=== PATIENT | male | born 1940 | race Caucasian/White ===

== ENCOUNTER 2018-03-02 08:45 | Emergency (ER) | payer MEDICARE, OTHER, SELFPAY ==
[2018-03-02 08:46] VITALS: BP 119/61; PULSE 82; RESP 12; TEMP 35.6; BMI 24.7
--- NOTE | 2018-03-02 09:03 | CT_ITS ---
STUDY: CT ABDOMEN AND PELVIS WITH CONTRAST REASON FOR EXAM: Male, 77 years old. Left lower quadrant pain. Prostatic enlargement. RADIATION DOSAGE (If Supplied By Facility): CTDIvol = ( 18.46 ) mGy, DLP = ( 879.67 ) mGycm TECHNIQUE: Transaxial images were obtained from the dome of the diaphragm to the symphysis pubis without oral contrast. 100 ml of Isovue 300 contrast was administered. Sagittal and coronal images were reconstructed. Individualized dose optimization techniques were used for this CT. COMPARISON: None. FINDINGS: Breast tiny bilateral pleural effusions with bibasilar atelectasis. Coronary artery calcification. Normal liver. Normal gallbladder and extrahepatic biliary system. Normal spleen. Normal pancreas. Normal bilateral adrenal glands. Normal right kidney. Normal left kidney. There is a small hiatal hernia. Normal small intestine. There is diverticulosis, with thickening of the colon wall, and pericolonic inflammation changes consistent with acute diverticulitis. The patient is status post appendectomy. There is diffuse atherosclerotic calcification of the abdominal aorta, without a demonstrated aneurysm. Normal inferior vena cava. Normal retroperitoneum. Normal urinary bladder. There is enlargement of the prostate gland. It measures 4.5 cm x 5.8 cm. This causes indentation of the bladder base. There is a small umbilical hernia containing fat. Small bilateral inguinal hernias containing fat. There are mild degenerative changes of the visualized lumbar spine. CT/Abdomen/Pelvis W IV Cont ONLY IMPRESSION: Findings in keeping with noncomplicated acute sigmoid diverticulitis. Tiny bilateral pleural effusions with bibasilar atelectasis. Electronically Signed: Bam Dumont MD at 10:46 EST Tel [phone], Service support ,
--- NOTE | 2018-03-02 09:06 | ED.DCSUM_ITS ---
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 Patient states that yesterday evening he started having left lower quadrant abdominal pain. He denies any nausea, vomiting or diarrhea. No constipation. No melena. No fever or chills. No trauma. No back pain. No hematuria nor dysuria. States he is urinating normally. He denies ever having pain like this before. Physical Examination: Well-appearing older male. Vital signs are stable and afebrile. He is in no distress. HEENT exam unremarkable. Neck nontender. Lungs clear to auscultation bilaterally. Heart regular rhythm no murmur. Abdomen is soft. Nondistended. Normal bowel sounds. No signs of obstruction. With the right upper and right lower quadrants are completely nontender. He does have reproducible tenderness in the left lower quadrant. No hernias or masses are appreciated. No pulsatile mass. No peritoneal signs. Patient is moving all 4 extremities. Neurovascular intact. Back nontender. Neurologically is awake and alert with no focal motor deficits. Test Results: CBC normal white count of 6. Hemoglobin 13. Electrolytes unremarkable anion gap is 7 normal creatinine. UA negative. No signs of infection. CT abdomen pelvis with IV contrast only shows left sigmoid diverticulitis. No abscess. No perforation. Read by the radiologist. Reviewed by me. Emergency Department Course and Treatment: Patient will be treated with IV morphine and Zofran. 1 L normal saline. Repeat exam patient is doing well. I discussed all test results of both he and his . He will be given his first dose of Augmentin here in the ER. Treatment Plan: Augmentin 875 twice daily for 10 days. [place] for pain 14 no refill. Follow-up with his primary care physician. Return if worse. Disposition: Discharge Impression: Acute left lower quadrant abdominal pain secondary to uncomplicated sigmoid diverticulitis This note was generated with [employer] dictation software. It may contain incorrect words, spelling, and punctuation that were not noted in review of the chart prior to signing ED Disposition - Plan for ED Patient: Chief Complaint: Abd Pain Referrals: Stephen Quesada III, MD [Primary Care Provider] -
[2018-03-02 09:20] LABS: Absolute Lymphocyte Count 1.95 X10^3/ul (0.83-4.51); Absolute Neutrophil Count 3.9 X10^3/uL (2.0-7.7); Basophil# 0.01 X10^3/uL; Basophil% 0.2 % (0-1); Eosinophil# 0.12 X10^3/uL; Eosinophils% 1.9 % (0-5); Hematocrit 39.1 % (40-54); Lymphocyte # 1.95 X10^3/ul (4.0); Lymphocyte % 30.4 % (19-41); Mean Corp Hgb Conc 33.2 g/gl (32-36); Mean Corpuscular Hgb 28.1 pg (27.0-32.0); Mean Corpuscular Volume 84.4 fL (80-94); Mean Platelet Vol. 9.1 fl (6.2-12.0); Monocyte# 0.47 X10^3/uL; Monocyte% 7.3 % (0-10); Neutrophil # 3.85 X10^3/uL (2.7-7.7); Platelet Count 186 K/mm3 (150-450); RBC Distribution Width CV 13.1 % (11.6-14.6); RBC Distribution Width SD 40.1 fl (35.1-43.9); Red Blood Count 4.63 M/mm3 (4.6-6.2); White Blood Count 6.4 K/mm3 (4.4-11.0)
[2018-03-02 09:21] LABS: POSITIVE COUNT NO; POSITIVE DIFFERENTIAL NO; POSITIVE MORPHOLOGY NO
[2018-03-02] MEDS: Ondansetron 4 MG/2 ML Vial IV (09:21)
[2018-03-02] MEDS: 0.9% Normal Saline 1,000 ML 1000 ML IV (09:21)
[2018-03-02] MEDS: Morphine 4 MG/ML Syringe IV (09:21)
[2018-03-02 09:32] LABS: Anion Gap 7 (5-15); BUN 15 mg/dL (7-18); BUN/Creat Ratio 14.9 RATIO (10-20); Calcium,Total 8.4 mg/dL (8.5-10.1); Chloride 108 mmol/L (98-107); Creatinine, Serum 1.01 mg/dL (0.70-1.30); EST Glomerular Filtration Rate 76 mL/min (>60); Est Glom Filt Rate - Afr Amer 92 mL/min (>60); Estimated Creatinine Clearance 58.17 ml/min; Glucose 96 mg/dL (74-106); Potassium 3.4 mmol/L (3.5-5.1); Sodium Level 143 mmol/L (136-145)
[2018-03-02 10:17] LABS: Bacteria 0 SEEN /hpf (None Seen); Squamous Epithelial Cells - UA 0 SEEN /hpf (0-5)
[2018-03-02 10:21] LABS: Color, Urine Yellow (Yellow); Glucose, Dipstick Normal (Normal); Ketone-Dipstick 5 mg/dl (Negative); Leukocyte Esterase-Dipstick 25 /ul (Negative); Nitrite-Dipstick Negative (Negative); Occult Blood-Urine 10 /ul (Negative); Protein-Dipstick 30 mg/dl (Negative); Specific Gravity, Urine 1.015 (1.002-1.030); Urine Clarity Sl. Cloudy (Clear); Urine Urobilinogen 8 mg/dl (Normal)
[2018-03-02 10:24] LABS: Urine Bilirubin Dipstick 1 mg/dL (Negative)
[2018-03-02 10:27] LABS: Mucous, Urine 2+ /hpf (<or=2+); Red Blood Cells-Urine 0-5 SEEN /hpf (0-5); White Blood Cells 0-5 SEEN /hpf (0-5)
[2018-03-02 11:03] VITALS: RESP 18
--- NOTE | 2018-03-02 11:12 | ED.DEP ---
ED Disposition - Plan for ED Patient: Disposition: Home or Assisted Living Chief Complaint: Abd Pain Instructions: ED Diverticulitis Prescriptions: Hydrocodone Bitart/Apap 5-325 [[place] 5MG-325MG] 1 tab PO Q6H PRN PRN 3 Days #14 tab PRN Reason: Pain Amox/Clavulanate Tablet [Augmentin Tablet] 875 mg PO Q12H #20 tab Referrals: Stephen Quesada III, MD [Primary Care Provider] - 1 Week Additional Instructions: Plenty of fluids and rest. Augmentin 1 pill twice a day for 10 days. [place] for pain as needed. Call and follow-up with your doctor to ensure you are improving. Sometimes in ED extend antibiotic treatment for more than 10 days.
--- NOTE | 2018-03-02 11:16 | DCINST.ED_ITS ---
ED Disposition - Plan for ED Patient: Disposition: Home or Assisted Living Chief Complaint: Abd Pain Instructions: ED Diverticulitis Prescriptions: Hydrocodone Bitart/Apap 5-325 [[place] 5MG-325MG] 1 tab PO Q6H PRN PRN 3 Days #14 tab PRN Reason: Pain Amox/Clavulanate Tablet [Augmentin Tablet] 875 mg PO Q12H #20 tab Referrals: Stephen Quesada III, MD [Primary Care Provider] - 1 Week Additional Instructions: Plenty of fluids and rest. Augmentin 1 pill twice a day for 10 days. [place] for pain as needed. Call and follow-up with your doctor to ensure you are improving. Sometimes in ED extend antibiotic treatment for more than 10 days.
[2018-03-02] MEDS: Amox/Clavulanate 875 MG Tablet PO (11:53)
--- OUTSIDE RECORDS SUMMARY | 2018-06-03 21:38 | XMS RPT_ITS ---
:1940 Author Organization OHIP Care Team Providers Name Role Phone Jerald Bolden III Primary Care Unavailable Daniel Diego Attending Unavailable RODERICK COBOS Admitting Unavailable RODERICK COBOS Attending Unavailable LOUISE KNAPP (PT) Attending Unavailable ALEXIS DELAROSA) Referring Unavailable LOUISE KNAPP (PT) Attending Unavailable ALEXIS DELAROSA () Referring Unavailable YOCASTA HENSON (PA) Referring Unavailable RODERICK COBOS Attending Unavailable LOUISE KNAPP (PT) Attending Unavailable ALEXIS DELAROSA) Referring Unavailable BECKY ROBLERO (DAMIÁN-C) Attending Unavailable BECKY ROBLERO (PA-C) Referring Unavailable BECKY ROBLERO (PA-C) Referring Unavailable RODERICK COBOS Attending Unavailable BECKY ROBLERO (DAMIÁN-C) Attending Unavailable ALEXIS DELAROSA) Referring Unavailable ALEXIS DELAROSA) Referring Unavailable BECKY ROBLERO (PA-C) Referring Unavailable BECKY ROBLERO (DAMIÁN-C) Referring Unavailable ALEXIS DELAROSA) Referring Unavailable ALEXIS DELAROSA) Admitting Unavailable ALEXIS DELAROSA) Attending Unavailable BECKY ROBLERO (PA-C) Attending Unavailable BECKY ROBLERO (PA-C) Referring Unavailable MARCOS ZAVALA (DIAGRAMMER) Attending Unavailable ALEXIS DELAROSA) Attending Unavailable ALEXIS DELAROSA) Referring Unavailable JERALD BOLDEN III Referring Unavailable SERGIO, RODERICK E Referring Unavailable SERGIO, RODERICK E Attending Unavailable SERGIO, RODERICK E Referring Unavailable SERGIO, RODERICK E Referring Unavailable SERGIO, RODERICK E Referring Unavailable MARCOS ZAVALA (DIAGRAMMER) Attending Unavailable RODERICK HILL Attending Unavailable RODERICK HILL Referring Unavailable PROBLEMS PROBLEMS DATE TYPE CONDITION / CODE ATTENDING STATUS SOURCE 03/02/2018 Unknown K57.32 - Diego Daniel Active [place] Diverticulitis of [facility] without perforation Repository or abscess without bleeding / K57.32(ICD-10) 02/03/2018 Active Other hyperlipidemia NA Active [place] / E78.49(ICD-10) Clinic Main [place] Repository 12/13/2017 Active Encounter for NA Active [place] immunization / Clinic Main Z23(ICD-10) [place] Repository 11/19/2017 Active 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 / Z95.2(ICD-10) [place] Repository 07/16/2017 Active Lumbago with ISAURA, Active [place] sciatica, right side ALEXIS DEL VAL[place]) Clinic Main / M54.41(ICD-10) [place] Repository 07/16/2017 Active Other chronic pain / ISAURA, Active [place] G89.29(ICD-10) ALEXIS [place]) Clinic Main [place] Repository 07/16/2017 Active Radiculopathy, site ISAURA, Active [place] unspecified / ALEXIS DEL [place]LE) Clinic Main M54.10(ICD-10) [place] Repository 08/05/2017 Active Encounter for other NA Active [place] preprocedural Clinic Main examination / [place] Z01.818(ICD-10) Repository 07/03/2017 Active Postlaminectomy RODERICK COBOS Active [place] syndrome, not Clinic Other elsewhere classified [place] / M96.1(ICD-10) Repository 06/20/2017 Active Other specified NA Active [place] postprocedural states Clinic Main / Z98.890(ICD-10) [place] Repository 06/05/2017 Active Pain in right hip / NA Active [place] M25.551(ICD-10) Clinic Main [place] Repository 05/26/2017 Active Unknown / LOUISE KNAPP Active [place] UNK(Unknown) (PT) Clinic Main [place] Repository PROCEDURES PROCEDURES No Procedure Records FoundRESULTS RESULTS PROGRESS Observed: 03/12/2018 Status: COMPLETED Source: [place] 9:22 AM [facility] REPOSITORY HNO ID: [id number] Author: Marcos Toth (Elvis) Lucas Service: (none) Author Type: Nurse Practitioner Type: Progress Notes Filed: 03/12/2018 3:06 PM Note Text: Chief Complaint Patient presents with: ED Follow-up: was seen in [facility] for abdominal pain HPI Shyam Hernández is a 77 year old male who presents here today for Above Complaints. Seen, treated for confirmed Diverticulitis. Seen at [facility] ED on 03/02/18, notes and CT scan and labs reviewed. Confirmed left sigmoid diverticulitis. CBC was normal with WBC of 6, hgb-13, Electrolytes unremarkable. Normal Creatinine. UA negative. No abscess, no perforation. He was treated with 10 day course of Augmenting 875 mg. His recovery was impeded by gastroenteritis with vomiting and diarrhea starting on 03/08/18, 6 days of treatment with Augmentin. He reports he continued to try to take the antibiotic but he admits few doses did not stay down. He has been staying hydrated with clear liquids, G2, Gingerale, water and Mt. Dew. He has started advancing his diet to bland soft and appetite is returning. He was also given House for pain in the ED, few doses left. Reports pain significantly improved, (he walked to this OV), denies fever, denies blood in stool, no further vomiting for past 2-3 days and BM's normalizing. Anxiety, situational stress, insomnia. In the past he has used rare Alprazolam when unable to sleep. He notes dog now has pancreatitis, just placed his mother in a retirement and so gave him one of her Lorazepam tablets to help him sleep few nights ago which he noted worked better than Alprazolam. Would like own rx for Lorazepam on rare occasion he is unable to settle down and sleep. Past medical history, appointments, medications, allergies reviewed. Previous Medical History PAST MEDICAL HISTORY Diagnosis Date - Acute gastritis - Allergic rhinitis due to other allergen - Aortic valve disorders - Degenerative arthritis of cervical spine 07/14/2013 - Diverticulosis of colon (without mention of hemorrhage) - Esophageal reflux - Internal hemorrhoids without mention of complication - Lumbago - Mental disorder - Other anxiety states - Snoring - Trigeminal neuralgia Previous Surgical History PAST SURGICAL HISTORY Procedure Laterality Date - APPENDECTOMY - COLONOSCOP W/ OR W/O [facility] SPEC 09/27/2005 Colonoscopy - COLONOSCOP W/ OR W/O [facility] SPEC 11/10/15 Colonoscopy - ECHO - EGD W/O OR W/BRUSH/WASH 07/05/2002 EGD - HEART SURGERY HX 2005 Aortic Cow valve replacement - PAST SURGICAL HISTORY OF 1994 Left parotid gland tumor- benign - PAST SURGICAL HISTORY OF right big toe x 2 - PAST SURGICAL HISTORY OF ORIF right ankle - REPAIR ING HERNIA,5+Y/O,REDUCIBL Hernia repair, inguinal - SIGMOIDOSCOPY FLEX DIAG 03/04/2000 Sigmoidoscopy Family History FAMILY HISTORY Problem Relation Age of Onset - COPD Father - Lipids Mother Patient Allergies ALLERGIES Allergen Reactions - Codeine Mental Status Change - Sulfa (Sulfonamide * Hives Current Medications Current Outpatient Prescriptions on File Prior to Visit: acetaminophen (TYLENOL) 325 mg tablet Take 650 mg by mouth every 6 hours as needed. ASPIRIN 81MG TABLET Take one (1) tablet daily . atorvastatin (LIPITOR) 20 mg tablet Take 1 tablet by mouth once daily. doxazosin (CARDURA) 4 mg tablet Take 1 tablet by mouth once daily. escitalopram oxalate (LEXAPRO) 20 mg tablet TAKE 1 TABLET BY MOUTH EVERY DAY finasteride (PROSCAR) 5 mg tablet Take 1 tablet by mouth once daily. loratadine (CLARITIN) 10 mg tablet Take 1 tablet by mouth once daily. niacin ER (NIASPAN) 500 mg tablet TAKE 1 TABLET BY MOUTH ONE TIME DAILY omeprazole (PRILOSEC) 20 mg capsule TAKE 1 CAPSULE BY MOUTH EVERY DAY pregabalin (LYRICA) 100 mg capsule One capsule by mouth twice a day (Patient not taking: Reported on 09/18/2017 ) No current facility-administered medications on file prior to visit. Social History Social History Marital status: Spouse name: Years of education: Number of children: 2 Occupational History Occupation Employer Comment RETIRED [employer] Social History Main Topics Smoking status: Former Smoker Packs/day: 0.00 Years: 0.00 Quit date: 06/17/1984 Smokeless tobacco: Never Used Comment: quit pipe 1984 Alcohol use: Yes Comment: occassionally Drug use: No Review of Symptoms REVIEW OF SYSTEMS PAIN ASSESSMENT: Negative for pain, history of chronic pain, or current treatment for a chronic pain condition. GENERAL: No weight loss, malaise or fevers RESPIRATORY: Negative for cough, hemoptysis, wheezing, COPD, dyspnea or shortness of breath CARDIOVASCULAR: Negative for chest pain, leg swelling, hypertension, CHF or palpitations GI: No nausea, vomiting, or diarrhea, No heartburn or reflux symptoms and See HPI : No history of dysuria, frequency or incontinence PSYCH: See HPI EXAM: BP 122/62 (BP Site: Right Arm, BP Position: Sitting, BP Cuff Size: Regular Adult) Pulse (!) 56 Temp 36.6 ?C (97.8 ?F) (Tympanic) Resp 18 Wt 69.9 kg (154 lb) BMI 24.12 kg/m? General Appearance: Well appearing, alert, in no acute distress, well-hydrated, well nourished.. Skin: Skin color, texture, turgor normal, no suspicious rashes or lesions. Oropharynx: Lips, mucosa, and tongue normal, teeth and gums normal, oropharynx normal. Neck: Supple, no adenopathy; thyroid symmetric, normal size, no bruits. Lungs: lungs clear to auscultation. No wheezing, rhonchi, rales. Heart: RRR without murmur, gallop, or rubs. No ectopy. Abdomen: Normal abdominal exam, Abdomen soft, Bowel sounds normal. No masses, organomegaly, Negative CVA tenderness, Positive findings: tenderness mild LLQ. No guarding or rebound tenderness. Health Maintenance List COLORECTAL CANCER SCREENING,SEE MODIFIER due on 11/09/2018 DIABETES SCREEN due on 08/05/2020 DTAP,TDAP,TD(2 - Td) due on 04/02/2021 LIPID SCREEN due on 02/03/2023 ADULT PREVNAR-13 Completed INFLUENZA Completed PNEUMOVAX AGE 65 AND OVER WITH 5YR LOOKBACK Completed Data reviewed ER reports and labs. ASSESSMENT/PLAN: 1. Diverticulitis - ICD9: 562.11, ICD10: K57.92 (primary diagnosis) - due to lapse in medication due to GI virus, we will extend the antibiotic another few days. Given instructions to complete full course of antibiotics. - discussed with patient potential for recurrence. Red flags and action plan reviewed. To f/u if sx worsen. The patient indicates understanding of these issues and agrees with the plan. - AMOXICILLIN 875 MG-POTASSIUM CLAVULANATE 125 MG TABLET 2. Situational stress - ICD9: V62.89, ICD10: F43.9 PDMP website checked and validated. All prescriptions have been APPROPRIATELY filled. No suspicious activity was identified. 03/12/2018 by Marcos Zavala, MSN [facility]ROUGE MILLER - LORAZEPAM 0.5 MG TABLET 3. Chronic insomnia - ICD9: 780.52, ICD10: F51.04 - As above. - LORAZEPAM 0.5 MG TABLET Marcos Zavala MSN [facility].ROUGE MILLER CNOV Observed: 03/12/2018 Status: COMPLETED Source: [place] 9:00 AM [facility] REPOSITORY Office Visit (FAMPWS) SHYAM HERNÁNDEZ ([id number]) 1940 M NFR Date Time Provider Department 03/12/18 9:00 AM MARCOS ZAVALA (DIAGRAMMER) FAMPWS During your visit today, we recorded the following information about you: Temperature Pulse Respiration Blood pressure 97.8 degrees 56/minute 18/minute 122/62 Weight 69.9 kg ENEDINA Nascimento [facility]ROU[facility] MILLER 03/12/2018 3:06 PM Signed Chief Complaint Patient presents with: ED Follow-up: was seen in [facility] for abdominal pain HPI Shyam Hernández is a 77 year old male who presents here today for Above Complaints. Seen, treated for confirmed Diverticulitis. Seen at [facility] ED on 03/02/18, notes and CT scan and labs reviewed. Confirmed left sigmoid diverticulitis. CBC was normal with WBC of 6, hgb-13, Electrolytes unremarkable. Normal Creatinine. UA negative. No abscess, no perforation. He was treated with 10 day course of Augmenting 875 mg. His recovery was impeded by gastroenteritis with vomiting and diarrhea starting on 03/08/18, 6 days of treatment with Augmentin. He reports he continued to try to take the antibiotic but he admits few doses did not stay down. He has been staying hydrated with clear liquids, G2, Gingerale, water and Mt. Dew. He has started advancing his diet to bland soft and appetite is returning. He was also given House for pain in the ED, few doses left. Reports pain significantly improved, (he walked to this OV), denies fever, denies blood in stool, no further vomiting for past 2-3 days and BM's normalizing. Anxiety, situational stress, insomnia. In the past he has used rare Alprazolam when unable to sleep. He notes dog now has pancreatitis, just placed his mother in a retirement and so gave him one of her Lorazepam tablets to help him sleep few nights ago which he noted worked better than Alprazolam. Would like own rx for Lorazepam on rare occasion he is unable to settle down and sleep. Past medical history, appointments, medications, allergies reviewed. Previous Medical History PAST MEDICAL HISTORY Diagnosis Date - Acute gastritis - Allergic rhinitis due to other allergen - Aortic valve disorders - Degenerative arthritis of cervical spine 07/14/2013 - Diverticulosis of colon (without mention of hemorrhage) - Esophageal reflux - Internal hemorrhoids without mention of complication - Lumbago - Mental disorder - Other anxiety states - Snoring - Trigeminal neuralgia Previous Surgical History PAST SURGICAL HISTORY Procedure Laterality Date - APPENDECTOMY - COLONOSCOP W/ OR W/O [facility] SPEC 09/27/2005 Colonoscopy - COLONOSCOP W/ OR W/O [facility] SPEC 11/10/15 Colonoscopy - ECHO - EGD W/O OR W/BRUSH/WASH 07/05/2002 EGD - HEART SURGERY HX 2004 Aortic Cow valve replacement - PAST SURGICAL HISTORY OF 1994 Left parotid gland tumor- benign - PAST SURGICAL HISTORY OF right big toe x 2 - PAST SURGICAL HISTORY OF ORIF right ankle - REPAIR ING HERNIA,5+Y/O,REDUCIBL Hernia repair, inguinal - SIGMOIDOSCOPY FLEX DIAG 03/04/2000 Sigmoidoscopy Family History FAMILY HISTORY Problem Relation Age of Onset - COPD Father - Lipids Mother Patient Allergies ALLERGIES Allergen Reactions - Codeine Mental Status Change - Sulfa (Sulfonamide * Hives Current Medications Current Outpatient Prescriptions on File Prior to Visit: acetaminophen (TYLENOL) 325 mg tablet Take 650 mg by mouth every 6 hours as needed. ASPIRIN 81MG TABLET Take one (1) tablet daily . atorvastatin (LIPITOR) 20 mg tablet Take 1 tablet by mouth once daily. doxazosin (CARDURA) 4 mg tablet Take 1 tablet by mouth once daily. escitalopram oxalate (LEXAPRO) 20 mg tablet TAKE 1 TABLET BY MOUTH EVERY DAY finasteride (PROSCAR) 5 mg tablet Take 1 tablet by mouth once daily. loratadine (CLARITIN) 10 mg tablet Take 1 tablet by mouth once daily. niacin ER (NIASPAN) 500 mg tablet TAKE 1 TABLET BY MOUTH ONE TIME DAILY omeprazole (PRILOSEC) 20 mg capsule TAKE 1 CAPSULE BY MOUTH EVERY DAY pregabalin (LYRICA) 100 mg capsule One capsule by mouth twice a day (Patient not taking: Reported on 09/18/2017 ) No current facility-administered medications on file prior to visit. Social History Social History Marital status: Spouse name: Years of education: Number of children: 2 Occupational History Occupation Employer Comment RETIRED [employer] Social History Main Topics Smoking status: Former Smoker Packs/day: 0.00 Years: 0.00 Quit date: 06/17/1984 Smokeless tobacco: Never Used Comment: quit pipe 1984 Alcohol use: Yes Comment: occassionally Drug use: No Review of Symptoms REVIEW OF SYSTEMS PAIN ASSESSMENT: Negative for pain, history of chronic pain, or current treatment for a chronic pain condition. GENERAL: No weight loss, malaise or fevers RESPIRATORY: Negative for cough, hemoptysis, wheezing, COPD, dyspnea or shortness of breath CARDIOVASCULAR: Negative for chest pain, leg swelling, hypertension, CHF or palpitations GI: No nausea, vomiting, or diarrhea, No heartburn or reflux symptoms and See HPI : No history of dysuria, frequency or incontinence PSYCH: See HPI EXAM: BP 122/62 (BP Site: Right Arm, BP Position: Sitting, BP Cuff Size: Regular Adult) Pulse (!) 56 Temp 36.6 ?C (97.8 ?F) (Tympanic) Resp 18 Wt 69.9 kg (154 lb) BMI 24.12 kg/m? General Appearance: Well appearing, alert, in no acute distress, well-hydrated, well nourished.. Skin: Skin color, texture, turgor normal, no suspicious rashes or lesions. Oropharynx: Lips, mucosa, and tongue normal, teeth and gums normal, oropharynx normal. Neck: Supple, no adenopathy; thyroid symmetric, normal size, no bruits. Lungs: lungs clear to auscultation. No wheezing, rhonchi, rales. Heart: RRR without murmur, gallop, or rubs. No ectopy. Abdomen: Normal abdominal exam, Abdomen soft, Bowel sounds normal. No masses, organomegaly, Negative CVA tenderness, Positive findings: tenderness mild LLQ. No guarding or rebound tenderness. Health Maintenance List COLORECTAL CANCER SCREENING,SEE MODIFIER due on 11/09/2018 DIABETES SCREEN due on 08/05/2020 DTAP,TDAP,TD(2 - Td) due on 04/02/2021 LIPID SCREEN due on 02/03/2023 ADULT PREVNAR-13 Completed INFLUENZA Completed PNEUMOVAX AGE 65 AND OVER WITH 5YR LOOKBACK Completed Data reviewed ER reports and labs. ASSESSMENT/PLAN: 1. Diverticulitis - ICD9: 562.11, ICD10: K57.92 (primary diagnosis) - due to lapse in medication due to GI virus, we will extend the antibiotic another few days. Given instructions to complete full course of antibiotics. - discussed with patient potential for recurrence. Red flags and action plan reviewed. To f/u if sx worsen. The patient indicates understanding of these issues and agrees with the plan. - AMOXICILLIN 875 MG-POTASSIUM CLAVULANATE 125 MG TABLET 2. Situational stress - ICD9: V62.89, ICD10: F43.9 PDMP website checked and validated. All prescriptions have been APPROPRIATELY filled. No suspicious activity was identified. 03/12/2018 by Marcos Zavala, MSN [facility]ER - LORAZEPAM 0.5 MG TABLET 3. Chronic insomnia - ICD9: 780.52, ICD10: F51.04 - As above. - LORAZEPAM 0.5 MG TABLET Marcos Zavala, MSN [facility] MILLER Referring Provider: SELF [[id number]] Allergies As of Date: 03/12/2018 Noted Allergy Reaction CODEINE 09/14/2003 1 - Mental Status Change SULFA (SULFONAMIDE ANTIBIOTICS) 09/14/2003 4 - Hives Date Reviewed: 03/12/2018 Reviewed by: Mikala Constantino LPN - Fully Assessed Reason for Visit: ED Follow-up [821] Cmt: was seen in [facility] for abdominal pain Primary Visit Diagnosis:Diverticulitis [K57.92] Other Visit Diagnoses:Situational stress [F43.9] Chronic insomnia [F51.04] Order(s):amoxicillin-clavulanic acid (AUGMENTIN) 875-125 mg per tabletTake 1 tablet by mouth twice daily for 10 days.Disp: 8 tabletRfl: 0 LORazepam (ATIVAN) 0.5 mg tabTake 1 tablet by mouth at bedtime as needed for up to 30 days.Disp: 30 tabletRfl: 0 Prescriptions as of 03/12/2018 Sig: ACETAMINOPHEN 325 MG TABLET Take 650 mg by mouth every 6 * ASPIRIN 81 MG TABLET Take one (1) tablet daily . ATORVASTATIN 20 MG TABLET Take 1 tablet by mouth once d* DOXAZOSIN 4 MG TABLET Take 1 tablet by mouth once d* ESCITALOPRAM 20 MG TABLET TAKE 1 TABLET BY MOUTH EVERY * FINASTERIDE 5 MG TABLET Take 1 tablet by mouth once d* HYDROCODONE 5 MG-ACETAMINOPHE* Take 1 tablet by mouth every * LORATADINE 10 MG TABLET Take 1 tablet by mouth once d* NIACIN ER 500 MG TABLET,EXTEN* TAKE 1 TABLET BY MOUTH ONE TI* OMEPRAZOLE 20 MG CAPSULE,MELIA* TAKE 1 CAPSULE BY MOUTH EVERY* AMOXICILLIN 875 MG-POTASSIUM * Take 1 tablet by mouth twice * LORAZEPAM 0.5 MG TABLET Take 1 tablet by mouth at bed* PREGABALIN 100 MG CAPSULE One capsule by mouth twice a * Patient not taking: Reported on 09/18/2017 Problem List As Of Date 03/12/2018 Noted Resolved ESOPHAGEAL REFLUX [K21.9] Acute gastritis [535.0] 01/25/2016 Trigeminal neuralgia [G50.0] 01/25/2016 Seasonal allergic rhinitis due to pollen [J30.1] LUMBAGO [M54.5] Aortic valve disorder [I35.9] Hyperlipidemia [E78.5] INVALID FOR* ELEVATED PROSTATE SPECIFIC ANTIGEN [R97.20] INVALID FOR* BLADDER NECK OBSTRUCTION [N32.0] INVALID FOR* BPH with obstruction/lower urinary tract sympto*INVALID FOR* 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.21]INVALID FOR* Microscopic hematuria [R31.29] INVALID FOR* Smoking history [Z87.891] INVALID FOR* 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] INVALID FOR* Dehydration [E86.0] INVALID FOR* Nocturia [R35.1] INVALID FOR* Urinary frequency [R35.0] INVALID FOR* Elevated PSA [R97.20] INVALID FOR* 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.8*INVALID FOR* Cervical spondylosis without myelopathy [M47.81*INVALID FOR* Rotator cuff (capsule) sprain [S43.429A] INVALID FOR* BPH (benign prostatic hyperplasia) [N40.0] INVALID FOR* Aortic valve replaced [Z95.2] INVALID FOR* 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 Lumbar degenerative disc disease [M51.36] INVALID FOR* More... Radicular pain of lower extremity [M54.10] INVALID FOR* More... Chronic insomnia [F51.04] INVALID FOR* Connective tissue and disc stenosis of interver*INVALID FOR* Right leg pain [M79.604] INVALID FOR* Lumbar post-laminectomy syndrome [M96.1] INVALID FOR* More... Prescriptions ordered this encounter Disp Refills Start End AMOXICILLIN 875 MG-POTASSIUM CLAVULA* 8 ta* 0 03/12/2018 03/22/2018 Route: ORAL Sig: Take 1 tablet by mouth twice daily for 10 days. LORAZEPAM 0.5 MG TABLET 30 t* 0 03/12/2018 04/11/2018 Class: Print RX Route: ORAL Sig: Take 1 tablet by mouth at bedtime as needed for up to 30 days. Medications Discontinued During This Encounter amoxicillin/potassium clav (AUGMENTI* 03/12/2018 Class: Historical Med Route: ORAL Sig: Take 875 mg by mouth every 12 hours. Disc: Course of therapy completed Encounter Status:Closed by MARCOS ZAVALA ROUGE MILLER on 03/12/18 DISCHARGE INSTRUCTION Observed: 03/02/2018 Status: F Source: [place] 4:29 PM [facility] REPOSITORY [facility] Medical Records Department [address] [place] [address] Discharge Instruction 03/02/18 1112 MR#: [id number] Acct: [id number] Name: SHYAM HERNÁNDEZ Rep #: [id number] : 1940 77 From: Daniel Diego MD PCP: Jerald Bolden III, MD Status: DEP ER ED Disposition - Plan for ED Patient: Disposition: Home or Assisted Living Chief Complaint: Abd Pain Instructions: ED Diverticulitis Prescriptions: Hydrocodone Bitart/Apap 5-325 [House 5MG-325MG] 1 tab PO Q6H PRN PRN 3 Days #14 tab PRN Reason: Pain Amox/Clavulanate Tablet [Augmentin Tablet] 875 mg PO Q12H #20 tab Referrals: Jerald Bolden III, MD [Primary Care Provider] - 1 Week Additional Instructions: Plenty of fluids and rest. Augmentin 1 pill twice a day for 10 days. House for pain as needed. Call and follow-up with your doctor to ensure you are improving. Sometimes in ED extend antibiotic treatment for more than 10 days. What to do if you have Problems For any increased pain, shortness of breath, bleeding, nausea or vomiting, chest pain, or any unexpected problems, contact your Primary Care Provider. Call [facility] ([phone]) or report to the closest Emergency Room. Call 911 if necessary. 03/02/18 2360 <Electronically signed by Daniel Diego MD> Date Daniel Diego MD Cosigner Signature (If Indicated): Date CC: Jerald Bolden III, MD EMERGENCY DEPARTMENT Observed: 03/02/2018 Status: F Source: [place] SUMMARY 4:29 PM [facility] REPOSITORY [facility] Medical Records Department [address] [place] [address] Emergency Department Summary 03/02/18 0904 MR#: [id number] Acct: [id number] Name: SHYAM HERNÁNDEZ Rep #: [id number] : 1940 77 From: Daniel Diego MD PCP: Jeradl Bolden III, MD Status: DEP ER - ER Visit Summary Date of Service: 03/02/18 Chief Complaint: Left lower quadrant abdominal pain History of Present Illness: The patient is a 77 M history of a prior appendectomy, hernia repair, back surgery and 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 Patient states that yesterday evening he started having left lower quadrant abdominal pain. He denies any nausea, vomiting or diarrhea. No constipation. No melena. No fever or chills. No trauma. No back pain. No hematuria nor dysuria. States he is urinating normally. He denies ever having pain like this before. Physical Examination: Well-appearing older male. Vital signs are stable and afebrile. He is in no distress. HEENT exam unremarkable. Neck nontender. Lungs clear to auscultation bilaterally. Heart regular rhythm no murmur. Abdomen is soft. Nondistended. Normal bowel sounds. No signs of obstruction. With the right upper and right lower quadrants are completely nontender. He does have reproducible tenderness in the left lower quadrant. No hernias or masses are appreciated. No pulsatile mass. No peritoneal signs. Patient is moving all 4 extremities. Neurovascular intact. Back nontender. Neurologically is awake and alert with no focal motor deficits. Test Results: CBC normal white count of 6. Hemoglobin 13. Electrolytes unremarkable anion gap is 7 normal creatinine. UA negative. No signs of infection. CT abdomen pelvis with IV contrast only shows left sigmoid diverticulitis. No abscess. No perforation. Read by the radiologist. Reviewed by me. Emergency Department Course and Treatment: Patient will be treated with IV morphine and Zofran. 1 L normal saline. Repeat exam patient is doing well. I discussed all test results of both he and his . He will be given his first dose of Augmentin here in the ER. Treatment Plan: Augmentin 875 twice daily for 10 days. House for pain 14 no refill. Follow-up with his primary care physician. Return if worse. Disposition: Discharge Impression: Acute left lower quadrant abdominal pain secondary to uncomplicated sigmoid diverticulitis This note was generated with [employer] dictation software. It may contain incorrect words, spelling, and punctuation that were not noted in review of the chart prior to signing ED Disposition - Plan for ED Patient: Chief Complaint: Abd Pain Referrals: Jerald Bolden III, MD [Primary Care Provider] - What to do if you have Problems For any increased pain, shortness of breath, bleeding, nausea or vomiting, chest pain, or any unexpected problems, contact your Primary Care Provider. Call [facility] ([phone]) or report to the closest Emergency Room. Call 911 if necessary. 03/02/18 4027 <Electronically signed by Daniel Diego MD> Date Daniel Diego MD Cosigner Signature (If Indicated): Date CC: Jerald Bolden III, MD URINALYSIS, COMPLETE Collected: 03/02/2018 Status: F Source: [place] 10:00 AM [facility] REPOSITORY Order Comment: Order Date: 03/02/18 How was Urine Obtained? CLEAN CATCH TYPE CODE TESTS RESULT OUT OF RANGE REFERENCE UNITS LAB L400.3000 Yellow COLOR Normal Yellow LAB L400.3050 Clear Normal CLARITY Sl. Cloudy LAB L400.3200 Normal mg/dl Normal GLUCOSE, UR Normal LAB L400.3300 Negative mg/dL High BILIRUBIN URINE 1 Result Comment: COLOR OF URINE MAY AFFECT DIPSTICK RESULTS. LAB L400.3400 Negative mg/dl High KETONE UR 5 LAB L400.3465 1.002-1.030 Normal SP.GR. DIPSTX 1.015 LAB L400.3550 5.0 - 8.0 pH Normal UR 7.0 LAB L400.3600 Negative mg/dl High PROT DIPSTX 30 LAB L400.3700 Normal mg/dl High UROBILI 8 LAB L400.3750 Negative Normal NITRITE UR Negative LAB L400.3780 Negative /ul High OCCULT 10 BLOOD-UR LAB L400.3800 Negative /ul High LEUK ESTERASE 25 LAB L400.4050 0-5 /hpf Normal WBC 0-5 SEEN LAB L400.4100 0-5 /hpf Normal RBC-UA 0-5 SEEN LAB L400.4150 0-5 /hpf Normal SQUAM EPI 0 SEEN LAB L400.4300 None Seen /hpf Normal BACTERIA 0 SEEN LAB L400.4350 <or=2+ /hpf Normal MUCUS, URINE 2+ Performed By: #### L400.0001 #### [facility] [address], [address] CBC W/DIFF, AUTOMATED Collected: 03/02/2018 Status: F Source: [place] 9:13 AM [facility] REPOSITORY TYPE CODE TESTS RESULT OUT OF RANGE REFERENCE UNITS LAB L100.1000 4.4-11.0 K/mm3 Normal WBC 6.4 LAB L100.1200 4.6-6.2 M/mm3 Normal RBC 4.63 LAB L100.1300 13.0-16.5 g/dl Normal HGB 13.0 LAB L100.1400 40-54 % Low HCT 39.1 LAB L100.1500 80-94 fL Normal MCV 84.4 LAB L100.1600 27.0-32.0 pg Normal MCH 28.1 LAB L100.1700 32-36 g/gl Normal MCHC 33.2 LAB L100.1810 11.6-14.6 % Normal RDW CV 13.1 LAB L100.1820 35.1-43.9 fl Normal RDW SD 40.1 LAB L100.1900 150-450 K/mm3 Normal PLT 186 LAB L100.2000 6.2-12.0 fl Normal MPV 9.1 LAB L100.2100 47-70 % Normal NEUT% 60.0 LAB L100.2200 19-41 % Normal LY% 30.4 LAB L100.2300 0-10 % Normal MONO% 7.3 LAB L100.2400 0-5 % Normal EO% 1.9 LAB L100.2500 0-1 % Normal BASO% 0.2 LAB L100.2550 0.0-0.9 % Normal IM GRAN % 0.200 Result Comment: IG% - Immature Granulocytes (promyelocytes, myelocytes and metamyelocytes) > 1% indicates that a LEFT SHIFT is Present. LAB L100.2620 2.0-7.7 X10 3/uL Normal Absolute Neut 3.9 LAB L100.2720 0.83-4.51 X10 3/ul Normal Absolute Lymph 1.95 Performed By: #### L100.0100 #### [facility] [place], [address] BASIC METABOLIC Collected: 03/02/2018 Status: F Source: [place] PROFILE (BMP) 9:13 AM [facility] REPOSITORY TYPE CODE TESTS RESULT OUT OF RANGE REFERENCE UNITS LAB L501.0100 74-106 mg/dL Normal GLU 96 Result Comment: Please note revised GLUCOSE reference range effective 2017. LAB L501.1000 7-18 mg/dL Normal BUN 15 LAB L501.1100 0.70-1.30 mg/dL Normal CREAT,SERUM 1.01 Result Comment: The validity of the calculated GFR AND GFRAA in patients over 70 years has not been determined. Clinical correlation is essential. LAB L501.1110 >60 mL/min Normal EST GFR 76 Result Comment: Non- GFR Calc LAB L501.1115 >60 mL/min Normal EST GFR - AA 92 Result Comment: GFR Calc LAB L501.1255 ml/min Normal Estimated CRCL 58.17 LAB L501.1300 10-20 RATIO Normal BUN/CRE 14.9 LAB L501.2200 8.5-10 mg/dL Low .1 CA 8.4 LAB L501.5300 136-14 mmol/L Normal 5 NA 143 LAB L501.5600 3.5-5. mmol/L Low 1 K 3.4 LAB L501.5900 98-107 mmol/L High CL 108 LAB L501.6100 21.0-3 mmol/L Normal 2.0 CO2 28.0 LAB L501.6200 5-15 Normal GAP 7 Performed By: #### L500.2500 #### [facility] [address] [facility] [place], [address] ABDOMEN/PELVIS W IV CONT Observed: 03/02/2018 Status: F Source: [facility] 9:05 AM [facility] REPOSITORY [facility] Imaging Services [address] [place] [id number] Abdomen/Pelvis W IV Cont ONLY MR#: [id number] Acct: [id number] Name: SHYAM HERNÁNDEZ Rep #: [id number] : 1940 M 77 From: Bam Dumont MD PCP: Jerald Bolden III, MD Status: REG ER Study: Abdomen/Pelvis W IV Cont ONLY Date of Exam: 03/02/18 Exam# [id number] Ordering Dr: Daniel Diego MD STUDY: CT ABDOMEN AND PELVIS WITH CONTRAST REASON FOR EXAM: Male, 77 years old. Left lower quadrant pain. Prostatic enlargement. RADIATION DOSAGE (If Supplied By Facility): CTDIvol = ( 18.46 ) mGy, DLP = ( 879.67 ) mGycm TECHNIQUE: Transaxial images were obtained from the dome of the diaphragm to the symphysis pubis without oral contrast. 100 ml of Isovue 300 contrast was administered. Sagittal and coronal images were reconstructed. Individualized dose optimization techniques were used for this CT. COMPARISON: None. FINDINGS: Breast tiny bilateral pleural effusions with bibasilar atelectasis. Coronary artery calcification. Normal liver. Normal gallbladder and extrahepatic biliary system. Normal spleen. Normal pancreas. Normal bilateral adrenal glands. Normal right kidney. Normal left kidney. There is a small hiatal hernia. Normal small intestine. There is diverticulosis, with thickening of the colon wall, and pericolonic inflammation changes consistent with acute diverticulitis. The patient is status post appendectomy. There is diffuse atherosclerotic calcification of the abdominal aorta, without a demonstrated aneurysm. Normal inferior vena cava. Normal retroperitoneum. Normal urinary bladder. There is enlargement of the prostate gland. It measures 4.5 cm x 5.8 cm. This causes indentation of the bladder base. There is a small umbilical hernia containing fat. Small bilateral inguinal hernias containing fat. There are mild degenerative changes of the visualized lumbar spine. CT/Abdomen/Pelvis W IV Cont ONLY IMPRESSION: Findings in keeping with noncomplicated acute sigmoid diverticulitis. Tiny bilateral pleural effusions with bibasilar atelectasis. Electronically Signed: Bam Dumont MD at 10:46 EST Tel [phone], Service support , CC: Jerald Bolden III, MD; Daniel Diego MD Cash Shortage Investigator: Signed ALT Collected: 02/03/2018 Status: F Source: [place] 10:40 AM [facility] REPOSITORY TYPE CODE TESTS RESULT OUT OF RANGE REFERENCE UNITS LAB ALT 10-54 U/L ALT 13 CK Collected: 02/03/2018 Status: F Source: [facility] 10:37 AM MAIN CAMPUS REPOSITORY TYPE CODE TESTS RESULT OUT OF RANGE REFERENCE UNITS LAB CK 51-298 U/L CK 78 Performed By: #### CK, LIPB #### [facility] [address] [place], [place] [address] LIPID PANEL, BASIC Collected: 02/03/2018 Status: F Source: [place] 10:37 AM [facility] [place] REPOSITORY TYPE CODE TESTS RESULT OUT OF REFERENCE UNITS RANGE LAB CHOL <200 mg/dL Cholesterol 163 Result Comment: <200 mg/dL, Desirable 200-239 mg/dL, Borderline high >239 mg/dL, High LAB TRIGLY <150 mg/dL Triglyceride 123 Result Comment: <150 mg/dL, Normal 150-199 mg/dL, Borderline high 200-499 mg/dL, High >499 mg/dL, Very high LAB HDL >39 mg/dL HDL-Cholesterol 47 Result Comment: 40-59 mg/dL, Acceptable >59 mg/dL, High: Negative risk factor for coronary heart disease <40 mg/dL, Low: Positive risk factor for coronary heart disease LAB LDL <100 mg/dL LDL-Cholesterol 91 Result Comment: <100 mg/dL, Optimal 100-129 mg/dL, Near optimal/above optimal 130-159 mg/dL, Borderline high 160-189 mg/dL, High >189 mg/dL, Very high Secondary prevention optimal LDL Cholesterol levels are recommended to be < 70 mg/dL LAB NONHDL <130 mg/dL Non HDL Cholesterol 116 Result Comment: <130 mg/dL, Optimal 130-159 mg/dL, Near optimal/above optimal 160-189 mg/dL, Borderline high 190-219 mg/dL, High >219 mg/dL, Very high Secondary prevention optimal non HDL Cholesterol levels are recommended to be < 100 mg/dL LAB FT hrs Fasting Time Unknown LAB VLDL <30 mg/dL VLDL Cholesterol 25 LAB TCHDL <5.10 TC:HDL Ratio 3.47 LAB LDLHDL <2.54 LDL:HDL Ratio 1.94 Result Comment: Reference: 1. National Cholesterol Education Program ATP III Guideline At-A-Glance Quick Desk Reference: National Heart, Lung, and Blood [place]. National Institutes of Health. 2001: NIH Publication No. 01-3305. 2. An International Atherosclerosis Society position paper: global recommendations for the management of dyslipidemia: executive summary, Atherosclerosis. 2014: 232(2):410-413. Performed By: #### CK, LIPB #### [facility] [address] [place] [address] CNNURSE Observed: 12/13/2017 Status: COMPLETED Source: [place] 10:50 AM [facility] REPOSITORY Nurse Visit (CORWST) SHYAM HERNÁNDEZ ([id number]) 1940 M NFR Date Time Provider Department 12/13/17 10:50 AM NURSE [facility] During your visit today, we recorded the following information about you: Anyi Freedman Ma 12/13/2017 10:51 AM Signed 76 year old male here for INACTIVATED INFLUENZA VACCINE. 1744-9448 Season Patient is identified by name and date of : Yes [] CONTRAINDICATIONS color enhanced section Age less than 6 months? No Allergy to eggs, chicken, chicken feathers, or chicken dander? No Allergy to thimerosal (a preservative) or formaldehyde, gelatin? No History of severe reaction to any vaccine component or a previous dose of influenza vaccination? No History of Guillain-Paradis Syndrome within 6 weeks after a previous influenza vaccine? No Patient is not moderately or severely ill? No Current temperature greater or equal to 100.4F? No History of Bone Marrow Transplant prior 6 months or solid organ transplant in the past 3 months ? No History of fainting after a prior injection or medical procedure? No- ? If patient has fainted in the past, the CDC recommends sitting or lying down for 15 minutes after the vaccination. [] VERIFICATION color enhanced section Was the answer Yes for any of the above contraindications? No contraindications present. Acceptable to proceed with vaccine. Patient/guardian agrees the above answers are true to the best of their knowledge? Yes Flu vaccine information sheet given? Yes See immunization activity in [facility] for details of immunizations adminstered today. Patient age: [age] year old For The 8037-0847 Flu Season 6-35 months old: Fluzone 0.25 ml - IM (Preservative Free) 3 years of age: Fluzone 0.5 ml - IM (Preservative Free) 3 years and older: Fluzone 0.5 ml- IM-(with Preservatives) 65+ years old: 2-49 years old Fluzone High-Dose 0.5 ml - IM (Preservative Free) FLUMIST- intranasal REMEMBER: If patient is less than 9 years of age and this is the first vaccine of Influenza to be received in any flu season, they should receive a second dose in one months time. Referring Provider: SELF [200] Allergies As of Date: 12/13/2017 Noted Allergy Reaction CODEINE 09/14/2003 1 - Mental Status Change SULFA (SULFONAMIDE ANTIBIOTICS) 09/14/2003 4 - Hives Date Reviewed: 11/19/2017 Reviewed by: Claudia (Shania) Adolph - Fully Assessed Reason for Visit: Imm/Inj [58] Cmt: Flu Vaccine Primary Visit Diagnosis:Need for vaccination [Z23] Order(s):INFLUENZA SEASONAL HIGH DOSE AGE 65+ [[id number]] Order #: [id number] Prescriptions as of 12/13/2017 Sig: ESCITALOPRAM 20 MG TABLET TAKE 1 TABLET BY MOUTH EVERY * OMEPRAZOLE 20 MG CAPSULE,MELIA* TAKE 1 CAPSULE BY MOUTH EVERY* PREGABALIN 100 MG CAPSULE One capsule by mouth twice a * Patient not taking: Reported on 09/18/2017 NIACIN ER 500 MG TABLET,EXTEN* TAKE 1 TABLET BY MOUTH ONE TI* ATORVASTATIN 20 MG TABLET TAKE 1 TABLET BY MOUTH EVERY * LORATADINE 10 MG TABLET Take 1 tablet by mouth once d* Patient not taking: Reported on 09/18/2017 ACETAMINOPHEN 325 MG TABLET Take 650 mg by mouth every 6 * FINASTERIDE 5 MG TABLET Take 1 tablet by mouth once d* DOXAZOSIN 4 MG TABLET Take 1 tablet by mouth once d* ASPIRIN 81 MG TABLET Take one (1) tablet daily . Problem List As Of Date 12/13/2017 Noted Resolved ESOPHAGEAL REFLUX [K21.9] Acute gastritis [535.0] 01/25/2016 Trigeminal neuralgia [G50.0] 01/25/2016 Seasonal allergic rhinitis due to pollen [J30.1] LUMBAGO [M54.5] Aortic valve disorder [I35.9] Hyperlipidemia [E78.5] INVALID FOR* ELEVATED PROSTATE SPECIFIC ANTIGEN [R97.20] INVALID FOR* BLADDER NECK OBSTRUCTION [N32.0] INVALID FOR* BPH with obstruction/lower urinary tract sympto*INVALID FOR* 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.21]INVALID FOR* Microscopic hematuria [R31.29] INVALID FOR* Smoking history [Z87.891] INVALID FOR* 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] INVALID FOR* Dehydration [E86.0] INVALID FOR* Nocturia [R35.1] INVALID FOR* Urinary frequency [R35.0] INVALID FOR* Elevated PSA [R97.20] INVALID FOR* 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.8*INVALID FOR* Cervical spondylosis without myelopathy [M47.81*INVALID FOR* Rotator cuff (capsule) sprain [S43.429A] INVALID FOR* BPH (benign prostatic hyperplasia) [N40.0] INVALID FOR* Aortic valve replaced [Z95.2] INVALID FOR* 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 Lumbar degenerative disc disease [M51.36] INVALID FOR* More... Radicular pain of lower extremity [M54.10] INVALID FOR* More... Chronic insomnia [F51.04] INVALID FOR* Connective tissue and disc stenosis of interver*INVALID FOR* Right leg pain [M79.604] INVALID FOR* Lumbar post-laminectomy syndrome [M96.1] INVALID FOR* More... Encounter Status:Closed by ANYI FREEDMAN MA on 12/13/17 PROGRESS Observed: 12/09/2017 Status: COMPLETED Source: [place] 8:24 AM [facility] [place] REPOSITORY HNO ID: [id number] Author: Anyi Freedman Ma Service: (none) Author Type: (none) Type: Progress Notes Filed: 12/13/2017 10:51 AM Note Text: 76 year old male here for INACTIVATED INFLUENZA VACCINE. 3139-0821 Season Patient is identified by name and date of : Yes [] CONTRAINDICATIONS color enhanced section Age less than 6 months? No Allergy to eggs, chicken, chicken feathers, or chicken dander? No Allergy to thimerosal (a preservative) or formaldehyde, gelatin? No History of severe reaction to any vaccine component or a previous dose of influenza vaccination? No History of Guillain-Paradis Syndrome within 6 weeks after a previous influenza vaccine? No Patient is not moderately or severely ill? No Current temperature greater or equal to 100.4F? No History of Bone Marrow Transplant prior 6 months or solid organ transplant in the past 3 months ? No History of fainting after a prior injection or medical procedure? No- ? If patient has fainted in the past, the CDC recommends sitting or lying down for 15 minutes after the vaccination. [] VERIFICATION color enhanced section Was the answer Yes for any of the above contraindications? No contraindications present. Acceptable to proceed with vaccine. Patient/guardian agrees the above answers are true to the best of their knowledge? Yes Flu vaccine information sheet given? Yes [facility] of immunizations adminstered today. Patient age: [age] year old For The 5437-3049 Flu Season 6-35 months old: Fluzone 0.25 ml - IM (Preservative Free) 3 years of age: Fluzone 0.5 ml - IM (Preservative Free) 3 years and older: Fluzone 0.5 ml- IM-(with Preservatives) 65+ years old: 2-49 years old Fluzone High-Dose 0.5 ml - IM (Preservative Free) FLUMIST- intranasal REMEMBER: If patient is less than 9 years of age and this is the first vaccine of Influenza to be received in any flu season, they should receive a second dose in one months time. CNNURSE Observed: 11/19/2017 Status: COMPLETED Source: [place] 3:45 PM [facility] REPOSITORY Nurse Visit (CAWSTR) SHYAM HERNÁNDEZ ([id number]) 1940 M NFR Date Time Provider Department 11/19/17 3:45 PM [facility] During your visit today, we recorded the following information about you: Juan Azar RN 11/21/2017 4:34 PM Signed Ekg completed per order. Pt tolerated procedure without distress. Juan Azar RN Referring Provider: RODERICK HILL [[id number]] Allergies As of Date: 11/19/2017 Noted Allergy Reaction CODEINE 09/14/2003 1 - Mental Status Change SULFA (SULFONAMIDE ANTIBIOTICS) 09/14/2003 4 - Hives Date Reviewed: 11/19/2017 Reviewed by: Claudia Farfan - Fully Assessed Reason for Visit: Nurse Visit [792] Visit Diagnosis:S/P AVR [Z95.2] Order(s):ECG COMPLETE W INTERPRETATION [ECG01] Order #: [id number] Prescriptions as of 11/19/2017 Sig: ESCITALOPRAM 20 MG TABLET TAKE 1 TABLET BY MOUTH EVERY * OMEPRAZOLE 20 MG CAPSULE,MELIA* TAKE 1 CAPSULE BY MOUTH EVERY* NIACIN ER 500 MG TABLET,EXTEN* TAKE 1 TABLET BY MOUTH ONE TI* ATORVASTATIN 20 MG TABLET TAKE 1 TABLET BY MOUTH EVERY * LORATADINE 10 MG TABLET Take 1 tablet by mouth once d* Patient not taking: Reported on 09/18/2017 ACETAMINOPHEN 325 MG TABLET Take 650 mg by mouth every 6 * FINASTERIDE 5 MG TABLET Take 1 tablet by mouth once d* DOXAZOSIN 4 MG TABLET Take 1 tablet by mouth once d* ASPIRIN 81 MG TABLET Take one (1) tablet daily . 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.21]INVALID FOR* Microscopic hematuria [R31.29] INVALID FOR* Smoking history [Z87.891] INVALID FOR* 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] INVALID FOR* Dehydration [E86.0] INVALID FOR* Nocturia [R35.1] INVALID FOR* Urinary frequency [R35.0] INVALID FOR* Elevated PSA [R97.20] INVALID FOR* 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.8*INVALID FOR* Cervical spondylosis without myelopathy [M47.81*INVALID FOR* Rotator cuff (capsule) sprain [S43.429A] INVALID FOR* BPH (benign prostatic hyperplasia) [N40.0] INVALID FOR* Aortic valve replaced [Z95.2] INVALID FOR* 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 Lumbar degenerative disc disease [M51.36] INVALID FOR* More... Radicular pain of lower extremity [M54.10] INVALID FOR* More... Chronic insomnia [F51.04] INVALID FOR* Connective tissue and disc stenosis of interver*INVALID FOR* Right leg pain [M79.604] INVALID FOR* Lumbar post-laminectomy syndrome [M96.1] INVALID FOR* More... Visit Notes: >> Juan Azar RN FriNov 19, 2017 4:33 PM Status: Signed Ekg completed per order. Pt tolerated procedure without distress. Juan Azar RN Encounter Status:Closed by JUAN AZAR RN on 11/21/17 CNOV Observed: 11/19/2017 Status: COMPLETED Source: [place] 3:30 PM [facility] REPOSITORY Office Visit (CAWSTR) SHYAM HERNÁNDEZ ([id number]) 1940 M NFR Date Time Provider Department 11/19/17 3:30 PM RODERICK HILLWSTR During your visit today, we recorded the following information about you: Pulse Blood pressure Weight 72/minute 123/61 68.5 kg Roderick Hill MD 11/19/2017 3:22 PM Addendum PERTINENT CARDIAC HISTORY Aortic stenosis - AVR (CE #23) 2004 Hyperlipidemia ADHERENCE TO GUIDELINES CHRISTEL-I or ARB for HF with prior LVEF<40 (NQF 0081) - N/A ASA or Plavix for ASHD (NQF 0067) - met Beta cecil for ASHD with prior ME or prior LVEF<40 (NQF 0070) - N/A Beta cecil for HF with prior LVEF<40 (NQF 0083) - N/A CHRISTEL-I or ARB for ASHD with DM or prior LVEF<40 (NQF 0066) - N/A Statin therapy for ASHD or FHL or DM - met BMI documented and plan if >25 (NQF 0421) - lifestyle recommendation form Tobacco use screening and referral (NQ 0028) - lifestyle recommendation form Recommendation for whole food, plant based diet - lifestyle recommendation form CLINICAL IMPRESSION/PLAN: Shyam Hernández is doing well. He's been advised to continue his current medication. His blood pressure is under good control. He will continue his statin therapy. I will see him in 8 months or as needed. If there is increased chest pain or shortness of breath, he has been advised to contact me. Written and verbal health teaching given to patient, patient verbalizes understanding and agrees with treatment plan. DIAGNOSIS FOR VISIT: AVR HISTORY OF PRESENT ILLNESS Shyam Hernández returns for follow-up of his valvular heart disease. He underwent back surgery on 2 separate occasions and has had significant improvement in his sciatica. He has been exercising more. He denies chest pain. He's had no orthopnea, TIAs, amaurosis or claudication. ALLERGIES: ALLERGIES Allergen Reactions - Codeine Mental Status Change - Sulfa (Sulfonamide * Hives CURRENT OUTPATIENT MEDICATIONS: escitalopram oxalate (LEXAPRO) 20 mg tablet TAKE 1 TABLET BY MOUTH EVERY DAY omeprazole (PRILOSEC) 20 mg capsule TAKE 1 CAPSULE BY MOUTH EVERY DAY pregabalin (LYRICA) 100 mg capsule One capsule by mouth twice a day niacin ER (NIASPAN) 500 mg tablet TAKE 1 TABLET BY MOUTH ONE TIME DAILY atorvastatin (LIPITOR) 20 mg tablet TAKE 1 TABLET BY MOUTH EVERY DAY loratadine (CLARITIN) 10 mg tablet Take 1 tablet by mouth once daily. acetaminophen (TYLENOL) 325 mg tablet Take 650 mg by mouth every 6 hours as needed. finasteride (PROSCAR) 5 mg tablet Take 1 tablet by mouth once daily. doxazosin (CARDURA) 4 mg tablet Take 1 tablet by mouth once daily. ASPIRIN 81MG TABLET Take one (1) tablet daily . PHYSICAL EXAMINATION: VITAL SIGNS: BP 123/61 Pulse 72 Wt 151 lb (68.5kg) Chest: Clear to auscultation. Trachea is midline. Air entry is equal. Cardiac: Regular rhythm. S1 and S2 are normal. PMI is nondisplaced. There is a soft systolic ejection murmur. Carotids are brisk without bruits. JVP is less than 10 cm. Abdomen: Soft and nontender. There are no pulsatile masses or bruits. No liver enlargement. Bowel sounds are active. Extremities: No edema. Pulses are intact and symmetrical. EKG shows sinus rhythm. There are minor repolarization abnormalities. No significant changes seen. Recent labs are reviewed. LDL was less than 100. Renal function is normal Echocardiogram was performed today. Left ventricular function is well-preserved. Gradients are slightly higher, but still within normal range for this prosthesis Electronically Signed: Roderick Hill MD November 19, 2017 3:15 PM CC: ARYAN Arzola MD, MD 11/19/2017 3:15 PM Signed LIFESTYLE CHANGE A healthy lifestyle is the most important component of your overall treatment plan. Please give serious thought to the following areas and commit to making joint terminal attack controller changes. EAT A WHOLE FOOD, PLANT BASED DIET The nutrition your body gets is more important than the medicine you take. What matters most is the overall way you eat. We encourage you to minimize the use of animal products (which include dairy and all meats except fatty fish) and use whole, unprocessed plant foods to provide your protein, vitamins and other nutrients. We have a lot of information to share with you on this topic. This is not a diet. It is a way of life that you will keep with you. EXERCISE REGULARLY It is not important to spend hours in the gym, lifting weights and perspiring heavily. A total of 2-3 hours per week of aerobic (causing you to be moderately short of breath) exercise is sufficient to improve your health. Talk to us before you begin a new exercise program, if you have heart disease or experience shortness of breath or chest pain. REDUCE STRESS Chronic emotional and physical stress leads to disease. Ways of reducing stress include meditation, visualization, prayer, yoga and other forms of relaxation therapy. Consistency is the colindres. Find a technique that works for you and do it every day. CULTIVATE RELATIONSHIPS Loneliness and isolation have a major negative impact on health. Seek out others who can love, care for and nurture you. Avoid hurtful relationships. MAINTAIN IDEAL BODY WEIGHT The best way to do this is to do all the things above. Our bodies naturally find the right weight if we keep moving and feed ourselves the right food. If your BMI is greater than 25, we strongly recommend a referral to a weight management program. Please speak to us or your family physician about available programs. AVOID NICOTINE IN ALL FORMS This includes all tobacco products, whether chewed, smoked, vaped, or rubbed on the skin. Smoking cessation programs, which can make use of tobacco substitutes, medications to suppress cravings and behavior management, are available. Please contact your family physician about programs in your area. Referring Provider: RODERICK HILL [[id number]] Allergies As of Date: 11/19/2017 Noted Allergy Reaction CODEINE 09/14/2003 1 - Mental Status Change SULFA (SULFONAMIDE ANTIBIOTICS) 09/14/2003 4 - Hives Date Reviewed: 11/19/2017 Reviewed by: Claudia (Shania) Adolph - Fully Assessed Reason for Visit: Recheck [92] Primary Visit Diagnosis:S/P AVR [Z95.2] Order(s):ECG COMPLETE W INTERPRETATION [ECG01] Order #: [id number] FUTURE Prescriptions as of 11/19/2017 Sig: ESCITALOPRAM 20 MG TABLET TAKE 1 TABLET BY MOUTH EVERY * OMEPRAZOLE 20 MG CAPSULE,MELIA* TAKE 1 CAPSULE BY MOUTH EVERY* PREGABALIN 100 MG CAPSULE One capsule by mouth twice a * Patient not taking: Reported on 09/18/2017 NIACIN ER 500 MG TABLET,EXTEN* TAKE 1 TABLET BY MOUTH ONE TI* ATORVASTATIN 20 MG TABLET TAKE 1 TABLET BY MOUTH EVERY * LORATADINE 10 MG TABLET Take 1 tablet by mouth once d* Patient not taking: Reported on 09/18/2017 ACETAMINOPHEN 325 MG TABLET Take 650 mg by mouth every 6 * FINASTERIDE 5 MG TABLET Take 1 tablet by mouth once d* DOXAZOSIN 4 MG TABLET Take 1 tablet by mouth once d* ASPIRIN 81 MG TABLET Take one (1) tablet daily . 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.21]INVALID FOR* Microscopic hematuria [R31.29] INVALID FOR* Smoking history [Z87.891] INVALID FOR* 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] INVALID FOR* Dehydration [E86.0] INVALID FOR* Nocturia [R35.1] INVALID FOR* Urinary frequency [R35.0] INVALID FOR* Elevated PSA [R97.20] INVALID FOR* 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.8*INVALID FOR* Cervical spondylosis without myelopathy [M47.81*INVALID FOR* Rotator cuff (capsule) sprain [S43.429A] INVALID FOR* BPH (benign prostatic hyperplasia) [N40.0] INVALID FOR* Aortic valve replaced [Z95.2] INVALID FOR* 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 Lumbar degenerative disc disease [M51.36] INVALID FOR* More... Radicular pain of lower extremity [M54.10] INVALID FOR* More... Chronic insomnia [F51.04] INVALID FOR* Connective tissue and disc stenosis of interver*INVALID FOR* Right leg pain [M79.604] INVALID FOR* Lumbar post-laminectomy syndrome [M96.1] INVALID FOR* More... Other instructions from your clinician: LIFESTYLE CHANGE A healthy lifestyle is the most important component of your overall treatment plan. Please give serious thought to the following areas and commit to making senior living changes. EAT A WHOLE FOOD, PLANT BASED DIET The nutrition your body gets is more important than the medicine you take. What matters most is the overall way you eat. We encourage you to minimize the use of animal products (which include dairy and all meats except fatty fish) and use whole, unprocessed plant foods to provide your protein, vitamins and other nutrients. We have a lot of information to share with you on this topic. This is not a diet. It is a way of life that you will keep with you. EXERCISE REGULARLY It is not important to spend hours in the gym, lifting weights and perspiring heavily. A total of 2-3 hours per week of aerobic (causing you to be moderately short of breath) exercise is sufficient to improve your health. Talk to us before you begin a new exercise program, if you have heart disease or experience shortness of breath or chest pain. REDUCE STRESS Chronic emotional and physical stress leads to disease. Ways of reducing stress include meditation, visualization, prayer, yoga and other forms of relaxation therapy. Consistency is the colindres. Find a technique that works for you and do it every day. CULTIVATE RELATIONSHIPS Loneliness and isolation have a major negative impact on health. Seek out others who can love, care for and nurture you. Avoid hurtful relationships. MAINTAIN IDEAL BODY WEIGHT The best way to do this is to do all the things above. Our bodies naturally find the right weight if we keep moving and feed ourselves the right food. If your BMI is greater than 25, we strongly recommend a referral to a weight management program. Please speak to us or your family physician about available programs. AVOID NICOTINE IN ALL FORMS This includes all tobacco products, whether chewed, smoked, vaped, or rubbed on the skin. Smoking cessation programs, which can make use of tobacco substitutes, medications to suppress cravings and behavior management, are available. Please contact your family physician about programs in your area. Encounter Status:Closed by RODERICK HILL MD on 11/19/17 PROGRESS Observed: 11/19/2017 Status: COMPLETED Source: [place] 3:15 PM [facility] REPOSITORY HNO ID: [id number] Author: Roderick Hill Service: (none) Author Type: Physician Type: Progress Notes Filed: 11/19/2017 3:32 PM Note Text: PERTINENT CARDIAC HISTORY Aortic stenosis - AVR (CE #23) 2004 Hyperlipidemia ADHERENCE TO GUIDELINES CHRISTEL-I or ARB for HF with prior LVEF<40 (NQF 0081) - N/A ASA or Plavix for ASHD (NQF 0067) - met Beta cecil for ASHD with prior ME or prior LVEF<40 (NQF 0070) - N/A Beta cecil for HF with prior LVEF<40 (NQF 0083) - N/A CHRISTEL-I or ARB for ASHD with DM or prior LVEF<40 (NQF 0066) - N/A Statin therapy for ASHD or FHL or DM - met BMI documented and plan if >25 (NQF 0421) - lifestyle recommendation form Tobacco use screening and referral (NQ 0028) - lifestyle recommendation form Recommendation for whole food, plant based diet - lifestyle recommendation form CLINICAL IMPRESSION/PLAN: Shyam Hernández is doing well. He's been advised to continue his current medication. His blood pressure is under good control. He will continue his statin therapy. I will see him in 8 months or as needed. If there is increased chest pain or shortness of breath, he has been advised to contact me. Written and verbal health teaching given to patient, patient verbalizes understanding and agrees with treatment plan. DIAGNOSIS FOR VISIT: AVR HISTORY OF PRESENT ILLNESS Shyam Hernández returns for follow-up of his valvular heart disease. He underwent back surgery on 2 separate occasions and has had significant improvement in his sciatica. He has been exercising more. He denies chest pain. He's had no orthopnea, TIAs, amaurosis or claudication. ALLERGIES: ALLERGIES Allergen Reactions - Codeine Mental Status Change - Sulfa (Sulfonamide * Hives CURRENT OUTPATIENT MEDICATIONS: escitalopram oxalate (LEXAPRO) 20 mg tablet TAKE 1 TABLET BY MOUTH EVERY DAY omeprazole (PRILOSEC) 20 mg capsule TAKE 1 CAPSULE BY MOUTH EVERY DAY pregabalin (LYRICA) 100 mg capsule One capsule by mouth twice a day niacin ER (NIASPAN) 500 mg tablet TAKE 1 TABLET BY MOUTH ONE TIME DAILY atorvastatin (LIPITOR) 20 mg tablet TAKE 1 TABLET BY MOUTH EVERY DAY loratadine (CLARITIN) 10 mg tablet Take 1 tablet by mouth once daily. acetaminophen (TYLENOL) 325 mg tablet Take 650 mg by mouth every 6 hours as needed. finasteride (PROSCAR) 5 mg tablet Take 1 tablet by mouth once daily. doxazosin (CARDURA) 4 mg tablet Take 1 tablet by mouth once daily. ASPIRIN 81MG TABLET Take one (1) tablet daily . PHYSICAL EXAMINATION: VITAL SIGNS: BP 123/61 Pulse 72 Wt 151 lb (68.5kg) Chest: Clear to auscultation. Trachea is midline. Air entry is equal. Cardiac: Regular rhythm. S1 and S2 are normal. PMI is nondisplaced. There is a soft systolic ejection murmur. Carotids are brisk without bruits. JVP is less than 10 cm. Abdomen: Soft and nontender. There are no pulsatile masses or bruits. No liver enlargement. Bowel sounds are active. Extremities: No edema. Pulses are intact and symmetrical. EKG shows sinus rhythm. There are minor repolarization abnormalities. No significant changes seen. Recent labs are reviewed. LDL was less than 100. Renal function is normal Echocardiogram was performed today. Left ventricular function is well-preserved. Gradients are slightly higher, but still within normal range for this prosthesis Electronically Signed: Roderick Hill MD November 19, 2017 3:15 PM CC: Jerald Bolden III MD EKG1 Observed: 11/19/2017 Status: F Source: [place] 2:55 PM [facility] REPOSITORY NAME : BETTYSHYAM PID : [id number] : 1940 Gender : Male Race : ORD : Procedure Date : Nov 19 2017 14:55:00 Edit Date : Nov 20 2017 16:03:31 Diagnosis:NORMAL SINUS RHYTHM NON-SPECIFIC ST AND T WAVE CHANGES BORDERLINE ECG Confirmed by RODERICK HILL MD ([id number]) on 11/20/2017 4:03:26 PM Ventricular Rate : 72 BPM Atrial Rate : 72 BPM P-R Interval : 204 ms QRS Duration : 84 ms Q-T Interval : 398 ms QTC Calculation(Bezet) : 435 ms P [place] : 59 degrees R [place] : 85 degrees T [place] : 57 degrees Test Reason : Location : 136 : [facility] Overread By : RODERICK HILL MD Edited By : RODERICK HILL MD Referred By : RODERICK HILL Acquired by : NATE COTO Observed: 10/17/2017 Status: COMPLETED Source: [place] 11:30 AM [facility] REPOSITORY Nurse Visit (FAMPWS) SHYAM HERNÁNDEZ ([id number]) 1940 M NFR Date Time Provider Department 10/17/17 11:30 AM ME NURSE XENIA During your visit today, we recorded the following information about you: Chrissie Burrows LPN 10/17/2017 10:58 AM Signed Patient presents for Kenalog injection per Dr Bolden. Denies any other problems at this time. Patient instructed on any SE of medication, verbalized understanding and agreed to proceed with treatment. Tolerated injection well. Chrissie Burrows LPN Referring Provider: JERALD BOLDEN III [[id number]] Allergies As of Date: 10/17/2017 Noted Allergy Reaction CODEINE 09/14/2003 1 - Mental Status Change SULFA (SULFONAMIDE ANTIBIOTICS) 09/14/2003 4 - Hives Date Reviewed: 10/08/2017 Reviewed by: Mirtha Nunez Ma - Fully Assessed Reason for Visit: Imm/Inj [58] Primary Visit Diagnosis:Seasonal allergic rhinitis due to pollen [J30.1] Prescriptions as of 10/17/2017 Sig: PREGABALIN 100 MG CAPSULE One capsule by mouth twice a * Patient not taking: Reported on 09/18/2017 NIACIN ER 500 MG TABLET,EXTEN* TAKE 1 TABLET BY MOUTH ONE TI* ESCITALOPRAM 20 MG TABLET TAKE 1 TABLET BY MOUTH EVERY * OMEPRAZOLE 20 MG CAPSULE,MELIA* TAKE 1 CAPSULE BY MOUTH EVERY* ATORVASTATIN 20 MG TABLET TAKE 1 TABLET BY MOUTH EVERY * LORATADINE 10 MG TABLET Take 1 tablet by mouth once d* Patient not taking: Reported on 09/18/2017 ACETAMINOPHEN 325 MG TABLET Take 650 mg by mouth every 6 * FINASTERIDE 5 MG TABLET Take 1 tablet by mouth once d* DOXAZOSIN 4 MG TABLET Take 1 tablet by mouth once d* ASPIRIN 81 MG TABLET Take one (1) tablet daily . 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.21]INVALID FOR* Microscopic hematuria [R31.29] INVALID FOR* Smoking history [Z87.891] INVALID FOR* 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] INVALID FOR* Dehydration [E86.0] INVALID FOR* Nocturia [R35.1] INVALID FOR* Urinary frequency [R35.0] INVALID FOR* Elevated PSA [R97.20] INVALID FOR* 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.8*INVALID FOR* Cervical spondylosis without myelopathy [M47.81*INVALID FOR* Rotator cuff (capsule) sprain [S43.429A] INVALID FOR* BPH (benign prostatic hyperplasia) [N40.0] INVALID FOR* Aortic valve replaced [Z95.2] INVALID FOR* 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 Lumbar degenerative disc disease [M51.36] INVALID FOR* More... Radicular pain of lower extremity [M54.10] INVALID FOR* More... Chronic insomnia [F51.04] INVALID FOR* Connective tissue and disc stenosis of interver*INVALID FOR* Right leg pain [M79.604] INVALID FOR* Lumbar post-laminectomy syndrome [M96.1] INVALID FOR* More... Encounter Status:Closed by CHRISSIE BURROWS LPN on 10/17/17 PROGRESS Observed: 10/17/2017 Status: COMPLETED Source: [place] 10:56 AM [facility] REPOSITORY HNO ID: [id number] Author: Chrissie Burrows LPN Service: (none) Author Type: (none) Type: Progress Notes Filed: 10/17/2017 10:58 AM Note Text: Patient presents for Kenalog injection per Dr Bolden. Denies any other problems at this time. Patient instructed on any SE of medication, verbalized understanding and agreed to proceed with treatment. Tolerated injection well. Chrissie Burrows LPN PROGRESS Observed: 10/08/2017 Status: COMPLETED Source: [place] 10:49 AM [facility] REPOSITORY HNO ID: [id number] Author: Becky Roblero Service: (none) Author Type: Physician Utility Locator Type: Progress Notes Filed: 10/08/2017 3:07 PM Note Text: SPINE SURGERY FOLLOW UP SERVICE DATE: 10/08/2017 SURGERY DATE: 08/19/17 MIS far lateral microdiscectomy, right side, L4-5 ? Operative Indications: The patient is a 76-year-old male that has a history of a prior L4 5 herniated nucleus pulposus that was treated with an endoscopic microdiscectomy and foraminotomy. ?The patient had some interval pain relief however a few months after surgery the patient noted a recurrence of pain down the right leg terminating in the calf.??A repeat MRI was obtained which demonstrated a new reherniation at the L4-5 level in the foramen and extending beyond the foramen. ?The patient tried an epidural steroid injection with short-lived relief. ? ? Shyam Hernández is seen for 6 week post operative follow up. Patient is doing well, resolve of presurgical leg pain. Denies SOB, redness, swelling, drainage, fever, chills. ? Incision: Some incisional pain. Hematoma is stable, maybe slightly decreased in size. PAIN EVALUATION No data found. PHYSICAL EXAM: BP 130/60 (BP Site: Left Arm, BP Position: Sitting, BP Cuff Size: Regular Adult) Pulse (!) 58 Resp 18 Ht 170.2 cm (5' 7) Wt 66.7 kg (147 lb) BMI 23.02 kg/m? GENERAL APPEARANCE: Well nourished, well developed, and no apparent distress. NEURO PSYCH: Patient oriented to person, place, and time. Mood pleasant. Benign affect. MUSCULOSKELETAL VISUAL INSPECTION CERVICAL: WNL THORACIC: WNL LUMBAR: WNL Incision: C/D/I small seroma felt at superior portion of incision MOTOR: 5/5 in all muscle groups. SENSORY: Normal sensory exam GAIT: Normal. DATA REVIEW [facility] records reviewed ASSESSMENT/PLAN IMPRESSION: (M54.41) Acute right-sided low back pain with right-sided sciatica (primary encounter diagnosis) Impression: Patient is a pleasant 76 yo male with resolve of pre-surgical leg pain. Plan: Okay to get back to [employer]. Gradually increase lifting to 30 pounds. Then at 3 months post-op no restrictions. Ok to bend and twist as tolerated. Walk as tolerated. Break up if needed. Okay to get into the pool. Start PT exercises at home. Okay to putt then chip then at 3 months post-op swing. Please call if new symptoms or concerns. Follow-up as needed. 1. No Orders Entered Today 2. Follow up: PRN Patient seen solely by me at today's visit. Imaging and plan discussed with Dr. Delarosa. Becky Roblero PA-C CNOV Observed: 10/08/2017 Status: COMPLETED Source: [place] 10:40 AM [facility] REPOSITORY Office Visit (SPNSMN) SHYAM HERNÁNDEZ ([id number]) 1940 M NFR Date Time Provider Department 10/08/17 10:40 AM BECKY ROBLERO) SPNSVA During your visit today, we recorded the following information about you: Pulse Respiration Blood pressure Weight 58/minute 18/minute 130/60 66.7 kg Height 1.702 m Becky Roblero PA-C 10/08/2017 3:07 PM Signed SPINE SURGERY FOLLOW UP SERVICE DATE: 10/08/2017 SURGERY DATE: 08/19/17 MIS far lateral microdiscectomy, right side, L4-5 ? Operative Indications: The patient is a 76-year-old male that has a history of a prior L4 5 herniated nucleus pulposus that was treated with an endoscopic microdiscectomy and foraminotomy. ?The patient had some interval pain relief however a few months after surgery the patient noted a recurrence of pain down the right leg terminating in the calf.??A repeat MRI was obtained which demonstrated a new reherniation at the L4-5 level in the foramen and extending beyond the foramen. ?The patient tried an epidural steroid injection with short-lived relief. ? ? Shyam Hernández is seen for 6 week post operative follow up. Patient is doing well, resolve of presurgical leg pain. Denies SOB, redness, swelling, drainage, fever, chills. ? Incision: Some incisional pain. Hematoma is stable, maybe slightly decreased in size. PAIN EVALUATION No data found. PHYSICAL EXAM: BP 130/60 (BP Site: Left Arm, BP Position: Sitting, BP Cuff Size: Regular Adult) Pulse (!) 58 Resp 18 Ht 170.2 cm (5' 7) Wt 66.7 kg (147 lb) BMI 23.02 kg/m? GENERAL APPEARANCE: Well nourished, well developed, and no apparent distress. NEURO PSYCH: Patient oriented to person, place, and time. Mood pleasant. Benign affect. MUSCULOSKELETAL VISUAL INSPECTION CERVICAL: WNL THORACIC: WNL LUMBAR: WNL Incision: C/D/I small seroma felt at superior portion of incision MOTOR: 5/5 in all muscle groups. SENSORY: Normal sensory exam GAIT: Normal. DATA REVIEW [facility] records reviewed ASSESSMENT/PLAN IMPRESSION: (M54.41) Acute right-sided low back pain with right-sided sciatica (primary encounter diagnosis) Impression: Patient is a pleasant 76 yo male with resolve of pre-surgical leg pain. Plan: Okay to get back to [employer]. Gradually increase lifting to 30 pounds. Then at 3 months post-op no restrictions. Ok to bend and twist as tolerated. Walk as tolerated. Break up if needed. Okay to get into the pool. Start PT exercises at home. Okay to putt then chip then at 3 months post-op swing. Please call if new symptoms or concerns. Follow-up as needed. 1. No Orders Entered Today 2. Follow up: PRN Patient seen solely by me at today's visit. Imaging and plan discussed with Dr. Delarosa. GWENDOLYN Fernandez PA-C 10/08/2017 11:15 AM Signed Okay to get back to [employer]. Gradually increase lifting to 30 pounds. Then at 3 months post-op no restrictions. Ok to bend and twist as tolerated. Walk as tolerated. Break up if needed. Okay to get into the pool. Start PT exercises at home. Okay to putt then chip then at 3 months post-op swing. Please call if new symptoms or concerns. Follow-up as needed. Referring Provider: ALEXIS DELAROSA [[id number]] Allergies As of Date: 10/08/2017 Noted Allergy Reaction CODEINE 09/14/2003 1 - Mental Status Change SULFA (SULFONAMIDE ANTIBIOTICS) 09/14/2003 4 - Hives Date Reviewed: 10/08/2017 Reviewed by: Mirtha Nunez Ma - Fully Assessed Reason for Visit: Post Op [174] Primary Visit Diagnosis:Acute right-sided low back pain with right-sided sciatica [M54.41] Prescriptions as of 10/08/2017 Sig: NIACIN ER 500 MG TABLET,EXTEN* TAKE 1 TABLET BY MOUTH ONE TI* ESCITALOPRAM 20 MG TABLET TAKE 1 TABLET BY MOUTH EVERY * OMEPRAZOLE 20 MG CAPSULE,MELIA* TAKE 1 CAPSULE BY MOUTH EVERY* ATORVASTATIN 20 MG TABLET TAKE 1 TABLET BY MOUTH EVERY * ACETAMINOPHEN 325 MG TABLET Take 650 mg by mouth every 6 * FINASTERIDE 5 MG TABLET Take 1 tablet by mouth once d* DOXAZOSIN 4 MG TABLET Take 1 tablet by mouth once d* ASPIRIN 81 MG TABLET Take one (1) tablet daily . PREGABALIN 100 MG CAPSULE One capsule by mouth twice a * Patient not taking: Reported on 09/18/2017 LORATADINE 10 MG TABLET Take 1 tablet by mouth once d* Patient not taking: Reported on 09/18/2017 Problem List As Of Date 10/08/2017 Noted Resolved ESOPHAGEAL REFLUX [K21.9] Acute gastritis [535.0] 01/25/2016 Trigeminal neuralgia [G50.0] 01/25/2016 Seasonal allergic rhinitis due to pollen [J30.1] LUMBAGO [M54.5] Aortic valve disorder [I35.9] Hyperlipidemia [E78.5] INVALID FOR* ELEVATED PROSTATE SPECIFIC ANTIGEN [R97.20] INVALID FOR* BLADDER NECK OBSTRUCTION [N32.0] INVALID FOR* BPH with obstruction/lower urinary tract sympto*INVALID FOR* 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.21]INVALID FOR* Microscopic hematuria [R31.29] INVALID FOR* Smoking history [Z87.891] INVALID FOR* 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] INVALID FOR* Dehydration [E86.0] INVALID FOR* Nocturia [R35.1] INVALID FOR* Urinary frequency [R35.0] INVALID FOR* Elevated PSA [R97.20] INVALID FOR* 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.8*INVALID FOR* Cervical spondylosis without myelopathy [M47.81*INVALID FOR* Rotator cuff (capsule) sprain [S43.429A] INVALID FOR* BPH (benign prostatic hyperplasia) [N40.0] INVALID FOR* Aortic valve replaced [Z95.2] INVALID FOR* 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 Lumbar degenerative disc disease [M51.36] INVALID FOR* More... Radicular pain of lower extremity [M54.10] INVALID FOR* More... Chronic insomnia [F51.04] INVALID FOR* Connective tissue and disc stenosis of interver*INVALID FOR* Right leg pain [M79.604] INVALID FOR* Lumbar post-laminectomy syndrome [M96.1] INVALID FOR* More... Other instructions from your clinician: Okay to get back to [employer]. Gradually increase lifting to 30 pounds. Then at 3 months post-op no restrictions. Ok to bend and twist as tolerated. Walk as tolerated. Break up if needed. Okay to get into the pool. Start PT exercises at home. Okay to putt then chip then at 3 months post-op swing. Please call if new symptoms or concerns. Follow-up as needed. Medications Discontinued During This Encounter cyclobenzaprine (FLEXERIL) 10 mg tab* 40 t* 0 08/19/2017 10/08/2017 Class: Print RX Route: ORAL Sig: Take 1 tablet by mouth three times daily. Disc: Reason for discontinue is not on file. pregabalin (LYRICA) 50 mg capsule 28 c* 0 07/03/2017 10/08/2017 Class: Print RX Sig: One capsule by mouth twice a day Disc: Reason for discontinue is not on file. celecoxib (CELEBREX) 200 mg capsule 30 c* 1 06/17/2017 10/08/2017 Si capsule daily when necessary with food Patient not taking: Reported on 09/18/2017 Disc: Reason for discontinue is not on file. naproxen (NAPROSYN) 500 mg tablet 60 t* 2 05/08/2017 10/08/2017 Route: ORAL Sig: Take 1 tablet by mouth twice daily as needed for Pain. Take with food. Patient not taking: Reported on 09/18/2017 Disc: Reason for discontinue is not on file. docusate sodium (COLACE) 100 mg caps* 30 c* 0 01/13/2017 10/08/2017 Class: Print RX Route: ORAL Sig: Take 1 capsule by mouth twice daily. Disc: Reason for discontinue is not on file. Encounter Status:Closed by BECKY ROBLERO PA-C on 10/08/17 PROGRESS Observed: 09/18/2017 Status: COMPLETED Source: [place] 12:51 PM [facility] REPOSITORY HNO ID: [id number] Author: Blanquita (Ruthann) Deneen Service: (none) Author Type: Nurse Practitioner Type: Progress Notes Filed: 09/18/2017 1:31 PM Note Text: Subjective The history is provided by the patient and the spouse. HPI Shyam Hernández is a 76 year old male who presents today for CC of diarrhea. This started last Friday, had off and on for 3 days. It has since resolved. He is also having a mild headache, he has seasonal allergies, and has not been outside til the last couple days Symptoms are worsened by nothing he has tried a decongestant, but had heart racing after he took.. Advise with heart issues not to use decongestants. Risk factors recent exposure to allergens. PMH recent back surgery, aortic valve replacement, seasonal allergies. BP 108/70 Pulse 78 Temp 36 ?C (96.8 ?F) (Tympanic) Resp 16 Wt 66.7 kg (147 lb) BMI 23.02 kg/m? 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 Without Myelopathy Rotator Cuff (Capsule) Sprain Bph (Benign Prostatic Hyperplasia) Aortic Valve Replaced Cervical Spondylolysis Degenerative Disc Disease, Cervical Hyperlipidemia Ldl Goal <100 Acute Right-Sided Low Back Pain With Right-Sided Sciatica Chronic Right-Sided Low Back Pain With Right-Sided Sciatica Lumbosacral Spondylosis Without Myelopathy Lumbar Degenerative Disc Disease Radicular Pain of Lower Extremity Chronic Insomnia 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 Negative for chills, fever and malaise/fatigue. HENT: Positive for sinus pain. Negative for congestion, ear pain and sore throat. Respiratory: Negative for cough, sputum production, shortness of breath and wheezing. Cardiovascular: Negative for chest pain. Gastrointestinal: Positive for abdominal pain and diarrhea. Genitourinary: Negative for dysuria, flank pain, frequency, hematuria and urgency. Musculoskeletal: Negative for myalgias. Skin: Negative for rash. Neurological: Positive for headaches (sinus). Objective Physical Exam Constitutional: He is oriented to person, place, and time and well-developed, well-nourished, and in no distress. HENT: Head: Normocephalic and atraumatic. Right Ear: Tympanic membrane, external ear and ear canal normal. Tympanic membrane is not injected, not erythematous, not retracted and not bulging. No middle ear effusion. Left Ear: Tympanic membrane, external ear and ear canal normal. Tympanic membrane is not injected, not erythematous, not retracted and not bulging. No middle ear effusion. Nose: Mucosal edema (boggy) and rhinorrhea (clear) present. Right sinus exhibits no maxillary sinus tenderness and no frontal sinus tenderness. Left sinus exhibits no maxillary sinus tenderness and no frontal sinus tenderness. Mouth/Throat: Uvula is midline, oropharynx is clear and moist and mucous membranes are normal. No oropharyngeal exudate, posterior oropharyngeal edema, posterior oropharyngeal erythema or tonsillar abscesses. Eyes: Conjunctivae and EOM are normal. Pupils are equal, round, and reactive to light. Neck: Normal range of motion. Neck supple. Cardiovascular: Normal rate, regular rhythm and normal heart sounds. Pulmonary/Chest: Effort normal and breath sounds normal. No respiratory distress. He has no wheezes. He has no rales. Abdominal: Soft. Normal appearance and bowel sounds are normal. He exhibits no abdominal bruit, no pulsatile midline mass and no mass. There is no hepatosplenomegaly. There is no tenderness. There is no rigidity, no rebound, no guarding, no CVA tenderness, no tenderness at McBurney's point and negative Toribio's sign. Lymphadenopathy: Head (right side): No submental, no submandibular, no tonsillar, no preauricular and no posterior auricular adenopathy present. Head (left side): No submental, no submandibular, no tonsillar, no preauricular and no posterior auricular adenopathy present. He has no cervical adenopathy. Right cervical: No posterior cervical adenopathy present. Left cervical: No posterior cervical adenopathy present. Right: No supraclavicular adenopathy present. Left: No supraclavicular adenopathy present. Neurological: He is alert and oriented to person, place, and time. Skin: Skin is warm and dry. Psychiatric: Affect normal. Nursing note and vitals reviewed. ASSESSMENT/PLAN: 1. Seasonal allergies - ICD9: 477.9, ICD10: J30.2 Zyrtec (cetirizine_ 10 mg By mouth daily at bedtime Flonase 1 spray each nostril two times a day or may do 2 sprays in each nostril once a day. -Increase fluid intake. Try to drink at least 8 glasses of non caffeinated fluids daily. --Rest as much as possible. -Do the nasal saline irrigation at least 2 x day to relieve nasal mucous and congestion: brands include Olvin Med, Simply saline, [place] nasal spray, or even the generic store brand one is ok. -Monitor for signs of infection: increased temperature, pain in face, ear pain or headaches or increase in nasal congestion/mucous that is not improving. -Educated patient on side effects of medication. 2. Diarrhea, unspecified type - ICD9: 787.91, ICD10: R19.7 Increase hydration Do not use immodium Avoid greasy spicy fatty foods for a week Diagnosis and treatment plan were discussed and questions were answered to the patient's satisfaction. Pt acknowledged understanding of concepts and follow up plan. Specific signs and symptoms that would indicate the need for higher level of care were discussed in detail warranting prompt ER evaluation. ARMANDO BoyceOV Observed: 09/18/2017 Status: COMPLETED Source: [place] 12:45 PM [facility] REPOSITORY Office Visit ([facility]) SHYAM HERNÁNDEZ ([id number]) 1940 M NFR Date Time Provider Department 09/18/17 12:45 PM BLANQUITA BROTHERS (RUTHANN) [facility] During your visit today, we recorded the following information about you: Temperature Pulse Respiration Blood pressure 96.8 degrees 78/minute 16/minute 108/70 Weight 66.7 kg Blanquita Brothers APRN.CNP 09/18/2017 1:31 PM Signed Subjective The history is provided by the patient and the spouse. HPI Shyam Hernández is a 76 year old male who presents today for CC of diarrhea. This started last Friday, had off and on for 3 days. It has since resolved. He is also having a mild headache, he has seasonal allergies, and has not been outside til the last couple days Symptoms are worsened by nothing he has tried a decongestant, but had heart racing after he took.. Advise with heart issues not to use decongestants. Risk factors recent exposure to allergens. PMH recent back surgery, aortic valve replacement, seasonal allergies. BP 108/70 Pulse 78 Temp 36 ?C (96.8 ?F) (Tympanic) Resp 16 Wt 66.7 kg (147 lb) BMI 23.02 kg/m? 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 Without Myelopathy Rotator Cuff (Capsule) Sprain Bph (Benign Prostatic Hyperplasia) Aortic Valve Replaced Cervical Spondylolysis Degenerative Disc Disease, Cervical Hyperlipidemia Ldl Goal <100 Acute Right-Sided Low Back Pain With Right-Sided Sciatica Chronic Right-Sided Low Back Pain With Right-Sided Sciatica Lumbosacral Spondylosis Without Myelopathy Lumbar Degenerative Disc Disease Radicular Pain of Lower Extremity Chronic Insomnia 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 Negative for chills, fever and malaise/fatigue. HENT: Positive for sinus pain. Negative for congestion, ear pain and sore throat. Respiratory: Negative for cough, sputum production, shortness of breath and wheezing. Cardiovascular: Negative for chest pain. Gastrointestinal: Positive for abdominal pain and diarrhea. Genitourinary: Negative for dysuria, flank pain, frequency, hematuria and urgency. Musculoskeletal: Negative for myalgias. Skin: Negative for rash. Neurological: Positive for headaches (sinus). Objective Physical Exam Constitutional: He is oriented to person, place, and time and well-developed, well-nourished, and in no distress. HENT: Head: Normocephalic and atraumatic. Right Ear: Tympanic membrane, external ear and ear canal normal. Tympanic membrane is not injected, not erythematous, not retracted and not bulging. No middle ear effusion. Left Ear: Tympanic membrane, external ear and ear canal normal. Tympanic membrane is not injected, not erythematous, not retracted and not bulging. No middle ear effusion. Nose: Mucosal edema (boggy) and rhinorrhea (clear) present. Right sinus exhibits no maxillary sinus tenderness and no frontal sinus tenderness. Left sinus exhibits no maxillary sinus tenderness and no frontal sinus tenderness. Mouth/Throat: Uvula is midline, oropharynx is clear and moist and mucous membranes are normal. No oropharyngeal exudate, posterior oropharyngeal edema, posterior oropharyngeal erythema or tonsillar abscesses. Eyes: Conjunctivae and EOM are normal. Pupils are equal, round, and reactive to light. Neck: Normal range of motion. Neck supple. Cardiovascular: Normal rate, regular rhythm and normal heart sounds. Pulmonary/Chest: Effort normal and breath sounds normal. No respiratory distress. He has no wheezes. He has no rales. Abdominal: Soft. Normal appearance and bowel sounds are normal. He exhibits no abdominal bruit, no pulsatile midline mass and no mass. There is no hepatosplenomegaly. There is no tenderness. There is no rigidity, no rebound, no guarding, no CVA tenderness, no tenderness at McBurney's point and negative Toribio's sign. Lymphadenopathy: Head (right side): No submental, no submandibular, no tonsillar, no preauricular and no posterior auricular adenopathy present. Head (left side): No submental, no submandibular, no tonsillar, no preauricular and no posterior auricular adenopathy present. He has no cervical adenopathy. Right cervical: No posterior cervical adenopathy present. Left cervical: No posterior cervical adenopathy present. Right: No supraclavicular adenopathy present. Left: No supraclavicular adenopathy present. Neurological: He is alert and oriented to person, place, and time. Skin: Skin is warm and dry. Psychiatric: Affect normal. Nursing note and vitals reviewed. ASSESSMENT/PLAN: 1. Seasonal allergies - ICD9: 477.9, ICD10: J30.2 Zyrtec (cetirizine_ 10 mg By mouth daily at bedtime Flonase 1 spray each nostril two times a day or may do 2 sprays in each nostril once a day. -Increase fluid intake. Try to drink at least 8 glasses of non caffeinated fluids daily. --Rest as much as possible. -Do the nasal saline irrigation at least 2 x day to relieve nasal mucous and congestion: brands include Olvin Med, Simply saline, [place] nasal spray, or even the generic store brand one is ok. -Monitor for signs of infection: increased temperature, pain in face, ear pain or headaches or increase in nasal congestion/mucous that is not improving. -Educated patient on side effects of medication. 2. Diarrhea, unspecified type - ICD9: 787.91, ICD10: R19.7 Increase hydration Do not use immodium Avoid greasy spicy fatty foods for a week Diagnosis and treatment plan were discussed and questions were answered to the patient's satisfaction. Pt acknowledged understanding of concepts and follow up plan. Specific signs and symptoms that would indicate the need for higher level of care were discussed in detail warranting prompt ER evaluation. Blanquita Brothers APRN.RUTHANN Brothers APRN.CNP 09/18/2017 1:06 PM Signed ASSESSMENT/PLAN: 1. Seasonal allergies - ICD9: 477.9, ICD10: J30.2 Zyrtec (cetirizine_ 10 mg By mouth daily at bedtime Flonase 1 spray each nostril two times a day or may do 2 sprays in each nostril once a day. -Increase fluid intake. Try to drink at least 8 glasses of non caffeinated fluids daily. --Rest as much as possible. -Do the nasal saline irrigation at least 2 x day to relieve nasal mucous and congestion: brands include Olvin Med, Simply saline, [place] nasal spray, or even the generic store brand one is ok. -Monitor for signs of infection: increased temperature, pain in face, ear pain or headaches or increase in nasal congestion/mucous that is not improving. -Educated patient on side effects of medication. Referring Provider: SELF [[id number]] Allergies As of Date: 09/18/2017 Noted Allergy Reaction CODEINE 09/14/2003 1 - Mental Status Change SULFA (SULFONAMIDE ANTIBIOTICS) 09/14/2003 4 - Hives Date Reviewed: 09/18/2017 Reviewed by: Savita Medrano Ma - Fully Assessed Reason for Visit: Diarrhea [35] Cmt: headache(sinus ?), nausea tried decongestant, took 2 pills, urinating all night, high pulse, low blood pressure Primary Visit Diagnosis:Seasonal allergies [J30.2] Other Visit Diagnosis:Diarrhea, unspecified type [R19.7] Prescriptions as of 09/18/2017 Sig: CYCLOBENZAPRINE 10 MG TABLET Take 1 tablet by mouth three * NIACIN ER 500 MG TABLET,EXTEN* TAKE 1 TABLET BY MOUTH ONE TI* DOCUSATE SODIUM 100 MG CAPSULE Take 1 capsule by mouth twice* ESCITALOPRAM 20 MG TABLET TAKE 1 TABLET BY MOUTH EVERY * OMEPRAZOLE 20 MG CAPSULE,MELIA* TAKE 1 CAPSULE BY MOUTH EVERY* ATORVASTATIN 20 MG TABLET TAKE 1 TABLET BY MOUTH EVERY * ACETAMINOPHEN 325 MG TABLET Take 650 mg by mouth every 6 * FINASTERIDE 5 MG TABLET Take 1 tablet by mouth once d* DOXAZOSIN 4 MG TABLET Take 1 tablet by mouth once d* ASPIRIN 81 MG TABLET Take one (1) tablet daily . PREGABALIN 50 MG CAPSULE One capsule by mouth twice a * PREGABALIN 100 MG CAPSULE One capsule by mouth twice a * Patient not taking: Reported on 09/18/2017 CELECOXIB 200 MG CAPSULE 1 capsule daily when necessar* Patient not taking: Reported on 09/18/2017 NAPROXEN 500 MG TABLET Take 1 tablet by mouth twice * Patient not taking: Reported on 09/18/2017 LORATADINE 10 MG TABLET Take 1 tablet by mouth once d* Patient not taking: Reported on 09/18/2017 Problem List As Of Date 09/18/2017 Noted Resolved ESOPHAGEAL REFLUX [K21.9] Acute gastritis [535.0] 01/25/2016 Trigeminal neuralgia [G50.0] 01/25/2016 Seasonal allergic rhinitis due to pollen [J30.1] LUMBAGO [M54.5] Aortic valve disorder [I35.9] Hyperlipidemia [E78.5] INVALID FOR* ELEVATED PROSTATE SPECIFIC ANTIGEN [R97.20] INVALID FOR* BLADDER NECK OBSTRUCTION [N32.0] INVALID FOR* BPH with obstruction/lower urinary tract sympto*INVALID FOR* 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.21]INVALID FOR* Microscopic hematuria [R31.29] INVALID FOR* Smoking history [Z87.891] INVALID FOR* 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] INVALID FOR* Dehydration [E86.0] INVALID FOR* Nocturia [R35.1] INVALID FOR* Urinary frequency [R35.0] INVALID FOR* Elevated PSA [R97.20] INVALID FOR* 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.8*INVALID FOR* Cervical spondylosis without myelopathy [M47.81*INVALID FOR* Rotator cuff (capsule) sprain [S43.429A] INVALID FOR* BPH (benign prostatic hyperplasia) [N40.0] INVALID FOR* Aortic valve replaced [Z95.2] INVALID FOR* 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 Lumbar degenerative disc disease [M51.36] INVALID FOR* More... Radicular pain of lower extremity [M54.10] INVALID FOR* More... Chronic insomnia [F51.04] INVALID FOR* Connective tissue and disc stenosis of interver*INVALID FOR* Right leg pain [M79.604] INVALID FOR* Lumbar post-laminectomy syndrome [M96.1] INVALID FOR* More... Other instructions from your clinician: ASSESSMENT/PLAN: 1. Seasonal allergies - ICD9: 477.9, ICD10: J30.2 Zyrtec (cetirizine_ 10 mg By mouth daily at bedtime Flonase 1 spray each nostril two times a day or may do 2 sprays in each nostril once a day. -Increase fluid intake. Try to drink at least 8 glasses of non caffeinated fluids daily. --Rest as much as possible. -Do the nasal saline irrigation at least 2 x day to relieve nasal mucous and congestion: brands include Olvin Med, Simply saline, [place] nasal spray, or even the generic store brand one is ok. -Monitor for signs of infection: increased temperature, pain in face, ear pain or headaches or increase in nasal congestion/mucous that is not improving. -Educated patient on side effects of medication. Encounter Status:Closed by BLANQUITA BROTHERS CNP on 09/18/17 PROGRESS Observed: 09/02/2017 Status: COMPLETED Source: [place] 3:21 PM [facility] REPOSITORY O ID: [id number] Author: Marcos Toth (Elvis) Lcuas Service: (none) Author Type: Nurse Practitioner Type: Progress Notes Filed: 09/02/2017 3:43 PM Note Text: Chief Complaint Patient presents with: Suture Removal: right lower back HPI Shyam Hernández is a 76 year old male who presents here today for Above Complaints. S/P Discectomy, Laminectomy on 08/19/17, e visit earlier today with Surgeons office, retained single suture. Was offered to be seen in Surgeon's office or by PCP. Note reviewed. Favorable outcome as his leg and back pain have resolved. . The ROS is otherwise negative. Past medical history, appointments, medications, allergies reviewed. Patient Allergies ALLERGIES Allergen Reactions - Codeine Mental Status Change - Sulfa (Sulfonamide * Hives Current Medications Current Outpatient Prescriptions on File Prior to Visit: niacin ER (NIASPAN) 500 mg tablet TAKE 1 TABLET BY MOUTH ONE TIME DAILY escitalopram oxalate (LEXAPRO) 20 mg tablet TAKE 1 TABLET BY MOUTH EVERY DAY omeprazole (PRILOSEC) 20 mg capsule TAKE 1 CAPSULE BY MOUTH EVERY DAY atorvastatin (LIPITOR) 20 mg tablet TAKE 1 TABLET BY MOUTH EVERY DAY loratadine (CLARITIN) 10 mg tablet Take 1 tablet by mouth once daily. acetaminophen (TYLENOL) 325 mg tablet Take 650 mg by mouth every 6 hours as needed. finasteride (PROSCAR) 5 mg tablet Take 1 tablet by mouth once daily. doxazosin (CARDURA) 4 mg tablet Take 1 tablet by mouth once daily. ASPIRIN 81MG TABLET Take one (1) tablet daily . cyclobenzaprine (FLEXERIL) 10 mg tablet Take 1 tablet by mouth three times daily. pregabalin (LYRICA) 50 mg capsule One capsule by mouth twice a day pregabalin (LYRICA) 100 mg capsule One capsule by mouth twice a day celecoxib (CELEBREX) 200 mg capsule 1 capsule daily when necessary with food naproxen (NAPROSYN) 500 mg tablet Take 1 tablet by mouth twice daily as needed for Pain. Take with food. docusate sodium (COLACE) 100 mg capsule Take 1 capsule by mouth twice daily. No current facility-administered medications on file prior to visit. Previous Medical History PAST MEDICAL HISTORY Diagnosis Date - Acute gastritis - Allergic rhinitis due to other allergen - Aortic valve disorders - Degenerative arthritis of cervical spine 07/14/2013 - Diverticulosis of colon (without mention of hemorrhage) - Esophageal reflux - Internal hemorrhoids without mention of complication - Lumbago - Mental disorder - Other anxiety states - Snoring - Trigeminal neuralgia Previous Surgical History PAST SURGICAL HISTORY Procedure Laterality Date - APPENDECTOMY - COLONOSCOP W/ OR W/O [facility] SPEC 09/27/2005 Colonoscopy - COLONOSCOP W/ OR W/O [facility] SPEC 11/10/15 Colonoscopy - ECHO - EGD W/O OR W/BRUSH/WASH 07/05/2002 EGD - HEART SURGERY HX 2004 Aortic Cow valve replacement - PAST SURGICAL HISTORY OF 1994 Left parotid gland tumor- benign - PAST SURGICAL HISTORY OF right big toe x 2 - PAST SURGICAL HISTORY OF ORIF right ankle - REPAIR ING HERNIA,5+Y/O,REDUCIBL Hernia repair, inguinal - SIGMOIDOSCOPY FLEX DIAG 03/04/2000 Sigmoidoscopy Family History FAMILY HISTORY Problem Relation Age of Onset - COPD Father - Lipids Mother Social History Social History Marital status: Spouse name: Years of education: Number of children: 2 Occupational History Occupation Employer Comment RETIRED [employer] Social History Main Topics Smoking status: Former Smoker Packs/day: 0.00 Years: 0.00 Quit date: 06/17/1984 Smokeless tobacco: Never Used Comment: quit pipe 1984 Alcohol use: Yes Comment: occassionally Drug use: No EXAM: BP 104/60 (BP Site: Right Arm, BP Position: Sitting, BP Cuff Size: Regular Adult) Pulse 88 Temp 36.6 ?C (97.8 ?F) (Tympanic) Resp 18 Wt 69.4 kg (153 lb) BMI 23.96 kg/m? General Appearance: Well appearing, alert, in no acute distress, well-hydrated, well nourished.. Skin: Lower back suture line well healed. Single, dissolvable suture noted at top of incision. Underlying ecchymosis 2/2 hematoma noted. Suture removed without difficulty. ASSESSMENT/PLAN: 1. Visit for suture removal - ICD9: V58.32, ICD10: Z48.02 - As above. Marcos Zavala, MSN BACON SLICER.ROUGE MILLER CNOV Observed: 09/02/2017 Status: COMPLETED Source: [place] 3:20 PM [facility] REPOSITORY Office Visit (FAMPWS) SHYAM HERNÁNDEZ ([id number]) 1940 M NFR Date Time Provider Department 09/02/17 3:20 PM MARCOS ZAVALA (DIAGRAMMER) FAMPWS During your visit today, we recorded the following information about you: Temperature Pulse Respiration Blood pressure 97.8 degrees 88/minute 18/minute 104/60 Weight 69.4 kg Marcos Zavala, MSN BACON SLICER.ROUGE MILLER 09/02/2017 3:43 PM Signed Chief Complaint Patient presents with: Suture Removal: right lower back HPI Shyam Hernández is a 76 year old male who presents here today for Above Complaints. S/P Discectomy, Laminectomy on 08/19/17, e visit earlier today with Surgeons office, retained single suture. Was offered to be seen in Surgeon's office or by PCP. Note reviewed. Favorable outcome as his leg and back pain have resolved. . The ROS is otherwise negative. Past medical history, appointments, medications, allergies reviewed. Patient Allergies ALLERGIES Allergen Reactions - Codeine Mental Status Change - Sulfa (Sulfonamide * Hives Current Medications Current Outpatient Prescriptions on File Prior to Visit: niacin ER (NIASPAN) 500 mg tablet TAKE 1 TABLET BY MOUTH ONE TIME DAILY escitalopram oxalate (LEXAPRO) 20 mg tablet TAKE 1 TABLET BY MOUTH EVERY DAY omeprazole (PRILOSEC) 20 mg capsule TAKE 1 CAPSULE BY MOUTH EVERY DAY atorvastatin (LIPITOR) 20 mg tablet TAKE 1 TABLET BY MOUTH EVERY DAY loratadine (CLARITIN) 10 mg tablet Take 1 tablet by mouth once daily. acetaminophen (TYLENOL) 325 mg tablet Take 650 mg by mouth every 6 hours as needed. finasteride (PROSCAR) 5 mg tablet Take 1 tablet by mouth once daily. doxazosin (CARDURA) 4 mg tablet Take 1 tablet by mouth once daily. ASPIRIN 81MG TABLET Take one (1) tablet daily . cyclobenzaprine (FLEXERIL) 10 mg tablet Take 1 tablet by mouth three times daily. pregabalin (LYRICA) 50 mg capsule One capsule by mouth twice a day pregabalin (LYRICA) 100 mg capsule One capsule by mouth twice a day celecoxib (CELEBREX) 200 mg capsule 1 capsule daily when necessary with food naproxen (NAPROSYN) 500 mg tablet Take 1 tablet by mouth twice daily as needed for Pain. Take with food. docusate sodium (COLACE) 100 mg capsule Take 1 capsule by mouth twice daily. No current facility-administered medications on file prior to visit. Previous Medical History PAST MEDICAL HISTORY Diagnosis Date - Acute gastritis - Allergic rhinitis due to other allergen - Aortic valve disorders - Degenerative arthritis of cervical spine 07/14/2013 - Diverticulosis of colon (without mention of hemorrhage) - Esophageal reflux - Internal hemorrhoids without mention of complication - Lumbago - Mental disorder - Other anxiety states - Snoring - Trigeminal neuralgia Previous Surgical History PAST SURGICAL HISTORY Procedure Laterality Date - APPENDECTOMY - COLONOSCOP W/ OR W/O [facility] SPEC 09/27/2005 Colonoscopy - COLONOSCOP W/ OR W/O [facility] SPEC 11/10/15 Colonoscopy - ECHO - EGD W/O OR W/BRUSH/WASH 07/05/2002 EGD - HEART SURGERY HX 2004 Aortic Cow valve replacement - PAST SURGICAL HISTORY OF 1994 Left parotid gland tumor- benign - PAST SURGICAL HISTORY OF right big toe x 2 - PAST SURGICAL HISTORY OF ORIF right ankle - REPAIR ING HERNIA,5+Y/O,REDUCIBL Hernia repair, inguinal - SIGMOIDOSCOPY FLEX DIAG 03/04/2000 Sigmoidoscopy Family History FAMILY HISTORY Problem Relation Age of Onset - COPD Father - Lipids Mother Social History Social History Marital status: Spouse name: Years of education: Number of children: 2 Occupational History Occupation Employer Comment RETIRED [employer] Social History Main Topics Smoking status: Former Smoker Packs/day: 0.00 Years: 0.00 Quit date: 06/17/1984 Smokeless tobacco: Never Used Comment: quit pipe 1984 Alcohol use: Yes Comment: occassionally Drug use: No EXAM: BP 104/60 (BP Site: Right Arm, BP Position: Sitting, BP Cuff Size: Regular Adult) Pulse 88 Temp 36.6 ?C (97.8 ?F) (Tympanic) Resp 18 Wt 69.4 kg (153 lb) BMI 23.96 kg/m? General Appearance: Well appearing, alert, in no acute distress, well-hydrated, well nourished.. Skin: Lower back suture line well healed. Single, dissolvable suture noted at top of incision. Underlying ecchymosis 2/2 hematoma noted. Suture removed without difficulty. ASSESSMENT/PLAN: 1. Visit for suture removal - ICD9: V58.32, ICD10: Z48.02 - As above. Marcos Zavala, MSN BACON SLICER.ROUGE MILLER Referring Provider: SELF [200] Allergies As of Date: 09/02/2017 Noted Allergy Reaction CODEINE 09/14/2003 1 - Mental Status Change SULFA (SULFONAMIDE ANTIBIOTICS) 09/14/2003 4 - Hives Date Reviewed: 09/02/2017 Reviewed by: Mikala Constantino LPN - Fully Assessed Reason for Visit: Suture Removal [105] Cmt: right lower back Primary Visit Diagnosis:Visit for suture removal [Z48.02] Prescriptions as of 09/02/2017 Sig: NIACIN ER 500 MG TABLET,EXTEN* TAKE 1 TABLET BY MOUTH ONE TI* ESCITALOPRAM 20 MG TABLET TAKE 1 TABLET BY MOUTH EVERY * OMEPRAZOLE 20 MG CAPSULE,MELIA* TAKE 1 CAPSULE BY MOUTH EVERY* ATORVASTATIN 20 MG TABLET TAKE 1 TABLET BY MOUTH EVERY * LORATADINE 10 MG TABLET Take 1 tablet by mouth once d* ACETAMINOPHEN 325 MG TABLET Take 650 mg by mouth every 6 * FINASTERIDE 5 MG TABLET Take 1 tablet by mouth once d* DOXAZOSIN 4 MG TABLET Take 1 tablet by mouth once d* ASPIRIN 81 MG TABLET Take one (1) tablet daily . CYCLOBENZAPRINE 10 MG TABLET Take 1 tablet by mouth three * PREGABALIN 50 MG CAPSULE One capsule by mouth twice a * PREGABALIN 100 MG CAPSULE One capsule by mouth twice a * CELECOXIB 200 MG CAPSULE 1 capsule daily when necessar* NAPROXEN 500 MG TABLET Take 1 tablet by mouth twice * DOCUSATE SODIUM 100 MG CAPSULE Take 1 capsule by mouth twice* Problem List As Of Date 09/02/2017 Noted Resolved ESOPHAGEAL REFLUX [K21.9] Acute gastritis [535.0] 01/25/2016 Trigeminal neuralgia [G50.0] 01/25/2016 Seasonal allergic rhinitis due to pollen [J30.1] LUMBAGO [M54.5] Aortic valve disorder [I35.9] Hyperlipidemia [E78.5] INVALID FOR* ELEVATED PROSTATE SPECIFIC ANTIGEN [R97.20] INVALID FOR* BLADDER NECK OBSTRUCTION [N32.0] INVALID FOR* BPH with obstruction/lower urinary tract sympto*INVALID FOR* 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.21]INVALID FOR* Microscopic hematuria [R31.29] INVALID FOR* Smoking history [Z87.891] INVALID FOR* 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] INVALID FOR* Dehydration [E86.0] INVALID FOR* Nocturia [R35.1] INVALID FOR* Urinary frequency [R35.0] INVALID FOR* Elevated PSA [R97.20] INVALID FOR* 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.8*INVALID FOR* Cervical spondylosis without myelopathy [M47.81*INVALID FOR* Rotator cuff (capsule) sprain [S43.429A] INVALID FOR* BPH (benign prostatic hyperplasia) [N40.0] INVALID FOR* Aortic valve replaced [Z95.2] INVALID FOR* 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 Lumbar degenerative disc disease [M51.36] INVALID FOR* More... Radicular pain of lower extremity [M54.10] INVALID FOR* More... Chronic insomnia [F51.04] INVALID FOR* Connective tissue and disc stenosis of interver*INVALID FOR* Right leg pain [M79.604] INVALID FOR* Lumbar post-laminectomy syndrome [M96.1] INVALID FOR* More... Encounter Status:Closed by MARCOS ZAVALA ROUGE MILLER on 09/02/17 PROGRESS Observed: 09/02/2017 Status: COMPLETED Source: [place] 7:31 AM [facility] REPOSITORY [facility] ID: [id number] Author: Becky Roblero Service: (none) Author Type: Physician Utility Locator Type: Progress Notes Filed: 09/02/2017 10:12 AM Note Text: SPINE SURGERY VIRTUAL VISIT POST-OP SURGERY: 08/19/17 MIS far lateral microdiscectomy, right side, L4-5 ? Operative Indications: The patient is a 76-year-old male that has a history of a prior L4 5 herniated nucleus pulposus that was treated with an endoscopic microdiscectomy and foraminotomy. The patient had some interval pain relief however a few months after surgery the patient noted a recurrence of pain down the right leg terminating in the calf. A repeat MRI was obtained which demonstrated a new reherniation at the L4-5 level in the foramen and extending beyond the foramen. The patient tried an epidural steroid injection with short-lived relief. Patient is having their 2 week post operative virtual visit. Patient feels that surgery has helped, feels 100% better. Some right sided calf pain occasionally. Denies SOB, redness, swelling. Incision: Some incisional pain. Hematoma is stable, maybe slightly decreased in size. Patient denies fevers, chills, drainage, headaches. Current Medication: Off of pain medication PHYSICAL EXAM: WOUND ASSESSMENT: Non-reddened, Wound edges not approximated, hematoma still present DATA REVIEW [facility] records reviewed ASSESSMENT/PLAN IMPRESSION: (Z98.890) S/P discectomy (primary encounter diagnosis) Patient is doing well at 2 weeks s/p discectomy, resolve of pre-surgical leg pain. Would like him to keep lifting at 10 pounds, okay to walk as tolerated. He has small stitch still in place, offered appointment with Me to remove or he cn contact PCP. Incision shows no signs of infection, there is still hematoma present. Patient to follow up as scheduled. Patient verbalized understanding. Gave reassurance. 1. No Orders Entered Today 2. Follow up: as scheduled GWENDOLYN Oropeza POST Observed: 08/19/2017 Status: COMPLETED Source: [place] 4:06 PM [facility] REPOSITORY O ID: [id number] Author: Ian Garcia Service: Anesthesiology Author Type: Anesthesiologist Type: Anesthesia PostOp Filed: 08/19/2017 5:34 PM Note Text: POST ANESTHESIA EVALUATION NOTE SERVICE DATE: 08/19/2017 SERVICE TIME: 13.30 : 1940 Vitals: 08/19/17 0556 08/19/17 1108 08/19/17 1145 08/19/17 1235 Temp: 36.2 ?C (97.2 ?F) 36.4 ?C (97.5 ?F) 36.2 ?C (97.2 ?F) 36.3 ?C (97.3 ?F) 08/19/17 1235 08/19/17 1255 08/19/17 1348 08/19/17 1445 BP: 164/80 144/69 153/69 145/71 08/19/17 1235 08/19/17 1255 08/19/17 1348 08/19/17 1445 Pulse: 76 60 70 68 08/19/17 1235 08/19/17 1255 08/19/17 1348 08/19/17 1445 Resp: 16 08/19/17 1235 08/19/17 1255 08/19/17 1348 08/19/17 1445 SpO2: 95% 95% 95% 97% Validated Vital Signs: Yes POST ANES STATUS: No apparent anesthetic complications. The patient is appropriately hydrated with stable respiratory and cardiovascular status. Patient has safe and adequate airway control. The patient has appropriate pain relief and no significant post operative nausea or vomiting. The patient has achieved baseline mental status. Further assessment by Anesthesia Service: None Other Remarks: SIGNATURE: Ian Garcia MD PATIENT NAME: Shyam Hernández DATE: August 19, 2017 TIME: 5:33 PM PAGER/CONTACT #: [phone] NURSING PROG Observed: 08/19/2017 Status: COMPLETED Source: [place] 2:50 PM [facility] REPOSITORY HNO ID: [id number] Author: Ysabel Valadez (Rn) MARK Holbrook Service: Nursing Author Type: Registered Nurse Type: Nursing Progress Note Filed: 08/19/2017 2:55 PM Note Text: Nursing Progress Note Topic of Note: Shyam Hernández [phone] [id number] residential substance abuse counselor here to see pt AND . Large elastoplast dressing applied by MD. large ice bag applied. MD to return in an hour or so to re-evaluate. Pt. resting comfortably. This note was completed by: Ysabel Holbrook RN PROGRESS Observed: 08/19/2017 Status: COMPLETED Source: [place] 2:35 PM [facility] REPOSITORY HNO ID: [id number] Author: Ketan Barriga Service: Neurosurgery Author Type: Resident Type: Progress Notes Filed: 08/19/2017 2:39 PM Note Text: Neurosurgery POC Note Interval HPI: S/p L4-5 R far lateral microdisc Objective: 08/19/17 1200 08/19/17 1235 08/19/17 1255 08/19/17 1348 BP: 155/77 164/80 144/69 153/69 Pulse: 64 76 60 70 Resp: Temp: 36.3 ?C (97.3 ?F) TempSrc: Temporal Artery SpO2: 95% 95% 95% 95% Weight: Height: EXAM: Wide awake, oriented Full strength Large hematoma under incision A/P: 76 year old y/o male POD #0 s/p L4-5 R far lateral microdisc - Compression dressing placed over hematoma - Will re-examine in 1 hour, and if stable to improved OK for batshevao Ketan Barriga MD August 19, 2017 2:35 PM Pager [phone] PLAN OF CARE Observed: 08/19/2017 Status: COMPLETED Source: [place] 2:16 PM [facility] REPOSITORY HNO ID: [id number] Author: Telma Mathis (A-Gas) Service: (none) Author Type: (none) Type: Plan of Care Filed: 08/19/2017 2:17 PM Note Text: PHARMACY BEDSIDE DELIVERY SERVICE Patient Name: Shyam Hernández The marked outpatient [facility] and delivered to the patient's bedside to PT Medication List START taking these medications cyclobenzaprine 10 mg tablet Commonly known as: FLEXERIL Take 1 tablet by mouth three times daily. oxyCODONE-acetaminophen 5-325 mg tablet X Commonly known as: PERCOCET Take 1 tablet by mouth every 4 hours as needed for up to 7 days. Earliest Fill Date: 08/19/17 Telma Mathis (A-Gas) PAGER: [phone] August 19, 2017 2:16 PM PT ED Observed: 08/19/2017 Status: COMPLETED Source: [place] 1:46 PM [facility] REPOSITORY HNO ID: [id number] Author: Jayashree Irizarry (Rn) MARK Arevalo Service: Nursing Author Type: Registered Nurse Type: Patient Education Filed: 08/19/2017 1:46 PM Note Text: PATIENT EDUCATION TOPIC: PROCEDURE / SURGERY: Post-op Teaching: Symptom Management and Wound Care PATIENT NAME: Shyam Hernández PATIENT LOCATION: [place] [address]/22[address]21 READINESS TO LEARN COGNITIVE ABILITY: Alert and oriented MOTIVATION TO LEARN: Eager FAMILY SUPPORT: High - Very involved in pt care INSTRUCTION PROVIDED TO: Patient and family member PATIENT LEARNS BEST BY: Individual Instruction Written Instruction - Hand-outs Verbal Instruction FACTORS AFFECTING LEARNING: None PHYSICAL LIMITATIONS AFFECTING LEARNING: None LEARNING RESPONSE DIAGNOSIS: ADULT: Well Adult PATIENT/FAMILY RESPONSE: Verbalizes understanding of: POST-OPERATIVE INSTRUCTIONS-Correct actions to take to reduce postoperative complications POST-PROCEDURE INSTRUCTIONS-Correct actions to take to reduce post procedure complications METHOD OF INSTRUCTION: Written instruction - handouts Verbal instruction FOLLOW-UP PLAN: Follow up phone call. INSTRUCTIONAL AIDS USED: NA SUPPLEMENTAL MATERIAL PROVIDED TO PATIENT: None REFERRAL (RECOMMENDATION): None Electronically Signed By: Jayashree Arevalo RN NURSING PROG Observed: 08/19/2017 Status: COMPLETED Source: [place] 1:06 PM [facility] REPOSITORY HNO ID: [id number] Author: Jayashree Irizarry (Rn) MARK Arevalo Service: Nursing Author Type: Registered Nurse Type: Nursing Progress Note Filed: 08/19/2017 1:09 PM Note Text: 1345- spoke with OR resident regarding pt condition on arrival to phase II post op. Pt has softball sized hematoma at surgical site, no drainage noted. Pt sensation intact, denies pain, pt ambulated to bathroom x1 assist without difficulty. Pt returned to bed, ice pack applied to site. Pt at bedside. MD will be down to see pt prior to discharge to assess surgical site. Pt updated on plan of care. OPERATIVE NO Observed: 08/19/2017 Status: COMPLETED Source: [place] 11:35 AM [facility] REPOSITORY HNO ID: [id number] Author: Zeke Jaffe (Fel) Service: Orthopaedic Surgery Author Type: Fellow Type: Operative Report Filed: 08/20/2017 8:09 AM Note Text: New SPINE SURGERY OPERATIVE NOTE Patient Name: Shyam Hernández Account #: Data Unavailable Date of Procedure: 08/19/2017 LOG ID: [id number] Incision/Procedure Start Time: 8:24 AM Incision Close/Procedure End Time: 10:46 AM Pre-Op/Pre-Procedure Diagnosis: Right L4-5 far lateral herniated disc Post-Op/Post-Procedure Diagnosis: Same Surgeon(s) and Utility Locator(s): Surgeon(s) and Role: * Alexis Delarosa - Primary * Zkee Jaffe (Fel) - Fellow No Additional Staff I assisted Dr. Delarosa as there was no qualified resident available to assist Procedure(s): MIS far lateral microdiscectomy, right side, L4-5 Anesthesia: General Operative Indications: The patient is a 76-year-old male that has a history of a prior L4 5 herniated nucleus pulposus that was treated with an endoscopic microdiscectomy and foraminotomy. The patient had some interval pain relief however a few months after surgery the patient noted a recurrence of pain down the right leg terminating in the calf. A repeat MRI was obtained which demonstrated a new reherniation at the L4-5 level in the foramen and extending beyond the foramen. The patient tried an epidural steroid injection with short-lived relief. He was offered a repeat discectomy and elected to move forward with surgery. Intraoperative Findings: Extensive scarring due to the prior endoscopic foraminal decompression. Identification of several large fragments of herniated disc in the right side L4-5 foramen. Operative Procedure: The patient was brought into the operating room and a huddle was performed. After successful induction and endotracheal intubation, the patient was positioned in the prone position on the Leandro table. The patient was prepped and draped in the usual sterile fashion and C-arm was used to identify the L4 5 disc space. An incision was made for some meters lateral to the midline on the right side. A cannula was introduced and docked on the right L5 transverse process. Sequential dilation was then performed and a 22 mm working cannula was placed. Once again fluoroscopy was utilized demonstrating appropriate positioning of the tube. The microscope was then brought into the operative field and exposure of the right L5 transverse process as well as the lateral L4-5 facet was performed. The high-speed bur was utilized to resect the cranial portion of the transverse process as well as some lateral facet. The intertransverse membrane was identified and taken down. The exiting L4 nerve root was identified and retracted cranially and the L4-5 disc space was identified and a small annulotomy was performed. Some disc was resected from the disc space and a nerve hook was placed under the PLL and swiped cranially in the foramen removing several large pieces of sequestered disc. Irrigation was injected into the disc space and after confirmation of decompression of the L4 nerve root, meticulous hemostasis was achieved and the tube was removed. The wound was closed in a standard 3 layer fashion with Dermabond placed over the skin. The patient was then flipped back into the supine position and extubated. He tolerated the procedure well and was noted to be moving bilateral lower extremities strongly and taken to the PACU for recovery Implant(s): * No implants in log * Estimated Blood Loss: 20 mls Specimen(s): None Drains: None Complications: none Shyam Hernández tolerated the procedure well and was returned to the recovery room in stable condition. Surgical Attestation Dr. Jaffe and Dr Delarosa performed the entire procedure. Zeke Jaffe MD Surgical Spine Fellow PLAN OF CARE Observed: 08/19/2017 Status: COMPLETED Source: [place] 11:21 AM [facility] REPOSITORY HNO ID: [id number] Author: Telma Mathis (A-Gas) Service: (none) Author Type: (none) Type: Plan of Care Filed: 08/19/2017 11:22 AM Note Text: Pharmacy Discharge Medication Service: This patient has elected to receive their discharge prescriptions through the [facility] Bedside Prescription Delivery program. The prescriptions are currently being processed. A follow-up note will be entered once the prescriptions have been filled and delivered to the patient. Please contact me with any questions or updates to the patient's discharge medications. Telma Mathis (A-Gas) DCT Contact Info: [phone] XR LUMBAR 2V AP/LAT Observed: 08/19/2017 Status: F Source: [place] 10:58 AM [facility] REPOSITORY * * *Final Report* * * DATE OF EXAM: Aug 19 2017 10:58AM ESX [id number] - XR LUMBAR 2V AP/LAT / PROCEDURE REASON: MIS DECOMPRESSION LAMINECTOMY; DISCECTOMY; LUMBAR LEVEL 1 * * * * Physician Interpretation * * * * HISTORY: MIS DECOMPRESSION LAMINECTOMY; DISCECTOMY; LUMBAR LEVEL 1 TECHNOLOGIST PROVIDED HISTORY (if applicable): intra op TECHNIQUE: XR LUMBAR 2V AP/LAT RESULT: 4 intraoperative fluoroscopic views of the lumbosacral junction are submitted. Counting reference: Lumbosacral junction. For the purposes of this report, L5-S1 is considered the most caudal well formed disc space. Initially, an instrument is directed toward the L5 vertebral body from the right. Subsequent film shows what appears to be a needle with tip overlying the posterior elements directed toward L5. Third film shows an instrument overlying the posterior aspect of the L4-5 disc space. On the final frontal projection, instrument is seen at the right margin of the L4-5 disc space. IMPRESSION: INTRAOPERATIVE EXAMINATION FOR SURGICAL PLANNING AND DOCUMENTATION Cash Shortage Investigator: BLAIR Transcribe Date/Time: Aug 19 2017 1:52P Dictated by : JUSTIN ADAM MD This examination was interpreted and the report reviewed and electronically signed by: JUSTIN ADAM MD on Aug 19 2017 1:53PM EST [id number] BRIEF OP NOT Observed: 08/19/2017 Status: COMPLETED Source: [place] 10:49 AM [facility] REPOSITORY [facility]NO ID: [id number] Author: Zeke Jaffe (Fel) Service: Orthopaedic Surgery Author Type: Fellow Type: Brief Op Note Filed: 08/19/2017 10:51 AM Note Text: BRIEF OP NOTE LOG ID: [id number] Surgery/Procedure Date: 08/19/2017 Incision/Procedure Start Time: 8:24 AM Incision Close/Procedure End Time: 10:46 AM Surgeon(s)/Proceduralist(s) and Utility Locator(s): Surgeon(s) and Role: * Alexis Delarosa - Primary * Zeke Jaffe (Fel) - Fellow Procedure(s): L4-5 right far lateral microdiscectomy Anesthesia: General Findings: large herniated disc fragments Estimated Blood Loss: 20 mls Specimens: None Complications: None Pre-Op/Pre-Procedure Diagnosis: R foraminal L4-5 disc herniation Post-Op/Post-Procedure Diagnosis: * No post-op diagnosis entered * SIGNATURE: Zeke Jaffe MD PATIENT NAME: Shyam Hernández DATE: August 19, 2017 TIME: 10:49 AM PAGER/CONTACT #: NURSING PROG Observed: 08/19/2017 Status: COMPLETED Source: [place] 6:00 AM [facility] REPOSITORY [facility]NO ID: [id number] Author: Terese Molina RN Service: Nursing Author Type: Registered Nurse Type: Nursing Progress Note Filed: 08/19/2017 6:00 AM Note Text: MANAGER FILTER BEDSIDE DELIVERY SURVEY 1. Patient to use [facility] Bedside Delivery - YES 2. If fax, patient would like us to fax prescriptions to Pharmacy of choice a. Pharmacy: b. Location: c. Phone: 3. Insurance card on file - NO 4. Credit card for payment - NO No prescriptions yet. Please page sds orthotic and prosthetic technician upon discharge. NURSING PROG Observed: 08/19/2017 Status: COMPLETED Source: [place] 5:59 AM [facility] REPOSITORY HNO ID: [id number] Author: Terese Lozoya) MARK Molina Service: Nursing Author Type: Registered Nurse Type: Nursing Progress Note Filed: 08/19/2017 6:00 AM Note Text: PRE OP LEARNING ASSESSMENT PROCEDURE/SURGERY: SURGERY: READINESS TO LEARN COGNITIVE ABILITY: Alert and oriented MOTIVATION TO LEARN: Eager FAMILY SUPPORT: High - Very involved in pt care PATIENT LEARNS BEST BY: Individual Instruction Verbal Instruction FACTORS AFFECTING LEARNING: None PHYSICAL LIMITATIONS AFFECTING LEARNING: None Electronically Signed By: Terese Molina RN In Department: HOSP MAIN [id number] PROGRESS Observed: 08/05/2017 Status: COMPLETED Source: [place] 1:32 PM [facility] REPOSITORY HNO ID: [id number] Author: Hu Lance (Rt) Leola Paris Service: Radiology Author Type: Server Assistant Type: Progress Notes Filed: 08/05/2017 1:32 PM Note Text: Radiology Service Progress Note PATIENT NAME: Shyam Hernández DATE OF SERVICE: August 05, 2017 TIME: 1:32 PM PATIENT IDENTITY VERIFICATION COMPLETED USING TWO (2) METHODS: Patient confirmed name verbally and Date of . PATIENT GENDER DATA: Male PATIENT RELEVANT IMPLANT DATA REVIEWED: Yes RADIOLOGY DEPARTMENT: General X-ray: Exam(s) Completed: Chest X-Ray PERIPHERAL IV DATA: Not applicable SIGNED BY: RT Masood August 05, 2017 1:32 PM TYPE AND SCR (30D) Collected: 08/05/2017 Status: F Source: [place] 1:27 PM [facility] REPOSITORY TYPE CODE TESTS RESULT OUT OF REFERENCE UNITS RANGE LAB %ABR O ABO/RH(D) POSITIVE LAB % Antibody NEG Screen Performed By: #### [id number] #### [facility] [address], [place] [address] BASIC METABOLIC PANL Collected: 08/05/2017 Status: F Source: [place] 1:27 PM [facility] REPOSITORY TYPE CODE TESTS RESULT OUT OF REFERENCE UNITS RANGE LAB GLU 74-99 mg/dL Glucose 92 Result Comment: The [place] Diabetes Association (ADA) provides guidance for cutoff values for fasting glucose and random glucose. The ADA defines fasting as no caloric intake for at least 8 hours. Fas ting plasma glucose results between 100 to 125 mg/dL indicate increased risk for diabetes (prediabetes). Fasting plasma glucose results greater than or equal to 126 mg/dL meet the criteria for diagnosis of diabetes. In the absence of unequivocal hyperglycemia, results should be confirmed by repeat testing. In a patient with classic symptoms of hyperglycemia or hyperglycemic crisis, random plasma glucose results greater than or equal to 200 mg/dL meet the criteria for diagnosis of diabetes. Reference: Standards of Medical Care in Diabetes 2016, [place] Diabetes Association. Diabetes Care. 2016.39(Suppl 1). LAB BUN 9-24 mg/dL BUN 12 LAB CRET 0.73-1.22 mg/dL Creatinine 1.01 LAB NA 136-144 mmol/L Sodium 141 LAB K 3.7-5.1 mmol/L Potassium 4.0 LAB CL 97-105 mmol/L Chloride 102 LAB CO2 22-30 mmol/L CO2 24 LAB AGAP 9-18 mmol/L Anion Gap 15 LAB CA 8.5-10.2 mg/dL Calcium, Total 9.1 LAB GFRAA eGFR- Amer. >60 LAB GFRNAA . eGFR-All Other Races >60 Result Comment: eGFR (Estimated GFR) Units of measure: mL/min/1.73 meters squared eGFR is derived from the reexpressed MDRD Study equation using the following parameters: serum creatinine, age, gender and race. The creatinine assay has been calibrated to be traceable to IDMS. An eGFR <60 mL/min/1.73m2 for >3 months is consistent with chronic kidney disease. Refer to KDOQI guidelines for clinical interpretation. In patients with unstable renal function, e.g. those with acute kidney injury, the eGFR may not accurately reflect actual GFR. Performed By: #### BMP, CBCDIF #### [facility] [address] [place], [place] [address] CBC AND DIFFERENTIAL Collected: 08/05/2017 Status: F Source: [place] 1:27 PM [facility] REPOSITORY TYPE CODE TESTS RESULT OUT OF REFERENCE UNITS RANGE LAB WBC 3.70-11.00 k/uL WBC 6.18 LAB RBC 4.20-6.00 m/uL RBC 4.51 LAB HGB 13.0-17.0 g/dL Hemoglobin 13.4 LAB HCT 39.0-51.0 % Hematocrit 40.6 LAB MCV 80.0-100.0 fL MCV 90.0 LAB MCH 26.0-34.0 pG MCH 29.7 LAB MCHC 30.5-36.0 g/dL MCHC 33.0 LAB RDWCV 11.5-15.0 % RDW-CV 12.7 LAB PLTCT 150-400 k/uL Platelet Count 199 LAB MPV 9.0-12.7 fL MPV 10.2 LAB ANEUT % Neut% 60.0 LAB AANEUT 1.45-7.50 k/uL Abs Neut 3.69 LAB ALYMP % Lymph% 31.6 LAB AALYMP 1.00-4.00 k/uL Abs Lymph 1.95 LAB AMONO % Charlotte% 6.6 LAB AAMONO <0.87 k/uL Abs Charlotte 0.41 LAB AEOS % Eosin% 1.5 LAB AAEOS <0.46 k/uL Abs Eosin 0.09 LAB ABASO % Baso% 0.3 LAB AABASO <0.11 k/uL Abs Baso <0.03 LAB AUNRBC 0 /100 WBC NRBCs 0.0 LAB ABNRBC <0.01 k/uL Absolute nRBC <0.01 LAB DTYP DTYPE Auto Diff Performed By: #### BMP, CBCDIF #### [facility] [address] [place], [place] [address] XR CHEST 2V FRONTAL/LAT Observed: 08/05/2017 Status: F Source: [place] 1:15 PM [facility] REPOSITORY * * *Final Report* * * DATE OF EXAM: Aug 05 2017 1:15PM JIX [id number] - XR CHEST 2V FRONTAL/LAT / PROCEDURE REASON: Encounter for other preprocedural examination * * * * Physician Interpretation * * * * EXAMINATION: CHEST RADIOGRAPH (2 VIEW FRONTAL and LATERAL) Clinical History: Encounter for other preprocedural examination MQ: [id number]_5 Comparison: 12/23/2016 RESULT: Lines, tubes, and devices: The patient is status post median sternotomy and aortic valve replacement with a bioprosthesis. Lungs and pleura: Mild eventration of the right hemidiaphragm is noted. There is mild bibasilar atelectasis. Trace bilateral pleural effusions are noted. No pneumothorax. Cardiomediastinal silhouette: Cardiomediastinal silhouette is borderline enlarged. Calcification of the aortic arch is noted. Other: Mild dextrocurvature of the thoracic spine is noted. IMPRESSION: No acute radiographic abnormality. Cash Shortage Investigator: PSCB Transcribe Date/Time: Aug 05 2017 1:34P Dictated by : KARLIE GAFFNEY MD This examination was interpreted and the report reviewed and electronically signed by: KARLIE GAFFNEY MD on Aug 05 2017 1:35PM EST [id number] Observed: 08/05/2017 Status: COMPLETED Source: [place] 1:00 PM [facility] REPOSITORY Nurse Visit (SPNSMN) SHYAM HERNÁNDEZ ([id number]) 1940 M NFR Date Time Provider Department 08/05/17 1:00 PM GABRIEL ROMAN SPNSMN During your visit today, we recorded the following information about you: Jessica Short, RN, RN 08/05/2017 1:03 PM Signed Met with pt and for pre op education. Given both written and verbal instructions re: Skin prep, wound care, pain management, and post op restrictions. Discussed Home Care post discharge. Yes Nasal swab obtained. Instructed in treatment of positive results. Questions answered. Pt and voice(s) understanding. 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] Prescriptions as of 08/05/2017 Sig: PREGABALIN 50 MG CAPSULE One capsule by mouth twice a * PREGABALIN 100 MG CAPSULE One capsule by mouth twice a * NIACIN ER 500 MG TABLET,EXTEN* TAKE 1 TABLET BY MOUTH ONE TI* CELECOXIB 200 MG CAPSULE 1 capsule daily when necessar* NAPROXEN 500 MG TABLET Take 1 tablet by mouth twice * DOCUSATE SODIUM 100 MG CAPSULE Take 1 capsule by mouth twice* ESCITALOPRAM 20 MG TABLET TAKE 1 TABLET BY MOUTH EVERY * OMEPRAZOLE 20 MG CAPSULE,MELIA* TAKE 1 CAPSULE BY MOUTH EVERY* ATORVASTATIN 20 MG TABLET TAKE 1 TABLET BY MOUTH EVERY * LORATADINE 10 MG TABLET Take 1 tablet by mouth once d* ACETAMINOPHEN 325 MG TABLET Take 650 mg by mouth every 6 * FINASTERIDE 5 MG TABLET Take 1 tablet by mouth once d* DOXAZOSIN 4 MG TABLET Take 1 tablet by mouth once d* ASPIRIN 81 MG TABLET Take one (1) tablet daily . Problem List As Of Date 08/05/2017 Noted Resolved ESOPHAGEAL REFLUX [K21.9] Acute gastritis [535.0] 01/25/2016 Trigeminal neuralgia [G50.0] 01/25/2016 Seasonal allergic rhinitis due to pollen [J30.1] LUMBAGO [M54.5] Aortic valve disorder [I35.9] Hyperlipidemia [E78.5] INVALID FOR* ELEVATED PROSTATE SPECIFIC ANTIGEN [R97.20] INVALID FOR* BLADDER NECK OBSTRUCTION [N32.0] INVALID FOR* BPH with obstruction/lower urinary tract sympto*INVALID FOR* 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.21]INVALID FOR* Microscopic hematuria [R31.29] INVALID FOR* Smoking history [Z87.891] INVALID FOR* 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] INVALID FOR* Dehydration [E86.0] INVALID FOR* Nocturia [R35.1] INVALID FOR* Urinary frequency [R35.0] INVALID FOR* Elevated PSA [R97.20] INVALID FOR* 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.8*INVALID FOR* Cervical spondylosis without myelopathy [M47.81*INVALID FOR* Rotator cuff (capsule) sprain [S43.429A] INVALID FOR* BPH (benign prostatic hyperplasia) [N40.0] INVALID FOR* Aortic valve replaced [Z95.2] INVALID FOR* 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 Lumbar degenerative disc disease [M51.36] INVALID FOR* More... Radicular pain of lower extremity [M54.10] INVALID FOR* More... Chronic insomnia [F51.04] INVALID FOR* Connective tissue and disc stenosis of interver*INVALID FOR* Right leg pain [M79.604] INVALID FOR* Lumbar post-laminectomy syndrome [M96.1] INVALID FOR* More... Questionnaire: SPINE PREOP CHECKLIST Pre-op Skin Preparation Education Provided to Patient: -> Yes Pre-op Skin Cleansers Provided: -> Yes Nasal Swab Collected AND sent to Lab: -> Yes Nasal Swab Education Provided to Patient: -> Yes Your Surgical Guide Binder Provided to Patient: -> Yes Post Surgical Wound Care Instructions Provided and Reviewed: -> Yes Post-op Appointments Made and Provided: -> Yes Check Results of Nasal Swab: -> Yes Encounter Status:Closed by JESSICA SHORT on 08/05/17 PROGRESS Observed: 08/05/2017 Status: COMPLETED Source: [place] 12:54 PM [facility] REPOSITORY HNO ID: [id number] Author: Jessica (Rn) MARK Short Service: (none) Author Type: Registered Nurse Type: Progress Notes Filed: 08/05/2017 1:03 PM Note Text: Met with pt and for pre op education. Given both written and verbal instructions re: Skin prep, wound care, pain management, and post op restrictions. Discussed Home Care post discharge. Yes Nasal swab obtained. Instructed in treatment of positive results. Questions answered. Pt and voice(s) understanding. Observed: 08/05/2017 Status: F Source: [place] MRSA/S AUREUS 12:40 PM [facility] SCREEN REPOSITORY Sp. Request/Comment: - Swab Culture Result - Negative for Staphylococcus aureus. Performed By: #### SANSAL #### [facility] [address] [place], [place] [address] CNOV Observed: 08/05/2017 Status: COMPLETED Source: [place] 12:00 PM [facility] REPOSITORY Office Visit (SPNSMN) STEVO HERNÁNDEZALIYAH Santos ([id number]) 1940 M NFR Date Time Provider Department 08/05/17 12:00 PM BECKY ROBLERO) NSK[place]IGH During your visit today, we recorded the following information about you: Temperature Pulse Respiration Blood pressure 97.9 degrees 61/minute 18/minute 137/66 Weight Height 69.5 kg 1.702 m Becky Roblero PA-C 08/06/2017 9:36 AM Signed HISTORY AND PHYSICAL EXAMINATION SERVICE DATE: 08/05/2017 PRIMARY CARE PHYSICIAN: Jerald Bolden III MD Subjective Shyam Santos Betty is a 76 year old male presenting today for a history and physical as part of pre-operative clearance. he is scheduled to undergo discectomy L4/5 on 08/19/[address] Delarosa. Pre operative symptoms are stable since the last visit with this office. Anesthesia Risk Stratification ASA class 2. Presence of loose teeth: No Anesthesia problems in the past: No History of bleeding disorder: No History of sleep apnea: No Asthma/COPD: No If yes, does it interview with your normal activities: N/A How many times/week do you use your rescue inhaler: N/A Cardiac Risk Stratification Heart disease: Aortic Valve Arrythmia: No Chest pain: No Stents/heart surgeries: Aortic Valve Surgery HTN: No DM: No Patient is Able to Perform the Following Physical Activity: Run a short distance (8.00 METs) Patient denies any chest pain or undue shortness of breath with the above physical activity. Postoperative/Inpatient Risk Stratification Bowel/bladder issues: No Kidney issues: No Personal/family history of DVT/PE: No Family/social issues Lives with spouse Doing ADLs: No Falls in the last year: No Tobacco exposure: No PAST MEDICAL HISTORY Diagnosis Date - Acute gastritis - Allergic rhinitis due to other allergen - Aortic valve disorders - Degenerative arthritis of cervical spine 07/14/2013 - Diverticulosis of colon (without mention of hemorrhage) - Esophageal reflux - Internal hemorrhoids without mention of complication - Lumbago - Mental disorder - Other anxiety states - Snoring - Trigeminal neuralgia PAST SURGICAL HISTORY Procedure Laterality Date - APPENDECTOMY - COLONOSCOP W/ OR W/O [facility] SPEC 09/27/2005 Colonoscopy - COLONOSCOP W/ OR W/O [facility] SPEC 11/10/15 Colonoscopy - ECHO - EGD W/O OR W/BRUSH/WASH 07/05/2002 EGD - HEART SURGERY HX 2004 Aortic Cow valve replacement - PAST SURGICAL HISTORY OF 1994 Left parotid gland tumor- benign - PAST SURGICAL HISTORY OF right big toe x 2 - PAST SURGICAL HISTORY OF ORIF right ankle - REPAIR ING HERNIA,5+Y/O,REDUCIBL Hernia repair, inguinal - SIGMOIDOSCOPY FLEX DIAG 03/04/2000 Sigmoidoscopy FAMILY HISTORY Problem Relation Age of Onset - COPD Father - Lipids Mother Social History Substance Use Topics - Smoking status: Former Smoker Quit date: 06/17/1984 - Smokeless tobacco: Never Used Comment: quit pipe 1984 - Alcohol use Yes Comment: occassionally (Not in a hospital admission) ALLERGIES Allergen Reactions - Codeine Mental Status Change - Sulfa (Sulfonamide * Hives COMPLETE REVIEW OF SYSTEMS: Review of Systems Constitutional: Negative Eyes: Negative Hent: Negative Cardiovascular Positive for Leg pain with walking Negative for Chest Pain and Lightheadedness Respiratory: Negative GI: Negative : Negative Endocrine: Negative Musculoskeletal Positive for Muscle Pain Integumentary: Negative Heme/Lymph: Negative Allergy/Immunologic: Negative Neurologic Positive for Weakness Patient's Review of Systems has been reviewed with the patient and updated as appropriate. Objective PHYSICAL EXAM: Physical Exam Performed: GENERAL: Alert, no distress, cooperative SKIN: Skin color, texture, turgor normal. No rashes or lesions. HEAD/SINUSES: No significant findings EYES: PERRLA, EOMI EARS: External ears normal, canals clear NOSE: Nares normal. Septum midline. OROPHARYNX: Lips, mucosa, and tongue normal. Teeth and gums normal. Oropharynx normal. NECK: No jugulovenous distention, No carotid bruits, Carotid pulse normal contour, Supple BACK: Back symmetric, Normal curvature, ROM normal, No CVAT. LUNGS: Lungs clear to auscultation, Good diaphragmatic excursion CARDIAC: Normal S1 and S2; no rubs, murmurs, or gallops ABDOMEN: Abdomen soft, non-tender, BS normal, No masses or organomegaly EXTREMITIES: Extremities normal, no deformities, edema, clubbing or skin discoloration. Good capillary refill., No ulcers NEURO: Gait normal. Reflexes normal and symmetric. Sensation grossly intact PULSES: 2+ radial, 2+ carotid The remainder of the physical exam is noncontributory. BP 137/66 Pulse 61 Temp (Src) 97.9 (Oral) Resp 18 Ht 5' 7 (1.70m) Wt 153 lb 4.8 oz (69.5kg) SpO2 98% BMI 24.00 kg/(m2). DATA: Diagnostic tests reviewed for today's visit: Most recent labs Most recent imaging Most recent EKG Most recent No acute findings on Chest XR, EKG shows sinus bradycardia Pt is scheduled for a low risk procedure. Patient is in optimal condition to proceed with MIS discectomy L4/5 pending review of DOS anesthesia evaluation. To Stop NSAID's (ibuprofen, advil, motrin, aleve, naproxen, naprosyn) 7 days before surgery - To Stop Aspirin 7 days before surgery - OK to restart 10 days post op. To Stop multivitamins/herbal medications/over the counter supplements 10 - 14 days before surgery - OK to restart 10 days post op. No food after 12:00am on 08/19/17, prior to surgery No clear liquids (water, black tea, black coffee) 2 hours or less before check in time. The following medications should be taken with sips of water: Lyrica, Prilosec; Proscar; Lexapro Becky Roblero PA-C VTE Prophylaxis: VTE prophylaxis appropriate SIGNATURE: Becky Roblero PA-C PATIENT NAME: Shyam Hernández DATE: August 05, 2017 TIME: 10:15 AM Becky Roblero PA-C 08/05/2017 2:20 PM Addendum [facility] Patient Instructions for Surgery ? ? FOOD INSTRUCTIONS: NO solid food or non-clear liquids for 8 hours prior to the arrival time for your surgery. Unless you are instructed otherwise, you are allowed to drink up to 12 ounces of clear liquids (e.g. water, black tea/coffee, fruit juice without pulp, Jesusita Jeanette, etc.) up until 2 hours prior to the arrival time for surgery. ? MEDICATION INSTRUCTIONS: Prior to Surgery: Do not take the following medications for 7 days prior to surgery: - any NSAID's (e.g. Motrin, Aleve, Arthrotec, Naproxen,etc) - any herbal preparations - Aspirin or aspirin containing products Do not take any Vitamin E / multivitamins for 10-14 days before surgery You are allowed to take Tylenol if needed until the day of surgery. MEDICATION INSTRUCTIONS: Day/Morning of Surgery: The following medications should be taken with sips of water: Lyrica, Prilosec; Proscar; Lexapro Referring Provider: ALEXIS DELAROSA [[id number]] Allergies As of Date: 08/05/2017 Noted Allergy Reaction CODEINE 09/14/2003 1 - Mental Status Change SULFA (SULFONAMIDE ANTIBIOTICS) 09/14/2003 4 - Hives Date Reviewed: 08/05/2017 Reviewed by: Mary Grace Avila Ma - Fully Assessed Reason for Visit: Pre-Op Visit [1235] Primary Visit Diagnosis:Chronic right-sided low back pain with right-sided sciatica [M54.41, G89.29] Prescriptions as of 08/05/2017 Sig: PREGABALIN 50 MG CAPSULE One capsule by mouth twice a * PREGABALIN 100 MG CAPSULE One capsule by mouth twice a * NIACIN ER 500 MG TABLET,EXTEN* TAKE 1 TABLET BY MOUTH ONE TI* CELECOXIB 200 MG CAPSULE 1 capsule daily when necessar* NAPROXEN 500 MG TABLET Take 1 tablet by mouth twice * DOCUSATE SODIUM 100 MG CAPSULE Take 1 capsule by mouth twice* ESCITALOPRAM 20 MG TABLET TAKE 1 TABLET BY MOUTH EVERY * OMEPRAZOLE 20 MG CAPSULE,MELIA* TAKE 1 CAPSULE BY MOUTH EVERY* ATORVASTATIN 20 MG TABLET TAKE 1 TABLET BY MOUTH EVERY * LORATADINE 10 MG TABLET Take 1 tablet by mouth once d* ACETAMINOPHEN 325 MG TABLET Take 650 mg by mouth every 6 * FINASTERIDE 5 MG TABLET Take 1 tablet by mouth once d* DOXAZOSIN 4 MG TABLET Take 1 tablet by mouth once d* ASPIRIN 81 MG TABLET Take one (1) tablet daily . Problem List As Of Date 08/05/2017 Noted Resolved ESOPHAGEAL REFLUX [K21.9] Acute gastritis [535.0] 01/25/2016 Trigeminal neuralgia [G50.0] 01/25/2016 Seasonal allergic rhinitis due to pollen [J30.1] LUMBAGO [M54.5] Aortic valve disorder [I35.9] Hyperlipidemia [E78.5] INVALID FOR* ELEVATED PROSTATE SPECIFIC ANTIGEN [R97.20] INVALID FOR* BLADDER NECK OBSTRUCTION [N32.0] INVALID FOR* BPH with obstruction/lower urinary tract sympto*INVALID FOR* 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.21]INVALID FOR* Microscopic hematuria [R31.29] INVALID FOR* Smoking history [Z87.891] INVALID FOR* 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] INVALID FOR* Dehydration [E86.0] INVALID FOR* Nocturia [R35.1] INVALID FOR* Urinary frequency [R35.0] INVALID FOR* Elevated PSA [R97.20] INVALID FOR* 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.8*INVALID FOR* Cervical spondylosis without myelopathy [M47.81*INVALID FOR* Rotator cuff (capsule) sprain [S43.429A] INVALID FOR* BPH (benign prostatic hyperplasia) [N40.0] INVALID FOR* Aortic valve replaced [Z95.2] INVALID FOR* 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 Lumbar degenerative disc disease [M51.36] INVALID FOR* More... Radicular pain of lower extremity [M54.10] INVALID FOR* More... Chronic insomnia [F51.04] INVALID FOR* Connective tissue and disc stenosis of interver*INVALID FOR* Right leg pain [M79.604] INVALID FOR* Lumbar post-laminectomy syndrome [M96.1] INVALID FOR* More... Other instructions from your clinician: [facility] Patient Instructions for Surgery ? ? FOOD INSTRUCTIONS: NO solid food or non-clear liquids for 8 hours prior to the arrival time for your surgery. Unless you are instructed otherwise, you are allowed to drink up to 12 ounces of clear liquids (e.g. water, black tea/coffee, fruit juice without pulp, Jesusita Jeanette, etc.) up until 2 hours prior to the arrival time for surgery. ? MEDICATION INSTRUCTIONS: Prior to Surgery: Do not take the following medications for 7 days prior to surgery: - any NSAID's (e.g. Motrin, Aleve, Arthrotec, Naproxen,etc) - any herbal preparations - Aspirin or aspirin containing products Do not take any Vitamin E / multivitamins for 10-14 days before surgery You are allowed to take Tylenol if needed until the day of surgery. MEDICATION INSTRUCTIONS: Day/Morning of Surgery: The following medications should be taken with sips of water: Lyrica, Prilosec; Proscar; Lexapro Letter Text Alexis Delarosa M.D. Becky Roblero PA-C [facility] [address] [place] [address] Office: August 05, 2017 [place] [address] Re: Shyam Hernández CC #: [id number] To Whom It May Concern: Shyam Hernández is a patient of mine at the [facility]. Mr. Hernández is scheduled for urgent spine surgery on August 19, 2017. he will not be able to travel (including flying) for 6 weeks following his surgery. He will need to cancel his upcoming trip for himself and his spouse (Daniela Hernández) as she will be his caregiver. If you have any questions concerning Mr. Hernández, please do not hesitate to contact my office for further assistance. Sincerely, Becky Roblero PA-C Encounter Status:Closed by BECKY ROBLERO PA-C on 08/06/17 HISTORY PHYSICAL Observed: 08/05/2017 Status: COMPLETED Source: [place] 10:15 AM [facility] REPOSITORY HNO ID: [id number] Author: Becky Roblero Service: (none) Author Type: Physician Utility Locator Type: HANDP Filed: 08/06/2017 9:36 AM Note Text: HISTORY AND PHYSICAL EXAMINATION SERVICE DATE: 08/05/2017 PRIMARY CARE PHYSICIAN: Jerald Bolden III MD Subjective Shyam Santos Betty is a 76 year old male presenting today for a history and physical as part of pre-operative clearance. he is scheduled to undergo discectomy L4/5 on 08/19/[address] Delarsoa. Pre operative symptoms are stable since the last visit with this office. Anesthesia Risk Stratification ASA class 2. Presence of loose teeth: No Anesthesia problems in the past: No History of bleeding disorder: No History of sleep apnea: No Asthma/COPD: No If yes, does it interview with your normal activities: N/A How many times/week do you use your rescue inhaler: N/A Cardiac Risk Stratification Heart disease: Aortic Valve Arrythmia: No Chest pain: No Stents/heart surgeries: Aortic Valve Surgery HTN: No DM: No Patient is Able to Perform the Following Physical Activity: Run a short distance (8.00 METs) Patient denies any chest pain or undue shortness of breath with the above physical activity. Postoperative/Inpatient Risk Stratification Bowel/bladder issues: No Kidney issues: No Personal/family history of DVT/PE: No Family/social issues Lives with spouse Doing ADLs: No Falls in the last year: No Tobacco exposure: No PAST MEDICAL HISTORY Diagnosis Date - Acute gastritis - Allergic rhinitis due to other allergen - Aortic valve disorders - Degenerative arthritis of cervical spine 07/14/2013 - Diverticulosis of colon (without mention of hemorrhage) - Esophageal reflux - Internal hemorrhoids without mention of complication - Lumbago - Mental disorder - Other anxiety states - Snoring - Trigeminal neuralgia PAST SURGICAL HISTORY Procedure Laterality Date - APPENDECTOMY - COLONOSCOP W/ OR W/O [facility] SPEC 09/27/2005 Colonoscopy - COLONOSCOP W/ OR W/O [facility] SPEC 11/10/15 Colonoscopy - ECHO - EGD W/O OR W/BRUSH/WASH 07/05/2002 EGD - HEART SURGERY HX 2004 Aortic Cow valve replacement - PAST SURGICAL HISTORY OF 1994 Left parotid gland tumor- benign - PAST SURGICAL HISTORY OF right big toe x 2 - PAST SURGICAL HISTORY OF ORIF right ankle - REPAIR ING HERNIA,5+Y/O,REDUCIBL Hernia repair, inguinal - SIGMOIDOSCOPY FLEX DIAG 03/04/2000 Sigmoidoscopy FAMILY HISTORY Problem Relation Age of Onset - COPD Father - Lipids Mother Social History Substance Use Topics - Smoking status: Former Smoker Quit date: 06/17/1984 - Smokeless tobacco: Never Used Comment: quit pipe 1984 - Alcohol use Yes Comment: occassionally (Not in a hospital admission) ALLERGIES Allergen Reactions - Codeine Mental Status Change - Sulfa (Sulfonamide * Hives COMPLETE REVIEW OF SYSTEMS: Review of Systems Constitutional: Negative Eyes: Negative Hent: Negative Cardiovascular Positive for Leg pain with walking Negative for Chest Pain and Lightheadedness Respiratory: Negative GI: Negative : Negative Endocrine: Negative Musculoskeletal Positive for Muscle Pain Integumentary: Negative Heme/Lymph: Negative Allergy/Immunologic: Negative Neurologic Positive for Weakness Patient's Review of Systems has been reviewed with the patient and updated as appropriate. Objective PHYSICAL EXAM: Physical Exam Performed: GENERAL: Alert, no distress, cooperative SKIN: Skin color, texture, turgor normal. No rashes or lesions. HEAD/SINUSES: No significant findings EYES: PERRLA, EOMI EARS: External ears normal, canals clear NOSE: Nares normal. Septum midline. OROPHARYNX: Lips, mucosa, and tongue normal. Teeth and gums normal. Oropharynx normal. NECK: No jugulovenous distention, No carotid bruits, Carotid pulse normal contour, Supple BACK: Back symmetric, Normal curvature, ROM normal, No CVAT. LUNGS: Lungs clear to auscultation, Good diaphragmatic excursion CARDIAC: Normal S1 and S2; no rubs, murmurs, or gallops ABDOMEN: Abdomen soft, non-tender, BS normal, No masses or organomegaly EXTREMITIES: Extremities normal, no deformities, edema, clubbing or skin discoloration. Good capillary refill., No ulcers NEURO: Gait normal. Reflexes normal and symmetric. Sensation grossly intact PULSES: 2+ radial, 2+ carotid The remainder of the physical exam is noncontributory. BP 137/66 Pulse 61 Temp (Src) 97.9 (Oral) Resp 18 Ht 5' 7 (1.70m) Wt 153 lb 4.8 oz (69.5kg) SpO2 98% BMI 24.00 kg/(m2). DATA: Diagnostic tests reviewed for today's visit: Most recent labs Most recent imaging Most recent EKG Most recent No acute findings on Chest XR, EKG shows sinus bradycardia Pt is scheduled for a low risk procedure. Patient is in optimal condition to proceed with MIS discectomy L4/5 pending review of DOS anesthesia evaluation. To Stop NSAID's (ibuprofen, advil, motrin, aleve, naproxen, naprosyn) 7 days before surgery - To Stop Aspirin 7 days before surgery - OK to restart 10 days post op. To Stop multivitamins/herbal medications/over the counter supplements 10 - 14 days before surgery - OK to restart 10 days post op. No food after 12:00am on 08/19/17, prior to surgery No clear liquids (water, black tea, black coffee) 2 hours or less before check in time. The following medications should be taken with sips of water: Lyrica, Prilosec; Proscar; Lexapro Becky Roblero PA-C VTE Prophylaxis: VTE prophylaxis appropriate SIGNATURE: Becky Roblero PA-C PATIENT NAME: Shyam Hernández DATE: August 05, 2017 TIME: 10:15 AM PROGRESS Observed: 07/24/2017 Status: COMPLETED Source: [place] 11:54 AM [facility] REPOSITORY HNO ID: [id number] Author: Louise Knapp (Pt) Service: (none) Author Type: Physical Therapist Type: Progress Notes Filed: 07/24/2017 11:56 AM Note Text: [facility] PHYSICAL THERAPY DISCONTINUANCE OF CARE Plan of Care Period: Start of Care Date: 05/26/17 Last Visit Date:06/11/17 Therapy Program: Patient did not return for follow up care Please refer to last visit note for interventions provided for this episode of care. Assessment: Unable to formally assess goal achievement . Pt with ongoing pain and has followed up with specialist and has upcoming surgery disectomy surgery planned Reason for Discontinuation of Care: Patient has not returned to therapy or scheduled additional follow-up appointments. Louise Knapp, PT HOSP Observed: 07/16/2017 Status: COMPLETED Source: [place] 12:00 AM [facility] REPOSITORY Patient:Shyam Hernández MRN: <[id number]> Height:5' 7(1.702 m) Weight:153 lb 4.8 oz (69.536 kg) Outpatient Medications as of 08/19/17: pregabalin (LYRICA) 50 mg capsule pregabalin (LYRICA) 100 mg capsule niacin ER (NIASPAN) 500 mg tablet celecoxib (CELEBREX) 200 mg capsule naproxen (NAPROSYN) 500 mg tablet docusate sodium (COLACE) 100 mg capsule escitalopram oxalate (LEXAPRO) 20 mg tablet omeprazole (PRILOSEC) 20 mg capsule atorvastatin (LIPITOR) 20 mg tablet loratadine (CLARITIN) 10 mg tablet acetaminophen (TYLENOL) 325 mg tablet finasteride (PROSCAR) 5 mg tablet doxazosin (CARDURA) 4 mg tablet ASPIRIN 81MG TABLET Admission/Clinic Administered Medications as of 08/19/17: lactated ringers infusion ceFAZolin iv piggyback 2 g in D5W (iso-osmotic) 100 mL (ANCEF) Problem List: Esophageal reflux [K21.9] Seasonal allergic rhinitis due to pollen [J30.1] Lumbago [M54.5] Aortic valve disorder [I35.9] Hyperlipidemia [E78.5] Elevated prostate specific antigen (PSA) [R97.20] Bladder neck obstruction [N32.0] BPH with obstruction/lower urinary tract symptoms [N40.1, N13.8] Adjustment disorder with depressed mood [F43.21] Microscopic hematuria [R31.29] Smoking history [Z87.891] 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] Dehydration [E86.0] Nocturia [R35.1] Urinary frequency [R35.0] Elevated PSA [R97.20] 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.812] Cervical spondylosis without myelopathy [M47.812] Rotator cuff (capsule) sprain [S43.429A] BPH (benign prostatic hyperplasia) [N40.0] Aortic valve replaced [Z95.2] 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] Degenerative disc disease, cervical [M50.30] Hyperlipidemia LDL goal <100 [E78.5] Acute right-sided low back pain with right-sided sciatica [M54.41] Chronic right-sided low back pain with right-sided sciatica [M54.41, G89.29] Lumbosacral spondylosis without myelopathy [M47.817] Lumbar degenerative disc disease [M51.36] Radicular pain of lower extremity [M54.10] Chronic insomnia [F51.04] 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 PATIENT GENDER DATA: Male PATIENT RELEVANT IMPLANT DATA REVIEWED: Yes RADIOLOGY DEPARTMENT: General X-ray: Exam(s) Completed: Chest X-Ray PERIPHERAL IV DATA: Not applicable SIGNED BY: RT Masood August 05, 2017 1:32 PM Progress Notes (SPINE SURG MAIN S70): Jessica Short, RN, RN 08/05/2017 1:03 PM Signed Met with pt and for pre op education. Given both written and verbal instructions re: Skin prep, wound care, pain management, and post op restrictions. Discussed Home Care post discharge. Yes Nasal swab obtained. Instructed in treatment of positive results. Questions answered. Pt and voice(s) understanding. HOSP Observed: 07/15/2017 Status: COMPLETED Source: [place] 12:00 AM [facility] REPOSITORY Patient Update (SPNSMN) SHYAM HERNÁNDEZ ([id number]) 1940 M NFR Date Time Provider Department 07/15/17 ALEXIS DELAROSA SPNSMN During your visit today, we recorded the following information about you: Gabriel Roman 08/05/2017 7:35 AM Signed Addended by: GABRIEL ROMAN on: 08/05/2017 07:35 AM Modules accepted: Orders Allergies As of Date: 07/15/2017 Noted Allergy Reaction CODEINE 09/14/2003 1 - Mental Status Change SULFA (SULFONAMIDE ANTIBIOTICS) 09/14/2003 4 - Hives Date Reviewed: 07/04/2017 Reviewed by: Yudy (Rn) MARK Gu - Fully Assessed Primary Visit Diagnosis:Pre-op testing [Z01.818] Order(s):CBC + DIFF [SQCBCDIF] Order #: [id number] FUTURE BASIC METABOLIC PNL [SQBMP] Order #: [id number] FUTURE TYPE + SCREEN,30 DAY [OHLDCY55] Order #: [id number] FUTURE XR CHEST 2V FRONTAL/LAT [[id number]] Order #: [id number] FUTURE ECG COMPLETE W INTERPRETATION [ECG01] Order #: [id number] FUTURE CONSULT TO SPINE CENTER [[id number]] Order #: [id number]: 1 HANDP FOR SURGERY [[id number]] Order #: [id number] REFER FOR ADMIT INTERVIEW [] Order #: [id number] REFER FOR ADMIT INTERVIEW [] Order #: [id number] CONSULT TO PATIENT EDUCATION [19990420] Order #: [id number]: 1 SURGICAL REQUEST - ELECTIVE [[id number]] Order #: [id number]: 1 MRSA/STAPH AUREUS CULTURE SCRN [SQNSHI] Order #: [id number] Prescriptions as of 07/15/2017 Sig: PREGABALIN 50 MG CAPSULE One capsule by mouth twice a * PREGABALIN 100 MG CAPSULE One capsule by mouth twice a * NIACIN ER 500 MG TABLET,EXTEN* TAKE 1 TABLET BY MOUTH ONE TI* CELECOXIB 200 MG CAPSULE 1 capsule daily when necessar* NAPROXEN 500 MG TABLET Take 1 tablet by mouth twice * DOCUSATE SODIUM 100 MG CAPSULE Take 1 capsule by mouth twice* ESCITALOPRAM 20 MG TABLET TAKE 1 TABLET BY MOUTH EVERY * OMEPRAZOLE 20 MG CAPSULE,MELIA* TAKE 1 CAPSULE BY MOUTH EVERY* ATORVASTATIN 20 MG TABLET TAKE 1 TABLET BY MOUTH EVERY * LORATADINE 10 MG TABLET Take 1 tablet by mouth once d* ACETAMINOPHEN 325 MG TABLET Take 650 mg by mouth every 6 * FINASTERIDE 5 MG TABLET Take 1 tablet by mouth once d* DOXAZOSIN 4 MG TABLET Take 1 tablet by mouth once d* ASPIRIN 81 MG TABLET Take one (1) tablet daily . Problem List As Of Date 07/15/2017 Noted Resolved ESOPHAGEAL REFLUX [K21.9] Acute gastritis [535.0] 01/25/2016 Trigeminal neuralgia [G50.0] 01/25/2016 Seasonal allergic rhinitis due to pollen [J30.1] LUMBAGO [M54.5] Aortic valve disorder [I35.9] Hyperlipidemia [E78.5] INVALID FOR* ELEVATED PROSTATE SPECIFIC ANTIGEN [R97.20] INVALID FOR* BLADDER NECK OBSTRUCTION [N32.0] INVALID FOR* BPH with obstruction/lower urinary tract sympto*INVALID FOR* 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.21]INVALID FOR* Microscopic hematuria [R31.29] INVALID FOR* Smoking history [Z87.891] INVALID FOR* 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] INVALID FOR* Dehydration [E86.0] INVALID FOR* Nocturia [R35.1] INVALID FOR* Urinary frequency [R35.0] INVALID FOR* Elevated PSA [R97.20] INVALID FOR* 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.8*INVALID FOR* Cervical spondylosis without myelopathy [M47.81*INVALID FOR* Rotator cuff (capsule) sprain [S43.429A] INVALID FOR* BPH (benign prostatic hyperplasia) [N40.0] INVALID FOR* Aortic valve replaced [Z95.2] INVALID FOR* 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 Lumbar degenerative disc disease [M51.36] INVALID FOR* More... Radicular pain of lower extremity [M54.10] INVALID FOR* More... Chronic insomnia [F51.04] INVALID FOR* Connective tissue and disc stenosis of interver*INVALID FOR* Right leg pain [M79.604] INVALID FOR* Lumbar post-laminectomy syndrome [M96.1] INVALID FOR* More... Follow-up and Disposition History Recorded Encounter Status:Closed by BECKY ROBLERO PA-C on 07/16/17 PT ED Observed: 07/04/2017 Status: COMPLETED Source: [place] 11:37 AM [facility] REPOSITORY HNO ID: [id number] Author: Felix (Rn) MARK Cotto Service: Nursing Author Type: Registered Nurse Type: Patient Education Filed: 07/04/2017 11:38 AM Note Text: POST OP LEARNING RESPONSE INSTRUCTION PROVIDED TO: Patient METHOD OF INSTRUCTION: Written instruction - handouts Verbal instruction PATIENT / FAMILY RESPONSE: Verbalizes understanding of: Discharge instructions FOLLOW-UP PLAN: Recommend - Recommend continued instruction and follow up as directed SUPPLEMENTAL MATERIAL: None REFERRAL (RECOMMENDATION): None Electronically Signed By: Felix Cotto RN In Department: [facility] SURGERY XR FLUOROSCOPY Observed: 07/04/2017 Status: F Source: [place] 11:19 AM [facility] REPOSITORY * * *Final Report* * * DATE OF EXAM: Jul 04 2017 11:19AM MDR [id number] - XR FLUOROSCOPY / PROCEDURE REASON: pain * * * * Physician Interpretation * * * * Study: Pain management. XR FLUOROSCOPY HISTORY: Indication: pain PAIN TECHNIQUE: Fluoroscopic Radiation Summary: Plane A, Air Kerma: 5.8 mGy Dose Area Product (DAP): 519.2 mGy*cmS2 Fluoro time: 0:14 min:sec Images obtained: 3 Spot film images under fluoroscopic guidance. Images were stored in a permanent archive. Comparison: NONE. RESULT: Findings: Tip of the needle projects over the L4-5 level on the RIGHT side. See procedural note in Epic for further discussion. IMPRESSION: As discussed above Cash Shortage Investigator: BLAIR Transcribe Date/Time: Jul 04 2017 3:34P Dictated by : PIETER TALBOT DO This examination was interpreted and the report reviewed and electronically signed by: PIETER TALBOT DO on Jul 04 2017 3:35PM EST [id number] OPERATIVE NO Observed: 07/04/2017 Status: COMPLETED Source: [place] 11:01 AM [facility] REPOSITORY HNO ID: [id number] Author: Roderick Cobos Service: Pain Management Author Type: Physician Type: Operative Report Filed: 07/04/2017 11:16 AM Note Text: OPERATIVE REPORT PATIENT NAME: Shyam Hernández [facility] #: [id number] DATE: 07/04/2017 SURGEON: Roderick Cobos D.O. PROCEDURE: Right L4-5 transforaminal epidural steroid injection ANESTHESIA: Versed 2 mg PREOPERATIVE DIAGNOSIS: Lumbosacral/right lower extremity pain, etiology: Lumbar postlaminectomy syndrome-radicular right lower extremity pain-lumbar spondylosis-lumbar degenerative disc disease POSTOPERATIVE DIAGNOSIS: Same OPERATIVE INDICATIONS: The risks and benefits associated with the above mentioned procedure were explained to the patient in full. All questions regarding the procedure were answered prior to its performance. The patient agreed to proceed with the procedure on this date. PROCEDURE: The patient was transferred to the procedure room and placed in a prone position with a pillow underneath the mid-abdomen. The use of routine monitoring was used throughout the procedure. The lumbosacral region was prepped and draped in the usual sterile fashion. The right L4-5 neural foramen was identified and a skin wheal raised over this site with lidocaine 0.5% via a 25-gauge needle. Following this, deeper infiltration was carried out with the same solution. A 22-gauge 5-inch needle was then advanced under direct fluoroscopic guidance until appropriate needle-tip position was achieved. This was confirmed via biplanar fluoroscopy and with the injection of Omnipaque 300 0.5 cc. Following negative aspiration for cerebrospinal fluid or blood, a solution containing lidocaine 0.5% plus triamcinolone 60 mg was injected in increments to a volume of 3 cc. The patient tolerated the procedure well. No complications were observed. The patient was provided discharge instructions and all questions were answered prior to the [facility]'s [facility]. I performed the entire procedure. Estimated blood loss: None Specimens: None PROCEDURE START TIME: 1105 PROCEDURE END TIME: 1115 Roderick Cobos D.O. PT ED Observed: 07/04/2017 Status: COMPLETED Source: [place] 9:42 AM [facility] OTHER CAMPUS REPOSITORY [facility] ID: [id number] Author: Maia (Rn) MARK Key Service: Nursing Author Type: Registered Nurse Type: Patient Education Filed: 07/04/2017 9:43 AM Note Text: PRE OP LEARNING ASSESSMENT PROCEDURE/SURGERY: SURGERY: R lumbar Trans foraminal injection READINESS TO LEARN COGNITIVE ABILITY: Alert and oriented MOTIVATION TO LEARN: Eager FAMILY SUPPORT: High - Very involved in pt care PATIENT LEARNS BEST BY: Written Instruction - Hand-outs Verbal Instruction FACTORS AFFECTING LEARNING: None PHYSICAL LIMITATIONS AFFECTING LEARNING: None Electronically Signed By: Maia Key RN In Department: [facility] SURGERY NURSING PROG Observed: 07/04/2017 Status: COMPLETED Source: [place] 9:42 AM [facility] OTHER CAMPUS REPOSITORY HNO ID: [id number] Author: Maia (Rn) MARK Key Service: Nursing Author Type: Registered Nurse Type: Nursing Progress Note Filed: 07/04/2017 9:42 AM Note Text: Nursing Progress Note Patient Name: Shyam Hernández [place] [facility] [facility] pt ready for OR, call light in reach, called to bedside This note was completed by: Maia Key RN CNOV Observed: 07/03/2017 Status: COMPLETED Source: [place] 8:30 AM [facility] REPOSITORY Office Visit (PAINST) SHYAM HERNÁNDEZ ([id number]) 1940 M R Date Time Provider Department 07/03/17 8:30 AM RODERICK COBOS During your visit today, we recorded the following information about you: Weight Height 70.3 kg 1.676 m Roderick Cobos DO 07/03/2017 8:46 AM Signed Last Visit: June 09, 2017 Clinical Impression: 1. Right gluteal/right lower extremity pain, etiology: Status post right L4-5 microdecompression-lumbar spondylosis-lumbar degenerative disc disease-radicular right lower extremity pain-piriformis syndrome Recommendation/Plan: 1. EMGs/NCVS right lower extremity. 2. The patient's home exercise program was reviewed with him in detail and modifications made. The patient was also instructed regarding piriformis stretching. 3. Will defer further medication trials for the time being. 4. Follow-up with Dr. Delarosa as scheduled. 5. Follow-up after #1 above at which time more specific recommendations will be made. [facility] FOLLOW-UP EVALUATION The consultation is entered using voice recognition technology and may contain inaccurate syntax or word sense. Referring Physician: Dr. Bolden?? Subjective: 76-year-old gentleman well-known to me presents for reevaluation given a history of recurrent right lumbosacral pain extending into the right lower extremity in a predominant L4/L5 distribution as currently described. The patient has been followed by Dr. Delarosa and given recurrent symptoms underwent reimaging of the lumbar spine on June 26 (MRI with and without). He presents for reevaluation today to discuss pursuing a right L4-5 transforaminal epidural steroid injection in an attempt to alleviate his current symptoms while consideration is being given to reoperation. The patient denies specific motor or sensory deficits. He describes the pain as a constant deep dull aching sensation which at times has a sharp shooting quality. Symptoms are most notable with weightbearing activity and when transitioning from one position to another. The pain improved somewhat by assuming a flexed posture when ambulatory. He had previously been on gabapentin which was discontinued and Celebrex reinitiated without benefit. The patient is compliant with a home exercise program consisting of stretching exercises. He denies recent slip and fall or other injuries. Imaging: IMPRESSION: Degenerative and postoperative changes of the lumbar spine without evidence of new or recurrent disc herniation. Cash Shortage Investigator: BLAIR ? Transcribe Date/Time: Jun 26 2017 10:05A Dictated by : DAVID DELANEY MD This examination was interpreted and the report reviewed and electronically signed by: DAVID DELANEY MD on Jun 26 2017 10:22AM ?EST Results-Findings * * *Final Report* * * DATE OF EXAM: Jun 26 2017 10:00AM ? WRM ? 0304 ?- ?MRI LUMBAR SPINE WO/W IVCON ?/ PROCEDURE REASON: multiple diagnoses ?? ? * * * * Physician Interpretation * * * * ?EXAMINATION: ?MRI LUMBAR SPINE WO/W IVCON HISTORY: ?Radiculopathy, site unspecified Lumbago with sciatica, right side Other chronic pain Other specified postprocedural states S/p discectomy assess for re-herniation vs scar tissue MRI LUMBAR WWO PREV SX PAIN LOW BACK RADIATING DOWN RT LEG 01/13/17: ?Endoscopic right-sided L4-5 microdiskectomy. TECHNIQUE: MRI lumbar spine without/with contrast Contrast: ?Dotarem Contrast Dose (cc): ?14ML Route of Administration: ?IV MQ: ?[id number] COMPARISON: Lumbar radiographs dated 06/05/2017; MRI lumbar spine dated 05/23/2016 RESULT: Counting reference: Last fully formed disc labeled L5/S1. Visualized abdominal and pelvic viscera are grossly unremarkable. Normal lumbar lordosis is preserved as is vertebral body height. A few small vertebral body hemangiomas. Multilevel degenerative disc disease trace endplate changes. Overall unremarkable marrow signal. The tip of the conus is at the L1/2 level with unremarkable conus medullaris and cauda equina. T12/L1: Unremarkable. L1/2: Unremarkable. L2/3: Minimal bulging disc and facet arthrosis without significant narrowing, unchanged. L3/4: Bulging disc and facet arthrosis mild narrowing of the neural foramina, unchanged. L4/5: New subtle right hemilaminectomy changes with enhancing granulation tissue in the right subarticular recess extending into the dorsal aspect of the disc right laterally tapering into the neural foramen with moderate distortion of the right subarticular recess and right neural foramen superimposed on bulging disc, endplate osteophyte formation, and facet arthrosis. ?Mild narrowing of the spinal canal and left neural foramen. L5/S1: Bulging disc, loss of disc height, endplate osteophyte formation, and facet arthrosis result in mild narrowing of the spinal canal and subarticular recesses with mild to moderate neural foraminal narrowing, unchanged OARRS Report: Reviewed Pain Panel/Toxicology Available: No ALLERGIES: Codeine; Sulfa (Sulfonamide Antibiotics) Current Outpatient Medications: Current Outpatient Prescriptions: niacin ER (NIASPAN) 500 mg tablet TAKE 1 TABLET BY MOUTH ONE TIME DAILY celecoxib (CELEBREX) 200 mg capsule 1 capsule daily when necessary with food naproxen (NAPROSYN) 500 mg tablet Take 1 tablet by mouth twice daily as needed for Pain. Take with food. docusate sodium (COLACE) 100 mg capsule Take 1 capsule by mouth twice daily. escitalopram oxalate (LEXAPRO) 20 mg tablet TAKE 1 TABLET BY MOUTH EVERY DAY omeprazole (PRILOSEC) 20 mg capsule TAKE 1 CAPSULE BY MOUTH EVERY DAY atorvastatin (LIPITOR) 20 mg tablet TAKE 1 TABLET BY MOUTH EVERY DAY loratadine (CLARITIN) 10 mg tablet Take 1 tablet by mouth once daily. acetaminophen (TYLENOL) 325 mg tablet Take 650 mg by mouth every 6 hours as needed. finasteride (PROSCAR) 5 mg tablet Take 1 tablet by mouth once daily. doxazosin (CARDURA) 4 mg tablet Take 1 tablet by mouth once daily. ASPIRIN 81MG TABLET Take one (1) tablet daily . No current facility-administered medications for this visit. Current Anticoagulant Therapy: No Past Medical History: PAST MEDICAL HISTORY Diagnosis Date - Acute gastritis - Allergic rhinitis due to other allergen - Aortic valve disorders - Degenerative arthritis of cervical spine 07/14/2013 - Diverticulosis of colon (without mention of hemorrhage) - Esophageal reflux - Internal hemorrhoids without mention of complication - Lumbago - Mental disorder - Other anxiety states - Snoring - Trigeminal neuralgia Past Surgical History: PAST SURGICAL HISTORY Procedure Laterality Date - APPENDECTOMY - COLONOSCOP W/ OR W/O [facility] SPEC 09/27/2005 Colonoscopy - COLONOSCOP W/ OR W/O [facility] SPEC 11/10/15 Colonoscopy - ECHO - EGD W/O OR W/BRUSH/WASH 07/05/2002 EGD - HEART SURGERY HX 2004 Aortic Cow valve replacement - PAST SURGICAL HISTORY OF 1994 Left parotid gland tumor- benign - PAST SURGICAL HISTORY OF right big toe x 2 - PAST SURGICAL HISTORY OF ORIF right ankle - REPAIR ING HERNIA,5+Y/O,REDUCIBL Hernia repair, inguinal - SIGMOIDOSCOPY FLEX DIAG 03/04/2000 Sigmoidoscopy Review of Systems: General: Negative for weight loss, malaise or fevers. HEENT: Negative for epistaxis, frequent/significant headaches, changes in hearing or vision. Neck: Negative for lumps, goiter, pain or significant neck swelling. Cardiovascular: Negative for chest pain, palpitations or leg swelling. Respiratory: Negative for shortness of breath, cough or wheezing. GI: Negative for melena, hematochezia or change in bowel habits. : Negative for dysuria, frequency or incontinence. Skin: Negative for lesions, rash or pruritis. Psych: Negative for sleep disturbance, mood disorder or recent psychosocial stressors. Hematology/Lymphology: Negative for easy bruising/bleeding or lymphadenopathy. Endocrine: Negative for heat/cold intolerance, polyuria or polydipsia. All other reviewed and negative other than HPI. Physical Examination: Ht 167.6 cm (5' 6ANDquot;) Wt 70.3 kg (155 lb) BMI 25.02 kg/m2 HEENT: No cervical lymphadenopathy. No thyromegaly. Cor: RRR without S3, S4. Peripheral pulses +2/4 in the upper extremities and +1/4 DP. No peripheral edema is noted. Capillary refill is brisk. Lungs: BS equal and CTA. Abdomen: Soft, non-tender. Without masses, organomegaly. Musculoskeletal: An accentuated thoracic kyphosis and decreased lumbar lordosis are present. Hamstring and piriformis tightness is noted. Piriformis tension signs are negative. Straight leg raising is questionably positive on the right at 45?. Contralateral straight-leg raising is negative. Gait is broad-based, somewhat shuffled with the trunk maintained in a flexed posture. No facet joint tenderness is noted. A sacral torsion is not present. Neuro: Deep tendon reflexes are +2/4 biceps, triceps, brachioradialis, ankle jerk. +3/4 patellar. Sensory examination is intact. No allodynia or hyperalgesia is noted. Clinical Impression: 1. 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 The patient was encouraged to remain compliant with recommendations per Dr. Delarosa's service. 2. Following an explanation of associated risks and benefits the patient agreed to proceed with a right L4-5 transforaminal epidural steroid injection (will be added onto tomorrows schedule). 3. June 30, 2017 Creatinine 1.14, eGFR ANDgt;60 4. Lyrica 50 mg 1 capsule twice a day for 3 days increasing to 100 mg twice a day thereafter as indicated and tolerated. Voucher, prescriptions and written instructions detailing the above were provided to the patient. The patient is in agreement with the treatment plan. All questions the patient had were answered at the time of today's visit. Electronically Signed: Roderick Cobos DO July 03, 2017 The consultation is to be transmitted via electronic medical record for those providers who practice within [facility] and for those with access to [facility] via MD Connect or via letter. Anca Peterson RN, RN 07/03/2017 8:36 AM Addendum Pregabalin 50 mg one capsule twice a day for 3 days then increase to Pregabalin 100 mg one capsule twice a day thereafter Do not abruptly stop this medication if you have questions or concerns please call the office for instructions Recommends Right Lumbar Transforaminal injection Referring Provider: SELF [[id number]] Allergies As of Date: 07/03/2017 Noted Allergy Reaction CODEINE 09/14/2003 1 - Mental Status Change SULFA (SULFONAMIDE ANTIBIOTICS) 09/14/2003 4 - Hives Date Reviewed: 07/03/2017 Reviewed by: Anca Peterson RN - Fully Assessed Primary Visit Diagnosis:Lumbar radicular pain [M54.16] Other Visit Diagnoses:Lumbar post-laminectomy syndrome [M96.1] Lumbar spondylosis [M47.816] Lumbar degenerative disc disease [M51.36] Order(s):pregabalin (LYRICA) 50 mg capsuleOne capsule by mouth twice a dayDisp: 28 capsuleRfl: 0 pregabalin (LYRICA) 100 mg capsuleOne capsule by mouth twice a dayDisp: 60 capsuleRfl: 2 Prescriptions as of 07/03/2017 Sig: PREGABALIN 50 MG CAPSULE One capsule by mouth twice a * PREGABALIN 100 MG CAPSULE One capsule by mouth twice a * NIACIN ER 500 MG TABLET,EXTEN* TAKE 1 TABLET BY MOUTH ONE TI* CELECOXIB 200 MG CAPSULE 1 capsule daily when necessar* NAPROXEN 500 MG TABLET Take 1 tablet by mouth twice * DOCUSATE SODIUM 100 MG CAPSULE Take 1 capsule by mouth twice* ESCITALOPRAM 20 MG TABLET TAKE 1 TABLET BY MOUTH EVERY * OMEPRAZOLE 20 MG CAPSULE,MELIA* TAKE 1 CAPSULE BY MOUTH EVERY* ATORVASTATIN 20 MG TABLET TAKE 1 TABLET BY MOUTH EVERY * LORATADINE 10 MG TABLET Take 1 tablet by mouth once d* ACETAMINOPHEN 325 MG TABLET Take 650 mg by mouth every 6 * FINASTERIDE 5 MG TABLET Take 1 tablet by mouth once d* DOXAZOSIN 4 MG TABLET Take 1 tablet by mouth once d* ASPIRIN 81 MG TABLET Take one (1) tablet daily . Problem List As Of Date 07/03/2017 Noted Resolved ESOPHAGEAL REFLUX [K21.9] Acute gastritis [535.0] 01/25/2016 Trigeminal neuralgia [G50.0] 01/25/2016 Seasonal allergic rhinitis due to pollen [J30.1] LUMBAGO [M54.5] Aortic valve disorder [I35.9] Hyperlipidemia [E78.5] INVALID FOR* ELEVATED PROSTATE SPECIFIC ANTIGEN [R97.20] INVALID FOR* BLADDER NECK OBSTRUCTION [N32.0] INVALID FOR* BPH with obstruction/lower urinary tract sympto*INVALID FOR* 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.21]INVALID FOR* Microscopic hematuria [R31.29] INVALID FOR* Smoking history [Z87.891] INVALID FOR* 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] INVALID FOR* Dehydration [E86.0] INVALID FOR* Nocturia [R35.1] INVALID FOR* Urinary frequency [R35.0] INVALID FOR* Elevated PSA [R97.20] INVALID FOR* 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.8*INVALID FOR* Cervical spondylosis without myelopathy [M47.81*INVALID FOR* Rotator cuff (capsule) sprain [S43.429A] INVALID FOR* BPH (benign prostatic hyperplasia) [N40.0] INVALID FOR* Aortic valve replaced [Z95.2] INVALID FOR* 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 Lumbar degenerative disc disease [M51.36] INVALID FOR* More... Radicular pain of lower extremity [M54.10] INVALID FOR* More... Chronic insomnia [F51.04] INVALID FOR* Connective tissue and disc stenosis of interver*INVALID FOR* Right leg pain [M79.604] INVALID FOR* Other instructions from your clinician: Pregabalin 50 mg one capsule twice a day for 3 days then increase to Pregabalin 100 mg one capsule twice a day thereafter Do not abruptly stop this medication if you have questions or concerns please call the office for instructions Recommends Right Lumbar Transforaminal injection Prescriptions ordered this encounter Disp Refills Start End PREGABALIN 50 MG CAPSULE 28 c* 0 07/03/2017 07/17/2017 Class: Print RX Sig: One capsule by mouth twice a day PREGABALIN 100 MG CAPSULE 60 c* 2 07/03/2017 10/02/2017 Class: Print RX Sig: One capsule by mouth twice a day Encounter Status:Closed by RODERICK COBOS DO on 07/03/17 HOSP Observed: 07/03/2017 Status: COMPLETED Source: [place] 12:00 AM CLINIC OTHER CAMPUS REPOSITORY Patient:Shyam Hernández MRN: <[id number]> Height:5' 6(1.676 m) Weight:155 lb (70.308 kg) Outpatient Medications as of 07/04/17: pregabalin (LYRICA) 50 mg capsule pregabalin (LYRICA) 100 mg capsule niacin ER (NIASPAN) 500 mg tablet celecoxib (CELEBREX) 200 mg capsule naproxen (NAPROSYN) 500 mg tablet docusate sodium (COLACE) 100 mg capsule escitalopram oxalate (LEXAPRO) 20 mg tablet omeprazole (PRILOSEC) 20 mg capsule atorvastatin (LIPITOR) 20 mg tablet loratadine (CLARITIN) 10 mg tablet acetaminophen (TYLENOL) 325 mg tablet finasteride (PROSCAR) 5 mg tablet doxazosin (CARDURA) 4 mg tablet ASPIRIN 81MG TABLET Admission/Clinic Administered Medications as of 07/04/17: lidocaine 10 mg/mL (1 %) 1-2 mg injection (XYLOCAINE) lactated ringers infusion Problem List: Esophageal reflux [K21.9] Seasonal allergic rhinitis due to pollen [J30.1] Lumbago [M54.5] Aortic valve disorder [I35.9] Hyperlipidemia [E78.5] Elevated prostate specific antigen (PSA) [R97.20] Bladder neck obstruction [N32.0] BPH with obstruction/lower urinary tract symptoms [N40.1, N13.8] Adjustment disorder with depressed mood [F43.21] Microscopic hematuria [R31.29] Smoking history [Z87.891] 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] Dehydration [E86.0] Nocturia [R35.1] Urinary frequency [R35.0] Elevated PSA [R97.20] 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.812] Cervical spondylosis without myelopathy [M47.812] Rotator cuff (capsule) sprain [S43.429A] BPH (benign prostatic hyperplasia) [N40.0] Aortic valve replaced [Z95.2] 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] Degenerative disc disease, cervical [M50.30] Hyperlipidemia LDL goal <100 [E78.5] Acute right-sided low back pain with right-sided sciatica [M54.41] Chronic right-sided low back pain with right-sided sciatica [M54.41, G89.29] Lumbosacral spondylosis without myelopathy [M47.817] Lumbar degenerative disc disease [M51.36] Radicular pain of lower extremity [M54.10] Chronic insomnia [F51.04] 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 Right gluteal/right lower extremity pain, etiology: Status post right L4-5 microdecompression-lumbar spondylosis-lumbar degenerative disc disease-radicular right lower extremity pain-piriformis syndrome Recommendation/Plan: 1. EMGs/NCVS right lower extremity. 2. The patient's home exercise program was reviewed with him in detail and modifications made. The patient was also instructed regarding piriformis stretching. 3. Will defer further medication trials for the time being. 4. Follow-up with Dr. Delarosa as scheduled. 5. Follow-up after #1 above at which time more specific recommendations will be made. [facility] FOLLOW-UP EVALUATION The consultation is entered using voice recognition technology and may contain inaccurate syntax or word sense. Referring Physician: Dr. Bolden?? Subjective: 76-year-old gentleman well-known to me presents for reevaluation given a history of recurrent right lumbosacral pain extending into the right lower extremity in a predominant L4/L5 distribution as currently described. The patient has been followed by Dr. Delarosa and given recurrent symptoms underwent reimaging of the lumbar spine on June 26 (MRI with and without). He presents for reevaluation today to discuss pursuing a right L4-5 transforaminal epidural steroid injection in an attempt to alleviate his current symptoms while consideration is being given to reoperation. The patient denies specific motor or sensory deficits. He describes the pain as a constant deep dull aching sensation which at times has a sharp shooting quality. Symptoms are most notable with weightbearing activity and when transitioning from one position to another. The pain improved somewhat by assuming a flexed posture when ambulatory. He had previously been on gabapentin which was discontinued and Celebrex reinitiated without benefit. The patient is compliant with a home exercise program consisting of stretching exercises. He denies recent slip and fall or other injuries. Imaging: IMPRESSION: Degenerative and postoperative changes of the lumbar spine without evidence of new or recurrent disc herniation. Cash Shortage Investigator: BLAIR ? Transcribe Date/Time: Jun 26 2017 10:05A Dictated by : DAVID DELANEY MD This examination was interpreted and the report reviewed and electronically signed by: DAVID DELANEY MD on Jun 26 2017 10:22AM ?EST Results-Findings * * *Final Report* * * DATE OF EXAM: Jun 26 2017 10:00AM ? WRM ? [id number] ?- ?MRI LUMBAR SPINE WO/W IVCON ?/ PROCEDURE REASON: multiple diagnoses ?? ? * * * * Physician Interpretation * * * * ?EXAMINATION: ?MRI LUMBAR SPINE WO/W IVCON HISTORY: ?Radiculopathy, site unspecified Lumbago with sciatica, right side Other chronic pain Other specified postprocedural states S/p discectomy assess for re-herniation vs scar tissue MRI LUMBAR WWO PREV SX PAIN LOW BACK RADIATING DOWN RT LEG 01/13/17: ?Endoscopic right-sided L4-5 microdiskectomy. TECHNIQUE: MRI lumbar spine without/with contrast Contrast: ?Dotarem Contrast Dose (cc): ?14ML Route of Administration: ?IV MQ: ?[id number] COMPARISON: Lumbar radiographs dated 06/05/2017; MRI lumbar spine dated 05/23/2016 RESULT: Counting reference: Last fully formed disc labeled L5/S1. Visualized abdominal and pelvic viscera are grossly unremarkable. Normal lumbar lordosis is preserved as is vertebral body height. A few small vertebral body hemangiomas. Multilevel degenerative disc disease trace endplate changes. Overall unremarkable marrow signal. The tip of the conus is at the L1/2 level with unremarkable conus medullaris and cauda equina. T12/L1: Unremarkable. L1/2: Unremarkable. L2/3: Minimal bulging disc and facet arthrosis without significant narrowing, unchanged. L3/4: Bulging disc and facet arthrosis mild narrowing of the neural foramina, unchanged. L4/5: New subtle right hemilaminectomy changes with enhancing granulation tissue in the right subarticular recess extending into the dorsal aspect of the disc right laterally tapering into the neural foramen with moderate distortion of the right subarticular recess and right neural foramen superimposed on bulging disc, endplate osteophyte formation, and facet arthrosis. ?Mild narrowing of the spinal canal and left neural foramen. L5/S1: Bulging disc, loss of disc height, endplate osteophyte formation, and facet arthrosis result in mild narrowing of the spinal canal and subarticular recesses with mild to moderate neural foraminal narrowing, unchanged OARRS Report: Reviewed Pain Panel/Toxicology Available: No ALLERGIES: Codeine; Sulfa (Sulfonamide Antibiotics) Current Outpatient Medications: Current Outpatient Prescriptions: niacin ER (NIASPAN) 500 mg tablet TAKE 1 TABLET BY MOUTH ONE TIME DAILY celecoxib (CELEBREX) 200 mg capsule 1 capsule daily when necessary with food naproxen (NAPROSYN) 500 mg tablet Take 1 tablet by mouth twice daily as needed for Pain. Take with food. docusate sodium (COLACE) 100 mg capsule Take 1 capsule by mouth twice daily. escitalopram oxalate (LEXAPRO) 20 mg tablet TAKE 1 TABLET BY MOUTH EVERY DAY omeprazole (PRILOSEC) 20 mg capsule TAKE 1 CAPSULE BY MOUTH EVERY DAY atorvastatin (LIPITOR) 20 mg tablet TAKE 1 TABLET BY MOUTH EVERY DAY loratadine (CLARITIN) 10 mg tablet Take 1 tablet by mouth once daily. acetaminophen (TYLENOL) 325 mg tablet Take 650 mg by mouth every 6 hours as needed. finasteride (PROSCAR) 5 mg tablet Take 1 tablet by mouth once daily. doxazosin (CARDURA) 4 mg tablet Take 1 tablet by mouth once daily. ASPIRIN 81MG TABLET Take one (1) tablet daily . No current facility-administered medications for this visit. Current Anticoagulant Therapy: No Past Medical History: PAST MEDICAL HISTORY Diagnosis Date - Acute gastritis - Allergic rhinitis due to other allergen - Aortic valve disorders - Degenerative arthritis of cervical spine 07/14/2013 - Diverticulosis of colon (without mention of hemorrhage) - Esophageal reflux - Internal hemorrhoids without mention of complication - Lumbago - Mental disorder - Other anxiety states - Snoring - Trigeminal neuralgia Past Surgical History: PAST SURGICAL HISTORY Procedure Laterality Date - APPENDECTOMY - COLONOSCOP W/ OR W/O [facility] SPEC 09/27/2005 Colonoscopy - COLONOSCOP W/ OR W/O [facility] SPEC 11/10/15 Colonoscopy - ECHO - EGD W/O OR W/BRUSH/WASH 07/05/2002 EGD - HEART SURGERY HX 2004 Aortic Cow valve replacement - PAST SURGICAL HISTORY OF 1994 Left parotid gland tumor- benign - PAST SURGICAL HISTORY OF right big toe x 2 - PAST SURGICAL HISTORY OF ORIF right ankle - REPAIR ING HERNIA,5+Y/O,REDUCIBL Hernia repair, inguinal - SIGMOIDOSCOPY FLEX DIAG 03/04/2000 Sigmoidoscopy Review of Systems: General: Negative for weight loss, malaise or fevers. HEENT: Negative for epistaxis, frequent/significant headaches, changes in hearing or vision. Neck: Negative for lumps, goiter, pain or significant neck swelling. Cardiovascular: Negative for chest pain, palpitations or leg swelling. Respiratory: Negative for shortness of breath, cough or wheezing. GI: Negative for melena, hematochezia or change in bowel habits. : Negative for dysuria, frequency or incontinence. Skin: Negative for lesions, rash or pruritis. Psych: Negative for sleep disturbance, mood disorder or recent psychosocial stressors. Hematology/Lymphology: Negative for easy bruising/bleeding or lymphadenopathy. Endocrine: Negative for heat/cold intolerance, polyuria or polydipsia. All other reviewed and negative other than HPI. Physical Examination: Ht 167.6 cm (5' 6) Wt 70.3 kg (155 lb) BMI 25.02 kg/m2 HEENT: No cervical lymphadenopathy. No thyromegaly. Cor: RRR without S3, S4. Peripheral pulses +2/4 in the upper extremities and +1/4 DP. No peripheral edema is noted. Capillary refill is brisk. Lungs: BS equal and CTA. Abdomen: Soft, non-tender. Without masses, organomegaly. Musculoskeletal: An accentuated thoracic kyphosis and decreased lumbar lordosis are present. Hamstring and piriformis tightness is noted. Piriformis tension signs are negative. Straight leg raising is questionably positive on the right at 45?. Contralateral straight-leg raising is negative. Gait is broad-based, somewhat shuffled with the trunk maintained in a flexed posture. No facet joint tenderness is noted. A sacral torsion is not present. Neuro: Deep tendon reflexes are +2/4 biceps, triceps, brachioradialis, ankle jerk. +3/4 patellar. Sensory examination is intact. No allodynia or hyperalgesia is noted. Clinical Impression: 1. 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 The patient was encouraged to remain compliant with recommendations per Dr. Delarosa's service. 2. Following an explanation of associated risks and benefits the patient agreed to proceed with a right L4-5 transforaminal epidural steroid injection (will be added onto tomorrows schedule). 3. June 30, 2017 Creatinine 1.14, eGFR >60 4. Lyrica 50 mg 1 capsule twice a day for 3 days increasing to 100 mg twice a day thereafter as indicated and tolerated. Voucher, prescriptions and written instructions detailing the above were provided to the patient. The patient is in agreement with the treatment plan. All questions the patient had were answered at the time of today's visit. Electronically Signed: Roderick Cobos DO July 03, 2017 The consultation is to be transmitted via electronic medical record for those providers who practice within [facility] and for those with access to [facility] via MD Connect or via letter. Previous Version Anca Peterson RN, RN 07/03/2017 8:36 AM Addendum Pregabalin 50 mg one capsule twice a day for 3 days then increase to Pregabalin 100 mg one capsule twice a day thereafter Do not abruptly stop this medication if you have questions or concerns please call the office for instructions Recommends Right Lumbar Transforaminal injection Previous Version Progress Notes (SPINE SURG MAIN S70): Isha Hogue [facility] 06/30/2017 10:55 AM Signed Pt calls today for imaging results Pt is worsening daily Pt not able to walk Pls call Elizabeth Wilson [facility] 07/01/2017 3:43 PM Signed Patient called;states he is having severe pain in low back, right hip and right thigh; cannot stand, walk or sit for any prolonged period; states pain is constant; requesting call back susi to discuss MRI results/ recommendations; pls call; ph. [phone] Becky Roblero PA-C 07/01/2017 4:20 PM Signed Call to patient to review imaging. Patient with right sided lateral recess stenosis at L4/5 with foraminal narrowing. Discussed possibility of another decompression, would recommend an injection. Sent message to pain management to see if they would be okay with this. Will review with Dr. Delarosa when he returns. Above plan reviewed with Dr. Dye. PROGRESS Observed: 07/02/2017 Status: COMPLETED Source: [place] 8:48 AM [facility] REPOSITORY O ID: [id number] Author: Roderick Cobos Service: (none) Author Type: Physician Type: Progress Notes Filed: 07/03/2017 8:46 AM Note Text: Last Visit: June 09, 2017 Clinical Impression: 1. Right gluteal/right lower extremity pain, etiology: Status post right L4-5 microdecompression-lumbar spondylosis-lumbar degenerative disc disease-radicular right lower extremity pain-piriformis syndrome Recommendation/Plan: 1. EMGs/NCVS right lower extremity. 2. The patient's home exercise program was reviewed with him in detail and modifications made. The patient was also instructed regarding piriformis stretching. 3. Will defer further medication trials for the time being. 4. Follow-up with Dr. Delarosa as scheduled. 5. Follow-up after #1 above at which time more specific recommendations will be made. [facility] FOLLOW-UP EVALUATION The consultation is entered using voice recognition technology and may contain inaccurate syntax or word sense. Referring Physician: Dr. Bolden?? Subjective: 76-year-old gentleman well-known to me presents for reevaluation given a history of recurrent right lumbosacral pain extending into the right lower extremity in a predominant L4/L5 distribution as currently described. The patient has been followed by Dr. Delarosa and given recurrent symptoms underwent reimaging of the lumbar spine on June 26 (MRI with and without). He presents for reevaluation today to discuss pursuing a right L4-5 transforaminal epidural steroid injection in an attempt to alleviate his current symptoms while consideration is being given to reoperation. The patient denies specific motor or sensory deficits. He describes the pain as a constant deep dull aching sensation which at times has a sharp shooting quality. Symptoms are most notable with weightbearing activity and when transitioning from one position to another. The pain improved somewhat by assuming a flexed posture when ambulatory. He had previously been on gabapentin which was discontinued and Celebrex reinitiated without benefit. The patient is compliant with a home exercise program consisting of stretching exercises. He denies recent slip and fall or other injuries. Imaging: IMPRESSION: Degenerative and postoperative changes of the lumbar spine without evidence of new or recurrent disc herniation. Cash Shortage Investigator: BLAIR ? Transcribe Date/Time: Jun 26 2017 10:05A Dictated by : DAVID DELANEY MD This examination was interpreted and the report reviewed and electronically signed by: DAVID DELANEY MD on Jun 26 2017 10:22AM ?EST Results-Findings * * *Final Report* * * DATE OF EXAM: Jun 26 2017 10:00AM ? WRM ? 0304 ?- ?MRI LUMBAR SPINE WO/W IVCON ?/ PROCEDURE REASON: multiple diagnoses ?? ? * * * * Physician Interpretation * * * * ?EXAMINATION: ?MRI LUMBAR SPINE WO/W IVCON HISTORY: ?Radiculopathy, site unspecified Lumbago with sciatica, right side Other chronic pain Other specified postprocedural states S/p discectomy assess for re-herniation vs scar tissue MRI LUMBAR WWO PREV SX PAIN LOW BACK RADIATING DOWN RT LEG 01/13/17: ?Endoscopic right-sided L4-5 microdiskectomy. TECHNIQUE: MRI lumbar spine without/with contrast Contrast: ?Dotarem Contrast Dose (cc): ?14ML Route of Administration: ?IV MQ: ?MRLSPWO_2 COMPARISON: Lumbar radiographs dated 06/05/2017; MRI lumbar spine dated 05/23/2016 RESULT: Counting reference: Last fully formed disc labeled L5/S1. Visualized abdominal and pelvic viscera are grossly unremarkable. Normal lumbar lordosis is preserved as is vertebral body height. A few small vertebral body hemangiomas. Multilevel degenerative disc disease trace endplate changes. Overall unremarkable marrow signal. The tip of the conus is at the L1/2 level with unremarkable conus medullaris and cauda equina. T12/L1: Unremarkable. L1/2: Unremarkable. L2/3: Minimal bulging disc and facet arthrosis without significant narrowing, unchanged. L3/4: Bulging disc and facet arthrosis mild narrowing of the neural foramina, unchanged. L4/5: New subtle right hemilaminectomy changes with enhancing granulation tissue in the right subarticular recess extending into the dorsal aspect of the disc right laterally tapering into the neural foramen with moderate distortion of the right subarticular recess and right neural foramen superimposed on bulging disc, endplate osteophyte formation, and facet arthrosis. ?Mild narrowing of the spinal canal and left neural foramen. L5/S1: Bulging disc, loss of disc height, endplate osteophyte formation, and facet arthrosis result in mild narrowing of the spinal canal and subarticular recesses with mild to moderate neural foraminal narrowing, unchanged OARRS Report: Reviewed Pain Panel/Toxicology Available: No ALLERGIES: Codeine; Sulfa (Sulfonamide Antibiotics) Current Outpatient Medications: Current Outpatient Prescriptions: niacin ER (NIASPAN) 500 mg tablet TAKE 1 TABLET BY MOUTH ONE TIME DAILY celecoxib (CELEBREX) 200 mg capsule 1 capsule daily when necessary with food naproxen (NAPROSYN) 500 mg tablet Take 1 tablet by mouth twice daily as needed for Pain. Take with food. docusate sodium (COLACE) 100 mg capsule Take 1 capsule by mouth twice daily. escitalopram oxalate (LEXAPRO) 20 mg tablet TAKE 1 TABLET BY MOUTH EVERY DAY omeprazole (PRILOSEC) 20 mg capsule TAKE 1 CAPSULE BY MOUTH EVERY DAY atorvastatin (LIPITOR) 20 mg tablet TAKE 1 TABLET BY MOUTH EVERY DAY loratadine (CLARITIN) 10 mg tablet Take 1 tablet by mouth once daily. acetaminophen (TYLENOL) 325 mg tablet Take 650 mg by mouth every 6 hours as needed. finasteride (PROSCAR) 5 mg tablet Take 1 tablet by mouth once daily. doxazosin (CARDURA) 4 mg tablet Take 1 tablet by mouth once daily. ASPIRIN 81MG TABLET Take one (1) tablet daily . No current facility-administered medications for this visit. Current Anticoagulant Therapy: No Past Medical History: PAST MEDICAL HISTORY Diagnosis Date - Acute gastritis - Allergic rhinitis due to other allergen - Aortic valve disorders - Degenerative arthritis of cervical spine 07/14/2013 - Diverticulosis of colon (without mention of hemorrhage) - Esophageal reflux - Internal hemorrhoids without mention of complication - Lumbago - Mental disorder - Other anxiety states - Snoring - Trigeminal neuralgia Past Surgical History: PAST SURGICAL HISTORY Procedure Laterality Date - APPENDECTOMY - COLONOSCOP W/ OR W/O [facility] SPEC 09/27/2005 Colonoscopy - COLONOSCOP W/ OR W/O [facility] SPEC 11/10/15 Colonoscopy - ECHO - EGD W/O OR W/BRUSH/WASH 07/05/2002 EGD - HEART SURGERY HX 2004 Aortic Cow valve replacement - PAST SURGICAL HISTORY OF 1994 Left parotid gland tumor- benign - PAST SURGICAL HISTORY OF right big toe x 2 - PAST SURGICAL HISTORY OF ORIF right ankle - REPAIR ING HERNIA,5+Y/O,REDUCIBL Hernia repair, inguinal - SIGMOIDOSCOPY FLEX DIAG 03/04/2000 Sigmoidoscopy Review of Systems: General: Negative for weight loss, malaise or fevers. HEENT: Negative for epistaxis, frequent/significant headaches, changes in hearing or vision. Neck: Negative for lumps, goiter, pain or significant neck swelling. Cardiovascular: Negative for chest pain, palpitations or leg swelling. Respiratory: Negative for shortness of breath, cough or wheezing. GI: Negative for melena, hematochezia or change in bowel habits. : Negative for dysuria, frequency or incontinence. Skin: Negative for lesions, rash or pruritis. Psych: Negative for sleep disturbance, mood disorder or recent psychosocial stressors. Hematology/Lymphology: Negative for easy bruising/bleeding or lymphadenopathy. Endocrine: Negative for heat/cold intolerance, polyuria or polydipsia. All other reviewed and negative other than HPI. Physical Examination: Ht 167.6 cm (5' 6) Wt 70.3 kg (155 lb) BMI 25.02 kg/m2 HEENT: No cervical lymphadenopathy. No thyromegaly. Cor: RRR without S3, S4. Peripheral pulses +2/4 in the upper extremities and +1/4 DP. No peripheral edema is noted. Capillary refill is brisk. Lungs: BS equal and CTA. Abdomen: Soft, non-tender. Without masses, organomegaly. Musculoskeletal: An accentuated thoracic kyphosis and decreased lumbar lordosis are present. Hamstring and piriformis tightness is noted. Piriformis tension signs are negative. Straight leg raising is questionably positive on the right at 45?. Contralateral straight-leg raising is negative. Gait is broad-based, somewhat shuffled with the trunk maintained in a flexed posture. No facet joint tenderness is noted. A sacral torsion is not present. Neuro: Deep tendon reflexes are +2/4 biceps, triceps, brachioradialis, ankle jerk. +3/4 patellar. Sensory examination is intact. No allodynia or hyperalgesia is noted. Clinical Impression: 1. 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 The patient was encouraged to remain compliant with recommendations per Dr. Delarosa's service. 2. Following an explanation of associated risks and benefits the patient agreed to proceed with a right L4-5 transforaminal epidural steroid injection (will be added onto tomorrows schedule). 3. June 30, 2017 Creatinine 1.14, eGFR >60 4. Lyrica 50 mg 1 capsule twice a day for 3 days increasing to 100 mg twice a day thereafter as indicated and tolerated. Voucher, prescriptions and written instructions detailing the above were provided to the patient. The patient is in agreement with the treatment plan. All questions the patient had were answered at the time of today's visit. Electronically Signed: Roderick Cobos DO July 03, 2017 The consultation is to be transmitted via electronic medical record for those providers who practice within [facility] and for those with access to [employer] via [facility] [employer] or via letter. ANTONY Observed: 06/30/2017 Status: COMPLETED Source: [place] 12:00 AM [facility] REPOSITORY Telephone (SPNSMN) SHYAM HERNÁNDEZ ([id number]) 1940 M NFR Date Time Provider Department 06/30/17 ALEXIS DELAROSA ROSANAVA During your visit today, we recorded the following information about you: Isha Hogue [facility] 06/30/2017 10:55 AM Signed Pt calls today for imaging results Pt is worsening daily Pt not able to walk Pls call Elizabeth Wilson [facility] 07/01/2017 3:43 PM Signed Patient called;states he is having severe pain in low back, right hip and right thigh; cannot stand, walk or sit for any prolonged period; states pain is constant; requesting call back susi to discuss MRI results/ recommendations; pls call; ph. [phone] Becky Roblero PA-C 07/01/2017 4:20 PM Signed Call to patient to review imaging. Patient with right sided lateral recess stenosis at L4/5 with foraminal narrowing. Discussed possibility of another decompression, would recommend an injection. Sent message to pain management to see if they would be okay with this. Will review with Dr. Delarosa when he returns. Above plan reviewed with Dr. Dye. Allergies As of Date: 06/30/2017 Noted Allergy Reaction CODEINE 09/14/2003 1 - Mental Status Change SULFA (SULFONAMIDE ANTIBIOTICS) 09/14/2003 4 - Hives Date Reviewed: 06/12/2017 Reviewed by: Viky Johnson Ma - Fully Assessed Reason for Visit: Imaging Results [Other] Prescriptions as of 06/30/2017 Sig: CELECOXIB 200 MG CAPSULE 1 capsule daily when necessar* NAPROXEN 500 MG TABLET Take 1 tablet by mouth twice * DOCUSATE SODIUM 100 MG CAPSULE Take 1 capsule by mouth twice* ESCITALOPRAM 20 MG TABLET TAKE 1 TABLET BY MOUTH EVERY * OMEPRAZOLE 20 MG CAPSULE,MELIA* TAKE 1 CAPSULE BY MOUTH EVERY* ATORVASTATIN 20 MG TABLET TAKE 1 TABLET BY MOUTH EVERY * X NIACIN ER 500 MG TABLET,EXTEN* Take 1 tablet by mouth once d* LORATADINE 10 MG TABLET Take 1 tablet by mouth once d* ACETAMINOPHEN 325 MG TABLET Take 650 mg by mouth every 6 * FINASTERIDE 5 MG TABLET Take 1 tablet by mouth once d* DOXAZOSIN 4 MG TABLET Take 1 tablet by mouth once d* ASPIRIN 81 MG TABLET Take one (1) tablet daily . Problem List As Of Date 06/30/2017 Noted Resolved ESOPHAGEAL REFLUX [K21.9] Acute gastritis [535.0] 01/25/2016 Trigeminal neuralgia [G50.0] 01/25/2016 Seasonal allergic rhinitis due to pollen [J30.1] LUMBAGO [M54.5] Aortic valve disorder [I35.9] Hyperlipidemia [E78.5] INVALID FOR* ELEVATED PROSTATE SPECIFIC ANTIGEN [R97.20] INVALID FOR* BLADDER NECK OBSTRUCTION [N32.0] INVALID FOR* BPH with obstruction/lower urinary tract sympto*INVALID FOR* 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.21]INVALID FOR* Microscopic hematuria [R31.29] INVALID FOR* Smoking history [Z87.891] INVALID FOR* 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] INVALID FOR* Dehydration [E86.0] INVALID FOR* Nocturia [R35.1] INVALID FOR* Urinary frequency [R35.0] INVALID FOR* Elevated PSA [R97.20] INVALID FOR* 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.8*INVALID FOR* Cervical spondylosis without myelopathy [M47.81*INVALID FOR* Rotator cuff (capsule) sprain [S43.429A] INVALID FOR* BPH (benign prostatic hyperplasia) [N40.0] INVALID FOR* Aortic valve replaced [Z95.2] INVALID FOR* 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 Lumbar degenerative disc disease [M51.36] INVALID FOR* More... Radicular pain of lower extremity [M54.10] INVALID FOR* More... Chronic insomnia [F51.04] INVALID FOR* Connective tissue and disc stenosis of interver*INVALID FOR* Right leg pain [M79.604] INVALID FOR* Encounter Status:Closed by ISHA FERRIS on 06/30/17 MRI LUMBAR SPINE Observed: 06/26/2017 Status: F Source: [facility] WO/W IVCON 10:00 AM [facility] * * *Final Report* * * DATE OF EXAM: Jun 26 2017 10:00AM WR 0304 - MRI LUMBAR SPINE WO/W IVCON / PROCEDURE REASON: multiple diagnoses * * * * Physician Interpretation * * * * EXAMINATION: MRI LUMBAR SPINE WO/W IVCON HISTORY: Radiculopathy, site unspecified Lumbago with sciatica, right side Other chronic pain Other specified postprocedural states S/p discectomy assess for re-herniation vs scar tissue MRI LUMBAR WWO PREV SX PAIN LOW BACK RADIATING DOWN RT LEG 01/13/17: ?Endoscopic right-sided L4-5 microdiskectomy. TECHNIQUE: MRI lumbar spine without/with contrast Contrast: Dotarem Contrast Dose (cc): 14ML Route of Administration: IV MQ: [id number] COMPARISON: Lumbar radiographs dated 06/05/2017; MRI lumbar spine dated 05/23/2016 RESULT: Counting reference: Last fully formed disc labeled L5/S1. Visualized abdominal and pelvic viscera are grossly unremarkable. Normal lumbar lordosis is preserved as is vertebral body height. A few small vertebral body hemangiomas. Multilevel degenerative disc disease trace endplate changes. Overall unremarkable marrow signal. The tip of the conus is at the L1/2 level with unremarkable conus medullaris and cauda equina. T12/L1: Unremarkable. L1/2: Unremarkable. L2/3: Minimal bulging disc and facet arthrosis without significant narrowing, unchanged. L3/4: Bulging disc and facet arthrosis mild narrowing of the neural foramina, unchanged. L4/5: New subtle right hemilaminectomy changes with enhancing granulation tissue in the right subarticular recess extending into the dorsal aspect of the disc right laterally tapering into the neural foramen with moderate distortion of the right subarticular recess and right neural foramen superimposed on bulging disc, endplate osteophyte formation, and facet arthrosis. Mild narrowing of the spinal canal and left neural foramen. L5/S1: Bulging disc, loss of disc height, endplate osteophyte formation, and facet arthrosis result in mild narrowing of the spinal canal and subarticular recesses with mild to moderate neural foraminal narrowing, unchanged IMPRESSION: Degenerative and postoperative changes of the lumbar spine without evidence of new or recurrent disc herniation. Cash Shortage Investigator: BLAIR Transcribe Date/Time: Jun 26 2017 10:05A Dictated by : DAVID DELANEY MD This examination was interpreted and the report reviewed and electronically signed by: DAVID DELANEY MD on Jun 26 2017 10:22AM EST [id number] Observed: 06/26/2017 Status: COMPLETED Source: [place] 9:46 AM [facility] REPOSITORY HNO ID: [id number] Author: Leola Alexis (Rt) Service: (none) Author Type: Server Assistant Type: Progress Notes Filed: 06/26/2017 9:47 AM Note Text: Radiology Service Progress Note PATIENT NAME: Shyam Hernández DATE OF SERVICE: June 26, 2017 TIME: 9:47 AM PATIENT IDENTITY VERIFICATION COMPLETED USING TWO (2) METHODS: Patient confirmed name verbally and Date of . PATIENT GENDER DATA: Male PATIENT RELEVANT IMPLANT DATA REVIEWED: Yes CONTRAST INDUCED NEPHROPATHY RISK FACTORS: Patient age > 60 years CREATININE: Creatinine Date Value Ref Range Status 06/20/2017 1.14 0.73 - 1.22 mg/dL Final 12/23/2016 1.11 0.73 - 1.22 mg/dL Final 11/15/2016 1.07 0.73 - 1.22 mg/dL Final eGFR-All Other Races Date Value Ref Range Status 06/20/2017 >60 . Final Comment: eGFR (Estimated GFR) Units of measure: mL/min/1.73 meters squared eGFR is derived from the reexpressed MDRD Study equation using the following parameters: serum creatinine, age, gender and race. The creatinine assay has been calibrated to be traceable to IDMS. An eGFR <60 mL/min/1.73m2 for >3 months is consistent with chronic kidney disease. Refer to KDOQI guidelines for clinical interpretation. In patients with unstable renal function, e.g. those with acute kidney injury, the eGFR may not accurately reflect actual GFR. eGFR- Date Value Ref Range Status 06/20/2017 >60 Final P.O.C.T. RESULTS: POC done: Yes, See Lab Tab June 26, 2017 RADIOLOGIST NOTIFIED?: No ALLERGIES: Reviewed and unchanged CONTRAST ALLERGY: NO. PERIPHERAL IV ACCESS: Ambulatory: IV type: A peripheral IV was started in the Right antecubital site with a Angio cath: 22 gauge., Site assessment: Clean,Dry and Intact, Site disposition Discontinued RADIOLOGY DEPARTMENT: MR; Exam(s) Completed: Spine: Lumbar spine SIGNED BY: RT Vanesa June 26, 2017 9:47 AM CREATININE Collected: 06/20/2017 Status: F Source: [place] 2:07 PM [facility] REPOSITORY TYPE CODE TESTS RESULT OUT OF REFERENCE UNITS RANGE LAB CRET 0.73-1.22 mg/dL Creatinine 1.14 LAB GFRAA eGFR- >60 Amer. LAB GFRNAA . eGFR-All Other Races >60 Result Comment: eGFR (Estimated GFR) Units of measure: mL/min/1.73 meters squared eGFR is derived from the reexpressed MDRD Study equation using the following parameters: serum creatinine, age, gender and race. The creatinine assay has been calibrated to be traceable to IDMS. An eGFR <60 mL/min/1.73m2 for >3 months is consistent with chronic kidney disease. Refer to KDOQI guidelines for clinical interpretation. In patients with unstable renal function, e.g. those with acute kidney injury, the eGFR may not accurately reflect actual GFR. Performed By: #### CRET1 #### [facility] [address] [place] [id number] CNPN Observed: 06/17/2017 Status: COMPLETED Source: [place] 12:00 AM [facility] REPOSITORY Telephone (NSMN) SHYAM HERNÁNDEZ ([id number]) 1940 M NFR Date Time Provider Department 06/17/17 ALEXIS DELAROSA SPNSVA During your visit today, we recorded the following information about you: Elizabeth Eliasann marielilian [facility] 06/17/2017 9:37 AM Signed Rec'd by fax EMG report; sent to scanning via [employer] Allergies As of Date: 06/17/2017 Noted Allergy Reaction CODEINE 09/14/2003 1 - Mental Status Change SULFA (SULFONAMIDE ANTIBIOTICS) 09/14/2003 4 - Hives Date Reviewed: 06/12/2017 Reviewed by: Viky Johnson Ma - Fully Assessed Reason for Visit: Rec'd EMG report [Other] Prescriptions as of 06/17/2017 Sig: NAPROXEN 500 MG TABLET Take 1 tablet by mouth twice * DOCUSATE SODIUM 100 MG CAPSULE Take 1 capsule by mouth twice* ESCITALOPRAM 20 MG TABLET TAKE 1 TABLET BY MOUTH EVERY * OMEPRAZOLE 20 MG CAPSULE,MELIA* TAKE 1 CAPSULE BY MOUTH EVERY* ATORVASTATIN 20 MG TABLET TAKE 1 TABLET BY MOUTH EVERY * NIACIN ER 500 MG TABLET,EXTEN* Take 1 tablet by mouth once d* LORATADINE 10 MG TABLET Take 1 tablet by mouth once d* ACETAMINOPHEN 325 MG TABLET Take 650 mg by mouth every 6 * FINASTERIDE 5 MG TABLET Take 1 tablet by mouth once d* DOXAZOSIN 4 MG TABLET Take 1 tablet by mouth once d* ASPIRIN 81 MG TABLET Take one (1) tablet daily . Problem List As Of Date 06/17/2017 Noted Resolved ESOPHAGEAL REFLUX [K21.9] Acute gastritis [535.0] 01/25/2016 Trigeminal neuralgia [G50.0] 01/25/2016 Seasonal allergic rhinitis due to pollen [J30.1] LUMBAGO [M54.5] Aortic valve disorder [I35.9] Hyperlipidemia [E78.5] INVALID FOR* ELEVATED PROSTATE SPECIFIC ANTIGEN [R97.20] INVALID FOR* BLADDER NECK OBSTRUCTION [N32.0] INVALID FOR* BPH with obstruction/lower urinary tract sympto*INVALID FOR* 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.21]INVALID FOR* Microscopic hematuria [R31.29] INVALID FOR* Smoking history [Z87.891] INVALID FOR* 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] INVALID FOR* Dehydration [E86.0] INVALID FOR* Nocturia [R35.1] INVALID FOR* Urinary frequency [R35.0] INVALID FOR* Elevated PSA [R97.20] INVALID FOR* 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.8*INVALID FOR* Cervical spondylosis without myelopathy [M47.81*INVALID FOR* Rotator cuff (capsule) sprain [S43.429A] INVALID FOR* BPH (benign prostatic hyperplasia) [N40.0] INVALID FOR* Aortic valve replaced [Z95.2] INVALID FOR* 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 Lumbar degenerative disc disease [M51.36] INVALID FOR* More... Radicular pain of lower extremity [M54.10] INVALID FOR* More... Chronic insomnia [F51.04] INVALID FOR* Connective tissue and disc stenosis of interver*INVALID FOR* Right leg pain [M79.604] INVALID FOR* Encounter Status:Closed by JESSICA SHORT on 06/17/17 CNOV Observed: 06/12/2017 Status: COMPLETED Source: [place] 1:10 PM [facility] REPOSITORY Office Visit (SPNSMN) SHYAM HERNÁNDEZ ([id number]) 1940 M NFR Date Time Provider Department 06/12/17 1:10 PM BECKY ROBLERO) SPNSMN During your visit today, we recorded the following information about you: Pulse Respiration Blood pressure Weight 79/minute 18/minute 144/66 70.3 kg Height 1.702 m Becky Roblero PA-C 06/13/2017 10:48 AM Signed SPINE SURGERY FOLLOW UP SERVICE DATE: 06/12/2017 SURGERY DATE: 01/13/17: Endoscopic right-sided L4-5 microdiskectomy. Shyam Hernández is seen for 6 month post operative follow up. Patient is a 76 year old male that presents S/p endoscopic R L4-5 microdisc. He presents with continued right leg pain (ight buttock, some right anterior thigh (once per day), posterior calf). In last month he has not been able to do the elliptical, bike or treadmill. He denies weakness. He feels that he had 2 days that he really felt that surgery worked around the February follow up. Minimal back pain. Denies weakness, numbness or tingling. Denies bowel or bladder incontinece. He is scheduled for EMG on Friday. PAIN EVALUATION 06/12/2017 Pain Score: 10 Pain Location: - rt hip and rt calf Description: Aching Duration Amount of Time: 5 Duration Units: Months Frequency: Intermittent Intervention: Relaxation;Medication;Cold;Heat Pain Radiation: down the right thigh and to the right foot/feet ? Aggravating Factors: Standing ? Alleviating Factors: Sitting, Walking ? Pain Ratio: Pain in the leg(s) is greater than in the back ? PHYSICAL EXAM: BP 144/66 Pulse 79 Resp 18 Ht 170.2 cm (5' 7ANDquot;) Wt 70.3 kg (155 lb) BMI 24.28 kg/m2 GENERAL APPEARANCE: Well nourished, well developed, and no apparent distress. NEURO PSYCH: Patient oriented to person, place, and time. Mood pleasant. Benign affect. MUSCULOSKELETAL VISUAL INSPECTION CERVICAL: WNL THORACIC: WNL LUMBAR: WNL MOTOR: 5/5 in all muscle groups. SENSORY: Normal sensory exam GAIT: Normal. 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 Would like EMG results faxed for review. If chronic lumbar changes. Also would like MRI to assess for recurrent disc. Discuss Celebrex with pain managment.Try to break up walking to 5- 10 minute sessions. Patient verbalized understanding. Gave reassurance. SIGNATURE: Becky Roblero PA-C PATIENT NAME: Shyam Hernández DATE: June 12, 2017 TIME: 1:06 PM PAGER: Becky Roblero PA-C 06/12/2017 1:59 PM Addendum Schedule MRI- pending EMG results, I will let you know if I would like for you to have this Please send EMG results to Becky Roblero/Alexis Delarosa MD F: [phone] Cobos, this may help Try to break up walking to 5- 10 minute sessions Referring Provider: SELF [200] Allergies As of Date: 06/12/2017 Noted Allergy Reaction CODEINE 09/14/2003 1 - Mental Status Change SULFA (SULFONAMIDE ANTIBIOTICS) 09/14/2003 4 - Hives Date Reviewed: 06/12/2017 Reviewed by: Viky Johnson Ma - Fully Assessed Reason for Visit: Established Patient [175] Primary Visit Diagnosis:Radicular pain of lower extremity [M54.10] Other Visit Diagnoses:Chronic right-sided low back pain with right-sided sciatica [M54.41, G89.29] S/P discectomy [Z98.890] Order(s):MRI LUMBAR SPINE WO/W IVCON [[id number]] Order #: [id number] FUTURE iv contrast (radiology procedure)MRI LSP Inject, intravenously, once for 1 dose. No IV access, insert saline lock prior to the beginning of sedation, infusion, injection of imaging exam. Discontinue saline lock post exam. If Pt. has a central line or IVAD, may access for administration according to line specific nursing protocol. Once exam is complete flush line and de-access according to line specific nursing protocol in the MR contrast administration guidelines link.Disp: 1 EachRfl: 0 CREATININE BLD [SQCRET] Order #: [id number] FUTURE Prescriptions as of 06/12/2017 Sig: NAPROXEN 500 MG TABLET Take 1 tablet by mouth twice * DOCUSATE SODIUM 100 MG CAPSULE Take 1 capsule by mouth twice* ESCITALOPRAM 20 MG TABLET TAKE 1 TABLET BY MOUTH EVERY * OMEPRAZOLE 20 MG CAPSULE,MELIA* TAKE 1 CAPSULE BY MOUTH EVERY* ATORVASTATIN 20 MG TABLET TAKE 1 TABLET BY MOUTH EVERY * NIACIN ER 500 MG TABLET,EXTEN* Take 1 tablet by mouth once d* LORATADINE 10 MG TABLET Take 1 tablet by mouth once d* ACETAMINOPHEN 325 MG TABLET Take 650 mg by mouth every 6 * FINASTERIDE 5 MG TABLET Take 1 tablet by mouth once d* DOXAZOSIN 4 MG TABLET Take 1 tablet by mouth once d* ASPIRIN 81 MG TABLET Take one (1) tablet daily . IV CONTRAST (RADIOLOGY PROCED* MRI LSP Inject, intravenousl* Problem List As Of Date 06/12/2017 Noted Resolved ESOPHAGEAL REFLUX [K21.9] Acute gastritis [535.0] 01/25/2016 Trigeminal neuralgia [G50.0] 01/25/2016 Seasonal allergic rhinitis due to pollen [J30.1] LUMBAGO [M54.5] Aortic valve disorder [I35.9] Hyperlipidemia [E78.5] INVALID FOR* ELEVATED PROSTATE SPECIFIC ANTIGEN [R97.20] INVALID FOR* BLADDER NECK OBSTRUCTION [N32.0] INVALID FOR* BPH with obstruction/lower urinary tract sympto*INVALID FOR* 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.21]INVALID FOR* Microscopic hematuria [R31.29] INVALID FOR* Smoking history [Z87.891] INVALID FOR* 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] INVALID FOR* Dehydration [E86.0] INVALID FOR* Nocturia [R35.1] INVALID FOR* Urinary frequency [R35.0] INVALID FOR* Elevated PSA [R97.20] INVALID FOR* 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.8*INVALID FOR* Cervical spondylosis without myelopathy [M47.81*INVALID FOR* Rotator cuff (capsule) sprain [S43.429A] INVALID FOR* BPH (benign prostatic hyperplasia) [N40.0] INVALID FOR* Aortic valve replaced [Z95.2] INVALID FOR* 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 Lumbar degenerative disc disease [M51.36] INVALID FOR* More... Radicular pain of lower extremity [M54.10] INVALID FOR* More... Chronic insomnia [F51.04] INVALID FOR* Connective tissue and disc stenosis of interver*INVALID FOR* Right leg pain [M79.604] INVALID FOR* Other instructions from your clinician: Schedule MRI- pending EMG results, I will let you know if I would like for you to have this Please send EMG results to Becky Roblero/Alexis Delarosa MD F: [phone] Cobos, this may help Try to break up walking to 5- 10 minute sessions Prescriptions ordered this encounter Disp Refills Start End IV CONTRAST (RADIOLOGY PROCEDURE) 1 Ea* 0 06/12/2017 06/13/2017 Class: In Office Sig: MRI LSP Inject, intravenously, once for 1 dose. No IV access, insert saline lock prior to the beginning of sedation, infusion, injection of imaging exam. Discontinue saline lock post exam. If Pt. has a central line or IVAD, may access for administration according to line specific nursing protocol. Once exam is complete flush line and de-access according to line specific nursing protocol in the MR contrast administration guidelines link. Encounter Status:Closed by BECKY ROBLERO PA-C on 06/13/17 PROGRESS Observed: 06/12/2017 Status: COMPLETED Source: [place] 1:06 PM [facility] REPOSITORY HNO ID: [id number] Author: Becky Roblero Service: (none) Author Type: Physician Utility Locator Type: Progress Notes Filed: 06/13/2017 10:48 AM Note Text: SPINE SURGERY FOLLOW UP SERVICE DATE: 06/12/2017 SURGERY DATE: 01/13/17: Endoscopic right-sided L4-5 microdiskectomy. Shyam Hernández is seen for 6 month post operative follow up. Patient is a 76 year old male that presents S/p endoscopic R L4-5 microdisc. He presents with continued right leg pain (ight buttock, some right anterior thigh (once per day), posterior calf). In last month he has not been able to do the elliptical, bike or treadmill. He denies weakness. He feels that he had 2 days that he really felt that surgery worked around the February follow up. Minimal back pain. Denies weakness, numbness or tingling. Denies bowel or bladder incontinece. He is scheduled for EMG on Friday. PAIN EVALUATION 06/12/2017 Pain Score: 10 Pain Location: - rt hip and rt calf Description: Aching Duration Amount of Time: 5 Duration Units: Months Frequency: Intermittent Intervention: Relaxation;Medication;Cold;Heat Pain Radiation: down the right thigh and to the right foot/feet ? Aggravating Factors: Standing ? Alleviating Factors: Sitting, Walking ? Pain Ratio: Pain in the leg(s) is greater than in the back ? PHYSICAL EXAM: BP 144/66 Pulse 79 Resp 18 Ht 170.2 cm (5' 7) Wt 70.3 kg (155 lb) BMI 24.28 kg/m2 GENERAL APPEARANCE: Well nourished, well developed, and no apparent distress. NEURO PSYCH: Patient oriented to person, place, and time. Mood pleasant. Benign affect. MUSCULOSKELETAL VISUAL INSPECTION CERVICAL: WNL THORACIC: WNL LUMBAR: WNL MOTOR: 5/5 in all muscle groups. SENSORY: Normal sensory exam GAIT: Normal. DATA REVIEW [facility] records reviewed ASSESSMENT/PLAN IMPRESSION: (M54.10) Radicular pain of lower extremity (primary encounter diagnosis) (M54.41, G89.29) Chronic right-sided low back pain with right-sided sciatica (Z98.890) S/P discectomy Patient is a pleasant 76 year old male that presents with continued right leg pain. Would like EMG results faxed for review. If chronic lumbar changes. Also would like MRI to assess for recurrent disc. Discuss Celebrex with pain managment.Try to break up walking to 5- 10 minute sessions. Patient verbalized understanding. Gave reassurance. SIGNATURE: Becky Roblero PA-C PATIENT NAME: Shyam Hernández DATE: June 12, 2017 TIME: 1:06 PM PAGER: PROGRESS Observed: 06/11/2017 Status: COMPLETED Source: [place] 12:38 PM [facility] REPOSITORY HNO ID: [id number] Author: Louise Knapp Service: (none) Author Type: Physical Therapist Type: Progress Notes Filed: 06/11/2017 12:41 PM Note Text: Episode Visit Count: 3 Therapist That Will Oversee The Plan Of Care: Louise Knapp Start of Care Date: 05/26/17 Onset Date: 01/13/17 Plan of Care Certification Date: 05/26/17 RE[facility]ATION AND SPORTS THERAPY PHYSICAL THERAPY TREATMENT NOTE ASSESSMENT: Shyam Hernández demonstrated improvements in calf pain today. Pt notes he is doing well with towel gastroc stretch , Discussed avoidance of calf pain with supine hamstring stretch. Pt with SLR positive for calf pain but not for hamstring tightness suggestive of nerve irritation. Pt with tenderness though in region of piriformis and doing well with stretching of that. The patient will continue to benefit from continued skilled physical therapy for progression of exs as needed PLAN FOR NEXT VISIT: Will modify exs as needed. Still consider hip exs as needed SUBJECTIVE: Pt notes that he saw pain management. . Going to have EMG, also told to avoid elliptical, treadmill and bike and also perform piriformis stretch supine. Pt notes that he feels that claf stretch has been helpful. Notes this morning was the best morning he has had for awhile regarding pain. Pain Score: 3/10 Pain Location: Calf - Right;Buttocks - Right Description: Aching Frequency: Intermittent Post Treatment Pain Score: No Change Post Treatment Pain Description: Aching OBJECTIVE MEASURES WITH LEVEL OF FUNCTION: supine SLR positive for nerve pain calf and lower leg at 40 degrees, no tightness of hamstrings appreciated at that ROM TREATMENT: Therapeutic Exercise: 2: supine hamstring stretch holding thigh no hold 1x10 cues needed for form 4: seated towel gastroc stretch 30 sec x3 5: seated piriformis stretch 30 sec x3 Skilled Intervention: Patient was educated in proper exercise technique and purpose for exercises. Skilled judgment was provided in selection of appropriate interventions. Correct performance of therapeutic exercises was facilitated with verbal and visual cuing. Billing: [facility]: Therapeutic Exercise ([id number]): 1:1 time: 25 minutes (2 units: 23-37 mins) Total time: 25 minutes Louise Knapp PT CNTHERAPY Observed: 06/11/2017 Status: COMPLETED Source: [place] 11:15 AM [facility] REPOSITORY OT/PT/Speech Visit (PTWS) SHYAM HERNÁNDEZ ([id number]) 1940 M NFR Date Time Provider Department 06/11/17 11:15 AM LOUISE KNAPP (PT) PTWS Date Time Provider Department Center 06/11/2017 11:15 AM [id number] KNAPPPT) PTWS [facility] Reason for Visit: Physical Therapy [503] PT Discharge [752] Reason For Visit History Recorded Primary Visit Diagnosis: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, 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] Other Visit Diagnosis:Right leg pain [M79.604] Allergies As of Date: 06/11/2017 Noted Allergy Reaction CODEINE 09/14/2003 1 - Mental Status Change SULFA (SULFONAMIDE ANTIBIOTICS) 09/14/2003 4 - Hives Date Reviewed: 03/20/2017 Reviewed by: Jolie Coates ([facility]), MA - Fully Assessed Prescriptions as of 06/11/2017 Sig: NAPROXEN 500 MG TABLET Take 1 tablet by mouth twice * DOCUSATE SODIUM 100 MG CAPSULE Take 1 capsule by mouth twice* ESCITALOPRAM 20 MG TABLET TAKE 1 TABLET BY MOUTH EVERY * OMEPRAZOLE 20 MG CAPSULE,MELIA* TAKE 1 CAPSULE BY MOUTH EVERY* ATORVASTATIN 20 MG TABLET TAKE 1 TABLET BY MOUTH EVERY * X NIACIN ER 500 MG TABLET,EXTEN* Take 1 tablet by mouth once d* LORATADINE 10 MG TABLET Take 1 tablet by mouth once d* ACETAMINOPHEN 325 MG TABLET Take 650 mg by mouth every 6 * FINASTERIDE 5 MG TABLET Take 1 tablet by mouth once d* DOXAZOSIN 4 MG TABLET Take 1 tablet by mouth once d* ASPIRIN 81 MG TABLET Take one (1) tablet daily . Progress Notes: Louise Knapp (Pt) 06/11/2017 12:41 PM Signed Episode Visit Count: 3 Therapist That Will Oversee The Plan Of Care: Louise Knapp Start of Care Date: 05/26/17 Onset Date: 01/13/17 Plan of Care Certification Date: 05/26/17 REHABILITATION AND SPORTS THERAPY PHYSICAL THERAPY TREATMENT NOTE ASSESSMENT: Shyam Hernández demonstrated improvements in calf pain today. Pt notes he is doing well with towel gastroc stretch , Discussed avoidance of calf pain with supine hamstring stretch. Pt with SLR positive for calf pain but not for hamstring tightness suggestive of nerve irritation. Pt with tenderness though in region of piriformis and doing well with stretching of that. The patient will continue to benefit from continued skilled physical therapy for progression of exs as needed PLAN FOR NEXT VISIT: Will modify exs as needed. Still consider hip exs as needed SUBJECTIVE: Pt notes that he saw pain management. . Going to have EMG, also told to avoid elliptical, treadmill and bike and also perform piriformis stretch supine. Pt notes that he feels that claf stretch has been helpful. Notes this morning was the best morning he has had for awhile regarding pain. Pain Score: 3/10 Pain Location: Calf - Right;Buttocks - Right Description: Aching Frequency: Intermittent Post Treatment Pain Score: No Change Post Treatment Pain Description: Aching OBJECTIVE MEASURES WITH LEVEL OF FUNCTION: supine SLR positive for nerve pain calf and lower leg at 40 degrees, no tightness of hamstrings appreciated at that ROM TREATMENT: Therapeutic Exercise: 2: supine hamstring stretch holding thigh no hold 1x10 cues needed for form 4: seated towel gastroc stretch 30 sec x3 5: seated piriformis stretch 30 sec x3 Skilled Intervention: Patient was educated in proper exercise technique and purpose for exercises. Skilled judgment was provided in selection of appropriate interventions. Correct performance of therapeutic exercises was facilitated with verbal and visual cuing. Billing: [facility]: Therapeutic Exercise ([id number]): 1:1 time: 25 minutes (2 units: 23-37 mins) Total time: 25 minutes CHARO Tavares Lisa (Pt) 07/24/2017 11:56 AM Signed [facility] REHABILITATION AND SPORTS THERAPY PHYSICAL THERAPY DISCONTINUANCE OF CARE Plan of Care Period: Start of Care Date: 05/26/17 Last Visit Date:06/11/17 Therapy Program: Patient did not return for follow up care Please refer to last visit note for interventions provided for this episode of care. Assessment: Unable to formally assess goal achievement . Pt with ongoing pain and has followed up with specialist and has upcoming surgery disectomy surgery planned Reason for Discontinuation of Care: Patient has not returned to therapy or scheduled additional follow-up appointments. Louise Knapp PT VIRAL Observed: 06/09/2017 Status: COMPLETED Source: [place] 2:10 PM [facility] REPOSITORY Office Visit (PAINOT) CLAUDIASHYAM COLINDRES ([id number]) 1940 M NFR Date Time Provider Department 06/09/17 2:10 PM RODERICK COBOS During your visit today, we recorded the following information about you: Weight Height 70.3 kg 1.702 m Roderick Chandrika, 06/09/2017 2:33 PM Signed Medications: Gabapentin 600 mg one tablet 3 times a day Last Visit: November 21, 2016 Clinical Impression: 1. Lumbosacral/right lower extremity pain, etiology: Lumbar spondylosis-lumbar degenerative disc disease-radicular right lower extremity pain Recommendation/Plan: 1. Continue gabapentin 600 mg one tablet 3 times a day for the time being. The patient was reminded to not abruptly discontinue the medication. 2. December 13, 2015 Creatinine 0.99, eGFR ANDgt;60. 3. The patient will keep his upcoming appointment with Dr. Delarosa as scheduled. Shyam will follow-up with me on a when necessary basis pending the outcome of the aforementioned visit. [facility] FOLLOW-UP EVALUATION The consultation is entered using voice recognition technology and may contain inaccurate syntax or word sense. Referring Physician: Dr. Bolden? Subjective: 76-year-old gentleman well-known to me presents for reevaluation with a primary complaint of being from the right gluteal region and extending somewhat distally as well as right posterolateral calf pain (symptoms wax and wane together). after having undergone a right L4-5 microdiscectomy on January 13, 2017. The patient underwent plain films of the pelvis/right hip is also lumbar spine (including flexion-extension views) which were reviewed, results as noted below. He is scheduled for follow-up with Dr. Delarosa's service on June 12. The patient describes the pain as an intermittent sharp sensation which is most notably with prolonged walking, climbing stairs as well as following a workout routine including either treadmill or recumbent bike work. He is utilizing approximately without benefit and was previously on gabapentin 600 milligrams 3 times a day without benefit. He denies specific motor or sensory changes. Imaging: IMPRESSION: ?DEGENERATIVE DISC AND FACET DISEASE IN LOWER LUMBAR SPINE. ? NO CHANGE COMPARED TO PREVIOUS EXAM. NORMAL RIGHT HIP. ?MILD DEGENERATIVE CHANGES OF LEFT HIP, NO ACUTE BONY ABNORMALITY IN THE PELVIS. Cash Shortage Investigator: BLAIR ? Transcribe Date/Time: Jun 05 2017 ?5:15P Dictated by : DESTINEE DYSON MD This examination was interpreted and the report reviewed and electronically signed by: DESTINEE DYSON MD on Jun 05 2017 ?5:20PM ?EST Results-Findings * * *Final Report* * * DATE OF EXAM: Jun 05 2017 ?3:14PM ? WOX ? [id number] ?- ?XR HIP 3V PELV+ AP/LAT RT ?/ PROCEDURE REASON: multiple diagnoses ?? ? * * * * Physician Interpretation * * * * ?EXAM: LUMBAR SPINE, 4 VIEWS; AP PELVIS AND RIGHT HIP CLINICAL: ?76-year-old male with lumbago and sciatica impingement and the right hip TECHNIQUE: AP, lateral, lateral flexion-extension; AP pelvis, coned down AP and frog lateral right hip COMPARISON: ?05/21/2016 lumbar spine RESULTS: Counting reference: The iliac crest level is considered L4.L5 or the first vertebrae proximal to the sacrum is considered L5. ?Slight rotary curve of the lumbar spine convex left centered at L3. ?Moderate narrowing of L4/L5 disc space and mild narrowing of L5/S1 disc space. ? Osteophytes anteriorly at all lumbar levels. ?Vertebral bodies and pedicles are intact. ?Facet degenerative changes are present at L3/L4 through L5/S1 with hypertrophic changes at L4/L5 and L5/S1. ?Limited flexion however no evidence of instability with flexion or extension. AP pelvis and right hip: Right hip joint space is maintained. ?Left hip joint space is mildly narrowed superiorly.. ?Sacroiliac joints are intact. [facility] Report: Reviewed Pain Panel/Toxicology Available: No ALLERGIES: Codeine; Sulfa (Sulfonamide Antibiotics) Current Outpatient Medications: Current Outpatient Prescriptions: naproxen (NAPROSYN) 500 mg tablet Take 1 tablet by mouth twice daily as needed for Pain. Take with food. docusate sodium (COLACE) 100 mg capsule Take 1 capsule by mouth twice daily. escitalopram oxalate (LEXAPRO) 20 mg tablet TAKE 1 TABLET BY MOUTH EVERY DAY omeprazole (PRILOSEC) 20 mg capsule TAKE 1 CAPSULE BY MOUTH EVERY DAY atorvastatin (LIPITOR) 20 mg tablet TAKE 1 TABLET BY MOUTH EVERY DAY niacin ER (NIASPAN) 500 mg tablet Take 1 tablet by mouth once daily. loratadine (CLARITIN) 10 mg tablet Take 1 tablet by mouth once daily. acetaminophen (TYLENOL) 325 mg tablet Take 650 mg by mouth every 6 hours as needed. finasteride (PROSCAR) 5 mg tablet Take 1 tablet by mouth once daily. doxazosin (CARDURA) 4 mg tablet Take 1 tablet by mouth once daily. ASPIRIN 81MG TABLET Take one (1) tablet daily . No current facility-administered medications for this visit. Current Anticoagulant Therapy: No Past Medical History: PAST MEDICAL HISTORY Diagnosis Date - Acute gastritis - Allergic rhinitis due to other allergen - Aortic valve disorders - Degenerative arthritis of cervical spine 07/14/2013 - Diverticulosis of colon (without mention of hemorrhage) - Esophageal reflux - Internal hemorrhoids without mention of complication - Lumbago - Mental disorder - Other anxiety states - Snoring - Trigeminal neuralgia Past Surgical History: PAST SURGICAL HISTORY Procedure Laterality Date - APPENDECTOMY - COLONOSCOP W/ OR W/O [facility] SPEC 09/27/2005 Colonoscopy - COLONOSCOP W/ OR W/O [facility] SPEC 11/10/15 Colonoscopy - ECHO - EGD W/O OR W/BRUSH/WASH 07/05/2002 EGD - HEART SURGERY HX 2004 Aortic Cow valve replacement - PAST SURGICAL HISTORY OF 1994 Left parotid gland tumor- benign - PAST SURGICAL HISTORY OF right big toe x 2 - PAST SURGICAL HISTORY OF ORIF right ankle - REPAIR ING HERNIA,5+Y/O,REDUCIBL Hernia repair, inguinal - SIGMOIDOSCOPY FLEX DIAG 03/04/2000 Sigmoidoscopy Review of Systems: General: Negative for weight loss, malaise or fevers. HEENT: Negative for epistaxis, frequent/significant headaches, changes in hearing or vision. Neck: Negative for lumps, goiter, pain or significant neck swelling. Cardiovascular: Negative for chest pain, palpitations or leg swelling. Respiratory: Negative for shortness of breath, cough or wheezing. GI: Negative for melena, hematochezia or change in bowel habits. : Negative for dysuria, frequency or incontinence. Skin: Negative for lesions, rash or pruritis. Psych: Negative for sleep disturbance, mood disorder or recent psychosocial stressors. Hematology/Lymphology: Negative for easy bruising/bleeding or lymphadenopathy. Endocrine: Negative for heat/cold intolerance, polyuria or polydipsia. All other reviewed and negative other than HPI. Physical Examination: Ht 170.2 cm (5' 7ANDquot;) Wt 70.3 kg (155 lb) BMI 24.28 kg/m2 HEENT: No cervical lymphadenopathy. No thyromegaly. Cor: RRR. Peripheral pulses +2/4 in the upper and +1/4 in the lower extremities. No lower extremity edema is noted. Homans is negative. Capillary refill is brisk. All 4 extremities are warm to touch. Lungs: BS equal and CTA. Abdomen: Soft, non-tender. Without masses, organomegaly. Musculoskeletal: Postural tone is fairly well-maintained. Tavon's test is negative. Iliopsoas tension signs are negative. Hip impingement signs are negative. Piriformis tension signs are positive on the right. A sacral torsion is not present. Gaenslen's test is negative. No tenderness is noted over the PSIS-sacral sulci-SI joint lines. Gait is mildly right antalgic. Neuro: Deep tendon reflexes are +2/4 biceps, triceps, brachioradialis, patellar. +1/4 ankle jerk. Plantar reflexes are downgoing. Clinical Impression: 1. Right gluteal/right lower extremity pain, etiology: Status post right L4-5 microdecompression-lumbar spondylosis-lumbar degenerative disc disease-radicular right lower extremity pain-piriformis syndrome Recommendation/Plan: 1. EMGs/NCVS right lower extremity. 2. The patient's home exercise program was reviewed with him in detail and modifications made. The patient was also instructed regarding piriformis stretching. 3. Will defer further medication trials for the time being. 4. Follow-up with Dr. Delarosa as scheduled. 5. Follow-up after #1 above at which time more specific recommendations will be made. The patient is in agreement with the treatment plan. All questions the patient and his had were answered at the time of today's visit. Electronically Signed: Roderick Cobos DO June 09, 2017 The consultation is to be transmitted via electronic medical record for those providers who practice within [facility] and for those with access to [employer] via [facility] or via letter. Anca Peterson, RN, RN 06/09/2017 2:31 PM Signed Keep your appointment with Becky Roblero on 06/12 No Elliptical, No treadmill, No Recumbent Bike- continue stretching exercises and Do Piriformis stretching as instructed Schedule EMG/NCV - Call Dr. Chatman office [phone] to schedule Follow up after EMG's. Referring Provider: SELF [200] Allergies As of Date: 06/09/2017 Noted Allergy Reaction CODEINE 09/14/2003 1 - Mental Status Change SULFA (SULFONAMIDE ANTIBIOTICS) 09/14/2003 4 - Hives Date Reviewed: 03/20/2017 Reviewed by: Jolie ([facility]) DAVID Coates - Fully Assessed Primary Visit Diagnosis:Piriformis syndrome of right side [G57.01] Other Visit Diagnoses:Lumbar postlaminectomy syndrome [M96.1] Radicular pain of right lower extremity [M54.10] Lumbar degenerative disc disease [M51.36] Order(s):EMG(NEURO/NI) [[id number]] Order #: [id number]: 1 FUTURE Prescriptions as of 06/09/2017 Sig: NAPROXEN 500 MG TABLET Take 1 tablet by mouth twice * DOCUSATE SODIUM 100 MG CAPSULE Take 1 capsule by mouth twice* ESCITALOPRAM 20 MG TABLET TAKE 1 TABLET BY MOUTH EVERY * OMEPRAZOLE 20 MG CAPSULE,MELIA* TAKE 1 CAPSULE BY MOUTH EVERY* ATORVASTATIN 20 MG TABLET TAKE 1 TABLET BY MOUTH EVERY * NIACIN ER 500 MG TABLET,EXTEN* Take 1 tablet by mouth once d* LORATADINE 10 MG TABLET Take 1 tablet by mouth once d* ACETAMINOPHEN 325 MG TABLET Take 650 mg by mouth every 6 * FINASTERIDE 5 MG TABLET Take 1 tablet by mouth once d* DOXAZOSIN 4 MG TABLET Take 1 tablet by mouth once d* ASPIRIN 81 MG TABLET Take one (1) tablet daily . Problem List As Of Date 06/09/2017 Noted Resolved ESOPHAGEAL REFLUX [K21.9] Acute gastritis [535.0] 01/25/2016 Trigeminal neuralgia [G50.0] 01/25/2016 Seasonal allergic rhinitis due to pollen [J30.1] LUMBAGO [M54.5] Aortic valve disorder [I35.9] Hyperlipidemia [E78.5] INVALID FOR* ELEVATED PROSTATE SPECIFIC ANTIGEN [R97.20] INVALID FOR* BLADDER NECK OBSTRUCTION [N32.0] INVALID FOR* BPH with obstruction/lower urinary tract sympto*INVALID FOR* 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.21]INVALID FOR* Microscopic hematuria [R31.29] INVALID FOR* Smoking history [Z87.891] INVALID FOR* 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] INVALID FOR* Dehydration [E86.0] INVALID FOR* Nocturia [R35.1] INVALID FOR* Urinary frequency [R35.0] INVALID FOR* Elevated PSA [R97.20] INVALID FOR* 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.8*INVALID FOR* Cervical spondylosis without myelopathy [M47.81*INVALID FOR* Rotator cuff (capsule) sprain [S43.429A] INVALID FOR* BPH (benign prostatic hyperplasia) [N40.0] INVALID FOR* Aortic valve replaced [Z95.2] INVALID FOR* 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 Lumbar degenerative disc disease [M51.36] INVALID FOR* More... Radicular pain of lower extremity [M54.10] INVALID FOR* More... Chronic insomnia [F51.04] INVALID FOR* Connective tissue and disc stenosis of interver*INVALID FOR* Right leg pain [M79.604] INVALID FOR* Other instructions from your clinician: Keep your appointment with Becky Roblero on 06/12 No Elliptical, No treadmill, No Recumbent Bike- continue stretching exercises and Do Piriformis stretching as instructed Schedule EMG/NCV - Call Dr. Chatman office [phone] to schedule Follow up after EMG's. Encounter Status:Closed by RODERICK COBOS DO on 06/09/17 XR LUMBAR 4V AP/LAT/ Observed: 06/05/2017 Status: F Source: [place] FLEX/EXT 3:14 PM [facility] REPOSITORY * * *Final Report* * * DATE OF EXAM: Jun 05 2017 3:14PM WOX [id number] - XR LUMBAR 4V AP/LAT/ FLEX/EXT / PROCEDURE REASON: multiple diagnoses * * * * Physician Interpretation * * * * EXAM: LUMBAR SPINE, 4 VIEWS; AP PELVIS AND RIGHT HIP CLINICAL: 76-year-old male with lumbago and sciatica impingement and the right hip TECHNIQUE: AP, lateral, lateral flexion-extension; AP pelvis, coned down AP and frog lateral right hip COMPARISON: 05/21/2016 lumbar spine RESULTS: Counting reference: The iliac crest level is considered L4.L5 or the first vertebrae proximal to the sacrum is considered L5. Slight rotary curve of the lumbar spine convex left centered at L3. Moderate narrowing of L4/L5 disc space and mild narrowing of L5/S1 disc space. Osteophytes anteriorly at all lumbar levels. Vertebral bodies and pedicles are intact. Facet degenerative changes are present at L3/L4 through L5/S1 with hypertrophic changes at L4/L5 and L5/S1. Limited flexion however no evidence of instability with flexion or extension. AP pelvis and right hip: Right hip joint space is maintained. Left hip joint space is mildly narrowed superiorly.. Sacroiliac joints are intact. IMPRESSION: DEGENERATIVE DISC AND FACET DISEASE IN LOWER LUMBAR SPINE. NO CHANGE COMPARED TO PREVIOUS EXAM. NORMAL RIGHT HIP. MILD DEGENERATIVE CHANGES OF LEFT HIP, NO ACUTE BONY ABNORMALITY IN THE PELVIS. Cash Shortage Investigator: [facility]ITAL[facility]adence Transcribe Date/Time: Jun 05 2017 5:15P Dictated by : DESTINEE DYSON MD This examination was interpreted and the report reviewed and electronically signed by: DESTINEE DYSON MD on Jun 05 2017 5:20PM EST [id number] XR HIP 3V PELV+ Observed: 06/05/2017 Status: F Source: [place] AP/LAT RT 3:14 PM [facility] REPOSITORY * * *Final Report* * * DATE OF EXAM: Jun 05 2017 3:14PM WOX [id number] - XR HIP 3V PELV+ AP/LAT RT / PROCEDURE REASON: multiple diagnoses * * * * Physician Interpretation * * * * EXAM: LUMBAR SPINE, 4 VIEWS; AP PELVIS AND RIGHT HIP CLINICAL: 76-year-old male with lumbago and sciatica impingement and the right hip TECHNIQUE: AP, lateral, lateral flexion-extension; AP pelvis, coned down AP and frog lateral right hip COMPARISON: 05/21/2016 lumbar spine RESULTS: Counting reference: The iliac crest level is considered L4.L5 or the first vertebrae proximal to the sacrum is considered L5. Slight rotary curve of the lumbar spine convex left centered at L3. Moderate narrowing of L4/L5 disc space and mild narrowing of L5/S1 disc space. Osteophytes anteriorly at all lumbar levels. Vertebral bodies and pedicles are intact. Facet degenerative changes are present at L3/L4 through L5/S1 with hypertrophic changes at L4/L5 and L5/S1. Limited flexion however no evidence of instability with flexion or extension. AP pelvis and right hip: Right hip joint space is maintained. Left hip joint space is mildly narrowed superiorly.. Sacroiliac joints are intact. IMPRESSION: DEGENERATIVE DISC AND FACET DISEASE IN LOWER LUMBAR SPINE. NO CHANGE COMPARED TO PREVIOUS EXAM. NORMAL RIGHT HIP. MILD DEGENERATIVE CHANGES OF LEFT HIP, NO ACUTE BONY ABNORMALITY IN THE PELVIS. Cash Shortage Investigator: BLAIR Transcribe Date/Time: Jun 05 2017 5:15P Dictated by : DESTINEE DYSON MD This examination was interpreted and the report reviewed and electronically signed by: DESTINEE DYSON MD on Jun 05 2017 5:20PM EST [id number] PROGRESS Observed: 06/05/2017 Status: COMPLETED Source: [place] 3:01 PM [facility] REPOSITORY O ID: [id number] Author: Clara Irizarry (Leola Monroe Service: (none) Author Type: Server Assistant Type: Progress Notes Filed: 06/05/2017 3:14 PM Note Text: Radiology Service Progress Note PATIENT NAME: Shyam Hernández DATE OF SERVICE: June 05, 2017 TIME: 3:01 PM PATIENT IDENTITY VERIFICATION COMPLETED USING TWO (2) METHODS: Patient confirmed name verbally and Date of . PATIENT GENDER DATA: Male PATIENT RELEVANT IMPLANT DATA REVIEWED: Not Applicable RADIOLOGY DEPARTMENT: General X-ray: Exam(s) Completed: Spine X-Ray(s): Lumbar AP / LAT / L5-S1 / FLEX-EXT Pelvis X-Ray: Pelvis with Hip Right PERIPHERAL IV DATA: Not applicable SIGNED BY: RT Jackelyn June 05, 2017 3:01 PM PROGRESS Observed: 06/05/2017 Status: COMPLETED Source: [place] 2:10 PM [facility] REPOSITORY HNO ID: [id number] Author: Roderick Cobos Service: (none) Author Type: Physician Type: Progress Notes Filed: 06/09/2017 2:33 PM Note Text: Medications: Gabapentin 600 mg one tablet 3 times a day Last Visit: November 21, 2016 Clinical Impression: 1. Lumbosacral/right lower extremity pain, etiology: Lumbar spondylosis-lumbar degenerative disc disease-radicular right lower extremity pain Recommendation/Plan: 1. Continue gabapentin 600 mg one tablet 3 times a day for the time being. The patient was reminded to not abruptly discontinue the medication. 2. December 13, 2015 Creatinine 0.99, eGFR >60. 3. The patient will keep his upcoming appointment with Dr. Delarosa as scheduled. Severy will follow-up with me on a when necessary basis pending the outcome of the aforementioned visit. [facility] FOLLOW-UP EVALUATION The consultation is entered using voice recognition technology and may contain inaccurate syntax or word sense. Referring Physician: Dr. Bolden? Subjective: 76-year-old gentleman well-known to me presents for reevaluation with a primary complaint of being from the right gluteal region and extending somewhat distally as well as right posterolateral calf pain (symptoms wax and wane together). after having undergone a right L4-5 microdiscectomy on January 13, 2017. The patient underwent plain films of the pelvis/right hip is also lumbar spine (including flexion-extension views) which were reviewed, results as noted below. He is scheduled for follow-up with Dr. Delarosa's service on June 12. The patient describes the pain as an intermittent sharp sensation which is most notably with prolonged walking, climbing stairs as well as following a workout routine including either treadmill or recumbent bike work. He is utilizing approximately without benefit and was previously on gabapentin 600 milligrams 3 times a day without benefit. He denies specific motor or sensory changes. Imaging: IMPRESSION: ?DEGENERATIVE DISC AND FACET DISEASE IN LOWER LUMBAR SPINE. ? NO CHANGE COMPARED TO PREVIOUS EXAM. NORMAL RIGHT HIP. ?MILD DEGENERATIVE CHANGES OF LEFT HIP, NO ACUTE BONY ABNORMALITY IN THE PELVIS. Cash Shortage Investigator: BLAIR ? Transcribe Date/Time: Jun 05 2017 ?5:15P Dictated by : DESTINEE DYSON MD This examination was interpreted and the report reviewed and electronically signed by: DESTINEE DYSON MD on Jun 05 2017 ?5:20PM ?EST Results-Findings * * *Final Report* * * DATE OF EXAM: Jun 05 2017 ?3:14PM ? WOX ? [id number] ?- ?XR HIP 3V PELV+ AP/LAT RT ?/ PROCEDURE REASON: multiple diagnoses ?? ? * * * * Physician Interpretation * * * * ?EXAM: LUMBAR SPINE, 4 VIEWS; AP PELVIS AND RIGHT HIP CLINICAL: ?76-year-old male with lumbago and sciatica impingement and the right hip TECHNIQUE: AP, lateral, lateral flexion-extension; AP pelvis, coned down AP and frog lateral right hip COMPARISON: ?05/21/2016 lumbar spine RESULTS: Counting reference: The iliac crest level is considered L4.L5 or the first vertebrae proximal to the sacrum is considered L5. ?Slight rotary curve of the lumbar spine convex left centered at L3. ?Moderate narrowing of L4/L5 disc space and mild narrowing of L5/S1 disc space. ? Osteophytes anteriorly at all lumbar levels. ?Vertebral bodies and pedicles are intact. ?Facet degenerative changes are present at L3/L4 through L5/S1 with hypertrophic changes at L4/L5 and L5/S1. ?Limited flexion however no evidence of instability with flexion or extension. AP pelvis and right hip: Right hip joint space is maintained. ?Left hip joint space is mildly narrowed superiorly.. ?Sacroiliac joints are intact. OARRS Report: Reviewed Pain Panel/Toxicology Available: No ALLERGIES: Codeine; Sulfa (Sulfonamide Antibiotics) Current Outpatient Medications: Current Outpatient Prescriptions: naproxen (NAPROSYN) 500 mg tablet Take 1 tablet by mouth twice daily as needed for Pain. Take with food. docusate sodium (COLACE) 100 mg capsule Take 1 capsule by mouth twice daily. escitalopram oxalate (LEXAPRO) 20 mg tablet TAKE 1 TABLET BY MOUTH EVERY DAY omeprazole (PRILOSEC) 20 mg capsule TAKE 1 CAPSULE BY MOUTH EVERY DAY atorvastatin (LIPITOR) 20 mg tablet TAKE 1 TABLET BY MOUTH EVERY DAY niacin ER (NIASPAN) 500 mg tablet Take 1 tablet by mouth once daily. loratadine (CLARITIN) 10 mg tablet Take 1 tablet by mouth once daily. acetaminophen (TYLENOL) 325 mg tablet Take 650 mg by mouth every 6 hours as needed. finasteride (PROSCAR) 5 mg tablet Take 1 tablet by mouth once daily. doxazosin (CARDURA) 4 mg tablet Take 1 tablet by mouth once daily. ASPIRIN 81MG TABLET Take one (1) tablet daily . No current facility-administered medications for this visit. Current Anticoagulant Therapy: No Past Medical History: PAST MEDICAL HISTORY Diagnosis Date - Acute gastritis - Allergic rhinitis due to other allergen - Aortic valve disorders - Degenerative arthritis of cervical spine 07/14/2013 - Diverticulosis of colon (without mention of hemorrhage) - Esophageal reflux - Internal hemorrhoids without mention of complication - Lumbago - Mental disorder - Other anxiety states - Snoring - Trigeminal neuralgia Past Surgical History: PAST SURGICAL HISTORY Procedure Laterality Date - APPENDECTOMY - COLONOSCOP W/ OR W/O [facility] SPEC 09/27/2005 Colonoscopy - COLONOSCOP W/ OR W/O [facility] SPEC 11/10/15 Colonoscopy - ECHO - EGD W/O OR W/BRUSH/WASH 07/05/2002 EGD - HEART SURGERY HX 2004 Aortic Cow valve replacement - PAST SURGICAL HISTORY OF 1994 Left parotid gland tumor- benign - PAST SURGICAL HISTORY OF right big toe x 2 - PAST SURGICAL HISTORY OF ORIF right ankle - REPAIR ING HERNIA,5+Y/O,REDUCIBL Hernia repair, inguinal - SIGMOIDOSCOPY FLEX DIAG 03/04/2000 Sigmoidoscopy Review of Systems: General: Negative for weight loss, malaise or fevers. HEENT: Negative for epistaxis, frequent/significant headaches, changes in hearing or vision. Neck: Negative for lumps, goiter, pain or significant neck swelling. Cardiovascular: Negative for chest pain, palpitations or leg swelling. Respiratory: Negative for shortness of breath, cough or wheezing. GI: Negative for melena, hematochezia or change in bowel habits. : Negative for dysuria, frequency or incontinence. Skin: Negative for lesions, rash or pruritis. Psych: Negative for sleep disturbance, mood disorder or recent psychosocial stressors. Hematology/Lymphology: Negative for easy bruising/bleeding or lymphadenopathy. Endocrine: Negative for heat/cold intolerance, polyuria or polydipsia. All other reviewed and negative other than HPI. Physical Examination: Ht 170.2 cm (5' 7) Wt 70.3 kg (155 lb) BMI 24.28 kg/m2 HEENT: No cervical lymphadenopathy. No thyromegaly. Cor: RRR. Peripheral pulses +2/4 in the upper and +1/4 in the lower extremities. No lower extremity edema is noted. Homans is negative. Capillary refill is brisk. All 4 extremities are warm to touch. Lungs: BS equal and CTA. Abdomen: Soft, non-tender. Without masses, organomegaly. Musculoskeletal: Postural tone is fairly well-maintained. Tavon's test is negative. Iliopsoas tension signs are negative. Hip impingement signs are negative. Piriformis tension signs are positive on the right. A sacral torsion is not present. Gaenslen's test is negative. No tenderness is noted over the PSIS-sacral sulci-SI joint lines. Gait is mildly right antalgic. Neuro: Deep tendon reflexes are +2/4 biceps, triceps, brachioradialis, patellar. +1/4 ankle jerk. Plantar reflexes are downgoing. Clinical Impression: 1. Right gluteal/right lower extremity pain, etiology: Status post right L4-5 microdecompression-lumbar spondylosis-lumbar degenerative disc disease-radicular right lower extremity pain-piriformis syndrome Recommendation/Plan: 1. EMGs/NCVS right lower extremity. 2. The patient's home exercise program was reviewed with him in detail and modifications made. The patient was also instructed regarding piriformis stretching. 3. Will defer further medication trials for the time being. 4. Follow-up with Dr. Delarosa as scheduled. 5. Follow-up after #1 above at which time more specific recommendations will be made. The patient is in agreement with the treatment plan. All questions the patient and his had were answered at the time of today's visit. Electronically Signed: Roderick Cobos DO June 09, 2017 The consultation is to be transmitted via electronic medical record for those providers who practice within [facility] and for those with access to [employer] via MD Connect or via letter. PROGRESS Observed: 06/04/2017 Status: COMPLETED Source: [place] 2:17 PM [facility] [place] REPOSITORY O ID: [id number] Author: Louise Knapp Service: (none) Author Type: Physical Therapist Type: Progress Notes Filed: 06/04/2017 2:21 PM Note Text: Episode Visit Count: 2 Therapist That Will Oversee The Plan Of Care: Louise Knapp Start of Care Date: 05/26/17 Onset Date: 01/13/17 Plan of Care Certification Date: 05/26/17 REHABILITATION AND SPORTS THERAPY PHYSICAL THERAPY TREATMENT NOTE ASSESSMENT: Shyam Hernández demonstrated continued severe pain in right calf area as well as to lesser extent in right low back buttock region. Pt with increased pain with walking more than 15 min and standing less 5 min. No overall effect from core and LE strengthening over the last several months. Doing ok with exs given last session. advanced program to include calf stretch and sidebending. The patient will continue to benefit from continued skilled physical therapy for further modification and progression of ex program. Feel pt would benefit from return to physician and encouraged him to call to get appt now rather than waiting for follow up in August. Feel leg pain is still nerve mediated and has not improved with exs thus far PLAN FOR NEXT VISIT: Will assess directional preference. Add sidelying hip abduction/ clamshell SUBJECTIVE: Pt notes that yesterday was a bad day, was standing for 5 min with increased pain and gave out a little bit. Pain Score: 7/10 Pain Location: Calf - Right Description: Aching Frequency: Continuous Post Treatment Pain Score: No Change Post Treatment Pain Description: Aching OBJECTIVE MEASURES WITH LEVEL OF FUNCTION: Lumbar Spine AROM Lumbar L Side-Bend: Decreased pain TREATMENT: Therapeutic Exercise: 1: SKC 30 sec right x3 2: supine hamstring stretch holding thigh no hold 1x10 cues needed for form 3: trial of left seated LF of low back with decreased calf pain 4: seated towel gastroc stretch 30 sec x3 5: seated piriformis stretch 30 sec x3 Skilled Intervention: Patient was educated in proper exercise technique and purpose for exercises. Skilled judgment was provided in selection of appropriate interventions. Provided written instruction for home exercise program to facilitate proper performance and compliance. Correct performance of therapeutic exercises was facilitated with verbal and visual cuing. Educated patient on rationale for performing exercises in regards to decreasing pain Billing: [facility]: Therapeutic Exercise ([id number]): 1:1 time: 30 minutes (2 units: 23-37 mins) Total time: 30 minutes Louise Knapp PT CNTHERAPY Observed: 06/04/2017 Status: COMPLETED Source: [place] 11:15 AM [facility] [place] REPOSITORY OT/PT/Speech Visit (PTWS) SHYAM HERNÁNDEZ ([id number]) 1940 M NFR Date Time Provider Department 06/04/17 11:15 AM LOUISE KNAPP (PT) PTWS Date Time Provider Department Center 06/04/2017 11:15 AM [id number], LISA (PT) PTWS [facility] Reason for Visit: Physical Therapy [503] Primary Visit Diagnosis: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, 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] Other Visit Diagnosis:Right leg pain [M79.604] Allergies As of Date: 06/04/2017 Noted Allergy Reaction CODEINE 09/14/2003 1 - Mental Status Change SULFA (SULFONAMIDE ANTIBIOTICS) 09/14/2003 4 - Hives Date Reviewed: 03/20/2017 Reviewed by: Jolie ([facility]) DAVID Coates - Fully Assessed Prescriptions as of 06/04/2017 Sig: NAPROXEN 500 MG TABLET Take 1 tablet by mouth twice * DOCUSATE SODIUM 100 MG CAPSULE Take 1 capsule by mouth twice* ESCITALOPRAM 20 MG TABLET TAKE 1 TABLET BY MOUTH EVERY * OMEPRAZOLE 20 MG CAPSULE,MELIA* TAKE 1 CAPSULE BY MOUTH EVERY* ATORVASTATIN 20 MG TABLET TAKE 1 TABLET BY MOUTH EVERY * NIACIN ER 500 MG TABLET,EXTEN* Take 1 tablet by mouth once d* LORATADINE 10 MG TABLET Take 1 tablet by mouth once d* ACETAMINOPHEN 325 MG TABLET Take 650 mg by mouth every 6 * FINASTERIDE 5 MG TABLET Take 1 tablet by mouth once d* DOXAZOSIN 4 MG TABLET Take 1 tablet by mouth once d* ASPIRIN 81 MG TABLET Take one (1) tablet daily . Progress Notes: Louise Knapp, PT 06/04/2017 2:21 PM Signed Episode Visit Count: 2 Therapist That Will Oversee The Plan Of Care: Louise Knapp Start of Care Date: 05/26/17 Onset Date: 01/13/17 Plan of Care Certification Date: 05/26/17 REHABILITATION AND SPORTS THERAPY PHYSICAL THERAPY TREATMENT NOTE ASSESSMENT: Shyam Hernández demonstrated continued severe pain in right calf area as well as to lesser extent in right low back buttock region. Pt with increased pain with walking more than 15 min and standing less 5 min. No overall effect from core and LE strengthening over the last several months. Doing ok with exs given last session. advanced program to include calf stretch and sidebending. The patient will continue to benefit from continued skilled physical therapy for further modification and progression of ex program. Feel pt would benefit from return to physician and encouraged him to call to get appt now rather than waiting for follow up in August. Feel leg pain is still nerve mediated and has not improved with exs thus far PLAN FOR NEXT VISIT: Will assess directional preference. Add sidelying hip abduction/ clamshell SUBJECTIVE: Pt notes that yesterday was a bad day, was standing for 5 min with increased pain and gave out a little bit. Pain Score: 7/10 Pain Location: Calf - Right Description: Aching Frequency: Continuous Post Treatment Pain Score: No Change Post Treatment Pain Description: Aching OBJECTIVE MEASURES WITH LEVEL OF FUNCTION: Lumbar Spine AROM Lumbar L Side-Bend: Decreased pain TREATMENT: Therapeutic Exercise: 1: SKC 30 sec right x3 2: supine hamstring stretch holding thigh no hold 1x10 cues needed for form 3: trial of left seated LF of low back with decreased calf pain 4: seated towel gastroc stretch 30 sec x3 5: seated piriformis stretch 30 sec x3 Skilled Intervention: Patient was educated in proper exercise technique and purpose for exercises. Skilled judgment was provided in selection of appropriate interventions. Provided written instruction for home exercise program to facilitate proper performance and compliance. Correct performance of therapeutic exercises was facilitated with verbal and visual cuing. Educated patient on rationale for performing exercises in regards to decreasing pain Billing: [facility]: Therapeutic Exercise ([id number]): 1:1 time: 30 minutes (2 units: 23-37 mins) Total time: 30 minutes Louise Knapp PT ANTONY Observed: 06/04/2017 Status: COMPLETED Source: [place] 12:00 AM [facility] REPOSITORY Telephone (SPNS[facility]) SHYAM HERNÁNDEZ ([id number]) 1940 M NFR Date Time Provider Department 06/04/17 ALEXIS DELAROSA [facility] During your visit today, we recorded the following information about you: Isha Hogue [facility] 06/04/2017 12:23 PM Signed Pt has been doing physical therapy and therapist wants pt to be seen before August 20 Pt unable to stand or walk without pain Pain on right leg feels like it is going out Pls call pt Riri Jl Drafting In[employer] 06/05/2017 12:16 PM Signed Patient is calling back following up on below messages, patient state he is in so much pain he want to vomit, patient can walk over 15-20 min and can't stand for 10 mins, patient state pain is on right side sharp from hip down to his calf, patient state his pain level is at a 10. call back [phone] Keturah Reeves RN 06/05/2017 1:51 PM Signed Call to pt, based on criteria described in messages left by pt with area secretary, advised him to go to ED. His response was ANDquot;Im not having a heart attack, I know what the pain is from, why should I go?ANDquot;. After further questioning, he states when hes sitting or lying down, he has no pain. The severe 'felt like I would vomit' pain, was 'one time' per pt. This pain comes and goes, is not constant. He has an appt with Dr Delarosa 08/20, however, advised he should come in to see Becky STEEL, may need imaging to evaluate. He will make an appt, as well as call his pain management MD in the interim. Keturah Henson PA-C 06/05/2017 2:10 PM Signed Would recommend Xray right hip and lumbar. Orders for both placed. He is already scheduled to see pain management on , and Becky on . He may benefit from injection lumbar vs hip pending exam findings GWENDOLYN Roper PA-C 06/05/2017 2:10 PM Signed Addended by: YOCASTA HENSON on: 06/05/2017 02:10 PM Modules accepted: Orders Keturah Reeves RN 06/05/2017 2:19 PM Signed Calll to pt, advised that Xrays are recommended by Allyson STEEL, and as he has an appt with pain mgmt Friday, he will get xrays that day. He will see Becky STEEL on the . Keturah Reeves RN Allergies As of Date: 06/04/2017 Noted Allergy Reaction CODEINE 09/14/2003 1 - Mental Status Change SULFA (SULFONAMIDE ANTIBIOTICS) 09/14/2003 4 - Hives Date Reviewed: 03/20/2017 Reviewed by: Jolie ([facility]) DAVID Coates - Fully Assessed Reason for Visit: Status [Other] Primary Visit Diagnosis:Chronic right-sided low back pain with right-sided sciatica [M54.41, G89.29] Other Visit Diagnosis:Pain in right hip [M25.551] Order(s):XR LUMBAR MOTION 4V AP/LAT/ FLEX/EXT [[id number]] Order #: [id number] FUTURE XR HIP GENERAL 3V PELV/AP/LAT RT [[id number]] Order #: [id number] FUTURE Prescriptions as of 06/04/2017 Sig: NAPROXEN 500 MG TABLET Take 1 tablet by mouth twice * DOCUSATE SODIUM 100 MG CAPSULE Take 1 capsule by mouth twice* ESCITALOPRAM 20 MG TABLET TAKE 1 TABLET BY MOUTH EVERY * OMEPRAZOLE 20 MG CAPSULE,MELIA* TAKE 1 CAPSULE BY MOUTH EVERY* ATORVASTATIN 20 MG TABLET TAKE 1 TABLET BY MOUTH EVERY * NIACIN ER 500 MG TABLET,EXTEN* Take 1 tablet by mouth once d* LORATADINE 10 MG TABLET Take 1 tablet by mouth once d* ACETAMINOPHEN 325 MG TABLET Take 650 mg by mouth every 6 * FINASTERIDE 5 MG TABLET Take 1 tablet by mouth once d* DOXAZOSIN 4 MG TABLET Take 1 tablet by mouth once d* ASPIRIN 81 MG TABLET Take one (1) tablet daily . Problem List As Of Date 06/04/2017 Noted Resolved ESOPHAGEAL REFLUX [K21.9] Acute gastritis [535.0] 01/25/2016 Trigeminal neuralgia [G50.0] 01/25/2016 Seasonal allergic rhinitis due to pollen [J30.1] LUMBAGO [M54.5] Aortic valve disorder [I35.9] Hyperlipidemia [E78.5] INVALID FOR* ELEVATED PROSTATE SPECIFIC ANTIGEN [R97.20] INVALID FOR* BLADDER NECK OBSTRUCTION [N32.0] INVALID FOR* BPH with obstruction/lower urinary tract sympto*INVALID FOR* 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.21]INVALID FOR* Microscopic hematuria [R31.29] INVALID FOR* Smoking history [Z87.891] INVALID FOR* 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] INVALID FOR* Dehydration [E86.0] INVALID FOR* Nocturia [R35.1] INVALID FOR* Urinary frequency [R35.0] INVALID FOR* Elevated PSA [R97.20] INVALID FOR* 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.8*INVALID FOR* Cervical spondylosis without myelopathy [M47.81*INVALID FOR* Rotator cuff (capsule) sprain [S43.429A] INVALID FOR* BPH (benign prostatic hyperplasia) [N40.0] INVALID FOR* Aortic valve replaced [Z95.2] INVALID FOR* 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 Lumbar degenerative disc disease [M51.36] INVALID FOR* More... Radicular pain of lower extremity [M54.10] INVALID FOR* More... Chronic insomnia [F51.04] INVALID FOR* Connective tissue and disc stenosis of interver*INVALID FOR* Right leg pain [M79.604] INVALID FOR* Encounter Status:Closed by ISHA FERRIS on 06/04/17 PROGRESS Observed: 05/26/2017 Status: COMPLETED Source: [place] 12:55 PM [facility] REPOSITORY HNO ID: [id number] Author: Louise (Pt) Ra Service: (none) Author Type: Physical Therapist Type: Progress Notes Filed: 05/26/2017 1:10 PM Note Text: Episode Visit Count: 1 Therapist That Will Oversee The Plan Of Care: Louise Knapp Start of Care Date: 05/26/17 Onset Date: 01/13/17 Plan of Care Certification Date: 05/26/17 Patient Identified by Name and Date of : Yes REHABILITATION AND SPORTS THERAPY PHYSICAL THERAPY EVALUATION PLAN OF CARE: Assessment: Shyam Hernández presents with the chief complaint of right calf and hip pain. Pain described in hip is actually in region of sacral region . Pt with Full leg strength and full hip ROM. Mild pain in hip with ER IR but not in region of primary complaint. Pt has been working out at home and [employer] for lumbar and leg stretching and strengthening but continues to have limitations of sitting and standing/ walking d/t lateral calf region pain. He presents with impairments of decreased tolerance to sitting / standing / and walking He may benefit from skilled therapy services to improve pain which appears to continue to be nerve mediated. Low Back Pain Subgroup Classification Low Back Pain Subgroup Classification: Specific exercise subgroup: recommended visits 8. Prognosis: Fair Fair due to: clinical presentation;chronic nature of impairments Goals for Episode of Care: created on 05/26/17 through 06/26/17 Independent in home exercises. Patient will decrease pain to 2/10 with functional activities to allow patient to improve standing tolerance for ADLs. Stand / Walk greater 5/15 minutes without pain/symptoms. Sit without pain/symptoms to allow for improved tolerance Patient will be able to tolerate functional activities without increased symptoms. Knowledgeable regarding prophylaxis. G CODE REPORTING Based on clinical assessment and the score on the AM-PAC Scale Score Assessment Tool, the G code and corresponding severity modifiers are documented below. Evaluation: 05/26/2017 Current Status: Mobility: Walking and Moving Around: G8978 CI 1-19% impaired Goal Status: Mobility: Walking and Moving Around: G8979 CI 1-19% impaired Planned Interventions, Frequency, and Duration: Current Frequency: 1x/week Duration: 4 weeks Total Number of Visits Planned: 4 Patient to be see for Planned Treatment Interventions: Therapeutic exercise PLAN FOR NEXT VISIT: Will consider hip abduction in siitting or standing. Core stabilzation with rep band perturbation Patient demonstrates good understanding of plan of care and treatment. The above goals and plan of care were discussed and agreed upon by patient/family. SUBJECTIVE: Shyam Hernández is a 76 year old male seen today for Pt with pain in hip and calf region. Functional Limitations: (walking more than 15 min. , Standing more one min. ) Patient Goals: decrease pain Previous Treatment: Self prescribed exercises;Massage;NSAIDs;Heat Falls Interview: No positive findings with falls interview Relevant History Employment: Retired Recreation / Current Exercise: [employer] and home 4-5 days per week Home Environment Patient Lives With: Significant Other Spine History Pain is Worse Always: Standing ( sitting to long) Pain is Better Always: (sitting with legs propped up) Sleep Affected by Pain: Not affected by pain Pain Score: 5/10 Pain Location: Calf - Right;Low Back/Lumbar Spine - Right Description: Aching Frequency: Continuous Post Treatment Pain Score: 5/10 Pain Location: Calf - Right Post Treatment Pain Description: Aching OBJECTIVE MEASURES WITH LEVEL OF FUNCTION: Posture / Alignment Posture: Decreased lumbar lordosis Gait Assessment Gait: Independent Gait Device: None Gait Deviations: ( none) Spine Palpation R Lumbar Spine Palpation Tenderness: ( none) Lumbar Spine AROM Lumbar Flexion: Normal Lumbar R Side [place]: Normal;Decreased pain Lumbar L Side [place]: Normal;Increased pain Repeated Test Movements - Lumbar RFIS - Symptoms During: increases RFIL - Symptoms During: decreases RFIL - Symptoms After: no effect LE AROM R LE AROM: hip knee and ankle WNL LE Strength R LE Strength: 5/5 R Hip External Rotation: ( mild pain) Special Tests - Hip and Spine Hip and Spine Special Tests: SLR Test SLR Test: Right Positive ( calf pain at 50 degrees) Education: Education Learning Preferences: Demonstration;Explanation;Performance;Printed Materials Barriers: None Learning/educational needs: Plan of Care;Home exercise program TREATMENT: Evaluation Therapeutic Exercise: 1: SKC 30 sec right x3 2: supine hamstring stretch holding thigh no hold 1x10 f 3: trial of right seated LF of low back 4: no change with calf stretch 5: less pain with sitting with leg elevated Skilled Intervention: Patient was educated in proper exercise technique and purpose for exercises. Skilled judgment was provided in selection of appropriate interventions. Provided written instruction for home exercise program to facilitate proper performance and compliance. Correct performance of therapeutic exercises was facilitated with verbal and visual cuing. Educated patient on rationale for performing exercises in regards to ROM and function Patient education as noted. [facility]: Evaluation - Low Complexity (72150) Therapeutic Exercise (60447): 1:1 time: 30 minutes (2 units: 23-37 mins) Total time: 50 minutes Louise Knapp PT CNTHERAPY Observed: 05/26/2017 Status: COMPLETED Source: [place] 9:30 AM [facility] MAIN CAMPUS REPOSITORY OT/PT/Speech Visit (PTWS) SHYAM HERNÁNDEZ ([id number]) 1940 M NFR Date Time Provider Department 05/26/17 9:30 AM LOUISE KNAPP (PT) PTWS Date Time Provider Department Center 05/26/2017 9:30 AM [id number], LISA (PT) PTWS [facility] Reason for Visit: PT Eval [747] Patient Education [91] Visit Diagnoses: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, 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] Right leg pain [M79.604] Allergies As of Date: 05/26/2017 Noted Allergy Reaction CODEINE 09/14/2003 1 - Mental Status Change SULFA (SULFONAMIDE ANTIBIOTICS) 09/14/2003 4 - Hives Date Reviewed: 03/20/2017 Reviewed by: Jolie ([facility]) DAVID Coates - Fully Assessed Prescriptions as of 05/26/2017 Sig: NAPROXEN 500 MG TABLET Take 1 tablet by mouth twice * DOCUSATE SODIUM 100 MG CAPSULE Take 1 capsule by mouth twice* ESCITALOPRAM 20 MG TABLET TAKE 1 TABLET BY MOUTH EVERY * OMEPRAZOLE 20 MG CAPSULE,MELIA* TAKE 1 CAPSULE BY MOUTH EVERY* ATORVASTATIN 20 MG TABLET TAKE 1 TABLET BY MOUTH EVERY * NIACIN ER 500 MG TABLET,EXTEN* Take 1 tablet by mouth once d* LORATADINE 10 MG TABLET Take 1 tablet by mouth once d* ACETAMINOPHEN 325 MG TABLET Take 650 mg by mouth every 6 * FINASTERIDE 5 MG TABLET Take 1 tablet by mouth once d* DOXAZOSIN 4 MG TABLET Take 1 tablet by mouth once d* ASPIRIN 81 MG TABLET Take one (1) tablet daily . Progress Notes: Louise Knapp, PT 05/26/2017 1:10 PM Signed Episode Visit Count: 1 Therapist That Will Oversee The Plan Of Care: Louise Knapp Start of Care Date: 05/26/17 Onset Date: 01/13/17 Plan of Care Certification Date: 05/26/17 Patient Identified by Name and Date of : Yes REHABILITATION AND SPORTS THERAPY PHYSICAL THERAPY EVALUATION PLAN OF CARE: Assessment: Shyam Hernández presents with the chief complaint of right calf and hip pain. Pain described in hip is actually in region of sacral region . Pt with Full leg strength and full hip ROM. Mild pain in hip with ER IR but not in region of primary complaint. Pt has been working out at home and [employer] for lumbar and leg stretching and strengthening but continues to have limitations of sitting and standing/ walking d/t lateral calf region pain. He presents with impairments of decreased tolerance to sitting / standing / and walking He may benefit from skilled therapy services to improve pain which appears to continue to be nerve mediated. Low Back Pain Subgroup Classification Low Back Pain Subgroup Classification: Specific exercise subgroup: recommended visits 8. Prognosis: Fair Fair due to: clinical presentation;chronic nature of impairments Goals for Episode of Care: created on 05/26/17 through 06/26/17 Independent in home exercises. Patient will decrease pain to 2/10 with functional activities to allow patient to improve standing tolerance for ADLs. Stand / Walk greater 5/15 minutes without pain/symptoms. Sit without pain/symptoms to allow for improved tolerance Patient will be able to tolerate functional activities without increased symptoms. Knowledgeable regarding prophylaxis. G CODE REPORTING Based on clinical assessment and the score on the AM-PAC Scale Score Assessment Tool, the G code and corresponding severity modifiers are documented below. Evaluation: 05/26/2017 Current Status: Mobility: Walking and Moving Around: G8978 CI 1-19% impaired Goal Status: Mobility: Walking and Moving Around: G8979 CI 1-19% impaired Planned Interventions, Frequency, and Duration: Current Frequency: 1x/week Duration: 4 weeks Total Number of Visits Planned: 4 Patient to be see for Planned Treatment Interventions: Therapeutic exercise PLAN FOR NEXT VISIT: Will consider hip abduction in siitting or standing. Core stabilzation with rep band perturbation Patient demonstrates good understanding of plan of care and treatment. The above goals and plan of care were discussed and agreed upon by patient/family. SUBJECTIVE: Shyam Hernández is a 76 year old male seen today for Pt with pain in hip and calf region. Functional Limitations: (walking more than 15 min. , Standing more one min. ) Patient Goals: decrease pain Previous Treatment: Self prescribed exercises;Massage;NSAIDs;Heat Falls Interview: No positive findings with falls interview Relevant History Employment: Retired Recreation / Current Exercise: [employer] and home 4-5 days per week Home Environment Patient Lives With: Significant Other Spine History Pain is Worse Always: Standing ( sitting to long) Pain is Better Always: (sitting with legs propped up) Sleep Affected by Pain: Not affected by pain Pain Score: 5/10 Pain Location: Calf - Right;Low Back/Lumbar Spine - Right Description: Aching Frequency: Continuous Post Treatment Pain Score: 5/10 Pain Location: Calf - Right Post Treatment Pain Description: Aching OBJECTIVE MEASURES WITH LEVEL OF FUNCTION: Posture / Alignment Posture: Decreased lumbar lordosis Gait Assessment Gait: Independent Gait Device: None Gait Deviations: ( none) Spine Palpation R Lumbar Spine Palpation Tenderness: ( none) Lumbar Spine AROM Lumbar Flexion: Normal Lumbar R Side [place]: Normal;Decreased pain Lumbar L Side [place]: Normal;Increased pain Repeated Test Movements - Lumbar RFIS - Symptoms During: increases RFIL - Symptoms During: decreases RFIL - Symptoms After: no effect LE AROM R LE AROM: hip knee and ankle WNL LE Strength R LE Strength: 5/5 R Hip External Rotation: ( mild pain) Special Tests - Hip and Spine Hip and Spine Special Tests: SLR Test SLR Test: Right Positive ( calf pain at 50 degrees) Education: Education Learning Preferences: Demonstration;Explanation;Performance;Printed Materials Barriers: None Learning/educational needs: Plan of Care;Home exercise program TREATMENT: Evaluation Therapeutic Exercise: 1: SKC 30 sec right x3 2: supine hamstring stretch holding thigh no hold 1x10 f 3: trial of right seated LF of low back 4: no change with calf stretch 5: less pain with sitting with leg elevated Skilled Intervention: Patient was educated in proper exercise technique and purpose for exercises. Skilled judgment was provided in selection of appropriate interventions. Provided written instruction for home exercise program to facilitate proper performance and compliance. Correct performance of therapeutic exercises was facilitated with verbal and visual cuing. Educated patient on rationale for performing exercises in regards to ROM and function Patient education as noted. Billing: [facility]: Evaluation - Low Complexity (18402) Therapeutic Exercise (81502): 1:1 time: 30 minutes (2 units: 23-37 mins) Total time: 50 minutes Louise Knapp PT ALLERGIES ALLERGIES DATE TYPE / CODE NAME / CODE REACTION SEVERITY SOURCE 03/02/2018 Drug Sulfa Rash Unknown [facility] Allergy/4160 (Sulfonamide Hospital 32063(SNOMED Antibiotics)/F Repository CT) [id number](RXNO RM) 03/02/2018 Drug codeine/Y84800 Other Unknown [facility] Allergy/4160 1550(RXNORM) Hospital 17683(SNOMED Repository CT) 09/14/2003 DRUG CODEINE Mental Chg [facility] INGREDI/4195 Other [place] 18100(SNOMED Repository CT) 09/14/2003 Drug SULFA HIVES [facility] Class/792243 (SULFONAMIDE Other [place] 003(SNOMED ANTIBIOTICS) Repository CT) NG/675404469 CODEINE [facility] (SNOMED CT) [facility] Repository NG/819198861 SULFA [facility] (SNOMED CT) (SULFONAMIDE [facility] ANTIBIOTICS) Repository ENCOUNTERS ENCOUNTERS ADMIT/DISCHARGE ACCOUNT NUMBER ADMITTING ENCOUNTER LOCATION SOURCE CLASS 03/12/2018/03/13/20 [id number] Ambulatory [address] Repository 03/02/2018/03/02/20 [id number] Emergency [address] ding:ED Repository 02/03/2018/02/14/20 [id number] Ambulatory [address] Repository 12/13/2017/12/16/19 [id number] Ambulatory [address] Repository 11/19/2017/11/22/19 [id number] Ambulatory [address] Repository 11/19/2017/11/22/19 [id number] Ambulatory [address] Main [place] Repository 11/19/2017/11/20/19 [id number] Ambulatory [address] Main [place] Repository 11/18/2017 [id number] Ambulatory YULISA [facility] MEDICAL Repository CENTERBuildi ng:CAGWS 10/17/2017/10/21/19 [id number] Ambulatory [address] Main [place] Repository 10/08/2017/10/10/19 [id number] Ambulatory [address] Main [place] Repository 09/18/2017/09/20/19 [id number] Ambulatory [address] Main [place] Repository 09/02/2017/09/04/19 [id number] Ambulatory [address] Main [place] Repository 09/02/2017/09/04/19 [id number] Ambulatory [address] Main [place] Repository 08/19/2017/08/20/19 [id number] ISAURA, Ambulatory [address] [place] Repository 08/05/2017/08/06/19 [id number] Ambulatory [address] Main [place] Repository 08/05/2017 [id number] Ambulatory [facility] Main [place] Repository 08/05/2017/08/06/19 [id number] Ambulatory [address] Main [place] Repository 08/05/2017/08/07/19 [id number] Ambulatory [address] Main [place] Repository 08/05/2017/08/07/19 [id number] Ambulatory [address] Main [place] Repository 07/04/2017/07/05/19 [id number] CHANDRIKA, Ambulatory [address] Other [place] Repository 07/03/2017/07/05/19 [id number] Ambulatory [address] Main [place] Repository 06/26/2017/06/27/19 [id number] Ambulatory [address] Main [place] Repository 06/20/2017 [id number] Ambulatory [facility] Main [place] Repository 06/12/2017/06/14/19 [id number] Ambulatory [address] Main [place] Repository 06/11/2017/06/13/19 [id number] Ambulatory [address] Main [place] Repository 06/09/2017/06/10/19 [id number] Ambulatory [address] Main [place] Repository 06/05/2017/06/06/19 [id number] Ambulatory [address] Repository 06/04/2017/06/06/19 [id number] Ambulatory [address] Repository 05/26/2017/05/29/[id number] Repository PAYERS PAYERS ENCOUNTER GUARANTOR PAYER SUBSCRIBER SOURCE 03/02/2018 SHYAM D Primary SHYAM D [place] [id number] Insurance:MEDICARE CROSKEYDOB: [facility] DANBERRY PART A [facility] [id number] [place], [place] Number: Repository [address]Blx: [phone] [id number] [phone] (HP) Date:2018-03-02 03/02/2018 Secondary SHYAM D [place] Insurance:[facility] CROSKEYDOB: [facility] Number: [id number] [facility] [id number] Repository Date:[id number] [address]VY: 03/02/2018 Tertiary NOT GIVENUNK [place] Insurance:SELF PAY [facility] Number: Effective Repository Date:2018-03-02 11/18/2017 SHYAM D Primary SHYAM D [facility] CROSKEYDOB: Insurance:MEDICARE A CROSKEYDOB: [facility] [id number] AND BPolicy Number: [id number] [facility] [id number] Date: [address]Yex: () 11/18/2017 Secondary SHYAM D [facility] Insurance:CIG[employer] CROSKEYDOB: [facility] PPOPolicy Number: [id number] Repository [id number] Date:
== END 2018-03-02 11:56 | disposition home or self-care (01) ==
PROVIDERS: Emergency Provider Emergency Medicine; Family Provider Family Medicine; PCP Family Medicine
DX: K57.32 Diverticulitis of large intestine without perforation or abscess without bleeding (principal); E78.00 Pure hypercholesterolemia, unspecified; Z90.49 Acquired absence of other specified parts of digestive tract; Z95.2 Presence of prosthetic heart valve
CPT/HCPCS: 74177; 80048; 81001; 85025; 96361; 96374; 96375; 99282; J7030; Q9967; A4216; J2405

== ENCOUNTER 2018-06-20 09:34 | Emergency (ER) | payer MEDICARE, OTHER, SELFPAY ==
[2018-06-20 09:36] VITALS: BP 161/67; PULSE 73; RESP 18; TEMP 36.6; O2SAT 99; BMI 24.5
--- NOTE | 2018-06-20 10:26 | ED.VISSUMM ---
- ER Visit Summary Date of Service: 06/20/18 Chief Complaint: [] Hemorrhoid this morning, uro-lift prostate procedure yesterday by Kirill DANIELS History of Present Illness: The patient is a 77 M [] patient reports he had a-year-old left prostate procedure by Dr. Patino, he has been able to void without difficulty, has had no nausea or vomiting or fever, indicates this morning when he woke up he had a large hemorrhoid in his rectal area, he has had this before, not recently, he had no abdominal pain he is moving urine and stool without difficulty, he has had no fever no cough he indicates he was unable to push the hemorrhoid back in any came into the emergency department Physical Examination: []\ Vital signs are within normal range His head is unremarkable next unremarkable abdomen soft nontender lungs clear heart tones normal, the rectal exam shows a soft hemorrhoid when he is prone at about the 9 o'clock position, this is easily reducible but immediately slipped back out his rectal area is nontender otherwise, he has no prostate tenderness, he just voided urine without difficulty, his upper and lower extremities unremarkable, his abdomen is [place] soft and nontender I had a long conversation with the patient and the he has had this process before he has it again we could reduce it easily but then it just comes back out, at this time I explained he needs to see his surgeon Dr. mosley who he seen in the past for this, he will be given Anusol HC suppositories otherwise continue his postop management He is having no signs of any major complication or other issues postop Test Results: [] Emergency Department Course and Treatment: [] Treatment Plan: [] Disposition: [] Home stable Impression: [] Rectal hemorrhoid, recent prostate uro-lift procedure This note was generated with [employer] dictation software. It may contain incorrect words, spelling, and punctuation that were not noted in review of the chart prior to signing ED Disposition - Plan for ED Patient: Referrals: Stephen Quesada III, MD [Primary Care Provider] -
--- NOTE | 2018-06-20 10:29 | ED.DEP ---
ED Disposition - Plan for ED Patient: Instructions: Understanding Hemorrhoids, Diagnosing Hemorrhoids Prescriptions: Hydrocortisone Acetate [Anusol-Hc] 25 mg OR 4X/DAY #12 supp.rect Referrals: Stephen Quesada III, MD [Primary Care Provider] -
--- NOTE | 2018-06-20 10:31 | DCINST.ED_ITS ---
ED Disposition - Plan for ED Patient: Instructions: Understanding Hemorrhoids, Diagnosing Hemorrhoids Prescriptions: Hydrocortisone Acetate [Anusol-Hc] 25 mg UT 4X/DAY #12 supp.rect Referrals: Stephen Quesada III, MD [Primary Care Provider] -
--- NOTE | 2018-06-20 10:44 | ED.RN ---
DISCHARGE INSTRUCTIONS GIVEN TO AND REVIEWED WITH PATIENT, PATIENT DENIES QUESTIONS OR CONCERNS AND VOICES UNDERSTANDING OF DISCHARGE INSTRUCTIONS. PT AMBULATES OUT OF ROOM WITHOUT DIFFICULTY.
== END 2018-06-20 10:44 | disposition home or self-care (01) ==
LOC: ED 10:38
PROVIDERS: Emergency Provider Emergency Medicine; Family Provider Family Medicine; PCP Family Medicine
DX: K64.8 Other hemorrhoids (principal); Z98.890 Other specified postprocedural states
CPT/HCPCS: 99282

== ENCOUNTER 2018-06-29 05:21 | Day surgery (SDC) | payer MEDICARE, OTHER, SELFPAY ==
[2018-06-26 13:53] VITALS: BMI 24.5
--- NOTE | 2018-06-29 | HEM_PTH ---
PATIENT: SUSAN CENTENO LOC: EN U#:[id number] AGE/SX: 77/M ROOM: RE06/29/[address]: Dr. Silverio Quesada MD : [id number] BED: DIS: 06/29/2018 SPEC #: [id number] RECD: 06/29/18 09:45 STATUS: OMKAR SARA #: [id number] ENZO: 06/29/18 00:[address]: Silverio Quesada DEPT: SURGICAL PATHOLOGY RECD BY: Natan Hussein ENTERED: 06/29/18 13:25 SP TYPE: HEMORRHOID OTHR DR: Dr. Stephen Quesada III, MD Tissues: HEMORRHOIDS Procedures: Surgery Specimen Level III HEADER OPERATION: Colonoscopy (MAC) PRE-OP DIAGNOSIS: Personal history colon polyps, history diverticulitis, hemorrhoids TISSUE SUBMITTED: Hemorrhoids MICROSCOPIC DIAGNOSIS Hemorrhoids, hemorrhoidectomy: Submucosal vascular ectasia and thrombosis consistent with hemorrhoids. AM:mary 06/30/18 MICROSCOPIC DESCRIPTION Slides are reviewed. GROSS DESCRIPTION Received in fixative is one container labeled with the patient's name and designated hemorrhoids. The specimen consists of two pieces of mane mucosal tissue measuring 5 x 3 x 2 cm and 4.5 x 3 x 2 cm. Eyeglass Frame Truer sections are submitted in two cassettes. / SJ:mary 06/29/18 TC:5 CPT: 85890
[2018-06-29 05:51] VITALS: BP 140/78; PULSE 75; RESP 16; TEMP -12.4; TEMP 9.6; O2SAT 100; BMI 23.6
--- NOTE | 2018-06-29 06:46 | EKG12_ITS ---
Test Reason : PRE OP Blood Pressure : / mmHG Vent. Rate : 059 BPM Atrial Rate : 059 BPM P-R Int : 180 ms QRS Dur : 088 ms QT Int : 440 ms P-R-T Axes : 047 084 073 degrees QTc Int : 435 ms Sinus bradycardia Septal infarct , age undetermined Abnormal ECG When compared with ECG of 09-MAY-2004 23:26, Nonspecific T wave abnormality now evident in Lateral leads Confirmed by JOSEY SINGER, WALTER ([id number]), editor [employer] LIA TAVARES ([id number]) on 07/01/2018 2:19:49 PM Referred By: Stephen Quesada Confirmed By:WALTER DOWLING MD
[2018-06-29 07:03] LABS: Hematocrit 39.5 % (40-54); Hemoglobin 13.5 g/dl (13.0-16.5); Mean Corpuscular Hgb 28.1 pg (27.0-32.0); Mean Corpuscular Volume 82.3 fL (80-94); White Blood Count 5.7 K/mm3 (4.4-11.0)
--- NOTE | 2018-06-29 07:03 | PCM.DC.REC ---
Discharge Diet: No Restrictions Discharge Activity: Return to Normal Activity, May Not Drive - while you are taking narcotic pain medications. Do not drive, work with heavy equipment or sign legal documents for 24 hours after your surgery., May Shower, May Take a Tub Bath Additional Activity Instructions:: Please anticipate small amounts of bleeding and rectal discharge. You may utilize the provided dibucaine ointment every 4 hours as needed for comfort. You may utilize a sitz bath in warm soapy water for approximately 20 minutes for comfort or hygiene after defecation. I encourage utilization of mineral oil 30 cc he did not in juice or fluid daily and fiber supplement (Metamucil, Citrucel, Benefiber, generic)--supplementation will continue long-term to help prevent recurrent hemorrhoids. You may utilize [id number] pain medicine for discomfort. Additional Dressing/Incision Instructions:: . Allergies/Adverse Reactions: Allergies Sulfa (Sulfonamide Antibiotics) Allergy (Verified 06/26/18 15:49) Rash codeine Adverse Reaction (Verified 06/26/18 15:49) Other GOOFY Medications to take at Discharge ALPRAZolam [Xanax] 0.5 mg PO QHS PRN PRN 06/20/18 Aspirin [Aspirin, Baby] 81 mg PO DAILY@0800 06/20/18 Atorvastatin Calcium [Lipitor] 20 mg PO QHS 06/20/18 Doxazosin Mesylate [Cardura] 4 mg PO QHS 06/20/18 Finasteride 5 mg PO DAILY 06/20/18 Niacin [Niacin ER] 500 mg PO DAILY 06/20/18 Omeprazole 20 mg PO DAILY 06/20/18 Hydrocortisone Acetate [Anusol-Hc] 25 mg RC BID 06/26/18 Hydrocodone Bitart/Apap 5-325 [[place] 5MG-325MG] 1 tablet PO Q4H PRN PRN 4 Days #15 tablet 06/29/18 Metronidazole 250 mg PO TID 5 Days #15 tablet 06/29/18 The following prescriptions were given: Hydrocodone Bitart/Apap 5-325 [[place] 5MG-325MG] 1 tablet PO Q4H PRN PRN 4 Days #15 tablet PRN Reason: Pain Metronidazole 250 mg PO TID 5 Days #15 tablet Primary Care Physician: Stephen Quesada III, MD [Primary Care Provider] - Test Results: Test results from this visit will be discussed in further detail at your follow-up appointment, if applicable. Please Follow Up With: Silverio Quesada MD - [phone] When: Plan to have a follow up approximately 3 weeks after surgery.
[2018-06-29 07:04] LABS: Mean Corp Hgb Conc 34.2 g/gl (32-36); Mean Platelet Vol. 9.1 fl (6.2-12.0); Platelet Count 225 K/mm3 (150-450); RBC Distribution Width CV 13.6 % (11.6-14.6); RBC Distribution Width SD 40.8 fl (35.1-43.9); Scan Indicated on CBC? Y/N NO
--- NOTE | 2018-06-29 07:07 | DCINST_ITS ---
Discharge Diet: No Restrictions Discharge Activity: Return to Normal Activity, May Not Drive - while you are taking narcotic pain medications. Do not drive, work with heavy equipment or sign legal documents for 24 hours after your surgery., May Shower, May Take a Tub Bath Additional Activity Instructions:: Please anticipate small amounts of bleeding and rectal discharge. You may utilize the provided dibucaine ointment every 4 hours as needed for comfort. You may utilize a sitz bath in warm soapy water fo r approximately 20 minutes for comfort or hygiene after defecation. I encourage utilization of mineral oil 30 cc he did not in juice or fluid daily and fiber supplement (Metamucil, Citrucel, Benefiber, generic)--supplementation will continue long-term to help prevent recurrent hemorrhoids. You may utilize [id number]-[id number] pain medicine for discomfort. Additional Dressing/Incision Instructions:: . Allergies/Adverse Reactions: Allergies Sulfa (Sulfonamide Antibiotics) Allergy (Verified 06/26/18 15:49) Rash codeine Adverse Reaction (Verified 06/26/18 15:49) Other GOOFY Medications to take at Discharge ALPRAZolam [Xanax] 0.5 mg PO QHS PRN PRN 06/20/18 Aspirin [Aspirin, Baby] 81 mg PO DAILY@0800 06/20/18 Atorvastatin Calcium [Lipitor] 20 mg PO QHS 06/20/18 Doxazosin Mesylate [Cardura] 4 mg PO QHS 06/20/18 Finasteride 5 mg PO DAILY 06/20/18 Niacin [Niacin ER] 500 mg PO DAILY 06/20/18 Omeprazole 20 mg PO DAILY 06/20/18 Hydrocortisone Acetate [Anusol-Hc] 25 mg RC BID 06/26/18 Hydrocodone Bitart/Apap 5-325 [[place] 5MG-325MG] 1 tablet PO Q4H PRN PRN 4 Days #15 tablet 06/29/18 Metronidazole 250 mg PO TID 5 Days #15 tablet 06/29/18 The following prescriptions were given: Hydrocodone Bitart/Apap 5-325 [[place] 5MG-325MG] 1 tablet PO Q4H PRN PRN 4 Days #15 tablet PRN Reason: Pain Metronidazole 250 mg PO TID 5 Days #15 tablet Primary Care Physician: Stephen Quesada III, MD [Primary Care Provider] - Test Results: Test results from this visit will be discussed in further detail at your follow- up appointment, if applicable. Please Follow Up With: Silverio Quesada MD - [phone] When: Plan to have a follow up approximately 3 weeks after surgery.
[2018-06-29 07:10] LABS: Anion Gap 6 (5-15); BUN 12 mg/dL (7-18); BUN/Creat Ratio 11.9 RATIO (10-20); Calcium,Total 8.3 mg/dL (8.5-10.1); Chloride 106 mmol/L (98-107); Creatinine, Serum 1.01 mg/dL (0.70-1.30); EST Glomerular Filtration Rate 76 mL/min (>60); Est Glom Filt Rate - Afr Amer 92 mL/min (>60); Estimated Creatinine Clearance 58.17 ml/min; Glucose 91 mg/dL (74-106); Potassium 3.3 mmol/L (3.5-5.1); Sodium Level 141 mmol/L (136-145)
[2018-06-29] MEDS: Lubricating Jelly 60 GM Tube 30 GM TOPICAL (07:42)
[2018-06-29] MEDS: Dibucaine 30 GM Tube 1 APPLIC (08:24)
[2018-06-29] MEDS: BUPIVACAINE LIPOSOME/PF 20 ML VIAL OPERA.SITE (08:24)
[2018-06-29] MEDS: Bupivacaine Mpf 0.5% 30 ML VIAL (08:24)
--- NOTE | 2018-06-29 08:31 | OP.ENDO_ITS ---
06/29/2018 Stephen Quesada [address] [place] [address] Re : Colonoscopy procedure for Shyam Hernández Dear Dr. Quesada This procedure was performed on Friday, June 29, 2018. My impressions and recommendations are as follows: Impressions : - Thrombosed external hemorrhoids, thrombosed internal hemorrhoids and internal hemorrhoids that do not return to the anal canal, thus continuously prolapsed (Grade IV) found on digital rectal exam. - Diverticulosis in the entire examined colon. Very severe diverticulosis. Stool from multiple diverticula affected bowel prep making it only fair. - No specimens collected. Recommendations : - Discharge patient to home. - Resume previous diet. - Return to my office in 3 weeks. - Repeat colonoscopy in 5 years for surveillance. - Continue present medications. My findings are described in the full procedure note, which is enclosed. If I can be of further assistance, please feel free to contact me at Doctor phone number(s): Work: . Sincerely, Silverio Quesada MD 06/29/2018 8:31:05 AM This report has been signed electronically.
--- NOTE | 2018-06-29 08:32 | PCM.OPRPT ---
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 No history of adenomatous colon polyps. 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 Severe colonic diverticulosis with fair bowel prep secondary to stool related to the diverticulosis Surgery/Procedure Performed:: Extensive hemorrhoidectomy colonoscopy performed at the same setting with report provided in provation Description of Surgical Findings:: Timeout and informed consent was obtained. 77-year-old gent was taken to the operating room. He underwent monitored anesthesia care local anesthetic. He was initially placed in a left lateral decubitus position. Digital inspection demonstrated strangled internal/external hemorrhoids with large bulky disease both on the right and left lateral aspects of the anus. Colonoscopy was performed. Subsequently the patient was placed in a prone position with careful shoulder and pelvic rolls. He was placed in a prone jackknife position. The perianal area was prepped with Betadine. 30 cc of 0.5% Marcaine was mixed with 20 cc of Exparel. Local was instilled. Initially the right lateral aspect was entertained these were exuberant congested hemorrhoids. Made it very difficult to place my apical suture of 2-0 chromic. I used Harmonic scalpel to excise the bulky disease. Because of the bulky disease from the left I could not approximate the mucosa so I left that for the moment and then placed an apical suture of 2-0 chromic on the left. Used a harmonic scalpel to excise exuberant internal/external hemorrhoidal disease on the left. I then was able to place a mazicr-wo-tcccf suture of 0 chromic high on the left and then approximated the mucosa on the left with a running locking 2-0 chromic. I could now visualize the right and in a similar fashion approximated the mucosa on the right with the running 2-0 chromic. There was still some exuberant hemorrhoidal disease at the apex which I secured with a couple yduhxw-uk-lehce sutures of 0 chromic. This is essentially ligated and fixated that tissue higher it within the right lateral rectal vault. Inspection revealed that this had removed a very large bulky amount of hemorrhoidal disease. I have elected not to take any additional tissue. A Vaseline gauze saturated with dibucaine was placed within the anus followed by dry cover dressings. Sponge and instrument and needle counts were reported to the surgeon to be correct. Specimen exuberant hemorrhoids. Drains none. Blood loss minimal. Silverio Quesada M.D., F.A.C.S. Type of Anesthesia:: Local MAC
[2018-06-29 08:34] VITALS: BP 133/77; BP 140/78; PULSE 61; RESP 16; TEMP 36.4; O2SAT 100
[2018-06-29 08:39] VITALS: BP 127/78; BP 140/78; PULSE 61; RESP 16; O2SAT 100
[2018-06-29 08:44] VITALS: BP 138/66; BP 140/78; PULSE 61; RESP 16; O2SAT 100
[2018-06-29 08:49] VITALS: BP 138/61; BP 140/78; PULSE 60; RESP 16; TEMP 36.4; O2SAT 100
[2018-06-29 10:22] VITALS: BP 140/78
== END 2018-06-29 10:27 | disposition home or self-care (01) ==
LOC: EN 05:22 → AC 05:31
PROVIDERS: Family Provider Family Medicine; PCP Family Medicine; Referring Provider Family Medicine; Visit Provider Surgery
PROC: (CPT 45378; 2018-06-29 07:00)
PROC: 0DJD8ZZ Inspection of Lower Intestinal Tract, Via Natural or Artificial Opening Endoscopic (ICD-10-PCS; CPT 45378; principal; 2018-06-29 07:10)
DX: K64.3 Fourth degree hemorrhoids (principal); K64.4 Residual hemorrhoidal skin tags; K64.5 Perianal venous thrombosis; K64.8 Other hemorrhoids; K57.32 Diverticulitis of large intestine without perforation or abscess without bleeding; K57.30 Diverticulosis of large intestine without perforation or abscess without bleeding; Z86.010 Personal history of colon polyps; K21.9 Gastro-esophageal reflux disease without esophagitis; Z95.2 Presence of prosthetic heart valve
CPT/HCPCS: 45378; 46260; 36415; 80048; 85027; 88304; 93005; J7120

== ENCOUNTER → 2019-01-01 09:45 | Outpatient (CLI) | payer MEDICARE, OTHER, SELFPAY ==
[2018-12-31 14:11] VITALS: BMI 24.9
[2019-01-01 11:26] LABS: AST(SGOT) 20 U/L (15-37); Alanine Aminotransfer ALT/SGPT 17 U/L (16-61); Albumin, Serum 3.9 g/dL (3.2-5.0); Alkaline Phosphatase 95 U/L (45-117); Bilirubin, Direct 0.12 mg/dL (0.00-0.30); Cholesterol 186 mg/dL (200); Globulin 2.9 g/dL (2.2-4.2); High Density Lipoprotein 49 mg/dL; Protein, Total 6.8 g/dL (6.4-8.2); Triglycerides 210 mg/dL; Very Low Density Lipoprotein 42 mg/dL (5-40)
== END ==
PROVIDERS: Family Provider Family Medicine; PCP Family Medicine; Referring Provider Internal Medicine Cardiovascular Disease; Visit Provider Internal Medicine Cardiovascular Disease
DX: E78.00 Pure hypercholesterolemia, unspecified (principal)
CPT/HCPCS: 36415; 80061; 80076

== ENCOUNTER → 2019-03-26 16:30 | Outpatient (CLI) | payer MEDICARE, OTHER, SELFPAY ==
[2019-03-26 15:03] VITALS: BMI 24.5
[2019-03-26 17:27] LABS: Absolute Lymphocyte Count 2.13 X10^3/uL (0.83-4.51); Basophil# 0.02 X10^3/uL; Basophil% 0.3 % (0-1); Eosinophil# 0.11 X10^3/uL; Eosinophils% 1.6 % (0-5); Hematocrit 38.2 % (40-54); Hemoglobin 12.7 g/dL (13.0-16.5); Lymphocyte # 2.13 X10^3/ul (4.0); Lymphocyte % 31.6 % (19-41); Mean Corp Hgb Conc 33.2 g/dL (32-36); Mean Corpuscular Hgb 28.7 pg (27.0-32.0); Mean Corpuscular Volume 86.4 fL (80-94); Mean Platelet Vol. 9.5 fl (6.2-12.0); Monocyte# 0.41 X10^3/uL; Monocyte% 6.1 % (0-10); NRBC Flagged by Analyzer 0 % (0-5); Neutrophil # 4.04 X10^3/uL (2.7-7.7); Platelet Count 197 K/mm3 (150-450); RBC Distribution Width CV 13.2 % (11.6-14.6); RBC Distribution Width SD 41.9 fl (35.1-43.9); Red Blood Count 4.42 M/mm3 (4.6-6.2); White Blood Count 6.7 K/mm3 (4.4-11.0)
[2019-03-26 18:12] LABS: Anion Gap 3 (5-15); BUN 11 mg/dL (7-18); BUN/Creat Ratio 10.9 RATIO (10-20); Calcium,Total 8.7 mg/dL (8.5-10.1); Chloride 103 mmol/L (98-107); Creatinine, Serum 1.01 mg/dL (0.70-1.30); EST Glomerular Filtration Rate 76 mL/min (>60); Est Glom Filt Rate - Afr Amer 92 mL/min (>60); Glucose 92 mg/dL (74-106); Magnesium 2.1 mg/dL (1.6-2.6); Sodium Level 136 mmol/L (136-145); T4 Free Direct 0.86 ng/dL (0.76-1.46); Thyroid Stim Hormone (TSH) 1.79 uIU/mL (0.358-3.74)
== END ==
PROVIDERS: Family Provider Family Medicine; PCP Family Medicine; Referring Provider Nurse Practitioner Family; Visit Provider Nurse Practitioner Family
DX: I48.0 Paroxysmal atrial fibrillation (principal); Z95.3 Presence of xenogenic heart valve; Z86.79 Personal history of other diseases of the circulatory system
CPT/HCPCS: 36415; 80048; 83735; 84439; 84443; 85025

== ENCOUNTER → 2019-04-07 13:48 | Outpatient (CLI) | payer MEDICARE, OTHER, SELFPAY ==
[2019-03-26 15:03] VITALS: BMI 24.5
--- NOTE | 2019-04-07 13:48 | ECHOD_ITS ---
Reason For Study: Afib/Flutter Procedure This was a 2D Doppler, Color Flow transthoracic echocardiogram. The exam was of adequate technical quality. Exam performed in department. Left Ventricle Normal LV size. Moderate concentric left ventricular hypertrophy. Left ventricular systolic function is normal. The estimated ejection fraction is 55 %. No regional wall motion abnormalities noted. Right Ventricle Normal RV size. Normal systolic function. Atria The left atrium is moderately enlarged. The right atrium is moderately enlarged. No doppler evidence for ASD. Mitral Valve There is no mitral annular calcification. Mild diffuse mitral valve thickening. Mild-Moderate (1-2+) mitral valve insufficiency. Tricuspid Valve Normal tricuspid valve. Moderate (2+) tricuspid valve insufficiency. Right ventricular systolic pressure estimated to be 37 mmHg. Aortic Valve Stable appearing bioprosthetic aortic valve apparatus. Trivial transvalvular insufficiency of the aortic valve. Pulmonic Valve The pulmonic valve is not well visualized. Mild (1+) eccentric pulmonic valve insufficiency. Great Vessels Normal sized aortic root. Pericardium/Pleural No pericardial effusion. MMode/2D Measurements & Calculations LVIDd: 3.6 cm IVSd: 1.5 cm LVOT diam: 2.0 cm LVIDs: 2.3 cm LVPWd: 1.5 cm LVOT area: 3.0 cm2 RVDd: 4.2 cm FS: 36.5 % Ao root diam: 3.5 cm LAV(MOD-bp): 75.3 ml LA A4 area: 23.7 cm2 ACS: 1.2 cm LAV(MOD-bp) Indexed: 42.1 ml/m2 LA dimension: 4.6 cm LAV(MOD-sp2): 75.0 ml LAV(MOD-sp4): 73.6 ml RA A4 area: 22.2 cm2 Time Measurements MV dec time: 0.27 sec Doppler Measurements & Calculations MV E max sonido: 83.0 cm/sec Lat Peak E' Sonido: 8.5 cm/sec Med Peak E' Sonido: 8.3 cm/sec MV A max sonido: 61.5 cm/sec E/E' lat: 9.7 E/E' med: 10.1 MV E/A: 1.3 MV V2 max: 105.9 cm/sec MV P1/2t max sonido: 107.9 cm/sec Ao V2 max: 226.0 cm/sec MV max P.5 mmHg MV P1/2t: 76.6 msec Ao max P.4 mmHg MV V2 mean: 53.6 cm/sec MV dec slope: 412.3 cm/sec2 Ao V2 mean: 154.4 cm/sec MV mean P.3 mmHg Ao mean P.7 mmHg MV V2 VTI: 36.9 cm MVA(P1/2t): 2.9 cm2 Ao V2 VTI: 51.5 cm MVA(VTI): 2.6 cm2 RENÉ(I,D): 1.9 cm2 RENÉ(V,D): 1.8 cm2 LV V1 max: 132.7 cm/sec SV(LVOT): 97.1 ml PA V2 max: 137.7 cm/sec LV V1 max P.0 mmHg LV V1 mean P.7 mmHg LV V1 mean: 88.9 cm/sec LV V1 VTI: 32.1 cm TR max sonido: 289.8 cm/sec TR max P.6 mmHg Interpretation Summary Left ventricular systolic function is normal. The estimated ejection fraction is 55 %. Moderate concentric left ventricular hypertrophy. The left atrium is moderately enlarged. The right atrium is moderately enlarged. Mild diffuse mitral valve thickening. Mild-Moderate (1-2+) mitral valve insufficiency. Moderate (2+) tricuspid valve insufficiency. Stable appearing bioprosthetic aortic valve apparatus. Trivial transvalvular insufficiency of the aortic valve. Mild (1+) eccentric pulmonic valve insufficiency. Right ventricular systolic pressure estimated to be 37 mmHg. Transmitral diastolic flow velocities suggest diastolic dysfunction (pseudonormal pattern). Ordering Physician: Hu Cardoza Referring Physician: ARYAN Quesada M.D. Performed By: Cirilo Rivero RCS
== END ==
PROVIDERS: PCP Family Medicine; Referring Provider Nurse Practitioner Family; Visit Provider Nurse Practitioner Family
DX: I48.0 Paroxysmal atrial fibrillation (principal); Z86.79 Personal history of other diseases of the circulatory system; Z95.3 Presence of xenogenic heart valve
CPT/HCPCS: 93306

== ENCOUNTER → 2019-08-10 06:16 | Outpatient (CLI) | payer MEDICARE, OTHER, SELFPAY ==
[2019-04-23 13:27] VITALS: BMI 24.7
[2019-06-24 13:37] VITALS: BMI 24.9
[2019-08-05 10:15] LABS: AST(SGOT) 23 U/L (15-37); Alanine Aminotransfer ALT/SGPT 23 U/L (16-61); Albumin, Serum 3.9 g/dL (3.2-5.0); Alkaline Phosphatase 97 U/L (45-117); Bilirubin, Direct 0.15 mg/dL (0.00-0.30); Cholesterol 160 mg/dL (200); High Density Lipoprotein 56 mg/dL; Protein, Total 6.9 g/dL (6.4-8.2); Triglycerides 129 mg/dL; Very Low Density Lipoprotein 26 mg/dL (5-40)
--- NOTE | 2019-08-10 08:13 | STRESSREP ---
Stress Test Report Date: Procedure: Exercise tolerance test/imaging study Indications: Atrial fibrillation; status post AVR Consent: Per the patient Procedure: The patient exercised on a Ayden protocol for 10 minutes completing Stage III and 1 minute of Stage IV achieving a peak heart rate of 129 bpm (90 % predicted maximal heart rate) with a peak blood pressure 190/70 mmHg and a peak MET capacity of 11 METs. The baseline ECG demonstrated sinus bradycardia; septal SC of indeterminate age cannot be excluded. The peak exercise ECG demonstrated an element of somatic/motion artifact with seei-eq-uwki ST segment variability with approximately [address] segment depression in leads II, III, aVF, and approximately 1 to [address] segment depression in leads V4 through V6 with subsequent gradual resolution to baseline in recovery. There were no cardiac dysrhythmias pretest, during exercise, or recovery. The functional capacity was considered good. There was no complaint of chest discomfort during exercise or recovery. The examination was discontinued secondary to dyspnea and leg fatigue. Impression: 1. Technically adequate (percent predicted maximal heart rate greater than 85%) exercise tolerance test 2. Peak exercise ECG with an element of somatic/motion artifact with ydga-zu-bubv ST segment variability with approximately [address] segment depression in leads II, III, aVF, and approximately 1 to [address] segment depression in leads V4 through V6 with subsequent gradual resolution to baseline in recovery 3. There were no cardiac dysrhythmias pretest, during exercise, or recovery 4. Nuclear images pending Myocardial perfusion imaging study: Technique: The patient was injected with 12.0 mCi of technetium 99m Cardiolite and subsequently rest SPECT Cardiolite nuclear imaging was obtained in the horizontal long, vertical long, and short axis views. The patient exercised on a Ayden protocol for 10 minutes completing Stage III and 1 minute of Stage IV achieving a peak heart rate of 129 bpm (90 % predicted maximal heart rate) with a peak blood pressure 190/70 mmHg and a peak MET capacity of 11 METs. The patient was injected with 36.0 mCi of technetium 99m Cardiolite and subsequently stress SPECT Cardiolite nuclear imaging was obtained in the horizontal long, vertical long, and short axis views. A gated Cardiolite study at peak stress was obtained. Interpretation: Rest and stress SPECT Cardiolite nuclear imaging status post realignment, normalization, and attenuation correction, demonstrates the appearance of relative uniform tracer uptake and myocardial perfusion appearing within normal limits. There is end systolic thickening and brightening. The gated Cardiolite study demonstrates myocardial thickening and inward wall motion. The reported LVEF is 66 %. Impression: 1. Rest and stress SPECT Cardiolite nuclear imaging demonstrate relative uniform tracer uptake and myocardial perfusion appearing within normal limits. 2. The gated Cardiolite study reports an LVEF of 66 %. This note was generated with [employer] software. It may contain incorrect words, spelling, and punctuation that were not noted in checking the note before signing.
== END ==
PROVIDERS: Internal Medicine Cardiovascular Disease; PCP Family Medicine; Referring Provider Nurse Practitioner Family; Visit Provider Nurse Practitioner Family
DX: I25.10 Atherosclerotic heart disease of native coronary artery without angina pectoris (principal); E78.00 Pure hypercholesterolemia, unspecified; Z86.79 Personal history of other diseases of the circulatory system; Z95.3 Presence of xenogenic heart valve; I10 Essential (primary) hypertension; I48.0 Paroxysmal atrial fibrillation
CPT/HCPCS: 36415; 78452; 80061; 80076; 93017; A9500; A4216

== ENCOUNTER → 2019-10-25 10:02 | Outpatient (CLI) | payer MEDICARE, OTHER, SELFPAY ==
[2019-09-02 14:14] VITALS: BMI 24.9
[2019-10-25 11:06] LABS: PSA,Total- Diagnostic 4.48 ng/mL (0.0-4.0)
== END ==
PROVIDERS: PCP Family Medicine; Referring Provider Urology; Visit Provider Urology
DX: R97.20 Elevated prostate specific antigen [PSA] (principal)
CPT/HCPCS: 36415; 84153

== ENCOUNTER → 2020-01-17 09:22 | Outpatient (CLI) | payer MEDICARE, OTHER, SELFPAY ==
[2019-09-02 14:14] VITALS: BMI 24.9
[2020-01-17 10:37] LABS: AST(SGOT) 29 U/L (15-37); Alanine Aminotransfer ALT/SGPT 29 U/L (16-61); Albumin, Serum 3.8 g/dL (3.2-5.0); Alkaline Phosphatase 105 U/L (45-117); Bilirubin, Direct 0.17 mg/dL (0.00-0.30); Cholesterol 172 mg/dL (200); Globulin 3.2 g/dL (2.2-4.2); High Density Lipoprotein 61 mg/dL; Triglycerides 159 mg/dL; Very Low Density Lipoprotein 32 mg/dL (5-40)
== END ==
PROVIDERS: PCP Family Medicine; Referring Provider Internal Medicine Cardiovascular Disease; Visit Provider Internal Medicine Cardiovascular Disease
DX: E78.00 Pure hypercholesterolemia, unspecified (principal); I25.10 Atherosclerotic heart disease of native coronary artery without angina pectoris; Z95.3 Presence of xenogenic heart valve
CPT/HCPCS: 36415; 80061; 80076

== ENCOUNTER → 2020-01-24 14:22 | Outpatient (CLI) | payer MEDICARE, OTHER, SELFPAY ==
[2020-01-24 13:44] VITALS: BMI 24.6
--- NOTE | 2020-01-24 14:29 | RAD_ITS ---
STUDY: X-RAY CHEST REASON FOR EXAM: Male, 79 years old. pt states doctor wants cxr to check on heart, takes HBP medication TECHNIQUE: PA and lateral views of the chest. COMPARISON: None. FINDINGS: Status post heart valve replacement surgery. The lungs are clear and expanded. There is no demonstrated pleural abnormality. Normal size heart. Normal mediastinum and gladys. Normal visualized pulmonary arteries. Normal visualized aortic arch and descending thoracic aorta. Normal visualized thoracic spine. Normal visualized ribs, clavicles, and shoulders. There is no demonstrated abnormality of the visualized soft tissue structures of the upper abdomen. RAD/Chest PA and Lateral IMPRESSION: No active disease. Electronically Signed: Lucio Granger MD at 14:50 EST Tel , Service support ,
== END ==
PROVIDERS: PCP Family Medicine; Referring Provider Internal Medicine Cardiovascular Disease; Visit Provider Internal Medicine Cardiovascular Disease
DX: I25.10 Atherosclerotic heart disease of native coronary artery without angina pectoris (principal); I48.0 Paroxysmal atrial fibrillation; Z79.899 Other long term (current) drug therapy; Z95.3 Presence of xenogenic heart valve
CPT/HCPCS: 71046

== ENCOUNTER → 2020-01-31 06:45 | Outpatient (CLI) | payer MEDICARE, OTHER, SELFPAY ==
[2020-01-24 13:44] VITALS: BMI 24.6
--- NOTE | 2020-02-01 12:41 | PFT ---
INTRODUCTION: The patient is a 79-year-old male that presents for pulmonary function studies secondary to a diagnosis of high risk medication use. Respiratory therapy reports good patient effort. Bronchodilators were used during testing. INTERPRETATION: Forced expiration spirometry demonstrates no evidence of a large airways obstructive ventilatory defect. There was no significant response to aerosolized bronchodilators. Spirograms are of good quality and plateau gradually indicating slow emptying of the the lungs. Body plethysmography was performed and reveals lung volumes to be within normal limits. Diffusing capacity by single breath CO is also within normal limits. IMPRESSION: Grossly normal pulmonary function studies.
== END ==
PROVIDERS: PCP Family Medicine; Referring Provider Internal Medicine Cardiovascular Disease; Visit Provider Internal Medicine Cardiovascular Disease
DX: I25.10 Atherosclerotic heart disease of native coronary artery without angina pectoris (principal); I48.0 Paroxysmal atrial fibrillation; Z79.899 Other long term (current) drug therapy; Z95.3 Presence of xenogenic heart valve
CPT/HCPCS: 94060; 94726; 94729

== ENCOUNTER → 2020-06-20 09:17 | Outpatient (CLI) | payer MEDICARE, OTHER, SELFPAY ==
[2020-01-24 13:44] VITALS: BMI 24.6
[2020-06-20 11:03] LABS: Anion Gap 3 (5-15); BUN 14 mg/dL (7-18); BUN/Creat Ratio 11.3 RATIO (10-20); Calcium,Total 8.6 mg/dL (8.5-10.1); Chloride 104 mmol/L (98-107); Creatinine, Serum 1.24 mg/dL (0.70-1.30); EST Glomerular Filtration Rate 60 mL/min (>60); Est Glom Filt Rate - Afr Amer 72 mL/min (>60); Glucose 81 mg/dL (74-106); Potassium 3.6 mmol/L (3.5-5.1); Sodium Level 139 mmol/L (136-145)
== END ==
PROVIDERS: PCP Family Medicine; Referring Provider Nurse Practitioner Family; Visit Provider Nurse Practitioner Family
DX: I25.10 Atherosclerotic heart disease of native coronary artery without angina pectoris (principal); I48.0 Paroxysmal atrial fibrillation; Z86.79 Personal history of other diseases of the circulatory system; Z95.3 Presence of xenogenic heart valve
CPT/HCPCS: 36415; 80048

== ENCOUNTER → 2020-07-20 09:21 | Outpatient (CLI) | payer MEDICARE, OTHER, SELFPAY ==
[2020-01-24 13:44] VITALS: BMI 24.6
[2020-07-20 10:49] LABS: AST(SGOT) 32 U/L (15-37); Alanine Aminotransfer ALT/SGPT 37 U/L (16-61); Albumin, Serum 3.8 g/dL (3.2-5.0); Alkaline Phosphatase 131 U/L (45-117); Bilirubin, Direct 0.21 mg/dL (0.00-0.30); Cholesterol 166 mg/dL (200); Globulin 3.3 g/dL (2.2-4.2); High Density Lipoprotein 52 mg/dL; Protein, Total 7.1 g/dL (6.4-8.2); T4 Free Direct 0.67 ng/dL (0.76-1.46); Triglycerides 130 mg/dL; Very Low Density Lipoprotein 26 mg/dL (5-40)
--- NOTE | 2020-07-20 16:27 | RAD_ITS ---
STUDY: X-RAY CHEST REASON FOR EXAM: Male, 79 years old. PNEUMONIA TECHNIQUE: 2 views COMPARISON: Prior chest radiograph of 01/24/2020 FINDINGS: The lungs are clear and expanded. Negative for new consolidation, focal atelectasis or other infiltrates. Normal size heart. Status post prior midline sternotomy. Aortic valve replacement. Normal visualized pulmonary arteries. There is atherosclerotic calcification of the aortic arch with tortuosity. Mild degenerative changes of the thoracic spine. Status post rotator cuff surgery right shoulder. There is no demonstrated abnormality of the visualized soft tissue structures of the upper abdomen. RAD/Chest PA and Lateral IMPRESSION: No acute cardiopulmonary findings or changes. Negative for new consolidation, focal atelectasis or other infiltrates. Normal cardiac size status post prior midline sternotomy for aortic valve replacement. Electronically Signed: Dora Frank MD at 23:55 EDT , Service support ,
[2020-07-20 16:41] LABS: Absolute Lymphocyte Count 1.42 X10^3/uL (0.83-4.51); Absolute Neutrophil Count 4.5 X10^3/uL (2.0-7.7); Basophil# 0.02 X10^3/uL; Basophil% 0.3 % (0-1); Eosinophil# 0.07 X10^3/uL; Eosinophils% 1.1 % (0-5); Hematocrit 37.9 % (40-54); Hemoglobin 12.1 g/dL (13.0-16.5); Lymphocyte # 1.42 X10^3/ul (0.83-4.51); Lymphocyte % 22.1 % (19-41); Mean Corp Hgb Conc 31.9 g/dL (32-36); Mean Corpuscular Hgb 27.6 pg (27.0-32.0); Mean Corpuscular Volume 86.3 fL (80-94); Mean Platelet Vol. 9.9 fl (6.2-12.0); Monocyte# 0.39 X10^3/uL; Monocyte% 6.1 % (0-10); NRBC Flagged by Analyzer 0 % (0-5); Neutrophil # 4.49 X10^3/uL (2.7-7.7); Neutrophil % 69.9 % (47-70); Platelet Count 296 K/mm3 (150-450); RBC Distribution Width CV 13.2 % (11.6-14.6); RBC Distribution Width SD 41.1 fl (35.1-43.9); Red Blood Count 4.39 M/mm3 (4.6-6.2); White Blood Count 6.4 K/mm3 (4.4-11.0)
[2020-07-20 17:19] LABS: Anion Gap 5 (5-15); BUN 13 mg/dL (7-18); BUN/Creat Ratio 10.7 RATIO (10-20); Calcium,Total 8.5 mg/dL (8.5-10.1); Chloride 103 mmol/L (98-107); Creatinine, Serum 1.21 mg/dL (0.70-1.30); EST Glomerular Filtration Rate 62 mL/min (>60); Est Glom Filt Rate - Afr Amer 75 mL/min (>60); Glucose 93 mg/dL (74-106); Potassium 3.8 mmol/L (3.5-5.1); Sodium Level 138 mmol/L (136-145)
[2020-07-20 17:23] LABS: Vitamin D,25 Hydroxy 19.8 ng/mL
== END ==
PROVIDERS: PCP Family Medicine Geriatric Medicine; Referring Provider Internal Medicine Cardiovascular Disease; Visit Provider Internal Medicine Cardiovascular Disease
DX: E78.00 Pure hypercholesterolemia, unspecified (principal); E55.9 Vitamin D deficiency, unspecified; J18.9 Pneumonia, unspecified organism; R53.83 Other fatigue; Z79.899 Other long term (current) drug therapy
CPT/HCPCS: 36415; 71046; 80048; 80061; 80076; 82306; 84439; 84443; 85025

== ENCOUNTER → 2020-07-26 14:00 | Outpatient (CLI) | payer MEDICARE, OTHER, SELFPAY ==
[2020-01-24 13:44] VITALS: BMI 24.6
[2020-07-24 13:03] VITALS: BMI 23.5
--- NOTE | 2020-07-26 14:02 | CT_ITS ---
STUDY: LOW DOSE CT LUNG CANCER SCREENING REASON FOR EXAM: Male, 79 years old. CIG SMOKER. Patient smoked half a pack per day for 20+ years. RADIATION DOSAGE (If Supplied By Facility): CTDIvol = ( 2.01 ) mGy, DLP = ( 70.47 ) mGycm TECHNIQUE: No contrast was administered. Low dose technique was utilized (average mAS-38 and kVp 120). 1.25 mm axial source images with a slice interval of 1.25-mm were reconstructed in lung windows. 2.5 mm axial source images with a slice interval of 2.5-mm were reconstructed in lung windows. 5.0 mm axial source images with a slice interval of 5.0-mm were reconstructed in soft tissue windows. Nodule measured using lung windows on PACS and/or independent workstation with automated measurement of minimum and maximum diameter. Nodule measurement reported as average diameter rounded to the nearest whole number. Growth is defined as an increase ins size of greater than 1.5 mm. COMPARISON: None. NODULES: No suspicious nodules are seen. Emphysema: Mild degree of the linear scarring at the lung bases. Endobronchial lesion: None Aorta: Atherosclerotic plaque formation of the aortic arch. Coronary arteries: Heart: The patient is status post aortic valve replacement. Coronary artery calcification. Pulmonary artery: Unremarkable. Mediastinal nodes: Small mediastinal lymph nodes. Other chest and abdominal findings: CT/Low Dose CT Lung Screening IMPRESSION: Lung-RADS category 2 - Continue annual screening with LDCT in 12 months. IMPORTANT NOTES FOR USE: ACR Lung-RADS Version 1.1 Assessment Categories Release Date: 2018 Category: Coded 0-4 bases on nodule(s) with highest degree of suspicion. Negative screen is defined as categories 1 and 2; a positive screen is defined as categories 3 and 4. Category 3 and 4A nodules that are unchanged on interval CT should be coded as category 2, and individuals returned to screening in 12 months. Category 4X: Category 3 or 4 nodules with additional imaging findings that increase the suspicion of lung cancer, such as spiculation, GGN that doubles in size in 1 year, enlarged lymph notes, etc. Category Modifiers: S (significant finding unrelated to lung cancer) Electronically Signed: Bam Dumont MD at 14:30 EDT , Service support ,
== END ==
PROVIDERS: PCP Family Medicine Geriatric Medicine; Referring Provider Family Medicine Geriatric Medicine; Visit Provider Family Medicine Geriatric Medicine
DX: F17.210 Nicotine dependence, cigarettes, uncomplicated (principal); Z12.2 Encounter for screening for malignant neoplasm of respiratory organs
CPT/HCPCS: 71271

== ENCOUNTER → 2020-08-03 07:36 | Outpatient (CLI) | payer MEDICARE, OTHER, SELFPAY ==
[2020-01-24 13:44] VITALS: BMI 24.6
[2020-07-24 13:03] VITALS: BMI 23.5
--- NOTE | 2020-08-03 07:38 | ECHOD_ITS ---
Reason For Study: VALVE REPLACEMENT EVAL Procedure This was a 2D Doppler, Color Flow transthoracic echocardiogram. The exam was of adequate technical quality. Exam performed in department. Left Ventricle Normal LV size. Left ventricular systolic function is normal. The estimated ejection fraction is 65 %. No regional wall motion abnormalities noted. Right Ventricle Normal RV size. Normal systolic function. Atria The left atrium is moderately enlarged. The right atrium is moderately enlarged. No doppler evidence for ASD. Mitral Valve There is no mitral annular calcification. Moderate diffuse mitral valve thickening. Moderate (2+) eccentric mitral valve insufficiency. Tricuspid Valve Normal tricuspid valve. Moderate (2+) tricuspid valve insufficiency. Right ventricular systolic pressure estimated to be 57 mmHg. Aortic Valve Stable appearing bioprosthetic aortic valve apparatus. Mild to Moderate transvalvular insufficiency of the aortic valve. Pulmonic Valve The pulmonic valve is not well visualized. Mild (1+) pulmonic valve insufficiency. Great Vessels Normal sized aortic root. Pericardium/Pleural No pericardial effusion. MMode/2D Measurements & Calculations LVIDd: 4.6 cm IVSd: 1.2 cm LVOT diam: 2.0 cm LVIDs: 3.1 cm LVPWd: 1.1 cm LVOT area: 3.2 cm2 RVDd: 3.6 cm FS: 33.0 % Ao root diam: 3.4 cm LAV(MOD-bp): 89.0 ml LA A4 area: 24.6 cm2 LAV(MOD-bp) Indexed: 49.7 ml/m2 LAV(MOD-sp2): 88.6 ml LAV(MOD-sp4): 84.0 ml LA dimension(2D): 4.3 cm RA A4 area: 21.2 cm2 Time Measurements MV dec time: 0.12 sec Doppler Measurements & Calculations MV E max sonido: 113.6 cm/sec Lat Peak E' Sonido: 15.1 cm/sec Med Peak E' Sonido: 9.7 cm/sec MV A max sonido: 45.6 cm/sec E/E' lat: 7.5 E/E' med: 11.7 MV E/A: 2.5 Ao V2 max: 253.0 cm/sec AI max sonido: 487.2 cm/sec LV V1 max: 136.4 cm/sec Ao max P.6 mmHg AI max P.0 mmHg LV V1 max P.4 mmHg Ao V2 mean: 175.9 cm/sec AI dec slope: 439.0 cm/sec2 LV V1 mean P.2 mmHg Ao mean P.8 mmHg AI P1/2t: 325.0 msec LV V1 mean: 97.9 cm/sec Ao V2 VTI: 57.0 cm LV V1 VTI: 31.1 cm RENÉ(I,D): 1.7 cm2 RENÉ(V,D): 1.7 cm2 SV(LVOT): 98.3 ml PA V2 max: 111.6 cm/sec TR max sonido: 365.4 cm/sec TR max P.0 mmHg ECHO/Echo Complete Interpretation Summary Left ventricular systolic function is normal. The estimated ejection fraction is 65 %. The left atrium is moderately enlarged. The right atrium is moderately enlarged. Moderate diffuse mitral valve thickening. Moderate (2+) eccentric mitral valve insufficiency. Moderate (2+) tricuspid valve insufficiency. Stable appearing bioprosthetic aortic valve apparatus. Mild to Moderate transvalvular insufficiency of the aortic valve. Mild (1+) pulmonic valve insufficiency. Right ventricular systolic pressure estimated to be 57 mmHg. Transmitral diastolic flow velocities suggest diastolic dysfunction (pseudonorm al pattern). Ordering Physician: Hu Cardoza Referring Physician: Marcelino Ferguson Chi Performed By: Violetta Calvillo, THOMAS, RVT
--- NOTE | 2020-08-03 07:39 | AAVD_ITS ---
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 in cross- Peak systolic flow velocities within the proximal sectional axis. aorta measure 116.2 cm/sec. Proximal aorta measures1.82cm. in longitudinal Peak systolic flow velocities within the mid aorta axis. measure 132.6 cm/sec. Mid aorta measures1.33 x 1.30cm. in cross- Peak systolic flow velocities within the distal sectional axis. aorta measure 161.6 cm/sec. Mid aorta measures1.35cm. in longitudinal axis. Distal aorta measures1.36 x 1.39cm. in cross- sectional axis. Distal aorta measures1.38cm. in longitudinal axis. Left Iliac Artery Left iliac artery measures 0.99 x 0.98 cm. in the cross-sectional axis. Left iliac artery measures 0.97 cm. in the longitudinal axis. Peak systolic velocity in the left iliac artery measures 241.2 cm/sec. Right Iliac Artery Right iliac artery measures 1.05 x 1.01 cm. in the cross-sectional axis. Right iliac artery measures 0.98 cm. in the longitudinal axis. Peak systolic velocity in the right iliac artery measures 238 cm/sec. Procedure Aorta IVC Iliac vasculature or bypass grafts 24496. Exam performed in department. VL/Abd Aortic/IVC Duplex scan Interpretation Summary The dimensions of the intra-abdominal aorta are normal, without evidence of ane urysmal dilatation. The iliac arteries are normal in caliber bilaterally. The intra-abdominal aorta and iliac arteries appear patent, demonstrating pulsatile arterial flow. The peak systolic velocit ies in the iliac arteries are elevated bilaterally, which is suggestive of stenosis. Clinical co rrelation is advised. Ordering Physician: Marcelino Ferguson Referring Physician: Marcelino Ferguson Chi Performed By: Marlyn Olguin RVT
== END ==
PROVIDERS: PCP Family Medicine Geriatric Medicine; Referring Provider Family Medicine Geriatric Medicine; Visit Provider Family Medicine Geriatric Medicine
DX: I25.10 Atherosclerotic heart disease of native coronary artery without angina pectoris (principal); I71.4 Abdominal aortic aneurysm, without rupture; Z95.3 Presence of xenogenic heart valve; Z86.79 Personal history of other diseases of the circulatory system
CPT/HCPCS: 93306; 93978

== ENCOUNTER → 2020-08-08 11:40 | Outpatient (CLI) | payer MEDICARE, OTHER, SELFPAY ==
[2020-07-24 13:03] VITALS: BMI 23.5
== END ==
PROVIDERS: PCP Family Medicine Geriatric Medicine; Referring Provider Internal Medicine Cardiovascular Disease; Visit Provider Internal Medicine Cardiovascular Disease
DX: R00.0 Tachycardia, unspecified (principal); I48.0 Paroxysmal atrial fibrillation; Z79.899 Other long term (current) drug therapy
CPT/HCPCS: 93225; 93226

== ENCOUNTER → 2020-08-30 15:12 | Outpatient (CLI) | payer MEDICARE, OTHER, SELFPAY ==
[2020-07-24 13:03] VITALS: BMI 23.5
[2020-08-30 16:50] LABS: Anion Gap 4 (5-15); BUN 14 mg/dL (7-18); BUN/Creat Ratio 10.6 RATIO (10-20); Calcium,Total 8.4 mg/dL (8.5-10.1); Chloride 104 mmol/L (98-107); Creatinine, Serum 1.32 mg/dL (0.70-1.30); EST Glomerular Filtration Rate 56 mL/min (>60); Est Glom Filt Rate - Afr Amer 67 mL/min (>60); Glucose 89 mg/dL (74-106); Potassium 3.9 mmol/L (3.5-5.1); Sodium Level 139 mmol/L (136-145)
== END ==
PROVIDERS: PCP Family Medicine Geriatric Medicine; Visit Provider Family Medicine Geriatric Medicine
DX: E87.6 Hypokalemia (principal)
CPT/HCPCS: 36415; 80048

== ENCOUNTER → 2020-09-14 10:28 | Outpatient (CLI) | payer MEDICARE, OTHER, SELFPAY ==
[2020-07-24 13:03] VITALS: BMI 23.5
[2020-09-11 14:23] VITALS: BMI 23.5
--- NOTE | 2020-09-15 10:06 | PFT ---
INTRODUCTION: The patient is a 79-year-old male that presents for pulmonary function studies secondary to a diagnosis of shortness of breath. Respiratory therapy reports good patient effort. Bronchodilators were used during testing. INTERPRETATION: Forced expiration spirometry demonstrates no evidence of a large airways obstructive ventilatory defect. There was no significant response to aerosolized bronchodilators. Spirograms are of good quality but do not plateau indicating slow emptying of the lungs. Body plethysmography was performed and reveals lung volumes to be within normal limits. Diffusing capacity by single breath CO is also within normal limits. IMPRESSION: Grossly normal pulmonary function studies, with subtle stigmata of small airways disease.
== END ==
PROVIDERS: PCP Family Medicine Geriatric Medicine; Referring Provider Family Medicine Geriatric Medicine; Visit Provider Family Medicine Geriatric Medicine
DX: R06.02 Shortness of breath (principal)
CPT/HCPCS: 94060; 94726; 94729

== ENCOUNTER 2020-10-03 10:43 | Day surgery (SDC) | payer MEDICARE, OTHER, SELFPAY ==
[2020-09-11 14:23] VITALS: BMI 23.5
[2020-09-20 12:20] LABS: Anion Gap 4 (5-15); BUN 15 mg/dL (7-18); BUN/Creat Ratio 11.5 RATIO (10-20); Calcium,Total 8.7 mg/dL (8.5-10.1); Chloride 103 mmol/L (98-107); EST Glomerular Filtration Rate 57 mL/min (>60); Est Glom Filt Rate - Afr Amer 69 mL/min (>60); Glucose 94 mg/dL (74-106); Sodium Level 139 mmol/L (136-145)
[2020-09-20 13:29] LABS: T4 Total, Thyroxin 7.7 ug/dL (4.5-12.1)
--- NOTE | 2020-10-02 08:36 | PCM.HP.BLA ---
History and Physical Date of Admission: 10/03/20 [facility] [address] [place], [place] [id number] OFFICE VISITDate of Service: 09/11/20 MR#:[id number]:[id number]: SUSAN CENTENO DRep #:[id number] Provider: OCTAVIANO Singh RoofAge/Sex: 79/M [facility] HPI History of Present Illness Details: This is a 79-year-old white male who presents today for outpatient cardiovascular follow up for history of underlying aortic valve stenosis status post aortic valve repair-23 mm Sallie-Alcaraz bovine pericardial heterograft at [facility] on 05-02-2004 and CAD and paroxysmal atrial fibrillation who has previously been followed by [facility]. Pt denies chest, arm, jaw, or neck discomfort. His exercise tolerance is stable. Recently he noted SOB with activity such as mowing and going up steps. He states noting palpitations. He states lightheadedness and dizziness with quick position changes. Pt denies symptoms of near syncopal or syncopal episodes. Pt denies edema or claudication issues. Pt. denies orthopnea, PND, fever, chills, blood in urine, blood in stool, myalgia, or unexplainable fatigue. He states coughing when lying flat. He states his blood pressure at home has been systolic 130s-140s/60s-70s. He states good days and bad days at home. He also acknowledges fluctuating heart rates at home with at times greater than 100 bpm. Intake Vital Signs 09/11/20 14:23 Height 5 ft 7 in Weight: 150 lb BMI 23.5 Blood Pressure Location Lt brachial Position Sitting Respiration 18 Pulse 96 Pulse Source Monitor Pulse Oximetry (%) 10 Intake Visit Reasons: 7 wk fu Allergies Sulfa (Sulfonamide Antibiotics) Allergy (Verified 07/24/20 13:07) Rash codeine Adverse Reaction (Verified 07/24/20 13:07) Other Medications finasteride 5 mg PO DAILY 06/20/18 [History Confirmed 09/11/20] escitalopram oxalate 20 mg tablet 20 mg PO DAILY tab 01/24/20 [History Confirmed 09/11/20] apixaban 5 mg tablet 5 mg PO BID #180 tab 02/18/20 [Rx Confirmed 09/11/20] famotidine 40 mg tablet 40 mg PO DAILY tab 07/24/20 [History Confirmed 09/11/20] ipratropium bromide 42 mcg (0.06 %) nasal spray 1 spray INTRANASAL QHS ml 07/24/20 [History Confirmed 09/11/20] furosemide 20 mg tablet 20 mg PO DAILY #30 tab 08/03/20 [Rx Confirmed 09/11/20] potassium chloride 20 mEq tablet,extended release 20 meq PO DAILY #30 tab 08/03/20 [Rx Confirmed 09/11/20] amiodarone 200 mg tablet 200 mg PO DAILY #90 tab 08/09/20 [Rx Confirmed 09/11/20] levothyroxine 25 mcg tablet 25 mcg PO DAILY #30 tab 08/09/20 [Rx Confirmed 09/11/20] metoprolol tartrate 25 mg tablet 50 mg PO BID tab 09/13/20 [History] [facility] Medical History Acute gastritis Allergic rhinitis Anxiety Aortic valve disorders Atherosclerosis of coronary artery of [place] heart without angina pectoris Atrial fibrillation BPH with obstruction/lower urinary tract symptoms Constipation Depression Diverticulosis of colon (without mention of hemorrhage) Elevated PSA External hemorrhoids with complication History of aortic valve stenosis Hx of echocardiogram 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 external 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 hemorrhoids Internal hemorrhoids intermediate card tender current use of amiodarone Lumbago Mixed hyperlipidemia Nocturia Trigeminal neuralgia Surgical History History of aortic valve replacement with bioprosthetic valve (~05/02/04) History of esophagogastroduodenoscopy (EGD) History of open reduction and internal fixation (ORIF) procedure Hx of appendectomy Hx of colonoscopy with polypectomy Hx of inguinal hernia repair Hx of parotidectomy Hx of sigmoidoscopy S/P hemorrhoidectomy s/p urolift Family History Father Asthma COPD (chronic obstructive pulmonary disease) Mother High cholesterol Social History Smoking Status: Never smoker second hand exposure: No alcohol intake: current alcohol intake frequency: holidays/special occasions only substance use type: does not use caffeine: Yes Type: carbonated beverages Number of servings: 1 frequency: 3-4 times per week ROS Const Const: Negative for fatigue, weakness, body ache, fever(s) or chills ENT ENT: Negative for dizziness or Nosebleed/epistaxis Cardio Chest Pain: No Palpitations: Yes Edema: None Muscle aches with walking: None Resp Respiratory: Positive for SOB with activity and Cough; Negative for SOB at rest, SOB orthopnea\SOB lying down or paroxysmal nocturnal dyspnea GI GI: Negative nausea, vomiting blood/hematemesis, bright, red blood in stools or black,tarry stools : Negative for hematuria or frequent nighttime urination/ nocturia Musc Musc: Negative for muscle aches/ myalgia Skin Skin: Negative non-healing lesions or rash Neuro Neuro: Negative for dizziness, lightheadedness, near syncope, syncope, orthostatic symptoms or weakness Endo Endo: Negative for fatigue Allergy Allergy/Immunology: Negative for rash Cardiology Exam Const Appearance: cooperative, healthy appearing, comfortable and no acute distress Nutritional Appearance: average body habitus and well nourished Orientation: alert, awake and oriented x3 Head Head: normal to inspection Ears: hearing grossly normal bilaterally Nose: external nose normal Face and Sinus: face symmetric Mouth: oral mucosae normal Eyes General: appearance normal, both eyes and all related structures Eyelids: eyelids normal EOM: EOM intact bilaterally Neck Neck: normal visual inspection and no JVD Carotids: normal carotid upstroke Chest Chest inspection: normal inspection of the chest, symmetric chest movement and normal respiratory effort; Negative cough Auscultation: Bilateral: Clear to Auscultation Cardio Rate: regular rate Rhythm: regular rhythm Heart sounds: S1 normal, S2 normal and murmur; Negative rub or gallop Murmur: Grade 2/6, soft, early systolic, late diastolic and LLSB GI GI: normal to inspection Neuro General: patient alert, patient awake, patient oriented x3 and CN's II-XI intact bilaterally Skin Skin: no rashes or lesions noted Extremities Pulses: Normal: Right Posterior Tibial Pulse, Left Posterior Tibial Pulse, Right Radial Pulse and Left Radial Pulse Lower Extremity Edema: None: Bilateral Psych Psychological: normal affect Assessment and Plan Assessment and Plan (1) Atherosclerosis of coronary artery of [place] heart without angina pectoris: Status: Chronic Qualifiers: Coronary Disease-Associated Artery/Lesion type: [place] artery Qualified Code(s): I25.10 - Atherosclerotic heart disease of [place] coronary artery without angina pectoris Amanda Cardoza NP, [employer]-C: Patient denies any chest pain, arm pain, jaw pain, neck pain, shortness of breath, or fatigue suggestive of angina at this time. We will continue to monitor. We will not make any medication regimen changes and will continue risk factor modification. He states recently his aspirin was discontinued by primary care physician on account of Eliquis therapy. (2) History of aortic valve replacement with bioprosthetic valve: Status: Chronic Comment: #23 Sallie Alcaraz bovine pericardial heterograft 05/02/04 Amanda Cardoza NP, [employer]-C: His echocardiogram on 08/03/2020 showed ejection of 65% and stable appearing bioprosthetic aortic valve apparatus with mild to moderate transvalvular insufficiency of the aortic valve. Based on results, further recommendation will be made. He will continue with antibiotic prophylaxis. (3) Paroxysmal atrial fibrillation: Status: Chronic Amanda Cardoza NP, [employer]-C: Initially, his rhythm was interpreted as atrial rhythm. This was further evaluated by Dr. Jerry and felt to be a form of atrial flutter. Patient was asked via voicemail to increase his metoprolol therapy and present office for EKG in 1 week. If he remains in atrial flutter, will consider cardioversion. His Holter monitor in July 2020 showed atrial fibrillation. His twelve-lead ECG on August 17, 2020 showed sinus rhythm. Thus, based on persistent versus paroxysmal nature, cardioversion or ongoing medical therapy will be recommended. (4) Mixed hyperlipidemia: Status: Chronic Amanda Cardoza NP, [employer]-C: Lipid panel from 07/20/2020 showed Cholesterol: 166, HDL: 52, LDL: 88, and Triglycerides: 130. He states his primary care physician discontinued statin medication to discern if he still requires such medication. He believes that he will repeat lipid and liver profile with primary care physician in the near future. He will continue risk factor and lifestyle modification in the interim. (5) Essential (primary) hypertension: Status: Chronic Amanda Cardoza NP, [employer]-C: He states his blood pressure today was noted to be in the 130s. He continue current medical therapy and we will continue to monitor. Plan Details Other Orders: Orders: 12 Lead [place] [facility] [place] I48.91 Additional Comments: Thank you for allowing us to participate in the patients plan of care, if you have any questions please do not hesitate to call. This note was generated using a voice recognition system and there may be incorrect words, spelling or punctuation that were not noted when reviewing the office note prior to saving. Coding Level of Care Code Off vis,est,level 4 Diagnoses Atherosclerosis of coronary artery of [place] heart without angina pectoris I25.10 Coronary Disease-Associated Artery/Lesion type: [place] artery History of aortic valve replacement with bioprosthetic valve Z95.3 Paroxysmal atrial fibrillation I48.0 Mixed hyperlipidemia E78.2 Essential (primary) hypertension I10 Coding Level of Care Code Off vis,est,level 4 Diagnoses Atherosclerosis of coronary artery of [place] heart without angina pectoris I25.10 Coronary Disease-Associated Artery/Lesion type: [place] artery History of aortic valve replacement with bioprosthetic valve Z95.3 Paroxysmal atrial fibrillation I48.0 Mixed hyperlipidemia E78.2 Essential (primary) hypertension I10 Supplemental Info Supplemental Information Echocardiogram from 08/03/2020: Interpretation Summary Left ventricular systolic function is normal. The estimated ejection fraction is 65 %. The left atrium is moderately enlarged. The right atrium is moderately enlarged. Moderate diffuse mitral valve thickening. Moderate (2+) eccentric mitral valve insufficiency. Moderate (2+) tricuspid valve insufficiency. Stable appearing bioprosthetic aortic valve apparatus. Mild to Moderate transvalvular insufficiency of the aortic valve. Mild (1+) pulmonic valve insufficiency. Right ventricular systolic pressure estimated to be 57 mmHg. Transmitral diastolic flow velocities suggest diastolic dysfunction (pseudonormal pattern). Echocardiogram from 04/05/2019: Interpretation Summary Left ventricular systolic function is normal. The estimated ejection fraction is 55 %. Moderate concentric left ventricular hypertrophy. The left atrium is moderately enlarged. The right atrium is moderately enlarged. Mild diffuse mitral valve thickening. Mild-Moderate (1-2+) mitral valve insufficiency. Moderate (2+) tricuspid valve insufficiency. Stable appearing bioprosthetic aortic valve apparatus. Trivial transvalvular insufficiency of the aortic valve. Mild (1+) eccentric pulmonic valve insufficiency. Right ventricular systolic pressure estimated to be 37 mmHg. Transmitral diastolic flow velocities suggest diastolic dysfunction (pseudonormal pattern). Stress Test Report Date: Procedure: Exercise tolerance test/imaging study Indications: Atrial fibrillation; status post AVR Consent: Per the patient Procedure: The patient exercised on a Ayden protocol for 10 minutes completing Stage III and 1 minute of Stage IV achieving a peak heart rate of 129 bpm (90 % predicted maximal heart rate) with a peak blood pressure 190/70 mmHg and a peak MET capacity of 11 METs. The baseline ECG demonstrated sinus bradycardia; septal IL of indeterminate age cannot be excluded. The peak exercise ECG demonstrated an element of somatic/motion artifact with [id number] ST segment variability with approximately [address] segment depression in leads II, III, aVF, and approximately 1 to [address] segment depression in leads V4 through V6 with subsequent gradual resolution to baseline in recovery. There were no cardiac dysrhythmias pretest, during exercise, or recovery. The functional capacity was considered good. There was no complaint of chest discomfort during exercise or recovery. The examination was discontinued secondary to dyspnea and leg fatigue. Impression: 1. Technically adequate (percent predicted maximal heart rate greater than 85%) exercise tolerance test 2. Peak exercise ECG with an element of somatic/motion artifact with [id number] ST segment variability with approximately [address] segment depression in leads II, III, aVF, and approximately 1 to [address] segment depression in leads V4 through V6 with subsequent gradual resolution to baseline in recovery 3. There were no cardiac dysrhythmias pretest, during exercise, or recovery 4. Nuclear images pending Myocardial perfusion imaging study: Technique: The patient was injected with 12.0 mCi of technetium 99m Cardiolite and subsequently rest SPECT Cardiolite nuclear imaging was obtained in the horizontal long, vertical long, and short axis views. The patient exercised on a Ayden protocol for 10 minutes completing Stage III and 1 minute of Stage IV achieving a peak heart rate of 129 bpm (90 % predicted maximal heart rate) with a peak blood pressure 190/70 mmHg and a peak MET capacity of 11 METs. The patient was injected with 36.0 mCi of technetium 99m Cardiolite and subsequently stress SPECT Cardiolite nuclear imaging was obtained in the horizontal long, vertical long, and short axis views. A gated Cardiolite study at peak stress was obtained. Interpretation: Rest and stress SPECT Cardiolite nuclear imaging status post realignment, normalization, and attenuation correction, demonstrates the appearance of relative uniform tracer uptake and myocardial perfusion appearing within normal limits. There is end systolic thickening and brightening. The gated Cardiolite study demonstrates myocardial thickening and inward wall motion. The reported LVEF is 66 %. Impression: 1. Rest and stress SPECT Cardiolite nuclear imaging demonstrate relative uniform tracer uptake and myocardial perfusion appearing within normal limits. 2. The gated Cardiolite study reports an LVEF of 66 %. Stress Test Report Date: Procedure: Exercise tolerance test/imaging study Indications: Atrial fibrillation; status post AVR Consent: Per the patient Procedure: The patient exercised on a Ayden protocol for 10 minutes completing Stage III and 1 minute of Stage IV achieving a peak heart rate of 129 bpm (90 % predicted maximal heart rate) with a peak blood pressure 190/70 mmHg and a peak MET capacity of 11 METs. The baseline ECG demonstrated sinus bradycardia; septal IL of indeterminate age cannot be excluded. The peak exercise ECG demonstrated an element of somatic/motion artifact with [id number] ST segment variability with approximately [address] segment depression in leads II, III, aVF, and approximately 1 to [address] segment depression in leads V4 through V6 with subsequent gradual resolution to baseline in recovery. There were no cardiac dysrhythmias pretest, during exercise, or recovery. The functional capacity was considered good. There was no complaint of chest discomfort during exercise or recovery. The examination was discontinued secondary to dyspnea and leg fatigue. Impression: 1. Technically adequate (percent predicted maximal heart rate greater than 85%) exercise tolerance test 2. Peak exercise ECG with an element of somatic/motion artifact with [id number] ST segment variability with approximately [address] segment depression in leads II, III, aVF, and approximately 1 to [address] segment depression in leads V4 through V6 with subsequent gradual resolution to baseline in recovery 3. There were no cardiac dysrhythmias pretest, during exercise, or recovery 4. Nuclear images pending Myocardial perfusion imaging study: Technique: The patient was injected with 12.0 mCi of technetium 99m Cardiolite and subsequently rest SPECT Cardiolite nuclear imaging was obtained in the horizontal long, vertical long, and short axis views. The patient exercised on a Ayden protocol for 10 minutes completing Stage III and 1 minute of Stage IV achieving a peak heart rate of 129 bpm (90 % predicted maximal heart rate) with a peak blood pressure 190/70 mmHg and a peak MET capacity of 11 METs. The patient was injected with 36.0 mCi of technetium 99m Cardiolite and subsequently stress SPECT Cardiolite nuclear imaging was obtained in the horizontal long, vertical long, and short axis views. A gated Cardiolite study at peak stress was obtained. Interpretation: Rest and stress SPECT Cardiolite nuclear imaging status post realignment, normalization, and attenuation correction, demonstrates the appearance of relative uniform tracer uptake and myocardial perfusion appearing within normal limits. There is end systolic thickening and brightening. The gated Cardiolite study demonstrates myocardial thickening and inward wall motion. The reported LVEF is 66 %. Impression: 1. Rest and stress SPECT Cardiolite nuclear imaging demonstrate relative uniform tracer uptake and myocardial perfusion appearing within normal limits. 2. The gated Cardiolite study reports an LVEF of 66 %. On 02-02-2004 he underwent diagnostic cardiac catheterization at the [facility]. At that time per the report the left main coronary artery was calcified with 20 to 30% stenosis, the LAD had proximal 20% stenosis, the diagonal branch had proximal 50% stenosis, the LCx was free of obstruction, the RCA was large and dominant with mild irregularities. Labs: LDL Cholesterol 88 mg/dL (0-130) HDL Cholesterol 52 mg/dL (40-) Triglycerides 130 mg/dL (-199) VLDL Cholesterol 26 mg/dL (5-40) Diagnostics: Electrocardiogram Echocardiogram Chest X-Ray Pulmonary: Pulmonary Function Test 09/13/20 1424<Electronically signed by Hu Cardoza NP, NP-C>Date Hu Cardoza NP, NP-C Cosigner Signature:Date (if applicable) CC: Dr. Marcelino Ferguson MD ~ The surgeon/proceduralist and patient have discussed in detail the risk of exposure to and/or potential harm posed by the COVID-19 virus with having a surgery/procedure at this time versus the risk of delaying the surgery/procedure. It is not possible to know either the risk of delaying the surgery or procedure or chance of getting an infection with perfect accuracy, but a joint decision was made between the patient and the surgeon/proceduralist to proceed at this time with the scheduled surgery/procedure as indicated on the consent form. I have re-examined the patient. There are no clinical changes since date of exam.
[2020-10-02 08:54] VITALS: BMI 23.5
--- NOTE | 2020-10-03 12:28 | CARDIOVERS ---
Cardioversion Cardioversion: Date: 10-03-2020 Procedure: Synchronized Biphasic DC Cardioversion Indications: Atrial flutter Consent: Per the Patient Anesthesia: per Dr. Miramontes of pulmonology and critical care medicine with propofol 50 mg IV push total Procedure: Synchronized Biphasic DC Cardioversion: 50 J x 1: Result: Sinus rhythm/sinus bradycardia; PACs Complications: no apparent complications This note was generated with Loopbackation software. It may contain incorrect words, spelling, and punctuation that were not noted in checking the note before signing.
--- NOTE | 2020-10-03 13:06 | PRO.PCM_ITS ---
Assessment & Plan Assessment/Plan (1) Atypical atrial flutter: (2) half-way current use of amiodarone: (3) History of aortic valve replacement with bioprosthetic valve: (4) History of aortic valve stenosis: Procedure Report Date of Procedure: 10/03/20 CONSCIOUS SEDATION REPORT BRIEF HISTORY OF PRESENT ILLNESS: The patient is a 79-year-old male who presented to [facility] for an elective outpatient cardioversion due to underlying atrial fibrillation. The patient reports no PO intake since midnight, but is currently therapeutic on anticoagulation. The patient does not have a history of MERA. The patient reports no history of smoking and COPD. The patient denies any recent constitutional symptoms such as fevers, chills, nausea or vomiting. The patient denies previous applicable anesthetic complications. Patient reports taking Eliquis on the day of the procedure. Patient's last known ejection fraction was 66% PHYSICAL EXAMINATION: VITAL SIGNS: Reviewed and were acceptable. GENERAL: The patient is a male, in no apparent distress, speaking in full sentences. HEENT: Normocephalic, atraumatic. Mucous membranes are moist and pink. Good mouth opening noted. Trachea is midline. Good neck mobility. MP II CHEST: S1, S2 irregularly irregular. No murmurs, rubs or gallops were noted. LUNGS: Clear to auscultation bilaterally without appreciable wheezes, rales or rhonchi. ABDOMEN: Soft, nontender, nondistended. Positive bowel sounds. EXTREMITIES: There is no clubbing, cyanosis or edema. ASA Class: II DESCRIPTION OF PROCEDURE: After confirmation of informed consent, the patient's anesthesia plan was reviewed in detail. Propofol was chosen. Risks and benefits were reviewed and the patient agreed to proceed. At 12:08 PM, the patient was given 40 mg of propofol. The patient required a total of 50 mg of propofol throughout the procedure to achieve appropriate sedation. The patient achieved an appropriate level of sedation and received 1 attempt synchronized cardioversion, at [address] Jerry at the bedside. This was successful in achieving normal sinus rhythm. The patient was monitored until 12:20 PM, at which time the patient reached their baseline mental status and function. The patient tolerated the procedure well. COMPLICATIONS: None ESTIMATED BLOOD LOSS: None RECOMMENDATIONS: Okay to recover in usual fashion. Procedures Pulmonary 9xxxx: [id number] Con Sedation
== END 2020-10-03 13:30 | disposition home or self-care (01) ==
LOC: CLSP 10:43
PROVIDERS: Nurse Practitioner Family; PCP Family Medicine Geriatric Medicine; Referring Provider Internal Medicine Cardiovascular Disease; Visit Provider Internal Medicine Cardiovascular Disease
DX: I48.4 Atypical atrial flutter (principal); I48.0 Paroxysmal atrial fibrillation; I25.10 Atherosclerotic heart disease of native coronary artery without angina pectoris; E78.2 Mixed hyperlipidemia; I11.9 Hypertensive heart disease without heart failure; Z79.899 Other long term (current) drug therapy; Z79.02 Long term (current) use of antithrombotics/antiplatelets; Z95.3 Presence of xenogenic heart valve; Z86.79 Personal history of other diseases of the circulatory system
CPT/HCPCS: 36415; 80048; 84436; 84443; 92960; 93005; J7040

== ENCOUNTER → 2020-10-10 10:03 | Outpatient (CLI) | payer MEDICARE, OTHER, SELFPAY ==
[2020-10-02 08:54] VITALS: BMI 23.5
[2020-10-10 10:39] LABS: Absolute Lymphocyte Count 1.48 X10^3/uL (0.83-4.51); Absolute Neutrophil Count 6.1 X10^3/uL (2.0-7.7); Basophil# 0.03 X10^3/uL; Basophil% 0.4 % (0-1); Eosinophil# 0.09 X10^3/uL; Eosinophils% 1.1 % (0-5); Hematocrit 39.1 % (40-54); Hemoglobin 12.1 g/dL (13.0-16.5); Lymphocyte # 1.48 X10^3/ul (0.83-4.51); Lymphocyte % 17.9 % (19-41); Mean Corp Hgb Conc 30.9 g/dL (32-36); Mean Corpuscular Hgb 27.1 pg (27.0-32.0); Mean Corpuscular Volume 87.5 fL (80-94); Mean Platelet Vol. 10.5 fl (6.2-12.0); Monocyte% 7.2 % (0-10); NRBC Flagged by Analyzer 0 % (0-5); Neutrophil # 6.05 X10^3/uL (2.7-7.7); Neutrophil % 72.9 % (47-70); Platelet Count 217 K/mm3 (150-450); RBC Distribution Width CV 15.3 % (11.6-14.6); RBC Distribution Width SD 48.4 fl (35.1-43.9); Red Blood Count 4.47 M/mm3 (4.6-6.2); White Blood Count 8.3 K/mm3 (4.4-11.0)
[2020-10-10 11:01] LABS: BNP,B-Type NATRIURETIC PEPTIDE 1083.5 pg/mL (0-100)
[2020-10-10 11:15] LABS: Anion Gap 5 (5-15); BUN 20 mg/dL (7-18); BUN/Creat Ratio 13.6 RATIO (10-20); Calcium,Total 8.4 mg/dL (8.5-10.1); Chloride 107 mmol/L (98-107); Creatinine, Serum 1.47 mg/dL (0.70-1.30); EST Glomerular Filtration Rate 49 mL/min (>60); Est Glom Filt Rate - Afr Amer 60 mL/min (>60); Glucose 101 mg/dL (74-106); Magnesium 2.4 mg/dL (1.6-2.6); Potassium 3.9 mmol/L (3.5-5.1); Sodium Level 141 mmol/L (136-145); T4 Free Direct 0.77 ng/dL (0.76-1.46)
== END ==
PROVIDERS: PCP Family Medicine Geriatric Medicine; Referring Provider Nurse Practitioner Family; Visit Provider Nurse Practitioner Family
DX: I10 Essential (primary) hypertension (principal); R06.00 Dyspnea, unspecified; I48.91 Unspecified atrial fibrillation; R00.0 Tachycardia, unspecified; I25.10 Atherosclerotic heart disease of native coronary artery without angina pectoris; I48.0 Paroxysmal atrial fibrillation; E78.2 Mixed hyperlipidemia; Z95.3 Presence of xenogenic heart valve; Z86.79 Personal history of other diseases of the circulatory system; Z79.899 Other long term (current) drug therapy
CPT/HCPCS: 36415; 80048; 83735; 83880; 84439; 84443; 85025

== ENCOUNTER 2020-10-15 19:14 | Inpatient (IN) | payer MEDICARE, OTHER, SELFPAY ==
[2020-10-10 10:28] VITALS: BMI 23.5
[2020-10-15 19:15] VITALS: BP 209/64; PULSE 66; RESP 18; TEMP 36.6; O2SAT 97; BMI 24.3
[2020-10-15 19:17] VITALS: BP 209/64; PULSE 66; RESP 18; TEMP 36.6; O2SAT 97
--- NOTE | 2020-10-15 19:56 | EKG12_ITS ---
Test Reason : DYSRHYTHMIA Blood Pressure : / mmHG Vent. Rate : 057 BPM Atrial Rate : 057 BPM P-R Int : 180 ms QRS Dur : 090 ms QT Int : 530 ms P-R-T Axes : 034 102 083 degrees QTc Int : 515 ms Sinus bradycardia Low voltage QRS (Limb Leads) Septal WA, age undetermined, cannot be excluded T wave abnormality, consider anterior ischemia Prolonged QT Abnormal ECG Confirmed by HENRY SINGER, DEL ([id number]), mapping editor MARIE MCCRARY ([id number]) on 10/19/2020 1:26:20 PM Referred By: MERNA Confirmed By:DEL FIGUEROA MD
--- NOTE | 2020-10-15 20:00 | RAD_ITS ---
INDICATION: sob EXAMINATION/TECHNIQUE: X-RAY - XR Chest 1 View COMPARISON: 07/20/2020. FINDINGS: Mild central pulmonary venous congestion. Bibasilar atelectasis. Tortuous and calcified thoracic aorta. The heart is mildly enlarged. Median sternotomy wires present. No pleural effusion or pneumothorax. No acute osseous abnormalities. RAD/Chest 1 View (Portable) IMPRESSION: Cardiomegaly with mild central pulmonary venous congestion. Electronically Signed: Faisal Phipps MD at 20:41 EDT Tel , Service support ,
[2020-10-15 20:34] LABS: Absolute Lymphocyte Count 1.67 X10^3/uL (0.83-4.51); Absolute Neutrophil Count 5.3 X10^3/uL (2.0-7.7); Basophil# 0.02 X10^3/uL; Basophil% 0.3 % (0-1); Eosinophil# 0.11 X10^3/uL; Eosinophils% 1.4 % (0-5); Hematocrit 38.4 % (40-54); Hemoglobin 12.1 g/dL (13.0-16.5); Lymphocyte # 1.67 X10^3/ul (0.83-4.51); Lymphocyte % 21.5 % (19-41); Mean Corp Hgb Conc 31.5 g/dL (32-36); Mean Corpuscular Hgb 27.5 pg (27.0-32.0); Mean Corpuscular Volume 87.3 fL (80-94); Mean Platelet Vol. 10.6 fl (6.2-12.0); Monocyte# 0.59 X10^3/uL; Monocyte% 7.6 % (0-10); NRBC Flagged by Analyzer 0 % (0-5); Neutrophil # 5.32 X10^3/uL (2.7-7.7); Neutrophil % 68.6 % (47-70); Platelet Count 224 K/mm3 (150-450); RBC Distribution Width CV 15.3 % (11.6-14.6); RBC Distribution Width SD 49.3 fl (35.1-43.9); White Blood Count 7.8 K/mm3 (4.4-11.0)
[2020-10-15 20:40] LABS: Anion Gap 5 (5-15); BUN 18 mg/dL (7-18); BUN/Creat Ratio 12.9 RATIO (10-20); Calcium,Total 8.3 mg/dL (8.5-10.1); Chloride 106 mmol/L (98-107); Creatinine, Serum 1.39 mg/dL (0.70-1.30); EST Glomerular Filtration Rate 52 mL/min (>60); Est Glom Filt Rate - Afr Amer 63 mL/min (>60); Estimated Creatinine Clearance 40.95 ml/min; Glucose 76 mg/dL (74-106); Potassium 3.9 mmol/L (3.5-5.1); Sodium Level 139 mmol/L (136-145); Troponin-I HS 11.6 pg/mL (3.0-78.5)
[2020-10-15 20:41] LABS: D-Dimer Quantitative (DVT/PE) 1.31 FEU/ug/m (0.27-0.49)
--- NOTE | 2020-10-15 20:47 | CT_ITS ---
STUDY: CTA CHEST REASON FOR EXAM: Male, 79 years old. pe RADIATION DOSAGE (If Supplied By Facility): CTDIvol = ( 14.45 ) mGy, DLP = ( 417.62 ) mGycm TECHNIQUE: The examination was performed with the intravenous administration of IV 75mL Isovue-370. Post-processing of the angiographic images was performed, with multiplanar reformation and 3D reconstruction. Individualized dose optimization techniques were used for this CT. COMPARISON: CT of the chest dated chest x-ray dated October 15, 2020. FINDINGS: Mild diffuse interstitial thickening and interstitial edema is present throughout both lungs. Small to moderate size bilateral pleural effusion is also present. No focal consolidation is seen. Minimal subsegmental atelectasis is present in the bilateral lower lobes. Normal enhancement of the main pulmonary artery and right and left pulmonary arteries. Normal enhancement of the bilateral peripheral pulmonary arteries. There is no demonstrated pulmonary embolism. There is atherosclerotic calcification of the aortic arch with tortuosity. There is no demonstrated aortic dissection. Sternal cerclage wires and vascular clips are present from a prior sternotomy and coronary artery bypass graft procedure (CABG). Normal heart size. No pericardial effusion is present. Normal mediastinum. Normal hilar regions. Normal visualized trachea and bronchi. The lungs are well expanded. Normal chest wall structures. There are degenerative changes of thoracic spine. Normal visualized upper abdomen. CT/CTA Chest W/WO Contrast IMPRESSION: 1. Mild diffuse interstitial thickening and interstitial edema is present throughout both lungs. Small to moderate size bilateral pleural effusion is also present. No focal consolidation is seen. 2. No demonstrated pulmonary embolism or arterial dissection. Electronically Signed: Christopher Rodriguez MD at 22:31 EDT , Service support ,
[2020-10-15 21:14] VITALS: BP 179/60; PULSE 60; RESP 19; O2SAT 94
[2020-10-15 21:39] LABS: BNP,B-Type NATRIURETIC PEPTIDE 1320.1 pg/mL (0-100)
--- NOTE | 2020-10-15 23:00 | EX.ED.DYSGE1 ---
HPI History of Present Illness Chief Complaint: Shortness of Breath Informant: patient Onset/Context/Timing Onset: Month(s) Context: Gradual Onset Timing: Waxes and wanes Current Severity: Moderate Maximum Severity: Severe Narrative Narrative: Patient presents with increasing shortness of breath on exertion. He states that this point he can only walk 20 feet or so before he has to sit down to rest. He denies chest pain. Has had a mild cough with some clear sputum. Patient has a history of atrial fibrillation. On October 03 he underwent cardioversion. He states if anything his symptoms have worsened since that time. He was seen by cardiology on October 10 for a follow-up EKG. Patient has not had fever or chills. On arrival blood pressure is 209/64. At the time of my exam blood pressure is 169/56. [facility] Medical History Acute gastritis Allergic rhinitis Anxiety Aortic valve disorders Atherosclerosis of coronary artery of [place] heart without angina pectoris Atrial fibrillation BPH with obstruction/lower urinary tract symptoms Constipation Depression Diverticulosis of colon (without mention of hemorrhage) Elevated PSA External hemorrhoids with complication History of aortic valve stenosis Hx of echocardiogram 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 external 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 hemorrhoids Internal hemorrhoids intermediate current use of amiodarone Lumbago Mixed hyperlipidemia Nocturia Trigeminal neuralgia Home Medications finasteride 5 mg PO DAILY 06/20/18 [History Last Taken 10/03/20] escitalopram oxalate 20 mg tablet 20 mg PO DAILY tab 01/24/20 [History Last Taken Unknown] apixaban 5 mg tablet 5 mg PO BID #180 tab 02/18/20 [Rx Last Taken 10/03/20] famotidine 40 mg tablet 40 mg PO DAILY tab 07/24/20 [History Last Taken 10/03/20] potassium chloride 20 mEq tablet,extended release 20 meq PO DAILY #30 tab 08/03/20 [Rx Last Taken Unknown] amiodarone 200 mg tablet 100 mg PO DAILY #0 tab 10/03/20 [Rx Last Taken Unknown] furosemide 20 mg tablet 40 mg PO DAILY #90 tab 10/11/20 [Rx Last Taken Unknown] levothyroxine 25 mcg tablet 50 mcg PO DAILY #90 tab 10/11/20 [Rx Last Taken Unknown] metoprolol tartrate 12.5 mg PO BID 10/15/20 [History Last Taken Unknown] pantoprazole 40 mg PO DAILY 10/15/20 [History Last Taken Unknown] Allergy/AdvReac Type Severity Reaction Status Date / Time Sulfa (Sulfonamide Allergy Rash Verified 10/15/20 19:18 Antibiotics) codeine AdvReac Other Verified 10/15/20 19:18 Family History Father Asthma COPD (chronic obstructive pulmonary disease) Mother High cholesterol Surgical History History of aortic valve replacement with bioprosthetic valve (~05/02/04) History of esophagogastroduodenoscopy (EGD) History of open reduction and internal fixation (ORIF) procedure Hx of appendectomy Hx of colonoscopy with polypectomy Hx of inguinal hernia repair Hx of parotidectomy Hx of sigmoidoscopy S/P hemorrhoidectomy s/p urolift Social History (Updated 10/15/20 @ 23:[address] Kacie Castro MD) household members: spouse housing: house financial difficulty paying for basics: not applicable service: No current occupational status: retired Smoking Status: Former smoker second hand exposure: No alcohol intake: current alcohol intake frequency: holidays/special occasions only substance use type: does not use caffeine: Yes Type: carbonated beverages Number of servings: 1 frequency: 3-4 times per week ROS ROS ED Constitutional Constitutional ED: Denies chills or fever(s) Eyes Eyes: Denies change in vision ENT ENT ED: Denies sore throat Cardiovascular Cardiovascular: Denies chest pain Respiratory/Chest Respiratory/Chest: Reports cough, dyspnea, dyspnea on exertion and sputum Gastrointestinal Gastrointestinal: Denies abdominal pain, diarrhea, nausea or vomiting Genitourinary Genitourinary ED: Denies dysuria Musculoskeletal Musculoskeletal: Denies back pain Integumentary Denies rash Neurologic Neurologic: Denies headache(s) or weakness Psychiatric Psychiatric: Denies anxiety or depression Endocrine Endocrinology: Denies polydipsia or polyuria Allergic/Immunologic Allergic/Immunologic ED: Denies urticaria EXAM Physical Exam Const Vital Signs: 10/15/20 19:15 10/15/20 19:17 10/15/20 19:49 Temperature 97.8 F 97.8 F Temperature Source Temporal Temporal Pulse Rate 66 66 Respiratory Rate 18 18 Respiratory Effort Normal Non-Labored Respiratory Depth Normal Respiratory Pattern Normal Blood Pressure 209/64 H 209/64 H Blood Pressure Mean 112 112 Pulse Ox 97 97 Oxygen Delivery Method Room Air Room Air Room Air 10/15/20 21:14 10/15/20 23:14 Temperature Temperature Source Pulse Rate 60 64 Respiratory Rate 19 H 20 H Respiratory Effort Respiratory Depth Respiratory Pattern Blood Pressure 179/60 H 181/61 H Blood Pressure Mean 99 101 Pulse Ox 94 93 Oxygen Delivery Method Room Air Room Air Positive well nourished and well developed General Appearance ED: well developed HEENT Reports normocephalic and head/scalp atraumatic Eyes PERRL and EOMs intact bilaterally Neck supple Chest Wall inspection of chest normal and palpation of chest normal Resp normal respiratory effort and clear to auscultation bilaterally Cardio regular rate and regular rhythm GI normal to inspection, nondistended, normoactive bowel sounds Palpation: soft Extremity normal to inspection Neuro oriented x3 and no sensory deficits noted Sensorium / Orientation: alert Motor Exam: strength 5/5 throughout Psych mental status grossly normal Skin no rashes or lesions noted MDM MDM MDM Narrative Medical decision making narrative: EKG labs and chest x-ray are ordered. Lab Data Attestation: I reviewed the patient's lab results. Labs: Laboratory Results - last 24 hr 10/15/20 10/15/20 10/15/20 20:12 20:12 20:12 WBC 7.8 RBC 4.40 L Hgb 12.1 L Hct 38.4 L MCV 87.3 MCH 27.5 MCHC 31.5 L RDW Std Deviation 49.3 H RDW Coeff of [place]ov[place] 15.3 H Plt Count 224 MPV 10.6 Immature Gran % (Auto) 0.600 Neut % (Auto) 68.6 Lymph % (Auto) 21.5 [place] % (Auto) 7.6 Eos % (Auto) 1.4 Baso % (Auto) 0.3 Absolute Neuts (auto) 5.3 Absolute Lymphs (auto) 1.67 Nucleated RBC % 0 D-Dimer Quant (PE/DVT) 1.31 H* Sodium 139 Potassium 3.9 Chloride 106 Carbon Dioxide 28.0 Anion Gap 5 BUN 18 Creatinine 1.39 H Estim Creat Clear Calc 40.95 Est GFR (MDRD) Af Amer 63 Est GFR (MDRD) Non-Af 52 L BUN/Creatinine Ratio 12.9 Glucose 76 Calcium 8.3 L Magnesium Troponin I High Sens 11.6 B-Natriuretic Peptide 10/15/20 10/15/20 20:12 20:12 WBC RBC Hgb Hct MCV MCH MCHC RDW Std Deviation RDW Coeff of [place] Plt Count MPV Immature Gran % (Auto) Neut % (Auto) Lymph % (Auto) [place] % (Auto) Eos % (Auto) Baso % (Auto) Absolute Neuts (auto) Absolute Lymphs (auto) Nucleated RBC % D-Dimer Quant (PE/DVT) Sodium Potassium Chloride Carbon Dioxide Anion Gap BUN Creatinine Estim Creat Clear Calc Est GFR (MDRD) Af Amer Est GFR (MDRD) Non-Af BUN/Creatinine Ratio Glucose Calcium Magnesium 2.1 Troponin I High Sens B-Natriuretic Peptide 1320.1 H Radiography Chest X-Ray - ED: 1 View, Read by ED Physician and Chronic Changes Diagnostic Testing: Radiology Impression Chest X-Ray 10/15/20 20:00 IMPRESSION: Cardiomegaly with mild central pulmonary venous congestion. Electronically Signed: Faisal Phipps MD at 20:41 EDT Tel , Service support , Chest CTA 10/15/20 20:47 IMPRESSION: 1. Mild diffuse interstitial thickening and interstitial edema is present throughout both lungs. Small to moderate size bilateral pleural effusion is also present. No focal consolidation is seen. 2. No demonstrated pulmonary embolism or arterial dissection. Electronically Signed: Christopher Rodriguez MD at 22:31 EDT , Service support , EKG Initial EKG: Attestation: I personally reviewed and interpreted this EKG as follows: Interpretation: Sinus Bradycardia (Sinus bradycardia 57 bpm. Lateral T wave flattening similar to prior study.) Treatment and Re-Evaluation Comments:: Blood work is significant for elevated BNP and D-dimer. CTA of the chest is read as no evidence of PE. Mild to moderate bilateral pleural effusions. On my review of the images effusions appear at least moderate if not large. Chest x-ray per my interpretation was chronic changes. Patient is given 40 mg of IV Lasix. O2 sat at this time is 91% on room air. Blood pressure has elevated again to 190 systolic. He is due for his evening metoprolol and this will be provided. I would not give his evening Eliquis dose at this time due to potentially needing thoracentesis. Discharge Plan Dx/Rx/DC Orders Clinical Impression: CHF (congestive heart failure), Pleural effusion Disposition Disposition: Acute Care Hospital [facility] Discharge Date/Time: 10/16/20 00:12
[2020-10-15] MEDS: Furosemide 40 MG/4 ML Vial IV (23:01)
[2020-10-15] MEDS: Metoprolol Tartrate 25 MG Tablet PO (23:09)
--- NOTE | 2020-10-15 23:09 | PCM.HP.STD ---
HPI - General General Date of Service: 10/15/20 Chief Complaint: Dyspnea. HPI Narrative The patient is a 79 y/o M w/ PMHx: PAF, HTN, HLD, CAD, Valvular HD s/p AVR w/ bioprosthetic valve, BPH, Anxiety and Depression who presents to the [facility] ED on 10/15/20 with history of recent 10/03/2020 evaluation at [facility] for elective outpatient cardioversion secondary to underlying ongoing atrial fibrillation per report tolerated procedure well and was noted to be successful in achieving normal sinus rhythm who now represents to the [facility] on 10/15/20 with worsening dyspnea, wheezing since intervention, progressively worsening prompting ED evaluation. Patient notes that he had been even prior to his cardioversion short of breath and more fatigued with any activities, normally able to mow the lawn and golf but has since over the last several weeks to month minimal able to do this however it has been more severe since his cardioversion. He notes that he is able to lay flat and sleeps on his right side. He denies any worsening edema recently. Work-up in the ED included T 97.8, heart rate 66, BP 209/64, respiratory rate 18, 97% on room air, CBC with WBC 7.8, hemoglobin 12.1, platelet 224 without marked shift, D-dimer 1.31, BMP with BUN/creatinine 18/1.39, troponin high-sensitivity 11.6, BNP 1320.1, chest x-ray with cardiomegaly with mild central pulmonary venous congestion, EKG with sinus bradycardia with no acute evidence of ischemia, CTPA with mild diffuse interstitial thickening and interstitial edema present throughout both lungs, small to moderate sized bilateral pleural effusion present, no focal consolidations, no demonstrated PE or arterial dissection. In the ED patient ministered Lasix 40 mg IV x1. [facility] History Acute gastritis Allergic rhinitis Anxiety Aortic valve disorders Atherosclerosis of coronary artery of [place] heart without angina pectoris Atrial fibrillation BPH with obstruction/lower urinary tract symptoms Constipation Depression Diverticulosis of colon (without mention of hemorrhage) Elevated PSA External hemorrhoids with complication History of aortic valve stenosis Hx of echocardiogram 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 external 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 hemorrhoids Internal hemorrhoids assisted current use of amiodarone Lumbago Mixed hyperlipidemia Nocturia Trigeminal neuralgia Home Medications finasteride 5 mg PO DAILY 06/20/18 [History Last Taken 10/03/20] escitalopram oxalate 20 mg tablet 20 mg PO DAILY tab 01/24/20 [History Last Taken Unknown] apixaban 5 mg tablet 5 mg PO BID #180 tab 02/18/20 [Rx Last Taken 10/03/20] famotidine 40 mg tablet 40 mg PO DAILY tab 07/24/20 [History Last Taken 10/03/20] ipratropium bromide 42 mcg (0.06 %) nasal spray 1 spray INTRANASAL QHS ml 07/24/20 [History Last Taken Unknown] potassium chloride 20 mEq tablet,extended release 20 meq PO DAILY #30 tab 08/03/20 [Rx Last Taken Unknown] amiodarone 200 mg tablet 100 mg PO DAILY #0 tab 10/03/20 [Rx Last Taken Unknown] furosemide 20 mg tablet 40 mg PO DAILY #90 tab 10/11/20 [Rx Last Taken Unknown] levothyroxine 25 mcg tablet 50 mcg PO DAILY #90 tab 10/11/20 [Rx Last Taken Unknown] metoprolol tartrate 12.5 mg PO BID 10/15/20 [History Last Taken Unknown] pantoprazole 40 mg PO DAILY 10/15/20 [History Last Taken Unknown] Allergy/AdvReac Type Severity Reaction Status Date / Time Sulfa (Sulfonamide Allergy Rash Verified 10/15/20 19:18 Antibiotics) codeine AdvReac Other Verified 10/15/20 19:18 Family History Father Asthma COPD (chronic obstructive pulmonary disease) Mother High cholesterol Surgical History History of aortic valve replacement with bioprosthetic valve (~05/02/04) History of esophagogastroduodenoscopy (EGD) History of open reduction and internal fixation (ORIF) procedure Hx of appendectomy Hx of colonoscopy with polypectomy Hx of inguinal hernia repair Hx of parotidectomy Hx of sigmoidoscopy S/P hemorrhoidectomy s/p urolift Social History (Updated 10/15/20 @ 23:[address] Kacie Castro MD) household members: spouse Smoking Status: Former smoker second hand exposure: No alcohol intake: current alcohol intake frequency: holidays/special occasions only substance use type: does not use caffeine: Yes Type: carbonated beverages Number of servings: 1 frequency: 3-4 times per week ROS ROS Narrative Admission Review of Systems: CONSTITUTIONAL: No weight loss, fever, chills, + weakness or fatigue. HEENT: Eyes: No visual loss, blurred vision, double vision or yellow sclerae. Ears, Nose, Throat: No hearing loss, sneezing, congestion, runny nose or sore throat. SKIN: No rash or itching, lesions, wounds. CARDIOVASCULAR: No chest pain, chest pressure or chest discomfort, palpitations, edema, orthopnea, syncopal events. RESPIRATORY: + shortness of breath, wheezing, No cough, sputum, hemoptysis. GASTROINTESTINAL: No anorexia, nausea, vomiting or diarrhea, abdominal pain, melena, BRBPR. GENITOURINARY: No dysuria, frequency, urgency or retention. NEUROLOGICAL: No headache, dizziness, syncope, paralysis, ataxia, numbness or tingling in the extremities, focal weakness, change in bowel or bladder control, seizure. MUSCULOSKELETAL: + muscle, back pain, joint pain or stiffness. HEMATOLOGIC: + anemia, bleeding or bruising. LYMPHATICS: No enlarged nodes. No history of splenectomy. PSYCHIATRIC: No history of depression or anxiety. ENDOCRINOLOGIC: No reports of sweating, cold or heat intolerance. No polyuria or polydipsia. ALLERGIES: No history of asthma, hives, eczema or rhinitis. Vital Signs Vital Signs Vital Signs: 10/15/20 19:15 10/15/20 19:17 10/15/20 19:49 Temperature 97.8 F 97.8 F Temperature Source Temporal Temporal Pulse Rate 66 66 Respiratory Rate 18 18 Respiratory Effort Normal Non-Labored Respiratory Depth Normal Respiratory Pattern Normal Blood Pressure 209/64 H 209/64 H Blood Pressure Mean 112 112 Pulse Ox 97 97 Oxygen Delivery Method Room Air Room Air Room Air Weight Weight: 155 lb Body Mass Index (BMI) 24.3 Physical Exam Narrative Physical Examination: General: Awake, alert, oriented x 3 and cooperative, seated upright in the ED bed, fatigued appearing, mildly increased respiratory rate but no evidence of distress. Skin: Normal color, normal turgor, no icterus, no cyanosis. HEENT: AT/NC, EOMI, PERRLA, mildly dry MM, no carotid bruits, + JVD noted. Lungs: Diffusely diminished, greater bases, despite effusions no obvious rales, rhonchi or wheezing, mild increased respiratory rate, Heart: Mildly bradycardic with regular rhythm; no gallop, rub audible, significant + SM. Abdomen: Soft, NTTP, mildly distended, tympanic, mildly hyperactive BS, no HSM. Extremities: No cyanosis, clubbing, or edema. Neurological: Patient awake, alert, oriented as noted, cognitive function intact; pupils equally reactive to light and accommodation, cranial nerves II-XII grossly normal, moving all 4 extremities, no focal deficits, strength moderately global decrease secondary to acute presentation and complaints. Psychiatric: Affect appears mildly fatigued otherwise normal, no acute evidence of depressive or anxiety feelings. Results Lab / Micro Data Result Diagrams: 10/15/20 20:12 10/15/20 20:12 Labs: Laboratory Results - last 24 hr 10/15/20 20:12: WBC 7.8, RBC 4.40 L, Hgb 12.1 L, Hct 38.4 L, MCV 87.3, MCH 27.5, MCHC 31.5 L, RDW Std Deviation 49.3 H, RDW Coeff of Yovana 15.3 H, Plt Count 224, MPV 10.6, Immature Gran % (Auto) 0.600, Neut % (Auto) 68.6, Lymph % (Auto) 21.5, Mclennan % (Auto) 7.6, Eos % (Auto) 1.4, Baso % (Auto) 0.3, Absolute Neuts (auto) 5.3, Absolute Lymphs (auto) 1.67, Nucleated RBC % 0 10/15/20 20:12: D-Dimer Quant (PE/DVT) 1.31 H* 10/15/20 20:12: Sodium 139, Potassium 3.9, Chloride 106, Carbon Dioxide 28.0, Anion Gap 5, BUN 18, Creatinine 1.39 H, Estim Creat Clear Calc 40.95, Est GFR (MDRD) Af Amer 63, Est GFR (MDRD) Non-Af 52 L, BUN/Creatinine Ratio 12.9, Glucose 76, Calcium 8.3 L, Troponin I High Sens 11.6 10/15/20 20:12: B-Natriuretic Peptide 1320.1 H Radiology Impression Chest X-Ray 10/15/20 20:00 IMPRESSION: Cardiomegaly with mild central pulmonary venous congestion. Electronically Signed: Faisal Phipps MD at 20:41 EDT Tel , Service support , Chest CTA 10/15/20 20:47 IMPRESSION: 1. Mild diffuse interstitial thickening and interstitial edema is present throughout both lungs. Small to moderate size bilateral pleural effusion is also present. No focal consolidation is seen. 2. No demonstrated pulmonary embolism or arterial dissection. Electronically Signed: Christopher Rodriguez MD at 22:31 EDT , Service support , Assessment & Plan Assessment/Plan (1) CHF (congestive heart failure): QUALIFIERS: Heart failure chronicity: acute Heart failure type: unspecified Qualified Code(s): I50.9 - Heart failure, unspecified (2) Pleural effusion: PLAN: The patient is a 79 y/o M w/ PMHx: PAF, HTN, HLD, CAD, Valvular HD s/p AVR w/ bioprosthetic valve, BPH, Anxiety and Depression who presents to the [facility] ED on 10/15/20 with history of recent 10/03/2020 evaluation at [facility] for elective outpatient cardioversion secondary to underlying ongoing atrial fibrillation per report tolerated procedure well and was noted to be successful in achieving normal sinus rhythm who now represents to the [facility] on 10/15/20 with worsening dyspnea, wheezing since intervention, progressively worsening prompting ED evaluation. 1. Acute Decompensated CHF, Presumed Diastolic complicated by small to moderate sized BL Pleural effusions, complicated by likely #3: Patient administered IV lasix in the ED, will admit to PCU, maintain on cardiac telemetry, obtain cardiac enzyme series, obtain serial EKGs, continue IV lasix diuresis, monitor I/Os, continue medical therapy w/ apixaban, statin, BB, not on CHRISTEL inhibitor or ARB which will be added, low dose given notable hypertension and altered as needed. Will obtain TSH and magnesium level. Most recent ECHO noted 08/04/2020 therefore will defer immediate repeat but given valvular disease and presentation may consider. Also, given effusions pending response to diuresis may require thoracentesis consideration thus will hold home eliquis and transition in interim to therapeutic lovenox. Cardiology consultation requested given recent cardioversion 10/03/2020 and per family request. 2. PAF: As noted status post successful cardioversion 10/03/2020, maintained sinus rhythm since per initial ED evaluation, will continue patient home metoprolol, amiodarone with transition from apixaban to lovenox regimen in case of thoracentesis needs. 3. Valvular heart disease: Patient status post AVR with bioprosthetic valve, 08/04/2020 echocardiogram with normal LV systolic function, EF 65%, moderately enlarged LA, moderately enlarged RA, moderate MVI, moderate TVI, stable appearing bioprosthetic AV apparatus, mild to moderate transvalvular insufficiency of the aortic valve, mild TVI, RVSP 57 mmHg, transmitral diastolic flow velocity suggestive of diastolic dysfunction. 4. CAD: We will continue patient home apixaban, metoprolol, statin regimen, not on CHRISTEL inhibitor or ARB. 5. Hypertension, uncontrolled like contributing to #1: Continue home regimen including metoprolol, IV Lasix as noted above, given elevated level if continues will add ACEI option given history, PRN hydralazine. 6. Hyperlipidemia: Not on regimen, FLP in AM. 7. Hypothyroidism: Continue home synthroid regimen, TSH pending. 8. BPH: We will continue patient on finasteride regimen. 9. Anxiety and depression: We will continue patient home escitalopram regimen. 10. GERD: We will continue patient home famotidine regimen. 11. Chronic normocytic anemia: Admission hemoglobin 12.1, baseline prior 12, stable, trend. 12. DVT prophylaxis: SCDs, transition from apixaban to lovenox regimen in case of thoracentesis needs. Of note last dose eliquis was AM 10/15/20, he did not receive his evening dose and was transitioned as noted. 13. CODE status: Patient XIANG is his who is present and living will is currently in place. Discussed CODE status at length including difference between FULL code, DNR-CCA and DNR-CC status. Following discussions about the differences in these status, requested Full Code status. Advanced Care Planning Face to Face Time: 16 minutes. Charges/Coding Visit Charges Inpatient E&M: 91978 Init Hosp L3 Procedures Hospitalists Procedures: 72227 Advncd Care Plan 30 Min
[2020-10-15 23:14] VITALS: BP 181/61; PULSE 64; RESP 20; O2SAT 93
[2020-10-15 23:22] VITALS: BP 191/61; PULSE 64; RESP 22; TEMP 36.6; O2SAT 92
[2020-10-15 23:38] VITALS: BP 172/68
[2020-10-15 23:56] LABS: Magnesium 2.1 mg/dL (1.6-2.6)
[2020-10-16] VITALS (18 sets, daily range): BP systolic 145–172; BP diastolic 50–84; PULSE 53–80; RESP 16–24; TEMP 36.4–37.1; O2SAT 94–97; BMI 24.3
[2020-10-16 00:49] LABS: Troponin-I HS 12.1 pg/mL (3.0-78.5)
[2020-10-16] MEDS: Metoprolol Tartrate 25 MG Tablet 12.5 MG PO (01:07)
[2020-10-16] MEDS: Enoxaparin 80 MG/0.8 ML Syringe 70 MG SC ×3 (01:07→22:23)
[2020-10-16] MEDS: Lisinopril 10 MG Tablet PO ×2 (01:07→10:04)
[2020-10-16] MEDS: 0.9% Saline Lock 10 ML Syringe IV ×3 (01:11→18:10)
[2020-10-16 02:34] LABS: Troponin-I HS 12.6 pg/mL (3.0-78.5)
--- NOTE | 2020-10-16 05:55 | EKG12_ITS ---
Test Reason : AM EKG Blood Pressure : / mmHG Vent. Rate : 065 BPM Atrial Rate : 065 BPM P-R Int : 214 ms QRS Dur : 100 ms QT Int : 426 ms P-R-T Axes : 076 108 013 degrees QTc Int : 443 ms Sinus rhythm with 1st degree A-V block Nonspecific ST abnormality Abnormal ECG Confirmed by HENRY SINGER, DEL ([id number]), design editor MARIE MCCRARY ([id number]) on 10/20/2020 9:05:01 AM Referred By: JOHNY Confirmed By:DEL FIGUEROA MD
[2020-10-16] MEDS: Levothyroxine 50 MCG Tablet PO (06:19)
[2020-10-16 06:35] LABS: Absolute Lymphocyte Count 1.88 X10^3/uL (0.83-4.51); Absolute Neutrophil Count 5.8 X10^3/uL (2.0-7.7); Basophil# 0.02 X10^3/uL; Basophil% 0.2 % (0-1); Eosinophil# 0.15 X10^3/uL; Eosinophils% 1.8 % (0-5); Hematocrit 37.4 % (40-54); Hemoglobin 11.6 g/dL (13.0-16.5); Lymphocyte # 1.88 X10^3/ul (0.83-4.51); Lymphocyte % 22.1 % (19-41); Mean Corpuscular Volume 87.2 fL (80-94); Mean Platelet Vol. 10.8 fl (6.2-12.0); Monocyte# 0.63 X10^3/uL; Monocyte% 7.4 % (0-10); NRBC Flagged by Analyzer 0 % (0-5); Neutrophil # 5.78 X10^3/uL (2.7-7.7); Platelet Count 226 K/mm3 (150-450); RBC Distribution Width CV 15.3 % (11.6-14.6); Red Blood Count 4.29 M/mm3 (4.6-6.2); White Blood Count 8.5 K/mm3 (4.4-11.0)
[2020-10-16 07:04] LABS: ALB/GLOB Ratio 1.2 RATIO (0.9-2.4); AST(SGOT) 25 U/L (15-37); Alanine Aminotransfer ALT/SGPT 29 U/L (16-61); Albumin, Serum 3.5 g/dL (3.2-5.0); Alkaline Phosphatase 98 U/L (45-117); Anion Gap 6 (5-15); BUN 17 mg/dL (7-18); BUN/Creat Ratio 12.4 RATIO (10-20); Calcium,Total 8.2 mg/dL (8.5-10.1); Chloride 105 mmol/L (98-107); Cholesterol 175 mg/dL (200); Creatinine, Serum 1.37 mg/dL (0.70-1.30); EST Glomerular Filtration Rate 53 mL/min (>60); Est Glom Filt Rate - Afr Amer 65 mL/min (>60); Estimated Creatinine Clearance 41.55 ml/min; Glucose 87 mg/dL (74-106); High Density Lipoprotein 41 mg/dL; Potassium 3.3 mmol/L (3.5-5.1); Protein, Total 6.5 g/dL (6.4-8.2); Sodium Level 140 mmol/L (136-145); Triglycerides 96 mg/dL; Troponin-I HS 13.3 pg/mL (3.0-78.5); Very Low Density Lipoprotein 19 mg/dL (5-40)
--- NOTE | 2020-10-16 09:54 | ECHOD_ITS ---
Reason For Study: CHF Procedure This was a 2D Doppler, Color Flow transthoracic echocardiogram. The exam was of adequate technical quality. Exam performed portable in patient room. Left Ventricle Normal LV size. Left ventricular systolic function is normal. The estimated ejection fraction is 60 %. No regional wall motion abnormalities noted. Right Ventricle Normal RV size. Normal systolic function. Atria The left atrium is moderately enlarged. The right atrium is moderately enlarged. No doppler evidence for ASD. Mitral Valve There is no mitral annular calcification. Mild diffuse mitral valve thickening. Moderate (2+) mitral valve insufficiency. Tricuspid Valve Poor coaptation of the tricuspid valve apparatus. Moderate (2+) tricuspid valve insufficiency. Right ventricular systolic pressure estimated to be 76 mmHg. Aortic Valve Stable appearing bioprosthetic aortic valve apparatus. Moderate transvalvular insufficiency of the aortic valve. Pulmonic Valve The pulmonic valve is not well visualized. Trivial eccentric pulmonic valve insufficiency. Great Vessels Normal sized aortic root. Pericardium/Pleural No pericardial effusion. Echo lucency compatible with a pleural effusion. MMode/2D Measurements & Calculations LVIDd: 4.8 cm IVSd: 1.1 cm LVOT diam: 2.0 cm LVIDs: 3.3 cm LVPWd: 0.98 cm LVOT area: 3.2 cm2 RVDd: 3.9 cm FS: 32.7 % Ao root diam: 2.8 cm LAV(MOD-bp): 84.7 ml LVAd ap4: 27.7 cm2 LAV(MOD-bp) Indexed: 47.3 ml/m2 LVLd ap4: 7.1 cm LAV(MOD-sp2): 94.0 ml EDV(MOD-sp4): 89.6 ml LAV(MOD-sp4): 72.6 ml EDV(sp4-el): 92.2 ml LVAs ap4: 14.9 cm2 LVLs ap4: 5.8 cm ESV(MOD-sp4): 32.8 ml ESV(sp4-el): 32.8 ml EF(MOD-sp4): 63.4 % EF(sp4-el): 64.4 % LVAd ap2: 30.4 cm2 SV(MOD-sp4): 56.9 ml SV(MOD-sp2): 56.9 ml LVLd ap2: 7.8 cm EDV(MOD-sp2): 98.8 ml EDV(sp2-el): 100.7 ml LVAs ap2: 18.6 cm2 LVLs ap2: 6.9 cm ESV(MOD-sp2): 41.9 ml ESV(sp2-el): 42.3 ml EF(MOD-sp2): 57.6 % SV(sp4-el): 59.4 ml LA dimension(2D): 4.8 cm LA A4 area: 22.3 cm2 RA A4 area: 19.7 cm2 Doppler Measurements & Calculations MV E max sonido: 98.1 cm/sec Lat Peak E' Sonido: 9.2 cm/sec Med Peak E' Sonido: 7.4 cm/sec MV A max sonido: 22.1 cm/sec E/E' lat: 10.7 E/E' med: 13.2 MV E/A: 4.4 Ao V2 max: 240.7 cm/sec AI max sonido: 464.7 cm/sec LV V1 max: 150.0 cm/sec Ao max P.2 mmHg AI max P.5 mmHg LV V1 max P.0 mmHg Ao V2 mean: 153.3 cm/sec AI dec slope: 347.5 cm/sec2 LV V1 mean P.7 mmHg Ao mean P.9 mmHg AI P1/2t: 391.7 msec LV V1 mean: 101.6 cm/sec Ao V2 VTI: 52.2 cm LV V1 VTI: 35.0 cm RENÉ(I,D): 2.1 cm2 RENÉ(V,D): 2.0 cm2 SV(LVOT): 110.7 ml PA V2 max: 82.2 cm/sec PI end-d sonido: 97.6 cm/sec TR max sonido: 425.8 cm/sec TR max P.5 mmHg ECHO/Echo Complete Interpretation Summary Left ventricular systolic function is normal. The estimated ejection fraction is 60 %. The left atrium is moderately enlarged. The right atrium is moderately enlarged. Mild diffuse mitral valve thickening. Moderate (2+) mitral valve insufficiency. Poor coaptation of the tricuspid valve apparatus. Moderate (2+) tricuspid valve insufficiency. Stable appearing bioprosthetic aortic valve apparatus. Moderate transvalvular insufficiency of the aortic valve. Trivial eccentric pulmonic valve insufficiency. Echo lucency compatible with a pleural effusion. Right ventricular systolic pressure estimated to be 76 mmHg c/w severe pulmonar y hypertension. Transmitral diastolic flow velocities suggest diastolic dysfunction (pseudonorm al pattern). Ordering Physician: Adama Jerry Referring Physician: Marcelino Ferguson Chi Performed By: Mona Cardoza, RDCS, RVT
--- NOTE | 2020-10-16 09:56 | CON.PCM.CA_ITS ---
Assessment & Plan Assessment/Plan (1) CHF (congestive heart failure): QUALIFIERS: Heart failure type: unspecified Heart failure chronicity: acute Qualified Code(s): I50.9 - Heart failure, unspecified PLAN: At the moment the patient does have findings compatible with CHF. The etiology is unclear at this time. At the moment he will be monitored. He is continuing medical therapy. This is included IV diuretics. He will be asked to have a follow-up echocardiogram to reassess his valvular anatomy and physiology as well as his left ventricular systolic function to assist in diagnosis and care. Also, it is unclear whether his post synchronized biphasic DC cardioversion sinus bradycardia is playing a role in his ongoing concerns. Thus it may be reasonable to place his rate limiting medications on hold and monitor his rate, rhythm, and response. He does not appear to have abnormal enzymes at this time compatible with an acute coronary syndrome. His ECG is as noted. Depending upon his clinical course he may eventually need reevaluation of his coronary anatomy. (2) Pleural effusion: PLAN: The patient does have pleural effusions based upon his chest CT scan. He will continue medical therapy with IV diuretics. His anticoagulants are on temporary hold in anticipation that he may need thoracentesis. (3) Paroxysmal atrial fibrillation: PLAN: He remains in sinus rhythm/sinus bradycardia at this time. Again it is unclear whether his bradycardia is contributing to his clinical course. Thus his rate limiting medications will be placed on hold. It is unclear whether or not his antiarrhythmic therapy with amiodarone will need to be placed on hold. His anticoagulants are on temporary hold in anticipation that he may need further invasive evaluation and care. (4) History of aortic valve replacement with bioprosthetic valve: PLAN: His aortic valve will be reassessed for any significant physiologic changes including insufficiency that may be contributing to his current clinical findings. If there is concern that his aortic valve is not functioning appropriately then he may need to be considered for a repeat tertiary care center evaluation for repeat aortic valve intervention. (5) Atherosclerosis of coronary artery of [place] heart without angina pectoris: QUALIFIERS: Coronary Disease-Associated Artery/Lesion type: [place] artery Qualified Code(s): I25.10 - Atherosclerotic heart disease of [place] coronary artery without angina pectoris PLAN: He does have a history of CAD as noted above. He has not required revascularization in the past. Is unclear as to whether this is a contributing factor to his ongoing clinical course. He will continue to be monitored. Depending upon his clinical course he may need repeat evaluation of his coronary anatomy. (6) Mixed hyperlipidemia: PLAN: He will continue risk factor evaluation care as deemed appropriate. Addt'l Comments The above was discussed with the patient. He was agreeable to this approach. This note was generated using a voice recognition system and there may be incorrect words, spelling or punctuation that were not noted when reviewing the office note prior to saving. HPI Consult Data Date of Consult: 10/16/20 HPI Narrative HPI Narrative: SUSAN CENTENO, is a 79 year old white male who presents for cardiac ocular consultation based upon concerns of CHF/pleural effusions superimposed upon a history of underlying atrial fibrillation status post recent synchronized biphasic DC cardioversion to sinus bradycardia, aortic valve stenosis status post aortic valve replacement -23 mm Sallie-Alcaraz bovine pericardial heterograft at [facility] on 05-02-2004, CAD-previously considered none angiographically/hemodynamically significant. The patient states that he has been noticing progressive shortness of breath and dyspnea with exertion such as walking outside, walking up an incline, etc. He has denied ongoing chest discomfort with the symptoms. He has denied orthopnea, PND, peripheral pitting edema. There has been no near syncope or syncope., Based upon symptoms, recurrence of his atrial dysrhythmia. He did present to the [facility] emergency department for further evaluation. There were concerns of CHF/pleural effusions. He was noted to have sinus bradycardia. His troponin I level was negative. His BNP level was elevated at 1320.1. His chest x-ray and CT scan demonstrated no great vessel disease/thromboembolic disease, however, his CT scan suggested bilateral pleural effusions. He was placed in the hospital for further evaluation and care including IV diuretic therapy and holding his anticoagulant therapy for possible additional invasive studies such as thoracentesis. [facility] Medical History Acute gastritis Allergic rhinitis Anxiety Aortic valve disorders Atherosclerosis of coronary artery of [place] heart without angina pectoris Atrial fibrillation BPH with obstruction/lower urinary tract symptoms Constipation Depression Diverticulosis of colon (without mention of hemorrhage) Elevated PSA External hemorrhoids with complication History of aortic valve stenosis Hx of echocardiogram 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 external 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 hemorrhoids Internal hemorrhoids USP current use of amiodarone Lumbago Mixed hyperlipidemia Nocturia Trigeminal neuralgia Home Medications finasteride 5 mg PO DAILY 06/20/18 [History Last Taken 10/03/20] escitalopram oxalate 20 mg tablet 20 mg PO DAILY tab 01/24/20 [History Last Taken Unknown] apixaban 5 mg tablet 5 mg PO BID #180 tab 02/18/20 [Rx Last Taken 10/03/20] famotidine 40 mg tablet 40 mg PO DAILY tab 07/24/20 [History Last Taken 10/03/20] potassium chloride 20 mEq tablet,extended release 20 meq PO DAILY #30 tab 08/03/20 [Rx Last Taken Unknown] amiodarone 200 mg tablet 100 mg PO DAILY #0 tab 10/03/20 [Rx Last Taken Unknown] furosemide 20 mg tablet 40 mg PO DAILY #90 tab 10/11/20 [Rx Last Taken Unknown] levothyroxine 25 mcg tablet 50 mcg PO DAILY #90 tab 10/11/20 [Rx Last Taken Unknown] metoprolol tartrate 12.5 mg PO BID 10/15/20 [History Last Taken Unknown] pantoprazole 40 mg PO DAILY 10/15/20 [History Last Taken Unknown] Allergy/AdvReac Type Severity Reaction Status Date / Time Sulfa (Sulfonamide Allergy Rash Verified 10/15/20 19:18 Antibiotics) codeine AdvReac Other Verified 10/15/20 19:18 Family History Father Asthma COPD (chronic obstructive pulmonary disease) Mother High cholesterol Surgical History History of aortic valve replacement with bioprosthetic valve (~05/02/04) History of esophagogastroduodenoscopy (EGD) History of open reduction and internal fixation (ORIF) procedure Hx of appendectomy Hx of colonoscopy with polypectomy Hx of inguinal hernia repair Hx of parotidectomy Hx of sigmoidoscopy S/P hemorrhoidectomy s/p urolift Social History (Updated 10/16/20 @ 00:36 by Vaelntina Potts) household members: spouse housing: house financial difficulty paying for basics: not applicable service: No current occupational status: retired Smoking Status: Former smoker second hand exposure: No alcohol intake: current alcohol intake frequency: holidays/special occasions only substance use type: does not use caffeine: Yes Type: carbonated beverages Number of servings: 1 frequency: 3-4 times per week ROS Constitutional Constitutional: Reports as per HPI Eyes Eyes: Reports as per HPI ENT HEENT: Reports as per HPI Cardiovascular Cardiovascular: Reports dyspnea and dyspnea on exertion Respiratory/Chest Respiratory/Chest: Reports dyspnea and dyspnea on exertion Gastrointestinal Gastrointestinal: Reports as per HPI Genitourinary Genitourinary: Reports as per HPI Musculoskeletal Musculoskeletal: Reports as per HPI Neurologic Neurologic: Reports as per HPI Physical Exam Narrative The patient appears to be awake and alert and in no acute distress. Const alert, oriented x3, no apparent distress and healthy appearing Orientation / Consciousness: awake HEENT normocephalic, head/scalp atraumatic and hearing grossly normal bilaterally Eyes PERRL and EOMs intact bilaterally Neck full ROM, supple and no JVD Chest Chest: midline sternotomy incision Resp Auscultation: diminished lung sounds bilateral lower Cardio regular rhythm, S1 normal heart sound and S2 normal heart sound Rate: bradycardia Heart Sounds: murmur diastolic II/ soft mid left sternal border and systolic II/ soft mid left sternal border GI normal to inspection, nondistended, normoactive bowel sounds Extremity no pedal edema Skin no rashes or lesions noted Neuro oriented x3, moves all extremities, no focal motor deficits and no sensory def icits noted Psych mental status grossly normal Objective Data Vital Signs: Vital Signs Temp Pulse Resp BP Pulse Ox 98.6 F 54 L 16 160/63 H 95 10/16/20 06:15 10/16/20 07:00 10/16/20 06:15 10/16/20 06:15 10/16/20 06:15 Oxygen Delivery Method Room Air Weight: 150 lb 12.739 oz Body Mass Index (BMI) 24.3 Intake & Output: Intake and Output for Last 24 Hours 10/14/20 10/15/20 10/16/20 23:59 23:59 23:59 Intake Total 120 / 120 Output Total 1200 / 1200 Balance -1080 / -1080 Lab / Micro Data Result Diagrams: 10/16/20 06:06 10/16/20 06:06 Labs: Laboratory Results - last 24 hr 10/15/20 20:12: WBC 7.8, RBC 4.40 L, Hgb 12.1 L, Hct 38.4 L, MCV 87.3, MCH 27.5, MCHC 31.5 L, RDW Std Deviation 49.3 H, RDW Coeff of Yovana 15.3 H, Plt Count 224, MPV 10.6, Immature Gran % (Auto) 0.600, Neut % (Auto) 68.6, Lymph % (Auto) 21.5, [place] % (Auto) 7.6, Eos % (Auto) 1.4, Baso % (Auto) 0.3, Absolute Neuts (auto) 5.3, Absolute Lymphs (auto) 1.67, Nucleated RBC % 0 10/15/20 20:12: D-Dimer Quant (PE/DVT) 1.31 H* 10/15/20 20:12: Sodium 139, Potassium 3.9, Chloride 106, Carbon Dioxide 28.0, Anion Gap 5, BUN 18, Creatinine 1.39 H, Estim Creat Clear Calc 40.95, Est GFR (MDRD) Af Amer 63, Est GFR (MDRD) Non-Af 52 L, BUN/Creatinine Ratio 12.9, Glucose 76, Calcium 8.3 L, Troponin I High Sens 11.6 10/15/20 20:12: B-Natriuretic Peptide 1320.1 H 10/15/20 20:12: Magnesium 2.1 10/16/20 00:28: Troponin I High Sens 12.1 10/16/20 02:11: Troponin I High Sens 12.6 10/16/20 06:06: WBC 8.5, RBC 4.29 L, Hgb 11.6 L, Hct 37.4 L, MCV 87.2, MCH 27.0, MCHC 31.0 L, RDW Std Deviation 49.0 H, RDW Coeff of Yovana 15.3 H, Plt Count 226, MPV 10.8, Immature Gran % (Auto) 0.500, Neut % (Auto) 68.0, Lymph % (Auto) 22.1, [place] % (Auto) 7.4, Eos % (Auto) 1.8, Baso % (Auto) 0.2, Absolute Neuts (auto) 5.8, Absolute Lymphs (auto) 1.88, Nucleated RBC % 0 10/16/20 06:06: Sodium 140, Potassium 3.3 L, Chloride 105, Carbon Dioxide 29.0, Anion Gap 6, BUN 17, Creatinine 1.37 H, Estim Creat Clear Calc 41.55, Est GFR (MDRD) Af Amer 65, Est GFR (MDRD) Non-Af 53 L, BUN/Creatinine Ratio 12.4, Glucose 87, Calcium 8.2 L, Total Bilirubin 0.80, AST 25, ALT 29, Alkaline Phosphatase 98, Troponin I High Sens 13.3, Total Protein 6.5, Albumin 3.5, Globulin 3.0, Albumin/Globulin Ratio 1.2, Triglycerides 96, Cholesterol 175, LDL Cholesterol 115, VLDL Cholesterol 19, HDL Cholesterol 41, TSH 12.80 H Cardiology Labs/Tests 10/15/20 20:12: WBC 7.8, RBC 4.40 L, Hgb 12.1 L, Hct 38.4 L, MCV 87.3, MCH 27.5, MCHC 31.5 L, Plt Count 224, MPV 10.6, Immature Gran % (Auto) 0.600, Neut % (Auto) 68.6, Lymph % (Auto) 21.5, [place] % (Auto) 7.6, Eos % (Auto) 1.4, Baso % (Auto) 0.3, Absolute Neuts (auto) 5.3, Nucleated RBC % 0 10/15/20 20:12: D-Dimer Quant (PE/DVT) 1.31 H* 10/15/20 20:12: Sodium 139, Potassium 3.9, Chloride 106, Carbon Dioxide 28.0, Anion Gap 5, BUN 18, Creatinine 1.39 H, Est GFR (MDRD) Af Amer 63, Est GFR (MDRD) Non-Af 52 L, BUN/Creatinine Ratio 12.9, Glucose 76, Calcium 8.3 L 10/15/20 20:12: B-Natriuretic Peptide 1320.1 H 10/15/20 20:12: Magnesium 2.1 10/16/20 06:06: WBC 8.5, RBC 4.29 L, Hgb 11.6 L, Hct 37.4 L, MCV 87.2, MCH 27.0, MCHC 31.0 L, Plt Count 226, MPV 10.8, Immature Gran % (Auto) 0.500, Neut % (Auto) 68.0, Lymph % (Auto) 22.1, [place] % (Auto) 7.4, Eos % (Auto) 1.8, Baso % (Auto) 0.2, Absolute Neuts (auto) 5.8, Nucleated RBC % 0 10/16/20 06:06: Sodium 140, Potassium 3.3 L, Chloride 105, Carbon Dioxide 29.0, Anion Gap 6, BUN 17, Creatinine 1.37 H, Est GFR (MDRD) Af Amer 65, Est GFR (MD RD) Non-Af 53 L, BUN/Creatinine Ratio 12.4, Glucose 87, Calcium 8.2 L, Total Bilirubin 0.80, Triglycerides 96, Cholesterol 175, LDL Cholesterol 115, VLDL Cholesterol 19, HDL Cholesterol 41 Rhythm: Sinus bradycardia EKG: Sinus bradycardia; T wave abnormality: Consider myocardial ischemia- anterior ECHO: 08-03-2020 . Interpretation Summary Left ventricular systolic function is normal. The estimated ejection fraction is 65 %. The left atrium is moderately enlarged. The right atrium is moderately enlarged. Moderate diffuse mitral valve thickening. Moderate (2+) eccentric mitral valve insufficiency. Moderate (2+) tricuspid valve insufficiency. Stable appearing bioprosthetic aortic valve apparatus. Mild to Moderate transvalvular insufficiency of the aortic valve. Mild (1+) pulmonic valve insufficiency. Right ventricular systolic pressure estimated to be 57 mmHg. Transmitral diastolic flow velocities suggest diastolic dysfunction (pseudonormal pattern). Stress Test: . Stress Test Report Date: ?2019 Procedure: Exercise tolerance test/imaging study Indications: Atrial fibrillation; status post AVR Consent: Per the patient Procedure: The patient exercised on a Ayden protocol for 10 minutes completing Stage III and 1 minute of Stage IV achieving a peak heart rate of 129 bpm (90 % predicted maximal heart rate) with a peak blood pressure 190/70 mmHg and a peak MET capacity of 11 METs. The baseline ECG demonstrated sinus bradycardia; septal AK of indeterminate age cannot be excluded. The peak exercise ECG demonstrated an element of somatic/motion artifact with [id number] ST segment variability with approximately [address] segment depression in leads II, III, aVF, and approximately 1 to [address] segment depression in leads V4 through V6 with subsequent gradual resolution to baseline in recovery. There were no cardiac dysrhythmias pretest, during exercise, or recovery. The functional capacity was considered good. There was no complaint of chest discomfort during exercise or recovery. The examination was discontinued secondary to dyspnea and leg fatigue. Impression: 1. Technically adequate (percent predicted maximal heart rate greater than 85%) exercise tolerance test 2. Peak exercise ECG with an element of somatic/motion artifact with [id number] ST segment variability with approximately [address] segment depression in leads II, III, aVF, and approximately 1 to [address] segment depression in leads V4 through V6 with subsequent gradual resolution to baseline in recovery 3. There were no cardiac dysrhythmias pretest, during exercise, or recovery 4. Nuclear images pending Myocardial perfusion imaging study: Technique: The patient was injected with 12.0 mCi of technetium 99m Cardiolite and subsequently rest SPECT Cardiolite nuclear imaging was obtained in the horizontal long, vertical long, and short axis views. The patient exercised on a Ayden protocol for 10 minutes completing Stage III and 1 minute of Stage IV achieving a peak heart rate of 129 bpm (90 % predicted maximal heart rate) with a peak blood pressure 190/70 mmHg and a peak MET capacity of 11 METs. The patient was injected with 36.0 mCi of technetium 99m Cardiolite and subsequently stress SPECT Cardiolite nuclear imaging was obtained in the horizontal long, vertical long, and short axis views. A gated Cardiolite study at peak stress was obtained. Interpretation: Rest and stress SPECT Cardiolite nuclear imaging status post realignment, normalization, and attenuation correction, demonstrates the appearance of relative uniform tracer uptake and myocardial perfusion appearing within normal limits. There is end systolic thickening and brightening. The gated Cardiolite study demonstrates myocardial thickening and inward wall motion. The reported LVEF is 66 %. Impression: 1. Rest and stress SPECT Cardiolite nuclear imaging demonstrate relative uniform tracer uptake and myocardial perfusion appearing within normal limits. 2. The gated Cardiolite study reports an LVEF of 66 %. Cardiac Cath: On 02-02-2004 he underwent diagnostic cardiac catheterization at the [facility]. At that time per the report the left main coronary artery was calcified with 20 to 30% stenosis, the LAD had proximal 20% stenosis, the diagonal branch had proximal 50% stenosis, the LCx was free of obstruction, the RCA was large and dominant with mild irregularities. CT Surgery: 05-02-2004 Aortic valve replacement: #23 Sallie-Alcaraz bovine pericardial heterograft Holter monitor: 08-09-2020 Atrial fibrillation; no obvious ventricular ectopy; average heart rate 106 bpm Radiography Diagnostic Testing: Radiology Impression Chest X-Ray 10/15/20 20:00 IMPRESSION: Cardiomegaly with mild central pulmonary venous congestion. Electronically Signed: Faisal Phipps MD at 20:41 EDT Tel , Service support , Chest CTA 10/15/20 20:47 IMPRESSION: 1. Mild diffuse interstitial thickening and interstitial edema is present throughout both lungs. Small to moderate size bilateral pleural effusion is also present. No focal consolidation is seen. 2. No demonstrated pulmonary embolism or arterial dissection. Electronically Signed: Christopher Rodriguez MD at 22:31 EDT , Service support ,
[2020-10-16] MEDS: Potassium Chloride Oral Tablet 20 MEQ PO (10:03)
[2020-10-16] MEDS: Amiodarone 200 MG Tablet 100 MG PO (10:03)
[2020-10-16] MEDS: Escitalopram Oxalate 20 MG Tablet PO (10:04)
[2020-10-16] MEDS: Finasteride 5 MG Tablet PO (10:04)
[2020-10-16] MEDS: Famotidine 20 MG Tablet 40 MG PO (10:04)
[2020-10-16] MEDS: Furosemide 40 MG/4 ML Vial IV ×2 (10:08→18:10)
--- NOTE | 2020-10-16 12:15 | CASEMGMT ---
RN YONI Face to Face with patient for initial transition planning/care coordination assessment. RN CM introduced self and role at [facility]. Patient lying in bed, alert and oriented, at bedside. Patient willing to participate in assessment and is able to answer all questions appropriately. Care providers, pharmacy, and demographics verified. Patient wishes to discharge home, denies need for home health at this time. Patient states he has no further needs or concerns at this time. CM to follow for discharge planning needs that may arise. PCP: Marty Specialists: none Preferred Pharmacy: [facility] Insurance: Patricia MONCADA Prescription Benefit: yes Living Will/HPOA: yes, Daniela Hernández LNOK: Living Arrangements: Patient lives with in a single story home with 3 steps and railing to enter the home. Transportation: self/ DME/HHC: patient states he has shower chair, raised toilet, cane at home. Patient denies previous HHC or SNF. Disposition Plan: Patient to discharge home with family support and follow-up plans in place. Marlyn MOHAN, RN, CM
--- NOTE | 2020-10-16 15:51 | PN.HOSP_ITS ---
Subjective Subjective Breathing ok. No LE edema. Objective Data Objective Data Vital Signs: Vital Signs Temp Pulse Resp BP Pulse Ox 36.4 C L 53 L 18 159/50 H 96 10/16/20 09:55 10/16/20 11:00 10/16/20 09:55 10/16/20 09:55 10/16/20 09:55 Oxygen Delivery Method Room Air Weight: 68.4 kg Body Mass Index (BMI) 24.3 Intake & Output: Intake and Output for Last 24 Hours 10/14/20 10/15/20 10/16/20 23:59 23:59 23:59 Intake Total 360 / 360 Output Total 1200 / 1200 Balance -840 / -840 Lab / Micro Data Result Diagrams: 10/16/20 06:06 10/16/20 06:06 Labs: Laboratory Results - last 24 hr 10/15/20 20:12: WBC 7.8, RBC 4.40 L, Hgb 12.1 L, Hct 38.4 L, MCV 87.3, MCH 27.5, MCHC 31.5 L, RDW Std Deviation 49.3 H, RDW Coeff of Yovana 15.3 H, Plt Count 224, MPV 10.6, Immature Gran % (Auto) 0.600, Neut % (Auto) 68.6, Lymph % (Auto) 21.5, [place] % (Auto) 7.6, Eos % (Auto) 1.4, Baso % (Auto) 0.3, Absolute Neuts (auto) 5.3, Absolute Lymphs (auto) 1.67, Nucleated RBC % 0 10/15/20 20:12: D-Dimer Quant (PE/DVT) 1.31 H* 10/15/20 20:12: Sodium 139, Potassium 3.9, Chloride 106, Carbon Dioxide 28.0, Anion Gap 5, BUN 18, Creatinine 1.39 H, Estim Creat Clear Calc 40.95, Est GFR (MDRD) Af Amer 63, Est GFR (MDRD) Non-Af 52 L, BUN/Creatinine Ratio 12.9, Glucose 76, Calcium 8.3 L, Troponin I High Sens 11.6 10/15/20 20:12: B-Natriuretic Peptide 1320.1 H 10/15/20 20:12: Magnesium 2.1 10/16/20 00:28: Troponin I High Sens 12.1 10/16/20 02:11: Troponin I High Sens 12.6 10/16/20 06:06: WBC 8.5, RBC 4.29 L, Hgb 11.6 L, Hct 37.4 L, MCV 87.2, MCH 27.0, MCHC 31.0 L, RDW Std Deviation 49.0 H, RDW Coeff of Yovana 15.3 H, Plt Count 226, MPV 10.8, Immature Gran % (Auto) 0.500, Neut % (Auto) 68.0, Lymph % (Auto) 22.1, [place] % (Auto) 7.4, Eos % (Auto) 1.8, Baso % (Auto) 0.2, Absolute Neuts (auto) 5.8, Absolute Lymphs (auto) 1.88, Nucleated RBC % 0 10/16/20 06:06: Sodium 140, Potassium 3.3 L, Chloride 105, Carbon Dioxide 29.0, Anion Gap 6, BUN 17, Creatinine 1.37 H, Estim Creat Clear Calc 41.55, Est GFR (MDRD) Af Amer 65, Est GFR (MDRD) Non-Af 53 L, BUN/Creatinine Ratio 12.4, Glucose 87, Calcium 8.2 L, Total Bilirubin 0.80, AST 25, ALT 29, Alkaline Phosphatase 98, Troponin I High Sens 13.3, Total Protein 6.5, Albumin 3.5, Globulin 3.0, Albumin/Globulin Ratio 1.2, Triglycerides 96, Cholesterol 175, LDL Cholesterol 115, VLDL Cholesterol 19, HDL Cholesterol 41, TSH 12.80 H Radiography Diagnostic Testing: Radiology Impression Chest X-Ray 10/15/20 20:00 IMPRESSION: Cardiomegaly with mild central pulmonary venous congestion. Electronically Signed: Faisal Phipps MD at 20:41 EDT Tel , Service support , Chest CTA 10/15/20 20:47 IMPRESSION: 1. Mild diffuse interstitial thickening and interstitial edema is present throughout both lungs. Small to moderate size bilateral pleural effusion is also present. No focal consolidation is seen. 2. No demonstrated pulmonary embolism or arterial dissection. Electronically Signed: Christopher Rodriguez MD at 22:31 EDT , Service support , Echocardiogram 10/16/20 09:54 Interpretation Summary Left ventricular systolic function is normal. The estimated ejection fraction is 60 %. The left atrium is moderately enlarged. The right atrium is moderately enlarged. Mild diffuse mitral valve thickening. Moderate (2+) mitral valve insufficiency. Poor coaptation of the tricuspid valve apparatus. Moderate (2+) tricuspid valve insufficiency. Stable appearing bioprosthetic aortic valve apparatus. Moderate transvalvular insufficiency of the aortic valve. Trivial eccentric pulmonic valve insufficiency. Echo lucency compatible with a pleural effusion. Right ventricular systolic pressure estimated to be 76 mmHg c/w severe pulmonary hypertension. Transmitral diastolic flow velocities suggest diastolic dysfunction (pseudonormal pattern). Ordering Physician: Adama Jerry Referring Physician: Marcelino Ferguson Chi Performed By: Mona Cardoza RDCS, RVT Physical Exam Const alert and no apparent distress Exam Limitations: no limitations Resp normal respiratory effort, no use of accessory muscles and clear to auscultation bilaterally Resp Narrative: DTP in bases Cardio regular rate, regular rhythm, S1 normal heart sound and S2 normal heart sound GI normal to inspection, nondistended, normoactive bowel sounds, non-tender and non-distended Neuro Sensorium / Orientation: awake and alert Assessment & Plan Assessment/Plan (1) (HFpEF) heart failure with preserved ejection fraction: QUALIFIERS: Heart failure chronicity: acute Qualified Code(s): I50.31 - Acute diastolic (congestive) heart failure (2) Pulmonary HTN: (3) Pleural effusion: PLAN: 1. acute HFpEF EF 60%, but complicated by severe pulmonary HTN continue diuresis 2. severe pulmonary HTN RVSP 76mmHg, worse than in July 2020 (57mmHg at that time) complicates care and recovery unclear type, though favor group 2 or 3, or combination 3. Afib s/p cardioversion on 10/03 anticoagulation changed over to enoxaparin continue amio and metorpolol tartrate 4. pleural effusions likely transudative. not seen in July 2020 5. Hypertensive urgency BP 209/64 upon arrival improved to 159/50 continue ACEi and monitoring 6. VTE prophylaxis: not indicated as already anticoagulated Greater than 35 minutes of which greater than 50% of the time was conseling abou te the CHF, effusion and HTN urgency with pt and his . Charges/Coding Visit Charges Inpatient E&M: 15743 Subs Hosp L3
[2020-10-16] MEDS: hydrALAZINE 20 MG/ML Vial 10 MG IV (22:19)
[2020-10-17] VITALS (12 sets, daily range): BP systolic 149–159; BP diastolic 47–70; PULSE 57–68; RESP 16–18; TEMP 36.2–37; O2SAT 94–99
[2020-10-17] MEDS: Levothyroxine 50 MCG Tablet PO (05:53)
[2020-10-17 05:58] LABS: ALB/GLOB Ratio 1.3 RATIO (0.9-2.4); AST(SGOT) 26 U/L (15-37); Alanine Aminotransfer ALT/SGPT 28 U/L (16-61); Albumin, Serum 3.7 g/dL (3.2-5.0); Alkaline Phosphatase 101 U/L (45-117); Anion Gap 7 (5-15); BUN 20 mg/dL (7-18); BUN/Creat Ratio 14.4 RATIO (10-20); Calcium,Total 8.4 mg/dL (8.5-10.1); Chloride 103 mmol/L (98-107); Creatinine, Serum 1.39 mg/dL (0.70-1.30); EST Glomerular Filtration Rate 52 mL/min (>60); Est Glom Filt Rate - Afr Amer 63 mL/min (>60); Estimated Creatinine Clearance 40.95 ml/min; Globulin 2.9 g/dL (2.2-4.2); Glucose 91 mg/dL (74-106); Potassium 3.3 mmol/L (3.5-5.1); Protein, Total 6.6 g/dL (6.4-8.2); Sodium Level 138 mmol/L (136-145)
--- NOTE | 2020-10-17 08:18 | RAD_ITS ---
EXAM DESCRIPTION: PA and lateral CHEST CLINICAL HISTORY: 79 years Male, effusion assessment portable chest obtained on 10/15/2020 COMPARISON: None FINDINGS: Sternotomy sutures and heart valve prosthesis are noted in place. The rest of the thorax is intact. The heart and mediastinum appear to be within normal limits. The lungs appear to be well areated without evidence of pneumonic consolidation . Small bibasilar pleural effusions are again identified and are unchanged. RAD/Chest PA and Lateral IMPRESSION: Small bilateral basilar pleural effusions are identified which are unchanged in this patient with a recent thoracotomy. Electronically Signed: Hu Robledo DO at 8:58 EDT Tel , Service support ,
--- NOTE | 2020-10-17 08:58 | PN.CARD_ITS ---
Subjective Subjective The patient is awake and alert. He denies ongoing chest discomfort at rest or with exertion. He denies obvious shortness of breath/dyspnea at rest. His main concern has been shortness of breath and dyspnea with exertion. Objective Data Vital Signs: Vital Signs Temp Pulse Resp BP Pulse Ox 98.6 F 64 16 157/57 H 96 10/17/20 03:55 10/17/20 07:00 10/17/20 03:55 10/17/20 03:55 10/17/20 07:38 Oxygen Delivery Method Room Air Weight: 147 lb 7.828 oz Body Mass Index (BMI) 24.3 Intake & Output: Intake and Output for Last 24 Hours 10/15/20 10/16/20 10/17/20 23:59 23:59 23:59 Intake Total 600 / 600 350 / 350 Output Total 1750 / 1750 1375 / 1375 Balance -1150 / -1150 -1025 / -1025 Lab / Micro Data Result Diagrams: 10/16/20 06:06 10/17/20 05:10 Labs: Laboratory Results - last 24 hr 10/17/20 05:10: Sodium 138, Potassium 3.3 L, Chloride 103, Carbon Dioxide 28.0, Anion Gap 7, BUN 20 H, Creatinine 1.39 H, Estim Creat Clear Calc 40.95, Est GFR (MDRD) Af Amer 63, Est GFR (MDRD) Non-Af 52 L, BUN/Creatinine Ratio 14.4, Glucose 91, Calcium 8.4 L, Total Bilirubin 1.20 H, AST 26, ALT 28, Alkaline Phosphatase 101, Total Protein 6.6, Albumin 3.7, Globulin 2.9, Albumin/Globulin Ratio 1.3 Cardiology Labs/Tests 10/17/20 05:10: Sodium 138, Potassium 3.3 L, Chloride 103, Carbon Dioxide 28.0, Anion Gap 7, BUN 20 H, Creatinine 1.39 H, Est GFR (MDRD) Af Amer 63, Est GFR (MDRD) Non-Af 52 L, BUN/Creatinine Ratio 14.4, Glucose 91, Calcium 8.4 L, Total Bilirubin 1.20 H Rhythm: Sinus rhythm Radiography Diagnostic Testing: Radiology Impression Echocardiogram 10/16/20 09:54 Interpretation Summary Left ventricular systolic function is normal. The estimated ejection fraction is 60 %. The left atrium is moderately enlarged. The right atrium is moderately enlarged. Mild diffuse mitral valve thickening. Moderate (2+) mitral valve insufficiency. Poor coaptation of the tricuspid valve apparatus. Moderate (2+) tricuspid valve insufficiency. Stable appearing bioprosthetic aortic valve apparatus. Moderate transvalvular insufficiency of the aortic valve. Trivial eccentric pulmonic valve insufficiency. Echo lucency compatible with a pleural effusion. Right ventricular systolic pressure estimated to be 76 mmHg c/w severe pulmonary hypertension. Transmitral diastolic flow velocities suggest diastolic dysfunction (pseudonor mal pattern). Ordering Physician: Adama Jerry Referring Physician: Marcelino Ferguson Chi Performed By: Mona Cardoza, THOMAS, RVT Physical Exam Narrative The patient appears to be awake and alert and in no acute distress. Const alert, oriented x3, no apparent distress and healthy appearing Orientation / Consciousness: awake HEENT normocephalic, head/scalp atraumatic and hearing grossly normal bilaterally Eyes PERRL and EOMs intact bilaterally Neck full ROM, supple and no JVD Chest Chest: midline sternotomy incision Resp Auscultation: diminished lung sounds bilateral lower Cardio regular rhythm, S1 normal heart sound and S2 normal heart sound Rate: bradycardia Heart Sounds: murmur diastolic II/ soft mid left sternal border and systolic II/ soft mid left sternal border GI normal to inspection, nondistended, normoactive bowel sounds Extremity no pedal edema Skin no rashes or lesions noted Neuro oriented x3, moves all extremities, no focal motor deficits and no sensory deficits noted Psych mental status grossly normal Assessment & Plan Assessment/Plan (1) CHF (congestive heart failure): QUALIFIERS: Heart failure type: unspecified Heart failure chronicity: acute Qualified Code(s): I50.9 - Heart failure, unspecified PLAN: At the moment the patient does have findings compatible with CHF. The etiology is unclear at this time. At the moment he will be monitored. He is continuing medical therapy. This is included IV diuretics. It is unclear whether his post synchronized biphasic DC cardioversion sinus bradycardia is playing a role in his ongoing concerns. Thus his beta-cecil has been placed on hold and his amiodarone will be placed on hold. He does not appear to have abnormal enzymes at this time compatible with an acute coronary syndrome. His ECG is as noted. Depending upon his clinical course he may eventually need reevaluation of his coronary anatomy. He has undergone additional evaluation with a transthoracic echocardiogram. The results are as noted. It is unclear as to whether the amount of aortic valve insufficiency present is enough to contribute to concerns of shortness of breath/dyspnea compatible with CHF/pleural effusions. At the moment he will continue to be monitored as his medications are adjusted. He may need to be considered for further evaluation in the cardiac catheterization laboratory as part of his overall evaluation especially if his evaluation leads to an eventual tertiary care center evaluation to reconsider the status of his bioprosthetic aortic valve. (2) Pleural effusion: PLAN: The patient does have pleural effusions based upon his chest CT scan. He will continue medical therapy with IV diuretics. He has had a follow-up chest x-ray this morning. On preliminary evaluation he still has an element of bilateral pleural effusions. The official radiologic interpretation is pending. His anticoagulants are on temporary hold in anticipation that he may need thoracentesis. (3) Paroxysmal atrial fibrillation: PLAN: He remains in sinus rhythm/sinus bradycardia at this time. Again it is unclear whether his bradycardia is contributing to his clinical course. His rate limiting therapy and his antiarrhythmic therapy will be placed on hold. His anticoagulants are on temporary hold in anticipation that he may need further invasive evaluation and care. (4) History of aortic valve replacement with bioprosthetic valve: PLAN: His aortic valve will be reassessed for any significant physiologic changes including insufficiency that may be contributing to his current clinical findings. If there is concern that his aortic valve is not functioning appropriately then he may need to be considered for a repeat tertiary care center evaluation for repeat aortic valve intervention. (5) Atherosclerosis of coronary artery of [place] heart without angina pectoris: QUALIFIERS: Coronary Disease-Associated Artery/Lesion type: [place] artery Qualified Code(s): I25.10 - Atherosclerotic heart disease of [place] coronary artery without angina pectoris PLAN: He does have a history of CAD as noted above. He has not required revascularization in the past. Is unclear as to whether this is a contributing factor to his ongoing clinical course. He has had electrocardiographic changes potentially compatible with myocardial ischemia in the anterior distribution. Thus as part of his overall evaluation it may be reasonable to consider reevaluation of his coronary status with a diagnostic cardiac catheterization, which, as noted above would be important to know especially if his case leads to a tertiary care center evaluation for consideration of a redo aortic valve. (6) Mixed hyperlipidemia: PLAN: He will continue risk factor evaluation care as deemed appropriate. Addt'l Comments The above was discussed with the patient including a diagnostic cardiac catheterization with respect to the risks and benefits. He was agreeable to the aforementioned evaluation and care plan. This note was generated using a voice recognition system and there may be incorrect words, spelling or punctuation that were not noted when reviewing the office note prior to saving. Procedure Criteria Type of Procedure Procedure Type: Elective Elective Risks - COVID COVID Risk Discussion: The surgeon/proceduralist and patient have discussed in detail the risk of exposure to and/or potential harm posed by the COVID-19 virus with having a surgery/procedure at this time versus the risk of delaying the surgery/procedure. It is not possible to know either the risk of delaying the surgery or procedure or chance of getting an infection with perfect accuracy, but a joint decision was made between the patient and the surgeon/proceduralist to proceed at this time with the scheduled surgery/procedure as indicated on the consent form.
[2020-10-17] MEDS: Finasteride 5 MG Tablet PO (09:32)
[2020-10-17] MEDS: Potassium Chloride Oral Tablet 20 MEQ PO (09:32)
[2020-10-17] MEDS: Potassium Chloride Oral Tablet 20 MEQ 40 MEQ PO (09:33)
[2020-10-17] MEDS: Enoxaparin 80 MG/0.8 ML Syringe 70 MG SC ×2 (09:35→21:23)
[2020-10-17] MEDS: 0.9% Saline Lock 10 ML Syringe IV ×2 (09:36→16:45)
[2020-10-17] MEDS: Furosemide 40 MG/4 ML Vial IV ×2 (09:36→16:45)
[2020-10-17] MEDS: Aspirin E.C. 81 MG Tablet PO (09:43)
[2020-10-17] MEDS: Famotidine 20 MG Tablet 40 MG PO (09:44)
[2020-10-17] MEDS: Escitalopram Oxalate 20 MG Tablet PO (09:44)
[2020-10-17] MEDS: Lisinopril 10 MG Tablet PO (09:44)
--- NOTE | 2020-10-17 13:15 | PN.HOSP_ITS ---
Subjective Subjective Breathing well. Patient did 10 laps in the PCU today without dyspnea. Objective Data Objective Data Vital Signs: Vital Signs Temp Pulse Resp BP Pulse Ox 36.4 C L 64 18 149/47 H 96 10/17/20 09:25 10/17/20 09:25 10/17/20 09:25 10/17/20 09:25 10/17/20 09:25 Oxygen Flow Rate (L/min) [ 0 AMBULATING on Room Air] Oxygen Flow Rate (L/min) [At 0 REST on Room Air] Oxygen Delivery Method Room Air Weight: 66.9 kg Body Mass Index (BMI) 24.3 Intake & Output: Intake and Output for Last 24 Hours 10/15/20 10/16/20 10/17/20 23:59 23:59 23:59 Intake Total 600 / 600 350 / 350 Output Total 1750 / 1750 1375 / 1375 Balance -1150 / -1150 -1025 / -1025 Medical Nutrition Assessment Dietitian: Nutrition Therapy Diagnosis Start: 10/16/20 10:00 Freq: Status: Active Protocol: Document 10/16/20 16:11 RMA (Rec: 10/16/20 16:11 RMA [id number]) Nutrition Malnutrition Evidence of Malnutrition Exists No Intake Problem Decreased Nutrient Needs (specify) Etiology for sodium and fluid related to CHF/lasix Signs/Symptoms as evidenced by pleural effusion Status Active Problem Recommendation Dietitian Recommendations/Changes Cardiac; sodium-restricted; 1500ml FR diet. ONS if intake fails at meals. Lab / Micro Data Result Diagrams: 10/16/20 06:06 10/17/20 05:10 Labs: Laboratory Results - last 24 hr 10/17/20 05:10: Sodium 138, Potassium 3.3 L, Chloride 103, Carbon Dioxide 28.0, Anion Gap 7, BUN 20 H, Creatinine 1.39 H, Estim Creat Clear Calc 40.95, Est GFR (MDRD) Af Amer 63, Est GFR (MDRD) Non-Af 52 L, BUN/Creatinine Ratio 14.4, Glucose 91, Calcium 8.4 L, Total Bilirubin 1.20 H, AST 26, ALT 28, Alkaline Phosphatase 101, Total Protein 6.6, Albumin 3.7, Globulin 2.9, Albumin/Globulin Ratio 1.3 Radiography Diagnostic Testing: Radiology Impression Echocardiogram 10/16/20 09:54 Interpretation Summary Left ventricular systolic function is normal. The estimated ejection fraction is 60 %. The left atrium is moderately enlarged. The right atrium is moderately enlarged. Mild diffuse mitral valve thickening. Moderate (2+) mitral valve insufficiency. Poor coaptation of the tricuspid valve apparatus. Moderate (2+) tricuspid valve insufficiency. Stable appearing bioprosthetic aortic valve apparatus. Moderate transvalvular insufficiency of the aortic valve. Trivial eccentric pulmonic valve insufficiency. Echo lucency compatible with a pleural effusion. Right ventricular systolic pressure estimated to be 76 mmHg c/w severe pulmonary hypertension. Transmitral diastolic flow velocities suggest diastolic dysfunction (pseudonormal pattern). Ordering Physician: Adama Jerry Referring Physician: Marcelino Ferguson Chi Performed By: Mona Cardoza, RDCS, RVT Chest X-Ray 10/17/20 08:18 IMPRESSION: Small bilateral basilar pleural effusions are identified which are unchanged in this patient with a recent thoracotomy. Electronically Signed: Hu Robledo DO at 8:58 EDT Tel , Service support , Physical Exam Const alert HEENT Head and Scalp: normocephalic Resp normal respiratory effort, no retractions, no use of accessory muscles and clear to auscultation bilaterally Cardio regular rate, regular rhythm, S1 normal heart sound and S2 normal heart sound GI normal to inspection, nondistended, normoactive bowel sounds, soft to palpation, non-tender and non-distended Extremity normal to inspection and no clubbing, cyanosis or edema Assessment & Plan Assessment/Plan (1) (HFpEF) heart failure with preserved ejection fraction: QUALIFIERS: Heart failure chronicity: acute Qualified Code(s): I50.31 - Acute diastolic (congestive) heart failure (2) Pulmonary HTN: (3) Pleural effusion: PLAN: 1. acute HFpEF EF 60%, but complicated by severe pulmonary HTN continue diuresis, furosemide changed over to oral. Plan is for left heart catheterization on 10 18. 2. severe pulmonary HTN RVSP 76mmHg, worse than in July 2020 (57mmHg at that time) complicates care and recovery unclear type, though favor group 2 or 3, or combination 3. Afib s/p cardioversion on 10/03 anticoagulation changed over to enoxaparin continue amio and metorpolol tartrate 4. pleural effusions likely transudative. not seen in July 2020 Diuresis. 5. Hypertensive urgency BP 209/64 upon arrival improved to 159/50 continue ACEi and monitoring 6. VTE prophylaxis: not indicated as already anticoagulated Greater than 35 minutes of which greater than 50% of the time was conseling abou te the CHF, effusion and HTN urgency with pt and his . Charges/Coding Visit Charges Inpatient E&M: 63145 Subs Hosp L2
[2020-10-18] VITALS (29 sets, daily range): BP systolic 133–175; BP diastolic 45–76; PULSE 58–73; RESP 14–21; TEMP 36.4–37.1; O2SAT 94–100
--- NOTE | 2020-10-18 05:55 | EKG12_ITS ---
Test Reason : AM EKG Blood Pressure : / mmHG Vent. Rate : 056 BPM Atrial Rate : 056 BPM P-R Int : 200 ms QRS Dur : 096 ms QT Int : 618 ms P-R-T Axes : 022 104 097 degrees QTc Int : [address] & T wave abnormality, consider anterior ischemia Prolonged QT Abnormal ECG Confirmed by HENRY SINGER, DEL ([id number]), state editor MARIE MCCRARY ([id number]) on 10/20/2020 9:07:34 AM Referred By: JOHNY Confirmed By:DEL FIGUEROA MD
[2020-10-18] MEDS: Lisinopril 10 MG Tablet PO (06:11)
[2020-10-18] MEDS: Levothyroxine 50 MCG Tablet PO (06:11)
--- NOTE | 2020-10-18 06:55 | NURSING ---
Report called to Tabitha in dental laboratory supervisor.
[2020-10-18] MEDS: Potassium Chloride Oral Tablet 20 MEQ PO (08:38)
[2020-10-18] MEDS: Famotidine 20 MG Tablet 40 MG PO (08:39)
[2020-10-18] MEDS: Finasteride 5 MG Tablet PO (08:39)
[2020-10-18] MEDS: Escitalopram Oxalate 20 MG Tablet PO (08:39)
[2020-10-18] MEDS: 0.9% Saline Lock 10 ML Syringe IV (08:40)
--- NOTE | 2020-10-18 08:41 | CL.D_ITS ---
Patient Name: SUSAN CENTENO Study Date: 10/18/2020 Performing: Adama Jerry MD Ht: 67 inches 170 cm : 1940 Wt: 147.9 lbs 67 kg Age: 79 Gender: male BSA: 1.78 PROCEDURE(S) PERFORMED [id number]/COR [id number]-AO ROOT ANGIO WITH HEART CATH CLINICAL PROFILE AND INDICATIONS Indications: Valvular Disease Heart Failure: Newly Diagnosed: Yes, NYHA Class: 3, Heart Failure Type: Diastolic Stress/Imaging Stress/Image Study Performed: No Angina Classification Anginal Classification w/in 2 Weeks: Anginal Equivalent Dyspnea CAD Presentations: Other: dyspnea on exertion CONCLUSIONS [place] Multivessel CAD s/p bioprosthetic aortic valve: stable appearing with aortic valve insufficiency considered moderatel y severe RECOMMENDATIONS Risk factor modification Medical therapy DESCRIPTION OF PROCEDURE The patient arrived to the procedure lab. The risks and benefits of the procedure as well as a full d escription of our services here and current unavailability of surgical backup were fully explained to the patient and/or their significant other prior to the catheterization. The Timeout was completed, verifying the correct patient and procedure. The patient's procedural site was prepped and draped in the usual fashion. Local anesthetic was given subcutaneously to right radial region with Lidocaine 2% . Using a modified Seldinger technique, arterial access was obtained via the right radial artery, wit h Micropuncture set Left Coronary Artery selective angiography was performed in multiple views using a 5 Fr. 4.0 G[place] catheter. Right Coronary Artery selective angiography was then performed in multip le views using a 5 Fr. JR 4 catheter. Ascending (root) aorta selective angiography was then performed in single view. Ascending (root) aorta selective angiography was then performed in single view.The arterial sheath was pulled and a TR Band was applied for hemostasis CORONARY ANGIOGRAPHY DOMINANCE: Right Dominant LEFT HEART ASSESSMENT Left Ventricular Ejection Fraction: Not assessed LEFT MAIN: Mild calcification, Mild luminal irregularities LEFT ANTERIOR DESCENDING ARTERY: PROX LAD: Mild luminal irregularities DIAGONAL 1: Proximal - very small caliber vessel: 75 % Stenosis CIRCUMFLEX ARTERY: PROX CIRC: Mild luminal irregularities RAMUS: proximal: 50 % Stenosis RIGHT CORONARY ARTERY: Mild luminal irregularities VALVE FINDINGS: s/p bioprosthetic aortic valve: stable appearing Aortic Valve Insufficiency: Grade 3 - Grade 4 stable appearing with aortic valve insufficiency considered moderately severe AORTIC ROOT: Angiographically normal COMPLICATIONS No Complications PROCEDURE MEDICATIONS Versed 1 mg IV Fentanyl 50 mcg IV Oxygen: 2 L/min via nasal cannula Baby Aspirin (81mg) 1 Tabs PO @ 10/18/2020 07:12:50 Heparin given IA 10/18/2020 07:51:07 Verapamil 2.5mg, Ntg 100mcgs, 3000 units of Heparin given IA 10/18/2020 07:51:07 SUMMARY OF HEMODYNAMIC DATA Time AIR REST ECG 07:17:02 AO 154/57 (94) SA 07:53:47 Signed By Adama Jerry MD On 10/18/2020 08:40:51 Adama Jerry MD
--- NOTE | 2020-10-18 08:54 | PCM.PN.CARD ---
Subjective Subjective The patient did undergo diagnostic cardiac catheterization this a.m. He appeared without acute adverse event. Objective Data Vital Signs: Vital Signs Temp Pulse Resp BP Pulse Ox 98.0 F 64 18 171/52 H 96 10/18/20 06:13 10/18/20 08:30 10/18/20 08:30 10/18/20 08:30 10/18/20 08:46 Oxygen Flow Rate (L/min) [ 0 AMBULATING on Room Air] Oxygen Flow Rate (L/min) [At 0 REST on Room Air] Oxygen Delivery Method Room Air Weight: 147 lb 4.301 oz Body Mass Index (BMI) 24.3 Intake & Output: Intake and Output for Last 24 Hours 10/16/20 10/17/20 10/18/20 23:59 23:59 23:59 Intake Total 600 / 600 590 / 710 120 / 120 Output Total 1750 / 1750 1375 / 1375 650 / 650 Balance -1150 / -1150 -785 / -665 -530 / -530 Lab / Micro Data Result Diagrams: 10/16/20 06:06 10/17/20 05:10 Cardiology Labs/Tests Rhythm: Sinus rhythm EKG: Sinus rhythm; first-degree block; nonspecific ST/T wave abnormality Cardiac Cath: CONCLUSIONS [place] Multivessel CAD s/p bioprosthetic aortic valve: stable appearing with aortic valve insufficiency considered moderately severe RECOMMENDATIONS Risk factor modification Medical therapy DESCRIPTION OF PROCEDURE The patient arrived to the procedure lab. The risks and benefits of the procedure as well as a full description of our services here and current unavailability of surgical backup were fully explained to the patient and/or their significant other prior to the catheterization. The Timeout was completed, verifying the correct patient and procedure. The patient's procedural site was prepped and draped in the usual fashion. Local anesthetic was given subcutaneously to right radial region with Lidocaine 2%. Using a modified Seldinger technique, arterial access was obtained via the right radial artery, with Micropuncture set Left Coronary Artery selective angiography was performed in multiple views using a 5 Fr. 4.0 [place] catheter. Right Coronary Artery selective angiography was then performed in multiple views using a 5 Fr. JR 4 catheter. Ascending (root) aorta selective angiography was then performed in single view. Ascending (root) aorta selective angiography was then performed in single view.The arterial sheath was pulled and a TR Band was applied for hemostasis CORONARY ANGIOGRAPHY DOMINANCE: Right Dominant LEFT HEART ASSESSMENT Left Ventricular Ejection Fraction: Not assessed LEFT MAIN: Mild calcification, Mild luminal irregularities LEFT ANTERIOR DESCENDING ARTERY: PROX LAD: Mild luminal irregularities DIAGONAL 1: Proximal - very small caliber vessel: 75 % Stenosis CIRCUMFLEX ARTERY: PROX CIRC: Mild luminal irregularities RAMUS: proximal: 50 % Stenosis RIGHT CORONARY ARTERY: Mild luminal irregularities VALVE FINDINGS: s/p bioprosthetic aortic valve: stable appearing Aortic Valve Insufficiency: Grade 3 - Grade 4 stable appearing with aortic valve insufficiency considered moderately severe AORTIC ROOT: Angiographically normal Radiography Diagnostic Testing: Radiology Impression Chest X-Ray 10/17/20 08:18 IMPRESSION: Small bilateral basilar pleural effusions are identified which are unchanged in this patient with a recent thoracotomy. Electronically Signed: Hu Robledo DO at 8:58 EDT Tel , Service support , Physical Exam Narrative The patient appears to be awake and alert and in no acute distress. Const alert, oriented x3, no apparent distress and healthy appearing Orientation / Consciousness: awake HEENT normocephalic, head/scalp atraumatic and hearing grossly normal bilaterally Eyes PERRL and EOMs intact bilaterally Neck full ROM, supple and no JVD Chest Chest: midline sternotomy incision Resp Auscultation: diminished lung sounds bilateral (Improved compared to previous examination) lower Cardio regular rhythm, S1 normal heart sound and S2 normal heart sound Rate: bradycardia Heart Sounds: murmur diastolic II/ soft mid left sternal border and systolic II/ soft mid left sternal border GI normal to inspection, nondistended, normoactive bowel sounds Extremity no pedal edema Skin no rashes or lesions noted Neuro oriented x3, moves all extremities, no focal motor deficits and no sensory deficits noted Psych mental status grossly normal Assessment & Plan Assessment/Plan (1) CHF (congestive heart failure): QUALIFIERS: Heart failure type: unspecified Heart failure chronicity: acute Qualified Code(s): I50.9 - Heart failure, unspecified PLAN: At the moment the patient does have findings compatible with CHF. Status post review of his case and his noninvasive and invasive findings there is concern that the etiology of his CHF, despite any contribution from his bradycardia, may be related to his his bioprosthetic valve and what appears to be moderately severe AI. At the present time he will continue medical therapy. He will be referred back to [facility], the site of his previous open heart surgery, for consideration by CT surgery as to whether or not he would be a candidate for a redo aortic valve procedure either percutaneously with TAVR versus with redo surgery. (2) Pleural effusion: PLAN: The patient does have pleural effusions based upon his chest CT scan. He will continue medical therapy with IV diuretics. These will eventually be changed to oral diuretic therapy. (3) Paroxysmal atrial fibrillation: PLAN: He remains in sinus rhythm/sinus bradycardia at this time. Again it is unclear whether his bradycardia is contributing to his clinical course. His rate limiting therapy and his antiarrhythmic therapy will be placed on hold. His anticoagulants are on temporary hold based upon his invasive procedure. Once he is stable from his invasive procedure his anticoagulant therapy can be resumed. (4) History of aortic valve replacement with bioprosthetic valve: PLAN: Again he is status post bioprosthetic aortic valve-remote. Based upon his examination, his echocardiographic findings, and now his cardiac catheterization findings, there is concern of moderately severe AI that may be contributing to his symptoms and findings. Thus he will need a repeat tertiary [facility] [place] surgery consultation as to whether or not he is a candidate for any type of redo aortic valve surgery either percutaneously or surgically. (5) Atherosclerosis of coronary artery of [place] heart without angina pectoris: QUALIFIERS: Coronary Disease-Associated Artery/Lesion type: [place] artery Qualified Code(s): I25.10 - Atherosclerotic heart disease of [place] coronary artery without angina pectoris PLAN: He does have a history of CAD as noted above. His cardiac catheterization does not appear to suggest angiographically significant CAD in the major epicardial vessels. He will need to continue risk factor modification medical therapy. (6) Mixed hyperlipidemia: PLAN: He will continue risk factor evaluation care as deemed appropriate. Addt'l Comments The above was discussed and reviewed with the patient. This note was generated using a voice recognition system and there may be incorrect words, spelling or punctuation that were not noted when reviewing the office note prior to saving.
[2020-10-18 10:01] LABS: Anion Gap 7 (5-15); BUN 19 mg/dL (7-18); BUN/Creat Ratio 14.4 RATIO (10-20); Calcium,Total 8.5 mg/dL (8.5-10.1); Chloride 103 mmol/L (98-107); Creatinine, Serum 1.32 mg/dL (0.70-1.30); EST Glomerular Filtration Rate 56 mL/min (>60); Est Glom Filt Rate - Afr Amer 67 mL/min (>60); Estimated Creatinine Clearance 43.12 ml/min; Glucose 146 mg/dL (74-106); Potassium 3.5 mmol/L (3.5-5.1); Sodium Level 138 mmol/L (136-145)
--- NOTE | 2020-10-18 10:59 | PCM.PN.HOSP ---
Subjective Subjective Feels [place] with no complications. Objective Data Objective Data Vital Signs: Vital Signs Temp Pulse Resp BP Pulse Ox 36.7 C 59 L 14 133/46 H 94 10/18/20 06:13 10/18/20 10:00 10/18/20 10:00 10/18/20 10:00 10/18/20 10:00 Oxygen Flow Rate (L/min) [ 0 AMBULATING on Room Air] Oxygen Flow Rate (L/min) [At 0 REST on Room Air] Oxygen Delivery Method Room Air Weight: 66.8 kg Body Mass Index (BMI) 24.3 Intake & Output: Intake and Output for Last 24 Hours 10/16/20 10/17/20 10/18/20 23:59 23:59 23:59 Intake Total 600 / 600 590 / 710 120 / 120 Output Total 1750 / 1750 1375 / 1375 650 / 650 Balance -1150 / -1150 -785 / -665 -530 / -530 Medical Nutrition Assessment Dietitian: Nutrition Therapy Diagnosis Start: 10/16/20 10:00 Freq: Status: Active Protocol: Document 10/18/20 10:40 RMA (Rec: 10/18/20 10:40 RMA [id number]) Nutrition Malnutrition Evidence of Malnutrition Exists No Intake Problem Decreased Nutrient Needs (specify) Etiology for sodium and fluid related to CHF/lasix Signs/Symptoms as evidenced by pleural effusion Status Active Problem Recommendation Dietitian Recommendations/Changes Continue Cardiac; sodium- restricted--1500ml FR diet as needed. ONS if intake fails at meals. Diet ed as needed if pt willing prior to d/c-- encouraged continued compliance with low salt/ sodium diet. Lab / Micro Data Result Diagrams: 10/16/20 06:06 10/18/20 09:26 Labs: Laboratory Results - last 24 hr 10/18/20 09:26: Sodium 138, Potassium 3.5, Chloride 103, Carbon Dioxide 28.0, Anion Gap 7, BUN 19 H, Creatinine 1.32 H, Estim Creat Clear Calc 43.12, Est GFR (MDRD) Af Amer 67, Est GFR (MDRD) Non-Af 56 L, BUN/Creatinine Ratio 14.4, Glucose 146 H, Calcium 8.5 Physical Exam Const alert HEENT Head and Scalp: normocephalic Resp normal respiratory effort, no use of accessory muscles and clear to auscultation bilaterally Cardio regular rate, regular rhythm, S1 normal heart sound and S2 normal heart sound Cardio Narrative: 2 out of 6 systolic murmur at the right upper sternal border. GI normal to inspection, nondistended, normoactive bowel sounds, non-tender and non-distended Extremity normal to inspection and no clubbing, cyanosis or edema Assessment & Plan Assessment/Plan (1) (HFpEF) heart failure with preserved ejection fraction: QUALIFIERS: Heart failure chronicity: acute Qualified Code(s): I50.31 - Acute diastolic (congestive) heart failure (2) Pulmonary HTN: (3) Pleural effusion: PLAN: 1. acute HFpEF EF 60%, but complicated by severe pulmonary HTN continue diuresis, change to PO 2. moderately-severe Aortic insufficiency f/u [facility] fore redo surgery or TAVR 3. severe pulmonary HTN RVSP 76mmHg, worse than in July 2020 (57mmHg at that time) complicates care and recovery unclear type, though favor group 2 or 3, or combination consider outpt PSG 4. Afib s/p cardioversion on 10/03 anticoagulation changed over to enoxaparin continue amio and metorpolol tartrate 5. pleural effusions likely transudative. not seen in July 2020 Diuresis. 6. Hypertensive urgency BP 209/64 upon arrival improved to 159/50 continue ACEi and monitoring 7. VTE prophylaxis: not indicated as already anticoagulated 8. Disposition: cardiology recommends monitoring another night. Anticipate DC 10/19.
--- NOTE | 2020-10-18 12:27 | CASEMGMT ---
MARK VALLEJO NOTE: Pt screened with [facility] Palliative Care Screening Tool for strata 3. Pt does not meet criteria. Murtaza JONESN RN CM
[2020-10-18] MEDS: Furosemide 40 MG Tablet PO ×2 (12:50→17:48)
[2020-10-18] MEDS: Atorvastatin Calcium 20 MG Tablet PO (20:56)
[2020-10-19] VITALS (7 sets, daily range): BP systolic 126–173; BP diastolic 56–67; PULSE 62–74; RESP 12–16; TEMP 35.9–36.8; O2SAT 95–97
[2020-10-19] MEDS: hydrALAZINE 20 MG/ML Vial 10 MG IV (03:18)
[2020-10-19] MEDS: Levothyroxine 50 MCG Tablet PO (05:50)
[2020-10-19 06:48] LABS: Absolute Lymphocyte Count 1.44 X10^3/uL (0.83-4.51); Absolute Neutrophil Count 5.3 X10^3/uL (2.0-7.7); Basophil# 0.02 X10^3/uL; Basophil% 0.3 % (0-1); Eosinophil# 0.14 X10^3/uL; Eosinophils% 1.8 % (0-5); Hemoglobin 12.8 g/dL (13.0-16.5); Lymphocyte # 1.44 X10^3/ul (0.83-4.51); Mean Corpuscular Hgb 27.4 pg (27.0-32.0); Mean Corpuscular Volume 85.7 fL (80-94); Mean Platelet Vol. 10.5 fl (6.2-12.0); Monocyte# 0.65 X10^3/uL; Monocyte% 8.6 % (0-10); NRBC Flagged by Analyzer 0 % (0-5); Neutrophil # 5.28 X10^3/uL (2.7-7.7); Neutrophil % 69.6 % (47-70); Platelet Count 222 K/mm3 (150-450); RBC Distribution Width CV 15.2 % (11.6-14.6); RBC Distribution Width SD 47.3 fl (35.1-43.9); Red Blood Count 4.67 M/mm3 (4.6-6.2); White Blood Count 7.6 K/mm3 (4.4-11.0)
[2020-10-19 07:10] LABS: Anion Gap 7 (5-15); BUN 16 mg/dL (7-18); BUN/Creat Ratio 15.2 RATIO (10-20); Calcium,Total 8.6 mg/dL (8.5-10.1); Chloride 104 mmol/L (98-107); Creatinine, Serum 1.05 mg/dL (0.70-1.30); EST Glomerular Filtration Rate 72 mL/min (>60); Est Glom Filt Rate - Afr Amer 88 mL/min (>60); Estimated Creatinine Clearance 53.88 ml/min; Glucose 94 mg/dL (74-106); Potassium 3.4 mmol/L (3.5-5.1); Sodium Level 139 mmol/L (136-145)
[2020-10-19] MEDS: Aspirin E.C. 81 MG Tablet PO (08:14)
--- NOTE | 2020-10-19 09:45 | PCM.PN.CARD ---
Subjective Subjective The patient is awake and alert. He states he has been up and ambulating. He states his breathing has improved overall. He denies any ongoing chest discomfort. He was noted to have, status post removal of his radial artery TR band, the development of a right forearm ecchymoses and hematoma. He appears without acute symptoms related to this. Objective Data Vital Signs: Vital Signs Temp Pulse Resp BP Pulse Ox 98.2 F 72 12 126/56 H 96 10/19/20 08:05 10/19/20 08:05 10/19/20 08:05 10/19/20 08:05 10/19/20 08:05 Oxygen Flow Rate (L/min) [ 0 AMBULATING on Room Air] Oxygen Flow Rate (L/min) [At 0 REST on Room Air] Oxygen Delivery Method Room Air Weight: 144 lb 13.499 oz Body Mass Index (BMI) 24.3 Intake & Output: Intake and Output for Last 24 Hours 10/17/20 10/18/20 10/19/20 23:59 23:59 23:59 Intake Total 590 / 710 760 / 960 300 / 300 Output Total 1375 / 1375 1475 / 1475 800 / 800 Balance -785 / -665 -715 / -515 -500 / -500 Lab / Micro Data Result Diagrams: 10/19/20 06:25 10/19/20 06:25 Labs: Laboratory Results - last 24 hr 10/18/20 09:26: Sodium 138, Potassium 3.5, Chloride 103, Carbon Dioxide 28.0, Anion Gap 7, BUN 19 H, Creatinine 1.32 H, Estim Creat Clear Calc 43.12, Est GFR (MDRD) Af Amer 67, Est GFR (MDRD) Non-Af 56 L, BUN/Creatinine Ratio 14.4, Glucose 146 H, Calcium 8.5 10/19/20 06:25: WBC 7.6, RBC 4.67, Hgb 12.8 L, Hct 40.0, MCV 85.7, MCH 27.4, MCHC 32.0, RDW Std Deviation 47.3 H, RDW Coeff of [place] 15.2 H, Plt Count 222, MPV 10.5, Immature Gran % (Auto) 0.700, Neut % (Auto) 69.6, Lymph % (Auto) 19.0, Wells % (Auto) 8.6, Eos % (Auto) 1.8, Baso % (Auto) 0.3, Absolute Neuts (auto) 5.3, Absolute Lymphs (auto) 1.44, Nucleated RBC % 0 10/19/20 06:25: Sodium 139, Potassium 3.4 L, Chloride 104, Carbon Dioxide 28.0, Anion Gap 7, BUN 16, Creatinine 1.05, Estim Creat Clear Calc 53.88, Est GFR (MDRD) Af Amer 88, Est GFR (MDRD) Non-Af 72, BUN/Creatinine Ratio 15.2, Glucose 94, Calcium 8.6 Cardiology Labs/Tests 10/18/20 09:26: Sodium 138, Potassium 3.5, Chloride 103, Carbon Dioxide 28.0, Anion Gap 7, BUN 19 H, Creatinine 1.32 H, Est GFR (MDRD) Af Amer 67, Est GFR (MDRD) Non-Af 56 L, BUN/Creatinine Ratio 14.4, Glucose 146 H, Calcium 8.5 10/19/20 06:25: WBC 7.6, RBC 4.67, Hgb 12.8 L, Hct 40.0, MCV 85.7, MCH 27.4, MCHC 32.0, Plt Count 222, MPV 10.5, Immature Gran % (Auto) 0.700, Neut % (Auto) 69.6, Lymph % (Auto) 19.0, Wells % (Auto) 8.6, Eos % (Auto) 1.8, Baso % (Auto) 0.3, Absolute Neuts (auto) 5.3, Nucleated RBC % 0 10/19/20 06:25: Sodium 139, Potassium 3.4 L, Chloride 104, Carbon Dioxide 28.0, Anion Gap 7, BUN 16, Creatinine 1.05, Est GFR (MDRD) Af Amer 88, Est GFR (MDRD) Non-Af 72, BUN/Creatinine Ratio 15.2, Glucose 94, Calcium 8.6 Rhythm: Sinus rhythm Physical Exam Narrative The patient appears to be awake and alert and in no acute distress. Const alert, oriented x3, no apparent distress and healthy appearing Orientation / Consciousness: awake HEENT normocephalic, head/scalp atraumatic and hearing grossly normal bilaterally Eyes PERRL and EOMs intact bilaterally Neck full ROM, supple and no JVD Chest Chest: midline sternotomy incision Resp clear to auscultation bilaterally Cardio regular rhythm, S1 normal heart sound and S2 normal heart sound Rate: bradycardia Heart Sounds: murmur diastolic II/ soft mid left sternal border and systolic II/ soft mid left sternal border GI normal to inspection, nondistended, normoactive bowel sounds Extremity no pedal edema Peripheral Pulses: Yes radial pulses present right (Right forearm ecchymoses; no obvious hematoma at this time) 2+ Skin no rashes or lesions noted Neuro oriented x3, moves all extremities, no focal motor deficits and no sensory deficits noted Psych mental status grossly normal Assessment & Plan Assessment/Plan (1) CHF (congestive heart failure): QUALIFIERS: Heart failure type: unspecified Heart failure chronicity: acute Qualified Code(s): I50.9 - Heart failure, unspecified PLAN: At the moment the patient does have findings compatible with CHF. Status post review of his case and his noninvasive and invasive findings there is concern that the etiology of his CHF, despite any contribution from his bradycardia, may be related to his his bioprosthetic valve and what appears to be moderately severe AI. At the present time he will continue medical therapy. He will be referred back to [facility] as an outpatient, the site of his previous open heart surgery, for consideration by CT surgery as to whether or not he would be a candidate for a redo aortic valve procedure either percutaneously with TAVR versus with redo surgery. (2) Pleural effusion: PLAN: The patient does have pleural effusions based upon his chest CT scan. He is currently on oral diuretic therapy and potassium replacement. (3) Paroxysmal atrial fibrillation: PLAN: He remains in sinus rhythm/sinus bradycardia at this time. Again it is unclear whether his bradycardia is contributing to his clinical course. His rate limiting therapy and his antiarrhythmic therapy will be placed on hold. His anticoagulants are on temporary hold based upon his invasive procedure. He did develop a post procedure right forearm area of ecchymoses and hematoma. At this time he does demonstrate an area of ecchymoses with no obvious hematoma present. He will continue with his anticoagulant therapy on hold allowing this area time to recover and once he is stable from his invasive procedure his anticoagulant therapy can be resumed. (4) History of aortic valve replacement with bioprosthetic valve: PLAN: Again he is status post bioprosthetic aortic valve-remote. Based upon his examination, his echocardiographic findings, and now his cardiac catheterization findings, there is concern of moderately severe AI that may be contributing to his symptoms and findings. Thus he will need a repeat tertiary care center CT surgery consultation as to whether or not he is a candidate for any type of redo aortic valve surgery either percutaneously or surgically. (5) Atherosclerosis of coronary artery of [place] heart without angina pectoris: QUALIFIERS: Coronary Disease-Associated Artery/Lesion type: [place] artery Qualified Code(s): I25.10 - Atherosclerotic heart disease of [place] coronary artery without angina pectoris PLAN: He does have a history of CAD as noted above. His cardiac catheterization does not appear to suggest angiographically significant CAD in the major epicardial vessels. He will need to continue risk factor modification medical therapy. (6) Mixed hyperlipidemia: PLAN: He will continue risk factor evaluation care as deemed appropriate. Addt'l Comments The above was discussed and reviewed with the patient. This note was generated using a voice recognition system and there may be incorrect words, spelling or punctuation that were not noted when reviewing the office note prior to saving.
[2020-10-19] MEDS: Finasteride 5 MG Tablet PO (10:05)
[2020-10-19] MEDS: Escitalopram Oxalate 20 MG Tablet PO (10:06)
[2020-10-19] MEDS: Potassium Chloride Oral Tablet 20 MEQ PO (10:06)
[2020-10-19] MEDS: Potassium Chloride Oral Tablet 20 MEQ 40 MEQ PO (10:06)
[2020-10-19] MEDS: Furosemide 40 MG Tablet PO (10:06)
[2020-10-19] MEDS: Lisinopril 10 MG Tablet PO (10:07)
[2020-10-19] MEDS: Famotidine 20 MG Tablet 40 MG PO (10:07)
--- NOTE | 2020-10-19 10:58 | PCM.DC ---
Discharge Instructions Diet Discharge Diet: No restrictions Activity Discharge Activity: Return to Normal Activity Follow Up Care Test Results: Test results from this visit will be discussed in further detail at your follow-up appointment, if applicable. Discharge Plan Admission Admit Date/Time: 10/15/20 23:16 Primary Reason for Your Visit: CHF Attending Provider: Teja Yang Primary Care Provider: Marcelino Ferguson [employer] Providers: Adama Jerry Discharge Orders/Prescriptions Prescriptions: New atorvastatin 20 mg Tablet 20 mg PO QHS Qty: 30 RF: 0 aspirin 81 mg Tablet,Delayed Release (Dr/Ec) 81 mg PO DAILY@0800 Qty: 0 RF: 0 furosemide 40 mg Tablet 40 mg PO BIDLX Qty: 60 RF: 0 potassium chloride 20 mEq tablet extended release 20 meq PO DAILY Qty: 30 RF: 0 lisinopril 10 mg Tablet 10 mg PO DAILY Qty: 30 RF: 0 Continued escitalopram oxalate 20 mg tablet 20 mg PO DAILY RF: 0 famotidine 40 mg tablet 40 mg PO DAILY RF: 0 finasteride 5 MG tablet 5 mg PO DAILY RF: 0 pantoprazole 40 mg Tablet,Delayed Release (Dr/Ec) 40 mg PO DAILY RF: 0 metoprolol tartrate 25 mg tablet 12.5 mg PO BID RF: 0 potassium chloride 20 mEq tablet extended release 20 meq PO DAILY Qty: 30 RF: 11 levothyroxine 25 mcg tablet 50 mcg PO DAILY Qty: 90 RF: 3 Held Eliquis 5 mg tablet 5 mg PO BID Qty: 180 RF: 3 Hold Instructions: Resume on 10/26/20. Discontinued amiodarone 200 mg tablet 100 mg PO DAILY Qty: 0 RF: 0 furosemide [Lasix] 20 mg tablet 40 mg PO DAILY Qty: 90 RF: 3 Referrals / Follow Up: Shawn Watson MD [STAFF PHYSICIAN] - Within 2 Weeks Marcelino Ferguson Chi, MD [Primary Care Provider] - Within 1 Week Disposition Disposition (needs filled in before D/C Order can be placed): Home, Self Care
--- NOTE | 2020-10-19 11:16 | DS.PCM_ITS ---
Providers Date of Admission: 10/15/20 Primary Care Physician: Dr. Marcelino Ferguson MD Consultations 10/16/20 00:14 Consult: Cardiology Routine Consulting Provider: Adama Jerry Reason for Consult: CHF Exacerbation EMERGENT Consult: No MD Notified: Yes Date Notified: 10/16/20 Time Notified: 06:30 Method of Notification: plan am cortext Reason For Visit: CHF EXACERBATION, EFFUSIONS Diagnosis Discharge Diagnosis (1) CHF (congestive heart failure): Status: Acute Code(s): I50.9 - Heart failure, unspecified Qualifiers: Heart failure type: unspecified Heart failure chronicity: acute Qualified Code(s): I50.9 - Heart failure, unspecified (2) Pleural effusion: Status: Acute Code(s): J90 - Pleural effusion, not elsewhere classified (3) Paroxysmal atrial fibrillation: Status: Chronic Code(s): I48.0 - Paroxysmal atrial fibrillation (4) History of aortic valve replacement with bioprosthetic valve: Status: Chronic Code(s): Z95.3 - Presence of xenogenic heart valve (5) Atherosclerosis of coronary artery of [place] heart without angina pectoris: Status: Chronic Code(s): I25.10 - Atherosclerotic heart disease of [place] coronary artery without angina pectoris Qualifiers: Coronary Disease-Associated Artery/Lesion type: [place] artery Qualified Code(s): I25.10 - Atherosclerotic heart disease of [place] coronary artery without angina pectoris (6) Mixed hyperlipidemia: Status: Chronic Code(s): E78.2 - Mixed hyperlipidemia Medications at Discharge Home Medications finasteride 5 mg PO DAILY 06/20/18 escitalopram oxalate 20 mg tablet 20 mg PO DAILY tab 01/24/20 apixaban 5 mg tablet 5 mg PO BID #180 tab 02/18/20 famotidine 40 mg tablet 40 mg PO DAILY tab 07/24/20 potassium chloride 20 mEq tablet,extended release 20 meq PO DAILY #30 tab 08/03/20 levothyroxine 25 mcg tablet 50 mcg PO DAILY #90 tab 10/11/20 metoprolol tartrate 12.5 mg PO BID 10/15/20 pantoprazole 40 mg PO DAILY 10/15/20 aspirin 81 mg PO DAILY@0800 #0 tab 10/19/20 atorvastatin 20 mg PO QHS #30 tab 10/19/20 furosemide 40 mg PO BIDLX #60 tab 10/19/20 lisinopril 10 mg PO DAILY #30 tab 10/19/20 potassium chloride 20 meq PO DAILY #30 tab 10/19/20 Hospital Course Operations None Procedures 2-D Echocardiogram and Cardiac catheterization Summary of Care Provided Minutes Spent on Discharge: 32 Hospital Course: 1. acute HFpEF EF 60%, but complicated by severe pulmonary HTN continue diuresis, change to PO 2. moderately-severe Aortic insufficiency f/u [facility] fore redo surgery or TAVR 3. severe pulmonary HTN RVSP 76mmHg, worse than in July 2020 (57mmHg at that time) complicates care and recovery unclear type, though favor group 2 or 3, or combination consider outpt PSG 4. Afib s/p cardioversion on 10/03 anticoagulation on hold given post-cath ecchymosis 5. pleural effusions likely transudative. not seen in July 2020 Diuresis. 6. Hypertensive urgency BP 209/64 upon arrival improved to 159/50 continue ACEi and monitoring Physical Exam Const alert Constitutional Narrative: Up ambulating in hallways. Neuro Neuro Narrative: normal gait Medical Records Data Medical Nutrition Assessment Dietitian: Nutrition Therapy Diagnosis Start: 10/16/20 10:00 Freq: Status: Active Protocol: Document 10/18/20 10:40 RMA (Rec: 10/18/20 10:40 RMA [id number]) Nutrition Malnutrition Evidence of Malnutrition Exists No Intake Problem Decreased Nutrient Needs (specify) Etiology for sodium and fluid related to CHF/lasix Signs/Symptoms as evidenced by pleural effusion Status Active Problem Recommendation Dietitian Recommendations/Changes Continue Cardiac; sodium- restricted--1500ml FR diet as needed. ONS if intake fails at meals. Diet ed as needed if pt willing prior to d/c-- encouraged continued compliance with low salt/ sodium diet. Weight / BMI Weight Weight: 65.7 kg Body Mass Index (BMI) 24.3 ABG / Lab / Microbiology Data Result Diagrams: 10/19/20 06:25 10/19/20 06:25 Laboratory: Laboratory Results - last 24 hr 10/19/20 06:25: WBC 7.6, RBC 4.67, Hgb 12.8 L, Hct 40.0, MCV 85.7, MCH 27.4, MCHC 32.0, RDW Std Deviation 47.3 H, RDW Coeff of [place] 15.2 H, Plt Count 222, MPV 10.5, Immature Gran % (Auto) 0.700, Neut % (Auto) 69.6, Lymph % (Auto) 19.0, [place] % (Auto) 8.6, Eos % (Auto) 1.8, Baso % (Auto) 0.3, Absolute Neuts (auto) 5.3, Absolute Lymphs (auto) 1.44, Nucleated RBC % 0 10/19/20 06:25: Sodium 139, Potassium 3.4 L, Chloride 104, Carbon Dioxide 28.0, Anion Gap 7, BUN 16, Creatinine 1.05, Estim Creat Clear Calc 53.88, Est GFR (MDRD) Af Amer 88, Est GFR (MDRD) Non-Af 72, BUN/Creatinine Ratio 15.2, Glucose 94, Calcium 8.6 D/C Instructions Discharge Diet: No restrictions Meaningful Use Info Meaningful Use Diagnoses (Choose all that apply): CHF CHF CHRISTEL/ARB ordered at discharge?: Yes Documented LVEF (%): 60 Discharge Plan Admission Admit Date/Time: 10/15/20 23:16 Primary Reason for Your Visit: CHF Attending Provider: Teja Yang Primary Care Provider: Marcelino Ferguson Chi Consulting Providers: Adama Jerry Discharge Orders/Prescriptions Prescriptions: New atorvastatin 20 mg Tablet 20 mg PO QHS Qty: 30 RF: 0 aspirin 81 mg Tablet,Delayed Release (Dr/Ec) 81 mg PO DAILY@0800 Qty: 0 RF: 0 furosemide 40 mg Tablet 40 mg PO BIDLX Qty: 60 RF: 0 potassium chloride 20 mEq tablet extended release 20 meq PO DAILY Qty: 30 RF: 0 lisinopril 10 mg Tablet 10 mg PO DAILY Qty: 30 RF: 0 Continued escitalopram oxalate 20 mg tablet 20 mg PO DAILY RF: 0 famotidine 40 mg tablet 40 mg PO DAILY RF: 0 finasteride 5 MG tablet 5 mg PO DAILY RF: 0 pantoprazole 40 mg Tablet,Delayed Release (Dr/Ec) 40 mg PO DAILY RF: 0 metoprolol tartrate 25 mg tablet 12.5 mg PO BID RF: 0 potassium chloride 20 mEq tablet extended release 20 meq PO DAILY Qty: 30 RF: 11 levothyroxine 25 mcg tablet 50 mcg PO DAILY Qty: 90 RF: 3 Held Eliquis 5 mg tablet 5 mg PO BID Qty: 180 RF: 3 Hold Instructions: Resume on 10/26/20. Discontinued amiodarone 200 mg tablet 100 mg PO DAILY Qty: 0 RF: 0 furosemide [Lasix] 20 mg tablet 40 mg PO DAILY Qty: 90 RF: 3 Referrals / Follow Up: Shawn Watson MD [STAFF PHYSICIAN] - Within 2 Weeks Marcelino Ferguson Chi, MD [Primary Care Provider] - Within 1 Week Disposition Disposition (needs filled in before D/C Order can be placed): Home, Self Care Charges/Coding Visit Charges Inpatient E&M: 10942 Disch Hosp
--- NOTE | 2020-10-20 14:45 | CASEMGMT ---
Addendum entered by Marlyn Rivero 10/23/20 15:15: Pt called this RN YONI back and left a message. Call to pt and pt states has been doing 'very good' since discharge. Pt states no questions with discharge instructions/medications. Pt states plans to f/u at appt's and states no further concerns/needs. Pt states no suggestions for [facility] and states 'Everything was very good.' Pt voices no further questions/concerns/needs. Marleny FLORES CM Original Note: MARK VALLEJO Discharge F/U Phone Call LACE: 12 Strata: 3 Discharge date: 10/19/20 Call date: 10/20/20 Call time: 1445 Attempted to reach pt without success, message left with pt to call this MARK VALLEJO back if/when able. Marleny FLORES CM Admission dx: CHF exacerbation, effusions
== END 2020-10-19 14:23 | disposition home or self-care (01) | DRG 286 ==
LOC: ED 23:05 → PCU 23:31
PROVIDERS: Internal Medicine Cardiovascular Disease; Admitting Provider Family Medicine; Emergency Provider Emergency Medicine; PCP Family Medicine Geriatric Medicine
DX: I11.0 Hypertensive heart disease with heart failure (principal); I50.31 Acute diastolic (congestive) heart failure; I35.2 Nonrheumatic aortic (valve) stenosis with insufficiency; I27.20 Pulmonary hypertension, unspecified; I48.0 Paroxysmal atrial fibrillation; I16.0 Hypertensive urgency; Z87.891 Personal history of nicotine dependence; I25.10 Atherosclerotic heart disease of native coronary artery without angina pectoris; E78.2 Mixed hyperlipidemia; E03.9 Hypothyroidism, unspecified; N40.0 Benign prostatic hyperplasia without lower urinary tract symptoms; F41.9 Anxiety disorder, unspecified; F32.9 Major depressive disorder, single episode, unspecified; K21.9 Gastro-esophageal reflux disease without esophagitis; D64.9 Anemia, unspecified; Z95.3 Presence of xenogenic heart valve
CPT/HCPCS: 36415; 71045; 71046; 71275; 80048; 80053; 80061; 83735; 83880; 84443; 84484; 85025; 85379; 93005; 93306; 93454; 93567; 97161; 99152; 99153; 99251; 99285; J7040; Q9967; A4216; C1769; C1894; G0463; J1940

== ENCOUNTER → 2020-10-23 11:17 | Outpatient (CLI) | payer MEDICARE, OTHER, SELFPAY ==
[2020-10-16 00:16] VITALS: BMI 24.3
[2020-10-23 12:39] LABS: Absolute Lymphocyte Count 1.88 X10^3/uL (0.83-4.51); Absolute Neutrophil Count 5.3 X10^3/uL (2.0-7.7); Basophil# 0.02 X10^3/uL; Basophil% 0.3 % (0-1); Eosinophil# 0.08 X10^3/uL; Hematocrit 42.2 % (40-54); Hemoglobin 13.4 g/dL (13.0-16.5); Lymphocyte # 1.88 X10^3/ul (0.83-4.51); Lymphocyte % 23.9 % (19-41); Mean Corp Hgb Conc 31.8 g/dL (32-36); Mean Corpuscular Hgb 27.2 pg (27.0-32.0); Mean Corpuscular Volume 85.8 fL (80-94); Mean Platelet Vol. 10.5 fl (6.2-12.0); Monocyte# 0.58 X10^3/uL; Monocyte% 7.4 % (0-10); NRBC Flagged by Analyzer 0 % (0-5); Neutrophil # 5.27 X10^3/uL (2.7-7.7); Neutrophil % 66.9 % (47-70); Platelet Count 315 K/mm3 (150-450); Red Blood Count 4.92 M/mm3 (4.6-6.2); White Blood Count 7.9 K/mm3 (4.4-11.0)
[2020-10-23 12:54] LABS: Vitamin D,25 Hydroxy 34.5 ng/mL
[2020-10-23 13:02] LABS: ALB/GLOB Ratio 1.1 RATIO (0.9-2.4); AST(SGOT) 39 U/L (15-37); Alanine Aminotransfer ALT/SGPT 43 U/L (16-61); Albumin, Serum 3.4 g/dL (3.2-5.0); Alkaline Phosphatase 102 U/L (45-117); Anion Gap 6 (5-15); BUN 17 mg/dL (7-18); BUN/Creat Ratio 14.7 RATIO (10-20); Calcium,Total 8.6 mg/dL (8.5-10.1); Chloride 102 mmol/L (98-107); Creatinine, Serum 1.16 mg/dL (0.70-1.30); EST Glomerular Filtration Rate 65 mL/min (>60); Est Glom Filt Rate - Afr Amer 78 mL/min (>60); Glucose 110 mg/dL (74-106); Potassium 4.1 mmol/L (3.5-5.1); Protein, Total 6.4 g/dL (6.4-8.2); Sodium Level 137 mmol/L (136-145); Thyroid Stim Hormone (TSH) 8.67 uIU/mL (0.358-3.74)
== END ==
PROVIDERS: PCP Family Medicine Geriatric Medicine; Visit Provider Family Medicine Geriatric Medicine
DX: E55.9 Vitamin D deficiency, unspecified (principal); I10 Essential (primary) hypertension
CPT/HCPCS: 36415; 80053; 82306; 84443; 85025

== ENCOUNTER → 2020-11-08 10:27 | Outpatient (CLI) | payer MEDICARE, OTHER, SELFPAY ==
[2020-11-08 12:11] LABS: PSA,Total- Diagnostic 2.83 ng/mL (0.0-4.0)
== END ==
PROVIDERS: PCP Family Medicine Geriatric Medicine; Referring Provider Urology; Visit Provider Urology
DX: R97.20 Elevated prostate specific antigen [PSA] (principal)
CPT/HCPCS: 36415; 84153

== ENCOUNTER → 2020-12-13 09:17 | Outpatient (CLI) | payer MEDICARE, OTHER, SELFPAY | PROVIDERS: PCP Family Medicine Geriatric Medicine; Visit Provider Family Medicine Geriatric Medicine | DX: E03.9 Hypothyroidism, unspecified (principal) | CPT/HCPCS: 36415; 84443 ==

== ENCOUNTER → 2020-12-20 08:17 | Outpatient (CLI) | payer MEDICARE, OTHER, SELFPAY ==
[2020-12-20 11:03] LABS: AST(SGOT) 46 U/L (15-37); Alanine Aminotransfer ALT/SGPT 50 U/L (16-61); Albumin, Serum 3.5 g/dL (3.2-5.0); Alkaline Phosphatase 134 U/L (45-117); Bilirubin, Direct 0.17 mg/dL (0.00-0.30); Cholesterol 155 mg/dL (200); Globulin 3.2 g/dL (2.2-4.2); High Density Lipoprotein 51 mg/dL; Protein, Total 6.7 g/dL (6.4-8.2); Triglycerides 111 mg/dL; Very Low Density Lipoprotein 22 mg/dL (5-40)
== END ==
PROVIDERS: Internal Medicine Cardiovascular Disease; PCP Family Medicine Geriatric Medicine; Referring Provider Nurse Practitioner Family; Visit Provider Nurse Practitioner Family
DX: E78.2 Mixed hyperlipidemia (principal); I25.10 Atherosclerotic heart disease of native coronary artery without angina pectoris; I48.0 Paroxysmal atrial fibrillation; Z86.79 Personal history of other diseases of the circulatory system; Z95.3 Presence of xenogenic heart valve
CPT/HCPCS: 36415; 80061; 80076

== ENCOUNTER 2020-12-29 10:44 | Emergency (ER) | payer MEDICARE, OTHER, SELFPAY ==
[2020-12-29 10:45] VITALS: BP 152/117; PULSE 87; RESP 16; TEMP 36.2; O2SAT 99; BMI 23.4
--- NOTE | 2020-12-29 11:42 | RAD_ITS ---
STUDY: X-RAY CHEST REASON FOR EXAM: Male, 80 years old. Fall TECHNIQUE: Frontal and lateral views of the chest COMPARISON: 10/18/19 FINDINGS: The lungs are clear. There are no pleural effusions. There is no pneumothorax. The heart is stable in size. There is a prosthetic aortic valve noted. Again noted are sternotomy wires. The visualized osseous structures are within normal limits. RAD/Chest PA and Lateral IMPRESSION: No acute thoracic pathology. Electronically Signed: Gianfranco Strickland MD at 12:48 EDT Tel , Service support ,
--- NOTE | 2020-12-29 12:57 | CT_ITS ---
STUDY: CT CHEST WITHOUT CONTRAST REASON FOR EXAM: Male, 80 years old. Left-sided pain following a fall. RADIATION DOSAGE (If Supplied By Facility): CTDIvol = ( 13.65 ) mGy, DLP = ( 624.38 ) mGycm TECHNIQUE: Transaxial imaging was performed without the administration of intravenous contrast material. Multiplanar coronal and sagittal images were reformatted. Individualized dose optimization techniques were used for this CT. COMPARISON: None. FINDINGS: Small bilateral pleural effusions. Minimal thickening of the right major fissure. Mild degree of increased markings at the lung bases suggestive of linear atelectasis. Sternal cerclage wires and vascular clips are present from a prior sternotomy and coronary artery bypass graft procedure (CABG). Prior aortic valve replacement. Cardiomegaly. There are calcifications of the coronary arteries. There are multiple small lymph nodes within the mediastinum, which are normal in size and morphology most compatible with reactive lymph hyperplasia. Normal hilar regions. Normal unenhanced pulmonary arteries. There is atherosclerotic calcification of the aortic arch with tortuosity and elongation of the aortic arch and descending thoracic aorta. There are multi-level degenerative changes of the thoracic spine. Moderate sized hiatal hernia. CT/Thorax/Ribs/Sternum without IMPRESSION: Small bilateral pleural effusions with mild degree of bibasilar linear atelectasis. Electronically Signed: Bam Dumont MD at 14:38 EDT , Service support ,
--- NOTE | 2020-12-29 12:59 | EDS_ITS ---
HPI History of Present Illness Chief Complaint: Fall Informant: patient Narrative Narrative: 80-year-old male presenting after fall. Patient states he slipped and fell hitting his left posterior shoulder on a work bench. He denies hitting his head. He did not lose consciousness. Denies neck pain. [facility] Medical History (Updated 12/29/20 @ 15:[address] Rosa Stoll MD) Acute gastritis Allergic rhinitis Anxiety Aortic valve disorders Atherosclerosis of coronary artery of [place] heart without angina pectoris Atrial fibrillation BPH with obstruction/lower urinary tract symptoms CHF (congestive heart failure) Constipation Depression Diverticulosis of colon (without mention of hemorrhage) Elevated PSA External hemorrhoids with complication History of aortic valve stenosis History of transcatheter aortic valve replacement (TAVR) (~11/28/20) Hx of echocardiogram 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 external 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 hemorrhoids Internal hemorrhoids nursing home current use of amiodarone Lumbago Mixed hyperlipidemia Nocturia Non-rheumatic mitral regurgitation Non-rheumatic tricuspid valve insufficiency Paroxysmal atrial fibrillation Pulmonary HTN Trigeminal neuralgia Home Medications finasteride 5 mg PO DAILY 06/20/18 [History Last Taken 10/03/20] escitalopram oxalate 20 mg tablet 20 mg PO DAILY tab 01/24/20 [History Last Taken Unknown] apixaban 5 mg tablet 5 mg PO BID #180 tab 02/18/20 [Rx Last Taken 10/03/20] famotidine 40 mg tablet 40 mg PO DAILY tab 07/24/20 [History Last Taken 10/03/20] levothyroxine 25 mcg tablet 50 mcg PO DAILY #90 tab 10/11/20 [Rx Last Taken Unknown] pantoprazole 40 mg PO DAILY 10/15/20 [History Last Taken Unknown] atorvastatin 20 mg tablet 20 mg PO QHS #90 tab 11/03/20 [Rx Last Taken Unknown] furosemide 40 mg tablet 40 mg PO DAILY #30 tab 11/03/20 [Rx Last Taken Unknown] lisinopril 10 mg tablet 10 mg PO DAILY #90 tab 11/03/20 [Rx Last Taken Unknown] metoprolol tartrate 25 mg tablet 12.5 mg PO BID #90 tab 11/03/20 [Rx Last Taken Unknown] potassium chloride 20 mEq tablet,extended release 20 meq PO DAILY #90 tab 11/03/20 [Rx Last Taken Unknown] hydrocodone-acetaminophen 1 tab PO Q6H PRN PRN 3 Days #10 tablet 12/29/20 [Rx Last Taken Unknown] Allergy/AdvReac Type Severity Reaction Status Date / Time Sulfa (Sulfonamide Allergy Rash Verified 12/29/20 10:45 Antibiotics) codeine AdvReac Other Verified 12/29/20 10:45 Family History (Reviewed 11/03/20 @ 15:12 by Hu Cardoza COMMUNICATIONS TECHNOLOGIST, COMMUNICATIONS TECHNOLOGIST-C) Father Asthma COPD (chronic obstructive pulmonary disease) Mother High cholesterol Surgical History History of aortic valve replacement with bioprosthetic valve (~05/02/04) History of esophagogastroduodenoscopy (EGD) History of left heart catheterization (LHC) (~10/18/20) History of open reduction and internal fixation (ORIF) procedure Hx of appendectomy Hx of colonoscopy with polypectomy Hx of inguinal hernia repair Hx of parotidectomy Hx of sigmoidoscopy S/P hemorrhoidectomy s/p urolift Social History (Reviewed 11/03/20 @ 15:12 by Hu Cardoza COMMUNICATIONS TECHNOLOGIST, COMMUNICATIONS TECHNOLOGIST-C) household members: spouse housing: house current occupational status: retired Smoking Status: Former smoker second hand exposure: No alcohol intake: current alcohol intake frequency: holidays/special occasions only substance use type: does not use caffeine: Yes Type: carbonated beverages Number of servings: 1 frequency: 3-4 times per week ROS ROS ED Constitutional Constitutional ED: Denies fever(s) Eyes Eyes: Denies change in vision ENT ENT ED: Denies rhinorrhea or sore throat Cardiovascular Cardiovascular: Denies chest pain or palpitations Respiratory/Chest Respiratory/Chest: Denies cough or dyspnea Gastrointestinal Gastrointestinal: Denies abdominal pain, diarrhea, nausea or vomiting Genitourinary Genitourinary ED: Denies dysuria Musculoskeletal Musculoskeletal: Reports back pain and other Details: Left shoulder pain ; Denies myalgias Integumentary Denies rash Neurologic Neurologic: Denies headache(s) Psychiatric Psychiatric: Denies suicidal thoughts EXAM Physical Exam Const Vital Signs: 12/29/20 10:45 Temperature 97.2 F L Temperature Source Temporal Pulse Rate 87 Respiratory Rate 16 Blood Pressure 152/117 H Blood Pressure Mean 128 Pulse Ox 99 Oxygen Delivery Method Room Air Positive well nourished and well developed General Appearance ED: well developed HEENT Reports normocephalic and head/scalp atraumatic Eyes PERRL and EOMs intact bilaterally Neck supple Neck Narrative: No midline tenderness General: Negative for tenderness Chest Wall inspection of chest normal Resp normal respiratory effort and clear to auscultation bilaterally Cardio regular rate and regular rhythm GI non-tender and non-distended Palpation: soft; Negative for guarding or rebound tenderness present no CVA tenderness Extremity normal to inspection Extremity Narrative: Left posterior shoulder tenderness to palpation with painful range of motion. Neuro oriented x3 Sensorium / Orientation: alert Psych mental status grossly normal MDM MDM MDM Narrative Medical decision making narrative: Patient was given morphine, Zofran IV. Chest x-ray and left shoulder x-ray read by myself and radiology show no acute process. CT head shows chronic changes. CT cervical spine shows multilevel degenerative changes. CT chest shows small bilateral pleural effusions with mild atelectasis. Patient is resting comfortably on reevaluation. He has a sling at home. He is given prescription for Rand. Advised follow up with his primary care physician. Advised return to ED for worsening complaints. Radiography Chest X-Ray - ED: 1 View, Read by ED Physician and Read by Radiologist Diagnostic Testing: Clinical Impression(s) from Imaging Studies Chest X-Ray 12/29/20 11:42 IMPRESSION: No acute thoracic pathology. Electronically Signed: Gianfranco Strickland MD at 12:48 EDT Tel , Service support , Chest CT 12/29/20 12:57 IMPRESSION: Small bilateral pleural effusions with mild degree of bibasilar linear atelectasis. Electronically Signed: Bam Dumont MD at 14:38 EDT , Service support , Brain CT 12/29/20 12:59 IMPRESSION: Chronic involutional changes of the brain. Tiny radiopaque foreign bodies seen in the soft tissues overlying the left mandibular ramus. Electronically Signed: Bam Dumont MD at 14:31 EDT , Service support , Cervical Spine CT 12/29/20 12:59 IMPRESSION: Multilevel degenerative changes, as described above. Electronically Signed: Bam Dumont MD at 14:33 EDT , Service support , Shoulder X-Ray 12/29/20 14:10 IMPRESSION: Degenerative changes of the acromioclavicular joint. Electronically Signed: Bam Dumont MD at 14:35 EDT , Service support , Discharge Plan Triage Chief Complaint: Fall ED Provider: Rosa Stoll Dx/Rx/DC Orders Clinical Impression: Contusion of left shoulder Instructions: ED Contusion, Upper Extremity Prescriptions: New hydrocodone-acetaminophen 5-325 mg tablet 1 tab PO Q6H PRN PRN (Reason: Pain) 3 Days Qty: 10 RF: 0 No Action escitalopram oxalate 20 mg tablet 20 mg PO DAILY RF: 0 famotidine 40 mg tablet 40 mg PO DAILY RF: 0 atorvastatin 20 mg tablet 20 mg PO QHS Qty: 90 RF: 3 furosemide 40 mg tablet 40 mg PO DAILY Qty: 30 RF: 11 lisinopril 10 mg tablet 10 mg PO DAILY Qty: 90 RF: 3 metoprolol tartrate 25 mg tablet 12.5 mg PO BID Qty: 90 RF: 3 potassium chloride 20 mEq tablet extended release 20 meq PO DAILY Qty: 90 RF: 3 finasteride 5 MG tablet 5 mg PO DAILY RF: 0 pantoprazole 40 mg Tablet,Delayed Release (Dr/Ec) 40 mg PO DAILY RF: 0 Eliquis 5 mg tablet 5 mg PO BID Qty: 180 RF: 3 Hold Instructions: Resume on 10/26/20. levothyroxine 25 mcg tablet 50 mcg PO DAILY Qty: 90 RF: 3 Primary Care Provider: Marcelino Ferguson Chi Referrals: Marcelino Ferguson Chi, MD [Primary Care Provider] - Disposition Disposition: Home, Self Care
--- NOTE | 2020-12-29 12:59 | CT_ITS ---
STUDY: CT BRAIN WITHOUT CONTRAST REASON FOR EXAM: Male, 80 years old. Left-sided head trauma due to a fall. RADIATION DOSAGE (If Supplied By Facility): CTDIvol = ( 44.99 ) mGy, DLP = ( 829.85 ) mGycm TECHNIQUE: Transaxial CT imaging of the brain was performed without administration of intravenous contrast material. Individualized dose optimization techniques were used for this CT. COMPARISON: No relevant priors. FINDINGS: Tiny radiopaque foreign body seen in the soft tissues overlying the left mandibular region. Normal calvarium. There is mild cerebral atrophy with widening of the extra-axial spaces and ventricular dilatation. There are areas of decreased attenuation within the white matter tracts of the supratentorial brain, consistent with microvascular disease changes. Small old lacunar infarct in the body of the right caudate. Normal brainstem. Normal cerebellum. There is no intracranial hemorrhage. There are no findings of an acute ischemic infarction. Normal visualized paranasal sinuses. CT/Brain/Head without Contrast IMPRESSION: Chronic involutional changes of the brain. Tiny radiopaque foreign bodies seen in the soft tissues overlying the left mandibular ramus. Electronically Signed: Bam Dumont MD at 14:31 EDT , Service support ,
--- NOTE | 2020-12-29 12:59 | CT_ITS ---
STUDY: CT CERVICAL SPINE WITHOUT CONTRAST REASON FOR EXAM: Male, 80 years old. Left facial trauma due to fall. RADIATION DOSAGE (If Supplied By Facility): CTDIvol = ( 14.28 ) mGy, DLP = ( 355.71 ) mGycm TECHNIQUE: High resolution transaxial imaging was performed without contrast material. Sagittal and coronal images were reconstructed. Individualized dose optimization techniques were used for this CT. COMPARISON: None FINDINGS: Normal craniovertebral junction. There are degenerative changes of the anterior atlantoaxial articulation. Normal odontoid process. Normal cervical lordosis. Normal vertebral bodies and posterior osseous elements. 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 No significant stenosis is seen. C3-4: Facet joint osteoarthritis and hypertrophy more prominent on the left side. Uncovertebral arthrosis. No significant stenosis is seen. C4-5: Moderate degree of disc space narrowing. Facet joint osteoarthritis and hypertrophy worse on the left side. Moderate degree of left neural foraminal stenosis. C5-6: Marked degree of this space narrowing and spondylosis. Uncovertebral arthrosis. Moderate degree of right neural foraminal stenosis. C6-7: Marked in degree of disc space narrowing. Spondylosis. Uncovertebral arthrosis. Mild degree of bilateral neural foraminal stenosis. C7-T1: Normal endplates. Normal disc height and morphology. Normal central canal and intervertebral neuroforamina. Atherosclerotic plaque formation at the origin of the internal carotid arteries bilaterally. CT/Spine Cervical without Contras IMPRESSION: Multilevel degenerative changes, as described above. Electronically Signed: Bam Dumont MD at 14:33 EDT , Service support ,
[2020-12-29] MEDS: Morphine 4 MG/ML Syringe IM (13:38)
[2020-12-29] MEDS: Ondansetron 4 MG/2 ML Vial IM (13:39)
--- NOTE | 2020-12-29 14:10 | RAD_ITS ---
STUDY: X-RAY - LEFT SHOULDER REASON FOR EXAM: Male, 80 years old. Pain following a fall. TECHNIQUE: 4 view(s) of the shoulder. COMPARISON: None. FINDINGS: Normal glenohumeral articulation. There is degenerative arthrosis of the acromioclavicular joint without inferior osseous spur formation. Normal acromion. Normal humeral head and visualized proximal humerus. The soft tissue structures are unremarkable. Normal visualized pulmonary apex. RAD/Shoulder min 2 Views IMPRESSION: Degenerative changes of the acromioclavicular joint. Electronically Signed: Bam Dumont MD at 14:35 EDT , Service support ,
[2020-12-29 15:30] VITALS: BP 129/78; PULSE 84; RESP 16; O2SAT 99
--- NOTE | 2020-12-29 15:31 | ED.RN ---
THIS NURSE REVIEWED D/C INSTRUCTIONS WITH PT AND VISITOR. BOTH VERBALIZED UNDERSTANDING OF INSTRUCTIONS. PT DENIES FURTHER NEEDS OR QUESTIONS AT THIS TIME. PT WAITING IN THE ROOM FOR PRESCRIPTIONS
== END 2020-12-29 15:32 | disposition home or self-care (01) ==
PROVIDERS: Emergency Provider Emergency Medicine; PCP Family Medicine Geriatric Medicine
DX: S40.012A Contusion of left shoulder, initial encounter (principal); F41.9 Anxiety disorder, unspecified; I25.10 Atherosclerotic heart disease of native coronary artery without angina pectoris; I15.0 Renovascular hypertension; F32.A Depression, unspecified; E78.2 Mixed hyperlipidemia; I48.0 Paroxysmal atrial fibrillation; Z79.02 Long term (current) use of antithrombotics/antiplatelets; Z79.899 Other long term (current) drug therapy; Z87.891 Personal history of nicotine dependence; W01.198A Fall on same level from slipping, tripping and stumbling with subsequent striking against other object, initial encounter; Y93.89 Activity, other specified; Y92.008 Other place in unspecified non-institutional (private) residence as the place of occurrence of the external cause; Y99.8 Other external cause status
CPT/HCPCS: 70450; 71046; 71250; 72125; 73030; 96372; 99282; J2405

== ENCOUNTER → 2021-01-22 13:50 | Outpatient (CLI) | payer MEDICARE, OTHER, SELFPAY ==
[2021-01-22 17:19] LABS: Absolute Lymphocyte Count 2.26 X10^3/uL (0.83-4.51); Absolute Neutrophil Count 4.7 X10^3/uL (2.0-7.7); Basophil# 0.02 X10^3/uL; Basophil% 0.3 % (0-1); Eosinophil# 0.07 X10^3/uL; Eosinophils% 0.9 % (0-5); Hemoglobin 13.3 g/dL (13.0-16.5); Lymphocyte # 2.26 X10^3/ul (0.83-4.51); Lymphocyte % 29.9 % (19-41); Mean Corp Hgb Conc 31.7 g/dL (32-36); Mean Corpuscular Hgb 27.3 pg (27.0-32.0); Mean Corpuscular Volume 86.1 fL (80-94); Mean Platelet Vol. 10.4 fl (6.2-12.0); Monocyte# 0.44 X10^3/uL; Monocyte% 5.8 % (0-10); NRBC Flagged by Analyzer 0 % (0-5); Neutrophil # 4.74 X10^3/uL (2.7-7.7); Neutrophil % 62.8 % (47-70); Platelet Count 256 K/mm3 (150-450); RBC Distribution Width CV 14.7 % (11.6-14.6); RBC Distribution Width SD 46.2 fl (35.1-43.9); Red Blood Count 4.88 M/mm3 (4.6-6.2); White Blood Count 7.6 K/mm3 (4.4-11.0)
[2021-01-22 17:36] LABS: Vitamin D,25 Hydroxy 27.3 ng/mL
[2021-01-22 17:47] LABS: ALB/GLOB Ratio 1.1 RATIO (0.9-2.4); AST(SGOT) 30 U/L (15-37); Alanine Aminotransfer ALT/SGPT 32 U/L (16-61); Albumin, Serum 3.8 g/dL (3.2-5.0); Alkaline Phosphatase 115 U/L (45-117); Anion Gap 2 (5-15); BUN 15 mg/dL (7-18); BUN/Creat Ratio 11.4 RATIO (10-20); Calcium,Total 8.9 mg/dL (8.5-10.1); Chloride 105 mmol/L (98-107); Creatinine, Serum 1.32 mg/dL (0.70-1.30); EST Glomerular Filtration Rate 56 mL/min (>60); Est Glom Filt Rate - Afr Amer 67 mL/min (>60); Globulin 3.4 g/dL (2.2-4.2); Glucose 80 mg/dL (74-106); Protein, Total 7.2 g/dL (6.4-8.2); Sodium Level 138 mmol/L (136-145); Thyroid Stim Hormone (TSH) 5.76 uIU/mL (0.358-3.74)
== END ==
PROVIDERS: PCP Family Medicine Geriatric Medicine; Visit Provider Family Medicine Geriatric Medicine
DX: E55.9 Vitamin D deficiency, unspecified (principal); I10 Essential (primary) hypertension
CPT/HCPCS: 36415; 80053; 82306; 84443; 85025

== ENCOUNTER 2021-03-20 11:23 | Outpatient (CLI) | payer MEDICARE, OTHER, SELFPAY ==
[2021-03-20 14:29] LABS: Thyroid Stim Hormone (TSH) 2.72 uIU/mL (0.358-3.74)
== END 2021-03-20 23:59 | disposition short-term general hospital (02) ==
LOC: POLAB3 11:25
PROVIDERS: PCP Family Medicine Geriatric Medicine; Visit Provider Family Medicine Geriatric Medicine
DX: E03.9 Hypothyroidism, unspecified (principal)
CPT/HCPCS: 36415; 84443

== ENCOUNTER 2021-05-19 14:49 | Emergency (ER) | payer MEDICARE, OTHER, SELFPAY ==
[2021-05-19 14:50] VITALS: BP 159/116; PULSE 100; RESP 18; TEMP 36.6; O2SAT 95; BMI 24.3
[2021-05-19 15:03] VITALS: BP 161/117; PULSE 100; RESP 18; O2SAT 96; BMI 24.8
--- NOTE | 2021-05-19 15:05 | EKG12_ITS ---
Test Reason : Blood Pressure : / mmHG Vent. Rate : 100 BPM Atrial Rate : 230 BPM P-R Int : 000 ms QRS Dur : 084 ms QT Int : 376 ms P-R-T Axes : 000 086 -11 degrees QTc Int : 485 ms Atrial flutter with variable A-V block Prolonged QT Abnormal ECG Confirmed by JOSEY SINGER, WALTER ([id number]), makeup editor MARIE MCCRARY ([id number]) on 05/21/2021 10:45:26 AM Referred By: JACY Confirmed By:WALTER DOWLING MD
--- NOTE | 2021-05-19 15:05 | CT_ITS ---
STUDY: CT BRAIN WITHOUT CONTRAST REASON FOR EXAM: Male, 80 years old. Weakness RADIATION DOSAGE (If Supplied By Facility): CTDIvol = ( 44.99 ) mGy, DLP = ( 796.11 ) mGycm TECHNIQUE: Transaxial CT imaging of the brain was performed without administration of intravenous contrast material. Individualized dose optimization techniques were used for this CT. COMPARISON: No relevant priors. FINDINGS: Normal soft tissue structures. Normal calvarium. There is mild cerebral atrophy with widening of the extra-axial spaces and ventricular dilatation. There are areas of decreased attenuation within the white matter tracts of the supratentorial brain, consistent with microvascular disease changes. 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 Normal brainstem. Normal cerebellum. There is no intracranial hemorrhage. There are no findings of an acute ischemic infarction. Normal visualized paranasal sinuses. CT/Brain/Head without Contrast IMPRESSION: 1. 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 2. Otherwise no acute intracranial process. Electronically Signed: Adams Bledsoe, at 15:48 EST ,
--- NOTE | 2021-05-19 15:14 | EDS_ITS ---
HPI History of Present Illness Chief Complaint: Neuro S/Sx Detail of Chief Complaint: Left arm and leg weakness Informant: patient Onset/Context/Timing Onset: Days (3 days ago) Timing: Waxes and wanes Current Severity: Mild Maximum Severity: Mild Narrative Narrative: Patient presents secondary to left-sided weakness that he first noted on Friday. He really only notices it when he is squatting down working on his lawnmower then tries to stand up. He has not noted significant weakness when standing from a chair or with ambulating. He did reportedly fall today but on further questioning he states he was squatted down working on his tractor and could not get up so he fell over onto his left side. He denies headache or vision change. No paresthesias. 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 current use of amiodarone Lumbago Mixed hyperlipidemia Nocturia Non-rheumatic mitral regurgitation Non-rheumatic tricuspid valve insufficiency Paroxysmal atrial fibrillation Pulmonary HTN Trigeminal neuralgia Home Medications finasteride 5 mg PO DAILY 06/20/18 [History Last Taken 10/03/20] escitalopram oxalate 20 mg tablet 20 mg PO DAILY tab 01/24/20 [History Last Taken Unknown] levothyroxine 25 mcg tablet 50 mcg PO DAILY #90 tab 10/11/20 [Rx Last Taken Unknown] pantoprazole 40 mg PO DAILY 10/15/20 [History Last Taken Unknown] atorvastatin 20 mg tablet 20 mg PO QHS #90 tab 11/03/20 [Rx Last Taken Unknown] potassium chloride 20 mEq tablet,extended release 20 meq PO DAILY #90 tab 11/03/20 [Rx Last Taken Unknown] hydrocodone-acetaminophen 1 tab PO Q6H PRN PRN 3 Days #10 tablet 12/29/20 [Rx Last Taken Unknown] losartan 100 mg tablet 100 mg PO DAILY 01/04/21 [History Last Taken Unknown] metoprolol tartrate 25 mg tablet 25 mg PO BID #180 tab 01/04/21 [Rx Last Taken Unknown] apixaban 5 mg tablet 5 mg PO BID #180 tab 03/14/21 [Rx Last Taken Unknown] Allergy/AdvReac Type Severity Reaction Status Date / Time Sulfa (Sulfonamide Allergy Rash Verified 05/19/21 14:50 Antibiotics) codeine AdvReac Other Verified 05/19/21 14:50 Family History Father Asthma COPD (chronic obstructive pulmonary disease) Mother High cholesterol Surgical History History of aortic valve replacement with bioprosthetic valve (~05/02/04) History of esophagogastroduodenoscopy (EGD) History of left heart catheterization (LHC) (~10/18/20) History of open reduction and internal fixation (ORIF) procedure Hx of appendectomy Hx of colonoscopy with polypectomy Hx of inguinal hernia repair Hx of parotidectomy Hx of sigmoidoscopy S/P hemorrhoidectomy s/p urolift Social History household members: spouse housing: house current occupational status: retired Smoking Status: Former smoker second hand exposure: No alcohol intake: current alcohol intake frequency: holidays/special occasions only substance use type: does not use caffeine: Yes Type: carbonated beverages Number of servings: 1 frequency: 3-4 times per week ROS ROS ED Constitutional Constitutional ED: Denies chills or fever(s) Eyes Eyes: Denies change in vision ENT ENT ED: Denies sore throat Cardiovascular Cardiovascular: Denies chest pain Respiratory/Chest Respiratory/Chest: Denies cough or dyspnea Gastrointestinal Gastrointestinal: Denies abdominal pain, nausea or vomiting Musculoskeletal Musculoskeletal: Denies back pain or neck pain Integumentary Denies rash Neurologic Neurologic: Reports weakness; Denies headache(s) or paresthesias Allergic/Immunologic Allergic/Immunologic ED: Denies urticaria EXAM Physical Exam Const Vital Signs: 05/19/21 14:50 05/19/21 15:03 Temperature 98 F Temperature Source Temporal Pulse Rate 100 100 Respiratory Rate 18 18 Blood Pressure 159/116 H 161/117 H Blood Pressure Mean 130 131 Pulse Ox 95 96 Oxygen Delivery Method Room Air Room Air Positive well nourished and well developed General Appearance ED: well developed HEENT Reports moist mucous membranes Eyes PERRL and EOMs intact bilaterally Neck no lymphadenopathy and supple Chest Wall inspection of chest normal and palpation of chest normal Resp normal respiratory effort and clear to auscultation bilaterally Cardio regular rate and regular rhythm GI non-tender Palpation: soft Extremity normal to inspection Neuro oriented x3 and no sensory deficits noted Neuro Narrative: NIH equals 0 Sensorium / Orientation: alert Motor Exam: strength 5/5 throughout Psych mental status grossly normal Skin no rashes or lesions noted MDM MDM MDM Narrative Medical decision making narrative: Lab work, EKG, head CT obtained. Lab Data Attestation: I reviewed the patient's lab results. Labs: Laboratory Results - last 24 hr 05/19/21 05/19/21 15:10 15:10 WBC 7.3 RBC 5.15 Hgb 14.7 Hct 43.3 MCV 84.1 MCH 28.5 MCHC 33.9 RDW Std Deviation 42.8 RDW Coeff of Yovana 14.1 Plt Count 219 MPV 10.0 Immature Gran % (Auto) 0.500 Neut % (Auto) 59.9 Lymph % (Auto) 30.8 Waldo % (Auto) 7.8 Eos % (Auto) 0.7 Baso % (Auto) 0.3 Absolute Neuts (auto) 4.4 Absolute Lymphs (auto) 2.26 Nucleated RBC % 0 Sodium 137 Potassium 4.0 Chloride 105 Carbon Dioxide 29.0 Anion Gap 3 L BUN 15 Creatinine 1.30 Estim Creat Clear Calc 43.08 Est GFR (MDRD) Af Amer 68 Est GFR (MDRD) Non-Af 57 L BUN/Creatinine Ratio 11.5 Glucose 100 Calcium 9.5 Radiography Diagnostic Testing: Clinical Impression(s) from Imaging Studies Brain CT 05/19/21 15:05 IMPRESSION: 1. 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 2. Otherwise no acute intracranial process. Electronically Signed: Adams Bledsoe, at 15:48 EST , EKG Initial EKG: Attestation: I personally reviewed and interpreted this EKG as follows: Interpretation: Atrial Flutter (Atrial flutter with ventricular rate of 100 bpm. No acute ischemia.) Treatment and Re-Evaluation Comments:: Patient has history of paroxysmal A. fib and flutter. Rate is currently controlled and he is on anticoagulant with Eliquis. Lab work unremarkable. CT reveals right basal ganglia lacunar infarct that is likely chronic. Patient's NIH score remains 0. I spoke with the patient's primary care physician, Dr. Ferguson. He would like to see the patient in the office on Friday. I did give patient and at bedside strict return instructions if he has any worsening of symptoms. Discharge Plan Triage Chief Complaint: Neuro S/Sx ED Provider: Marya Jones Dx/Rx/DC Orders Clinical Impression: Brain TIA Instructions: ED TIA: Transient Ischemic Attack Prescriptions: No Action escitalopram oxalate 20 mg tablet 20 mg PO DAILY RF: 0 atorvastatin 20 mg tablet 20 mg PO QHS Qty: 90 RF: 3 potassium chloride 20 mEq tablet extended release 20 meq PO DAILY Qty: 90 RF: 3 losartan 100 mg tablet 100 mg PO DAILY RF: 0 metoprolol tartrate 25 mg tablet 25 mg PO BID Qty: 180 RF: 3 finasteride 5 MG tablet 5 mg PO DAILY RF: 0 pantoprazole 40 mg Tablet,Delayed Release (Dr/Ec) 40 mg PO DAILY RF: 0 hydrocodone-acetaminophen 5-325 mg tablet 1 tab PO Q6H PRN PRN (Reason: Pain) 3 Days Qty: 10 RF: 0 levothyroxine 25 mcg tablet 50 mcg PO DAILY Qty: 90 RF: 3 Eliquis 5 mg tablet 5 mg PO BID Qty: 180 RF: 3 Hold Instructions: Resume on 10/26/20. Primary Care Provider: Marcelino Ferguson Chi Referrals: Marcelino Ferguson Chi, MD [Primary Care Provider] - 2 Days Disposition Disposition: Home, Self Care
[2021-05-19 15:23] LABS: Absolute Lymphocyte Count 2.26 X10^3/uL (0.83-4.51); Absolute Neutrophil Count 4.4 X10^3/uL (2.0-7.7); Basophil# 0.02 X10^3/uL; Basophil% 0.3 % (0-1); Eosinophil# 0.05 X10^3/uL; Eosinophils% 0.7 % (0-5); Hematocrit 43.3 % (40-54); Hemoglobin 14.7 g/dL (13.0-16.5); Lymphocyte # 2.26 X10^3/ul (0.83-4.51); Lymphocyte % 30.8 % (19-41); Mean Corp Hgb Conc 33.9 g/dL (32-36); Mean Corpuscular Hgb 28.5 pg (27.0-32.0); Mean Corpuscular Volume 84.1 fL (80-94); Monocyte# 0.57 X10^3/uL; Monocyte% 7.8 % (0-10); NRBC Flagged by Analyzer 0 % (0-5); Neutrophil # 4.39 X10^3/uL (2.7-7.7); Neutrophil % 59.9 % (47-70); Platelet Count 219 K/mm3 (150-450); RBC Distribution Width CV 14.1 % (11.6-14.6); RBC Distribution Width SD 42.8 fl (35.1-43.9); Red Blood Count 5.15 M/mm3 (4.6-6.2); White Blood Count 7.3 K/mm3 (4.4-11.0)
[2021-05-19 15:35] LABS: Anion Gap 3 (5-15); BUN 15 mg/dL (7-18); BUN/Creat Ratio 11.5 RATIO (10-20); Calcium,Total 9.5 mg/dL (8.5-10.1); Chloride 105 mmol/L (98-107); EST Glomerular Filtration Rate 57 mL/min (>60); Est Glom Filt Rate - Afr Amer 68 mL/min (>60); Estimated Creatinine Clearance 43.08 ml/min; Glucose 100 mg/dL (74-106); Sodium Level 137 mmol/L (136-145)
[2021-05-19 16:37] VITALS: BP 160/84; PULSE 98; RESP 14; TEMP 36.4; O2SAT 97
== END 2021-05-19 16:39 | disposition home or self-care (01) ==
PROVIDERS: Emergency Provider Emergency Medicine; PCP Family Medicine Geriatric Medicine; Visit Provider Emergency Medicine
DX: G45.9 Transient cerebral ischemic attack, unspecified (principal); I27.20 Pulmonary hypertension, unspecified; I48.0 Paroxysmal atrial fibrillation; I25.10 Atherosclerotic heart disease of native coronary artery without angina pectoris; E78.2 Mixed hyperlipidemia; Z87.891 Personal history of nicotine dependence; F41.9 Anxiety disorder, unspecified; N40.0 Benign prostatic hyperplasia without lower urinary tract symptoms; F32.A Depression, unspecified; Z87.19 Personal history of other diseases of the digestive system; Z95.2 Presence of prosthetic heart valve; G50.0 Trigeminal neuralgia; Z79.01 Long term (current) use of anticoagulants; Z79.899 Other long term (current) drug therapy; I34.0 Nonrheumatic mitral (valve) insufficiency
CPT/HCPCS: 70450; 80048; 85025; 93005; 99284

== ENCOUNTER 2021-05-29 10:34 | Outpatient (CLI) | payer MEDICARE, OTHER, SELFPAY ==
--- NOTE | 2021-05-29 10:47 | ECHOCS_ITS ---
Reason For Study: A fib Procedure This was a 2D Doppler, Color Flow transthoracic echocardiogram. The study was technically difficult. Contrast injection was performed. Exam performed in department. Left Ventricle Normal LV size. Mild segmental systolic dysfunction (see wall motion). The estimated ejection fraction is 40 %. Unable to assess diastolic dysfunction. Mid-Anterior : Hypokinetic. Mid-Inferior: Hypokinetic. Mid-inferoseptal : Hypokinetic. Mid-anteroseptal : Hypokinetic. Anterior [place] : Hypokinetic. Inferior [place] : Akinetic. Lateral [place] : Hypokinetic. Septal [place] : Akinetic. Right Ventricle Normal RV size. Normal systolic function. Atria The left atrium is moderately enlarged. The right atrium is moderately enlarged. No doppler evidence for ASD. Bubble contrast study negative for right to left interatrial shunt. Mitral Valve There is no mitral annular calcification. Mild diffuse mitral valve thickening. Mild-Moderate (1-2+) eccentric mitral valve insufficiency. Tricuspid Valve Normal tricuspid valve. Moderate (2+) tricuspid valve insufficiency. Right ventricular systolic pressure estimated to be 28 mmHg. Aortic Valve Stable appearing bioprosthetic aortic valve apparatus. Pulmonic Valve The pulmonic valve is not well visualized. Mild pulmonic valve insufficiency identified. Great Vessels Normal sized aortic root. Pericardium/Pleural No pericardial effusion. Medication 22 gauge I.V. with prn adaptor inserted into right arm. Performed a rapid injection of agitated mix of 9 cc saline and 1cc air to assess for atrial septal defect. Diluted definity 3ml given slow IV push to enhance endocardial definition. MMode/2D Measurements & Calculations LVIDd: 3.6 cm IVSd: 1.2 cm LVOT diam: 2.1 cm LVIDs: 2.7 cm LVPWd: 1.3 cm RVDd: 3.6 cm FS: 25.9 % LVOT area: 3.3 cm2 Ao root diam: 3.1 cm LAV(MOD-bp): 88.8 ml LVAd ap4: 26.2 cm2 LAV(MOD-bp) Indexed: 48.7 ml/m2 LVLd ap4: 7.7 cm LAV(MOD-sp2): 94.8 ml EDV(MOD-sp4): 73.5 ml LAV(MOD-sp4): 82.5 ml EDV(sp4-el): 76.1 ml LVAs ap4: 18.5 cm2 LVLs ap4: 7.3 cm ESV(MOD-sp4): 38.6 ml ESV(sp4-el): 40.2 ml EF(MOD-sp4): 47.5 % EF(sp4-el): 47.1 % LVAd ap2: 26.0 cm2 SV(MOD-sp4): 34.9 ml SV(MOD-sp2): 20.2 ml LVLd ap2: 7.6 cm EDV(MOD-sp2): 72.3 ml EDV(sp2-el): 75.0 ml LVAs ap2: 21.5 cm2 LVLs ap2: 7.5 cm ESV(MOD-sp2): 52.0 ml ESV(sp2-el): 52.5 ml EF(MOD-sp2): 28.0 % SV(sp4-el): 35.8 ml LA dimension(2D): 5.0 cm LA A4 area: 25.2 cm2 RA A4 area: 25.1 cm2 Doppler Measurements & Calculations MV E max arnoldo: 75.8 cm/sec Ao V2 max: 171.5 cm/sec LV V1 max: 131.5 cm/sec Ao max P.8 mmHg LV V1 max P.9 mmHg Ao V2 mean: 124.2 cm/sec LV V1 mean P.0 mmHg Ao mean P.8 mmHg LV V1 mean: 94.7 cm/sec Ao V2 VTI: 29.0 cm LV V1 VTI: 20.6 cm RENÉ(I,D): 2.4 cm2 RENÉ(V,D): 2.5 cm2 SV(LVOT): 68.4 ml PA V2 max: 86.7 cm/sec TR max arnoldo: 250.9 cm/sec TR max P.3 mmHg ECHO/Echo Complete W/ Contrast Interpretation Summary The study was technically difficult. Contrast injection was performed. Mild segmental systolic dysfunction (see wall motion). The estimated ejection fraction is 40 %. The left atrium is moderately enlarged. The right atrium is moderately enlarged. Mild diffuse mitral valve thickening. Mild-Moderate (1-2+) eccentric mitral valve insufficiency. Moderate (2+) tricuspid valve insufficiency. Stable appearing bioprosthetic aortic valve apparatus. Mild pulmonic valve insufficiency identified. Right ventricular systolic pressure estimated to be 28 mmHg. Unable to assess diastolic dysfunction. Ordering Physician: Adama Jerry Referring Physician: Marcelino Ferguson Chi Performed By: Hannah Restrepo [facility] [place]
[2021-05-29 11:53] LABS: AST(SGOT) 23 U/L (15-37); Alanine Aminotransfer ALT/SGPT 26 U/L (16-61); Alkaline Phosphatase 102 U/L (45-117); Bilirubin, Direct 0.17 mg/dL (0.00-0.30); Cholesterol 151 mg/dL (200); Globulin 2.9 g/dL (2.2-4.2); High Density Lipoprotein 43 mg/dL; Protein, Total 6.9 g/dL (6.4-8.2); Triglycerides 206 mg/dL; Very Low Density Lipoprotein 41 mg/dL (5-40)
== END 2021-05-29 23:59 | disposition home or self-care (01) ==
LOC: CVS 10:35
PROVIDERS: PCP Family Medicine Geriatric Medicine; Referring Provider Internal Medicine Cardiovascular Disease; Visit Provider Internal Medicine Cardiovascular Disease
DX: I25.10 Atherosclerotic heart disease of native coronary artery without angina pectoris (principal); E78.00 Pure hypercholesterolemia, unspecified
CPT/HCPCS: 36415; 80061; 80076; 93306; Q9957; A4216; C8929

== ENCOUNTER 2021-05-30 07:03 | Outpatient (CLI) | payer MEDICARE, OTHER, SELFPAY ==
--- NOTE | 2021-05-30 07:18 | MRI_ITS ---
STUDY: MRI BRAIN WITHOUT CONTRAST REASON FOR EXAM: Male, 80 years old. ISCHEMIC STROKE, left arm/leg weakness x 2 wks TECHNIQUE: Standardized multiplanar fat and water weighted pulse sequences were obtained. COMPARISON: 05/19/2021 FINDINGS: There is mild cerebral atrophy with widening of the extra-axial spaces and ventricular dilatation. There are a limited number of small white matter hyperintensities, distributed throughout the deep white matter tracts of the cerebral hemispheres, consistent with mild chronic white matter ischemic changes. There is no evidence for recent intracranial ischemia or other cause of cytotoxic edema on diffusion weighted imaging (DWI). Normal T2* images of the brain without demonstrated susceptibility artifact. There is no demonstrated hemosiderin stain. Normal bilateral basal ganglia. Normal thalami. There is no extra-axial fluid accumulation. Normal flow voids within the major intracranial circulation suggesting patency by spin echo criteria. Normal sella turcica, pituitary gland, infundibular stalk, optic chiasm and hypothalamus. Normal tectal plate and pineal gland. Normal midbrain, sony and medulla. Normal cerebellum. Normal basal cisterns. Normal bilateral temporal bones. Normal bilateral internal auditory canals. No demonstrated orbital abnormality, within the constraints of a routine brain study. Normal visualized paranasal sinuses. Normal calvarium and skull base. Normal visualized soft tissue structures. Normal visualized upper cervical spine. MRI/Brain without Contrast IMPRESSION: Involutional changes of the brain, as described above. No acute infarct. Electronically Signed: Lucio Granger MD at 9:22 EDT ,
--- NOTE | 2021-05-30 07:18 | MRI_ITS ---
STUDY: MRA NECK WITH AND WITHOUT CONTRAST REASON FOR EXAM: Male, 80 years old. ISCHEMIC STROKE, left arm/leg weakness x 2 wks TECHNIQUE: 3-D [id number] (TOF) imaging was performed in an 1.5 T MRI scanner. 15ml IV Dotarem was administered for the contrast enhanced images. COMPARISON: MRI of the brain dated May 30, 2021 FINDINGS: RIGHT CAROTID ARTERIES: Normal right common carotid artery (CCA). Normal right common carotid bulb. There is mild atherosclerotic plaque formation of the origin of the right internal carotid artery with less than 25 % cross sectional diameter stenosis. Normal visualized cervical portion of the right internal carotid artery. Normal origin of the right external carotid artery (ECA). LEFT CAROTID ARTERIES: Normal left common carotid artery (CCA). Normal left common carotid bulb. Normal origin of the left internal carotid (ICA) artery without a hemodynamically significant stenosis. There is atherosclerotic tortuous elongation of the cervical portion of the left internal carotid artery. Normal origin of the left external carotid artery (ECA). VERTEBRAL ARTERIES: Normal antegrade flow within the bilateral vertebral artery without a hemodynamically significant stenosis. MRI/MRA Neck WITH and W/O Contrast IMPRESSION: 1. No occlusion or hemodynamically significant stenosis bilateral cervical carotid and vertebral arteries. Electronically Signed: Christopher Rodriguez MD at 13:25 EDT ,
--- NOTE | 2021-05-30 07:18 | MRI_ITS ---
STUDY: MRA OF THE HEAD WITHOUT CONTRAST REASON FOR EXAM: Male, 80 years old. ISCHEMIC STROKE, left arm/leg weakness x 2 wks TECHNIQUE: 3-D [id number] (TOF) imaging was performed with MIPs. The study was performed unenhanced. COMPARISON: None. FINDINGS: Normal bilateral petrous carotid arteries. Normal right cavernous carotid artery with a normal supraclinoid bifurcation. Normal left cavernous carotid artery with a normal supraclinoid bifurcation. Normal right A1 segments of the anterior cerebral artery. Normal left A1 segments of the anterior cerebral artery. Normal intact anterior communicating artery (ACOM). Normal bilateral A2 segments of the anterior cerebral arteries. Normal right M1 and M2 segments of the middle cerebral arteries, with a normal M1 bifurcation. Normal left M1 and M2 segments of the middle cerebral arteries, with a normal M1 bifurcation. Normal right posterior communicating artery (PCOM). Normal left posterior communicating artery (PCOM). Normal bilateral vertebral arteries. Normal basilar artery with a normal basilar bifurcation. The visualized bilateral superior cerebellar (SCA) arteries are normal. Normal bilateral P1, P2 and visualized P3 segments of the posterior cerebral arteries. There is no demonstrated aneurysm of the [place]. There is no major vessel occlusion or hemodynamically significant stenosis. There is no demonstrated abnormality of the visualized brain. MRI/MRA Head ONLY without Contrast IMPRESSION: Normal MRA of the head Electronically Signed: Luico Granger MD at 9:23 EDT ,
== END 2021-05-30 23:59 | disposition home or self-care (01) ==
PROVIDERS: PCP Family Medicine Geriatric Medicine; Referring Provider Family Medicine Geriatric Medicine; Visit Provider Family Medicine Geriatric Medicine
DX: I63.50 Cerebral infarction due to unspecified occlusion or stenosis of unspecified cerebral artery (principal)
CPT/HCPCS: 70544; 70549; 70551; A9575; A4216

== ENCOUNTER → 2021-07-23 | Outpatient (CLI) | payer MEDICARE, OTHER, SELFPAY ==
[2021-07-23 17:10] LABS: Absolute Lymphocyte Count 1.33 X10^3/uL (0.83-4.51); Absolute Neutrophil Count 5.3 X10^3/uL (2.0-7.7); Basophil# 0.03 X10^3/uL; Basophil% 0.4 % (0-1); Eosinophil# 0.08 X10^3/uL; Eosinophils% 1.1 % (0-5); Hematocrit 34.4 % (40-54); Hemoglobin 11.5 g/dL (13.0-16.5); Lymphocyte # 1.33 X10^3/ul (0.83-4.51); Lymphocyte % 18.2 % (19-41); Mean Corp Hgb Conc 33.4 g/dL (32-36); Mean Corpuscular Hgb 28.8 pg (27.0-32.0); Mean Platelet Vol. 11.1 fl (6.2-12.0); Monocyte# 0.53 X10^3/uL; Monocyte% 7.3 % (0-10); NRBC Flagged by Analyzer 0 % (0-5); Neutrophil # 5.29 X10^3/uL (2.7-7.7); Neutrophil % 72.5 % (47-70); Platelet Count 199 K/mm3 (150-450); RBC Distribution Width CV 13.6 % (11.6-14.6); RBC Distribution Width SD 42.1 fl (35.1-43.9); White Blood Count 7.3 K/mm3 (4.4-11.0)
[2021-07-23 17:32] LABS: Vitamin D,25 Hydroxy 27.9 ng/mL
[2021-07-23 17:46] LABS: ALB/GLOB Ratio 1.2 RATIO (0.9-2.4); AST(SGOT) 22 U/L (15-37); Alanine Aminotransfer ALT/SGPT 28 U/L (16-61); Albumin, Serum 3.5 g/dL (3.2-5.0); Alkaline Phosphatase 97 U/L (45-117); Anion Gap 7 (5-15); BUN 18 mg/dL (7-18); BUN/Creat Ratio 12.6 RATIO (10-20); Calcium,Total 8.4 mg/dL (8.5-10.1); Chloride 105 mmol/L (98-107); Creatinine, Serum 1.43 mg/dL (0.70-1.30); EST Glomerular Filtration Rate 51 mL/min (>60); Est Glom Filt Rate - Afr Amer 61 mL/min (>60); Globulin 2.9 g/dL (2.2-4.2); Glucose 66 mg/dL (74-106); Protein, Total 6.4 g/dL (6.4-8.2); Sodium Level 138 mmol/L (136-145); Thyroid Stim Hormone (TSH) 4.26 uIU/mL (0.358-3.74)
== END | disposition home or self-care (01) ==
LOC: POLAB3 13:03
PROVIDERS: PCP Family Medicine Geriatric Medicine; Visit Provider Family Medicine Geriatric Medicine
DX: I10 Essential (primary) hypertension (principal); E55.9 Vitamin D deficiency, unspecified
CPT/HCPCS: 36415; 80053; 82306; 84443; 85025

== ENCOUNTER → 2021-08-09 | Outpatient (CLI) | payer MEDICARE, OTHER, SELFPAY ==
[2021-08-09 11:49] LABS: Hematocrit 38.1 % (40-54); Hemoglobin 12.6 g/dL (13.0-16.5); Mean Corp Hgb Conc 33.1 g/dL (32-36); Mean Corpuscular Hgb 28.6 pg (27.0-32.0); Mean Corpuscular Volume 86.6 fL (80-94); Mean Platelet Vol. 10.2 fl (6.2-12.0); Platelet Count 256 K/mm3 (150-450); RBC Distribution Width CV 13.8 % (11.6-14.6); RBC Distribution Width SD 43.4 fl (35.1-43.9); White Blood Count 5.8 K/mm3 (4.4-11.0)
[2021-08-09 12:30] LABS: Vitamin B12 333 pg/mL (211-911)
[2021-08-09 12:37] LABS: Magnesium 2.2 mg/dL (1.6-2.6)
[2021-08-17 08:33] LABS: Vitamin B1, Thiamine 98.2 nmol/L (66.5-200.0)
== END | disposition home or self-care (01) ==
LOC: MTLAB 10:11
PROVIDERS: PCP Family Medicine Geriatric Medicine; Referring Provider Psychiatry & Neurology Neurology; Visit Provider Psychiatry & Neurology Neurology
DX: I48.0 Paroxysmal atrial fibrillation (principal); R53.83 Other fatigue; Z86.79 Personal history of other diseases of the circulatory system
CPT/HCPCS: 36415; 82607; 82746; 83735; 84425; 85027

== ENCOUNTER → 2021-08-24 | Outpatient (CLI) | payer MEDICARE, OTHER, SELFPAY ==
--- NOTE | 2021-08-24 10:42 | MRI_ITS ---
STUDY: MRI LUMBAR SPINE WITH AND WITHOUT CONTRAST REASON FOR EXAM: Male, 80 years old. New left leg weakness/tingling; prior lumbar surge TECHNIQUE: Standardized fat and water weighted pulse sequences were obtained in the sagittal and axial planes. IV 14cc clariscan was administered for the contrast portion of the examination. COMPARISON: None FINDINGS: T12-L1: Normal endplates. Normal disc height, hydration and morphology. Normal bilateral facet joints. Normal central canal and bilateral lateral recesses. Normal bilateral intervertebral neural foramina. Normal lumbar lordosis. There is no substantial scoliosis. Normal conus medullaris that terminates at the T12/L1. L1-2: Normal endplates. Normal disc height, hydration and morphology. Normal bilateral facet joints. Normal central canal and bilateral lateral recesses. Normal bilateral intervertebral neural foramina. L2-3: Normal endplates. Normal disc height, hydration and morphology. Normal bilateral facet joints. Normal central canal and bilateral lateral recesses. Normal bilateral intervertebral neural foramina. L3-4: Disc desiccation but no disc protrusion, spinal stenosis, or neural foraminal stenosis. L4-5: Moderate right facet hypertrophy and mild left facet hypertrophy with ligament flavum hypertrophy. Moderate broad disc protrusion produces moderate spinal stenosis with moderate bilateral lateral recess stenosis with abutment of the L5 nerve roots bilaterally, moderate left neural foraminal stenosis with abutment of the left L4 nerve root laterally and severe right neural foraminal stenosis with effacement of the right L4 nerve root laterally. L5-S1: Mild bilateral facet hypertrophy and ligament flavum hypertrophy. Moderate broad disc protrusion produces moderate spinal stenosis with moderate bilateral lateral recess stenosis with abutment of the S1 nerve roots bilaterally and moderate bilateral neural foraminal stenosis with abutment of the L5 nerve roots bilaterally. Normal visualized sacral ala. Normal visualized paraspinous soft tissue structures. There is no demonstrated abnormal enhancement. MRI/Spine Lumbar W/WO Contrast IMPRESSION: Multilevel degenerative changes, as described above. Electronically Signed: Lucio Granger MD at 8:01 EDT ,
== END | disposition home or self-care (01) ==
LOC: MRI 10:42
PROVIDERS: PCP Family Medicine Geriatric Medicine; Referring Provider Psychiatry & Neurology Neurology; Visit Provider Psychiatry & Neurology Neurology
DX: M54.16 Radiculopathy, lumbar region (principal); M54.50 Low back pain, unspecified; R29.898 Other symptoms and signs involving the musculoskeletal system
CPT/HCPCS: 72158; A9575

== ENCOUNTER → 2021-08-27 | Outpatient (CLI) | payer MEDICARE, OTHER, SELFPAY | END | disposition home or self-care (01) | LOC: SL 20:04 | PROVIDERS: PCP Family Medicine Geriatric Medicine; Referring Provider Psychiatry & Neurology Neurology; Visit Provider Psychiatry & Neurology Neurology | DX: G47.10 Hypersomnia, unspecified (principal); G47.30 Sleep apnea, unspecified | CPT/HCPCS: 95810 ==

== ENCOUNTER → 2021-09-05 | Outpatient (CLI) | payer MEDICARE, OTHER, SELFPAY ==
[2021-09-05 13:02] LABS: AST(SGOT) 33 U/L (15-37); Alanine Aminotransfer ALT/SGPT 42 U/L (16-61); Albumin, Serum 3.8 g/dL (3.2-5.0); Alkaline Phosphatase 84 U/L (45-117); Bilirubin, Direct 0.19 mg/dL (0.00-0.30); Cholesterol 170 mg/dL (200); Globulin 2.8 g/dL (2.2-4.2); High Density Lipoprotein 54 mg/dL; Protein, Total 6.6 g/dL (6.4-8.2); Triglycerides 153 mg/dL; Very Low Density Lipoprotein 31 mg/dL (5-40)
[2021-09-05 13:03] LABS: Thyroid Stim Hormone (TSH) 2.31 uIU/mL (0.358-3.74)
== END | disposition home or self-care (01) ==
LOC: POLAB3 09:06
PROVIDERS: Nurse Practitioner Family; PCP Family Medicine Geriatric Medicine; Visit Provider Family Medicine Geriatric Medicine
DX: E03.9 Hypothyroidism, unspecified (principal)
CPT/HCPCS: 36415; 80061; 80076; 84443

== ENCOUNTER 2021-09-14 08:00 | Outpatient (RCR) | payer MEDICARE, OTHER, SELFPAY ==
--- NOTE | 2021-08-20 12:01 | HP.PTEVAL ---
Patient's Visit Information SUSAN CENTENO is a 80 year old M referred to Physical Therapy by Dr. Jimenez Miller MD with a diagnosis of LOW BACK PAIN ,RADICULOPATHY ,LUMBAR. Date of Evaluation: 08/20/21 Physical Therapist: Darrian Doty, PT, Cert MDT, OCS - Visit Plan Frequency: 2x /Week Duration: 4 Weeks Plan: PT INTERVETIONS LUMBAR FLEXION ,LE FLEXABILITY,DLS ,POSTURAL EX'S AND MODALTIES NEEDED - Subjective This 80 y/o male presents to physical therapy with lumbar pain with radicular symptoms right lower leg. Patient has h/o 2 lumbar surgery 10 years and year later with lumbar discectomy/laminectomy. In the past DR wanted a 3rd surgery which has consisted of fusion. Seen DR Ferguson who recommended neurologist due r/o stroke due to left leg giving way . Patient had MRI /CATSCAN of brain which was negative for CVA. Patient plan to have MRI of lumbar thus Friday. Pain located right LS and worse pain right lower leg. Denies paresthesia/tingling. Coughing/sneezing-. Bowel/bladder -. Aggravating factors walking ,standing 10 with leg pain. Alleviating factors flexion type exercises. No pain MEDS. No h/o of trauma. Patient pain affects QOL ,function and ADLS'. Patient did have valve replacement last year. VOCATION: retired. SOCAIL: - Pain Right Back Pain Intensity (Out of 10): 5 Pain Intensity Range: 10 Right Lower Extremity Pain Intensity (Out of 10): 10 Pain Intensity Range: 10 Comment: RIGHT LATERAL LOWER LEG - Objective POSTURE: mild forward posture ,reduce lordosis. GAIT: reciprocal pattern. NUERO: denies paresthesia/tingling ,reflexes L3-4,L4-5,L5-S1 2/3. SYMMTRIES: align. LUMBAR ROM: flexion min/mod loss, extension mod loss ,side glides mod loss. MMT: WFL 4/5 quads/hams/hip/ankle 4/5. FLEXABLITY: hamstrings mod tight - Special Tests L/S Slump test left side: Negative L/S Slump test right side: Negative L/S Left Straight Leg Raise: Negative L/S Right Straight Leg Raise: Negative Lumbar Standing: Flexion - Mechanical Response: No effect Lumbar Standing: Flexion - Symptoms During Testing: No effect Lumbar Standing: Flexion - Symptoms After Testing: No effect Lumbar Standing: Extension - Mechanical Response: No effect Lumbar Standing: Extension - Symptoms During Testing: Increases Lumbar Standing: Extension - Symptoms After Testing: No better Lumbar Standing: Right Side Glides - Mechanical Response: No effect Lumbar Standing: Right Side [place] - Symptoms During Testing: No effect Lumbar Standing: Right Side [place] - Symptoms After Testing: No effect Lumbar Standing: Left Side [place] - Mechanical Response: No effect Lumbar Standing: Left Side [place] - Symptoms During Testing: No effect Lumbar Standing: Left Side [place] - Symptoms After Testing: No effect - Balance/Special Test Scores Oswestry Low Back Score: 18 - Goals Goal 1:: I with HEP for lumbar Goal Time Frame: 4-6 Weeks Goal 2:: Patient to demonstrate 50% improvement with decrease pain and improved function Goal Time Frame: 4-6 Weeks Goal 3:: Patient to improve lumbar ROM for function of recovery Goal Time Frame: 4-6 Weeks Goal 4:: Patient to be able to stand/ walk > 30 mins to improve function Goal Time Frame: 4-6 Weeks Goal 5:: Patient to improve back oswestry by 5 points to improve QOL Goal Time Frame: 4-6 Weeks - Rehabilitation Potential Physical Therapy Diagnosis: Patient has lumbar radiculopathy worse with standing walking ,standing better with flexion impairs walking and standing along with h/o 2 lumbar surgeries thus benefit from skilled PT Rehabilitation Potential: Good - Anticipated Interventions Patient/Client Instruction: Educate patient on: Condition For the Purpose of:: To decrease pain, To increase ROM, To improve muscle performance and motor function, To improve ability to perform ADL's, To increase tolerance to activity/condition/position, To improve ability of physical actions for home/community/work/leisure, To improve health of tissue, To decrease soft tissue restriction, To increase flexibility/ROM Therapeutic Exercise to Include: Strength training, Power training, Body mechanics, Postural training, Flexibilty training, Active ROM, Dynamic Lumbar Stabilization For the Purpose of:: To decrease pain, To increase ROM, To improve muscle performance and motor function, To increase tolerance to activity/condition/position, To improve performance and independence with ADL's, To improve ability of physical actions for home/community/work/leisure, To improve health of tissue, To decrease soft tissue restriction, To increase flexibility/ROM TENS: Yes IF ES: Yes Cryotherapy (ice pack, ice massage): Yes Thermo therapy (hot pack): Yes Ultrasound (thermal/non thermal): Yes For the Purpose of:: To decrease pain, To increase ROM, To improve nutrient delivery to tissue, To increase oxygenation perfusion, To improve health of tissue, To decrease soft tissue restriction Thank you for the opportunity to evaluate your patient. For Medicare and Medicare HMO plans, please review the plan of care and approve it. It will need to be FAXED BACK to us at [phone] for Medicare purposes. For Medicare only, by signing this I certify the plan of care. Please let me know if there are questions or concerns regarding this plan of care. Physician Signature: Date:
--- NOTE | 2021-09-14 09:58 | HP.PTDCSUM ---
It has been my pleasure to treat SUSAN CENTENO referred by Dr. Jimenez Miller MD, with the diagnosis of LOW BACK PAIN ,RADICULOPATHY ,LUMBAR for a total of 9 visit(s). Discharge Date: 09/14/21 Please see the following information for a summary of their discharge status. Subjective: Ready d/c Right Back Pain Intensity (Out of 10): 0 Right Lower Extremity Pain Intensity (Out of 10): 1 % Improvement: 85 Objective/Function: POSTURE:WFL. MMT: QUADS/HAMS/HIP 4/5 ,ANKLE 5/5. LUMBAR ROM: flexion min loss ,extension min loss. FLEXABLITY: hams min tight Goal 1:: I with HEP for lumbar Goal Progress: Goal Met Goal 2:: Patient to demonstrate 50% improvement with decrease pain and improved function Goal Progress: Goal Met Goal 3:: Patient to improve lumbar ROM for function of recovery Goal Progress: Goal Met Goal 4:: Patient to be able to stand/ walk > 30 mins to improve function Goal Progress: Goal Met Goal 5:: Patient to improve back oswestry by 5 points to improve QOL Goal Progress: Goal Met Plan: D/C TO HEP Discharge Comments: hep If there are questions or concerns regarding this patient's physical therapy, please feel free to call me at [phone]. Thank you for the referral of this patient. Sincerely, Darrian Doty PT, Cert MDT, OCS Balance/Gait/Functional tests - Balance/Special Test Scores Oswestry Low Back Score: 8
== END 2021-09-14 19:00 | disposition home or self-care (01) ==
LOC: PT 08:00
PROVIDERS: PCP Family Medicine Geriatric Medicine; Referring Provider Psychiatry & Neurology Neurology; Visit Provider Psychiatry & Neurology Neurology
DX: M54.16 Radiculopathy, lumbar region
CPT/HCPCS: 97110; 97162

== ENCOUNTER → 2021-10-18 | Outpatient (CLI) | payer MEDICARE, OTHER, SELFPAY ==
--- NOTE | 2021-10-18 23:30 | SLEEP ---
Junior given to pt @ [id number]. Unable to document in the MAR at this time.
== END | disposition home or self-care (01) ==
LOC: SL 21:36
PROVIDERS: PCP Family Medicine Geriatric Medicine; Referring Provider Nurse Practitioner Acute Care; Visit Provider Nurse Practitioner Acute Care
DX: G47.33 Obstructive sleep apnea (adult) (pediatric) (principal)
CPT/HCPCS: 95810; 95811

== ENCOUNTER → 2021-11-05 | Outpatient (CLI) | payer MEDICARE, OTHER, SELFPAY ==
[2021-11-05 11:56] LABS: PSA,Total- Diagnostic 4.83 ng/mL (0.0-4.0)
== END | disposition home or self-care (01) ==
LOC: LAB 10:44
PROVIDERS: PCP Family Medicine Geriatric Medicine; Referring Provider Urology; Visit Provider Urology
DX: R97.20 Elevated prostate specific antigen [PSA] (principal)
CPT/HCPCS: 36415; 84153

== ENCOUNTER 2022-01-25 09:27 | Observation (INO) | payer MEDICARE, OTHER, SELFPAY ==
[2022-01-23 10:27] LABS: Hematocrit 42.4 % (40-54); Hemoglobin 14.1 g/dL (13.0-16.5); Mean Corp Hgb Conc 33.3 g/dL (32-36); Mean Corpuscular Hgb 29.5 pg (27.0-32.0); Mean Corpuscular Volume 88.7 fL (80-94); Mean Platelet Vol. 9.8 fl (6.2-12.0); Platelet Count 218 K/mm3 (150-450); RBC Distribution Width CV 12.5 % (11.6-14.6); RBC Distribution Width SD 40.9 fl (35.1-43.9); Red Blood Count 4.78 M/mm3 (4.6-6.2); White Blood Count 6.8 K/mm3 (4.4-11.0)
[2022-01-23 11:04] LABS: Anion Gap 5 (5-15); BUN 20 mg/dL (7-18); BUN/Creat Ratio 14.6 RATIO (10-20); Calcium,Total 8.5 mg/dL (8.5-10.1); Chloride 105 mmol/L (98-107); Creatinine, Serum 1.37 mg/dL (0.70-1.30); EST Glomerular Filtration Rate 53 mL/min (>60); Est Glom Filt Rate - Afr Amer 64 mL/min (>60); Glucose 116 mg/dL (74-106); Potassium 3.9 mmol/L (3.5-5.1); Sodium Level 139 mmol/L (136-145); Thyroid Stim Hormone (TSH) 4.13 uIU/mL (0.358-3.74)
[2022-01-25] VITALS (12 sets, daily range): BP systolic 114–171; BP diastolic 55–75; PULSE 50–70; RESP 12–18; TEMP 36.1–37.3; O2SAT 90–100; BMI 23.6; BMI 24.2
--- NOTE | 2022-01-25 | PROS_PTH ---
PATIENT: SUSAN CENTENO LOC: MS3 U#:[id number] AGE/SX: 81/M ROOM: [facility] [place] RE01/25/[address]: Dr. Cooper Linda MD : [id number] BED: 1 DIS: 01/26/2022 SPEC #: [id number] RECD: 01/25/22 12:00 STATUS: OMKAR RUIZ #: [id number] ENZO: 01/25/22 00:[address]: Cooper Linda DEPT: SURGICAL PATHOLOGY RECD BY: Natan Hussein ENTERED: 01/25/22 12:00 SP TYPE: TURP OTHR DR: MD Dr. Marcelino Rdz Chi, MD Tissues: Prostate, NOS Procedures: Surgery Specimen Level IV HEADER OPERATION: Cysto, TUR prostate, Olympus PRE-OP DIAGNOSIS: BPH TISSUE SUBMITTED: Prostate pieces MICROSCOPIC DIAGNOSIS Prostate tissue, transurethral resection: Benign prostatic hyperplasia, predominantly stromal type. Focal mild chronic inflammation. /SJ 01/28/22 MICROSCOPIC DESCRIPTION Slides are reviewed. GROSS DESCRIPTION Received is one container labeled with the patient's name and designated prostate pieces. The specimen consists of multiple irregular fragments of pink-mane, rubbery, soft tissue that in aggregate weigh 5.1 gm and measure in aggregate 3 x 3 x 1.5 cm. The entire specimen is submitted in four cassettes. / [place]:mary 01/25/2022 TC:5 CPT: 59064
[2022-01-25] MEDS: Lactated Ringers 1,000 ML 15 ML IV ×2 (06:30→09:15)
--- NOTE | 2022-01-25 07:18 | PCM.HP.STD ---
HPI - General General Date of Service: 01/25/22 Chief Complaint: BPH with obstruction HPI Narrative SUSAN CENTENO, is a 81 male who presents to the hospital for transurethral resection of the prostate he has a history of BPH with obstruction in the office he was found as a significant obstruction his prostatic channel we will plan to proceed with surgery to relieve the obstruction. We will proceed with a transurethral section of prostate. [facility] Medical History Alcohol use Allergic rhinitis Anxiety Anxiety Aortic valve disorders Atherosclerosis of coronary artery of [place] heart without angina pectoris Back pain BPH with obstruction/lower urinary tract symptoms Cardiology follow-up encounter CHF (congestive heart failure) Constipation Depression Depression Diverticulosis of colon (without mention of hemorrhage) Elevated PSA External hemorrhoids with complication Former smoker Gastric reflux GERD (gastroesophageal reflux disease) Hemiplegia History of aortic valve stenosis History of pain when walking History of steroid therapy History of stress test History of transcatheter aortic valve replacement (TAVR) (~11/28/20) Hx of echocardiogram Hypertension Hypokalemia Hypothyroidism 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 external 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 hemorrhoids 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 Lumbago Mixed hyperlipidemia Nocturia Non-rheumatic mitral regurgitation Non-rheumatic tricuspid valve insufficiency Paroxysmal atrial fibrillation Persistent atrial fibrillation Prostate disease Pulmonary HTN Syncope Thyroid disease TIA (transient ischemic attack) Trigeminal neuralgia Wears dentures Wears glasses Wears partial dentures Home Medications finasteride 5 mg tablet 5 mg PO DAILY prostate 06/20/18 [History Last Taken 01/24/22] escitalopram oxalate 20 mg tablet 20 mg PO DAILY mental health 01/24/20 [History Last Taken 01/24/22] pantoprazole 40 mg tablet,delayed release 40 mg PO DAILY 10/15/20 [History Last Taken 01/25/22] apixaban 5 mg tablet (Eliquis) 5 mg PO BID #180 tabs 03/14/21 [Rx Last Taken 01/17/22] atorvastatin 40 mg tablet 40 mg PO QHS 05/28/21 [History Last Taken 01/24/22] clopidogrel 75 mg tablet 75 mg PO DAILY 05/28/21 [History Last Taken 01/04/22] levothyroxine 88 mcg tablet 88 mcg PO DAILY 05/28/21 [History Last Taken 01/24/22] losartan 100 mg tablet 50 mg PO BID 07/26/21 [History Last Taken 01/25/22] metoprolol tartrate 25 mg tablet 12.5 mg PO DAILY 09/18/21 [History Last Taken 01/25/22] potassium chloride 20 mEq tablet,extended release 20 meq PO DAILY #90 tabs 12/03/21 [Rx Last Taken Unknown] amiodarone 200 mg tablet 200 mg PO DAILY #90 tabs 01/18/22 [Rx Last Taken 01/25/22] amlodipine 2.5 mg tablet 2.5 mg PO DAILY #90 tabs 01/18/22 [Rx Last Taken 01/25/22] cholecalciferol (vitamin D3) 1,250 mcg (50,000 unit) capsule 1,250 mcg PO MO 01/18/22 [History Last Taken 01/24/22] Allergy/AdvReac Type Severity Reaction Status Date / Time Sulfa (Sulfonamide Allergy Rash Verified 01/25/22 06:43 Antibiotics) codeine AdvReac Other Verified 01/25/22 06:43 Family History Father Asthma COPD (chronic obstructive pulmonary disease) Mother High cholesterol Surgical History History of aortic valve replacement with bioprosthetic valve (~05/02/04) History of cardioversion (~07/18/21) History of esophagogastroduodenoscopy (EGD) History of left heart catheterization (LHC) (~10/18/20) History of lumbar laminectomy History of open reduction and internal fixation (ORIF) procedure Hx of appendectomy Hx of colonoscopy with polypectomy Hx of inguinal hernia repair Hx of parotidectomy Hx of sigmoidoscopy Hx of toe surgery S/P hemorrhoidectomy s/p urolift Social History household members: spouse housing: house current occupational status: retired Smoking Status: Former smoker second hand exposure: No alcohol intake: current alcohol intake frequency: holidays/special occasions only details: occasionally substance use type: does not use caffeine: Yes Type: carbonated beverages Number of servings: 1 what type of physical activity do you participate in: walking frequency: 3-4 times per week richie/lutheran: None seatbelt use: always Vital Signs Vital Signs Vital Signs: 01/25/22 06:53 01/25/22 06:53 Temperature 97.2 F L Temperature Source Temporal Pulse Rate 50 L Respiratory Rate 12 Respiratory Pattern Normal Blood Pressure 155/64 H Blood Pressure Mean 94 Blood Pressure Source Monitor Blood Pressure Position Semi-Fowlers Blood Pressure Location Left Arm Pulse Ox 100 Oxygen Delivery Method Room Air Weight Weight: 68.6 kg Body Mass Index (BMI) 23.6 Results Lab / Micro Data Result Diagrams: 01/23/22 10:11 01/23/22 10:11
[2022-01-25] MEDS: Cefazolin 2 GM in 0.9% Normal Saline 100 ML IV (08:40)
[2022-01-25] MEDS: Lubricating Jelly 60 GM Tube 30 GM (08:48)
--- NOTE | 2022-01-25 09:29 | DCINST_ITS ---
Discharge Instructions Diet Discharge Diet: No restrictions Activity Discharge Activity: Return to Normal Activity Follow Up Care Please Follow Up With: Cooper Linda MD When: Follow-up in 2 weeks Test Results: Test results from this visit will be discussed in further detail at your follow- up appointment, if applicable. Discharge Plan Admission Primary Reason for Your Visit: KENDRA Attending Provider: Cooper Linda Primary Care Provider: Marcelino Ferguson Chi Consulting Providers: Moises Gil Discharge Orders/Prescriptions Prescriptions: New ciprofloxacin HCl [Cipro] 500 mg tablet 500 mg PO BID Qty: 10 0RF Continued escitalopram oxalate 20 mg tablet 20 mg PO DAILY levothyroxine 88 mcg tablet 88 mcg PO DAILY atorvastatin 40 mg tablet 40 mg PO QHS finasteride 5 MG tablet 5 mg PO DAILY pantoprazole 40 mg Tablet,Delayed Release (Dr/Ec) 40 mg PO DAILY cholecalciferol (vitamin D3) 1,250 mcg (50,000 unit) capsule 1,250 mcg PO MO losartan 100 mg tablet 50 mg PO BID metoprolol tartrate 25 mg tablet 12.5 mg PO DAILY potassium chloride 20 mEq tablet extended release 20 meq PO DAILY Qty: 90 3RF amiodarone 200 mg tablet 200 mg PO DAILY Qty: 90 3RF amlodipine 2.5 mg tablet 2.5 mg PO DAILY Qty: 90 3RF Held clopidogrel 75 mg tablet 75 mg PO DAILY Hold Instructions: Resume on 02/08/22. Eliquis 5 mg tablet 5 mg PO BID Qty: 180 3RF Hold Instructions: Resume on 02/08/22. Referrals / Follow Up: Cooper Linda MD [Med Staff - Active Staff] - Marcelino Ferguson Chi, MD [Primary Care Provider] - Disposition Disposition (needs filled in before D/C Order can be placed): Home, Self Care
--- NOTE | 2022-01-25 09:29 | PCM.OPRPT ---
Report of Operation Date of Procedure: 01/25/22 Pre-Operative Diagnosis: BPH with obstruction Post-Operative Diagnosis: Same Surgery/Procedure Performed:: Transurethral section of prostate Description of Surgical Findings:: In the preoperative setting I discussed with the patient how the surgery would be done with expect afterwards. We discussed how a prostate resection is done and we discussed the risk of the surgery including, bleeding, infection, retrograde ejaculation, changes with ejaculation or intercourse,. We discussed the possibility that the resection of the prostate may not alleviate his urinary symptoms. We discussed the small risk of developing scar tissue along the urethral channel and strictures. We also discussed the chance of the prostate could grow back and he may need further surgery or treatment in the future for prostate problems. Patient was taken back to the operating room, timeout procedure was performed, he was identified and marked and placed on the operating room table. He underwent general anesthesia. He was placed in dorsolithotomy position. Penis and testicles were prepped and draped in usual sterile fashion. Went into the bladder using the visual obturator with a resectoscope. Once inside the bladder identified the right and left ureteral orifice. I then identified the prostate and the anatomy of the prostate. I marked out the area of the sphincter and the verumontanum was identified. I then proceeded with the prostate resection first resected the median lobe. And then resected the right lobe of the prostate. Then to resect the left lobe of the prostate. I then resected the apical tissue of the prostate. This was a complete resection of all obstructive tissue to improve voiding and relieve obstruction. I then made sure that there was no injury to the sphincter or the verumontanum was still intact. At the end of the resection all the chips were Ellik out of the bladder. I then identified the left and right ureteral orifice and these were confirmed to be in good position and effluxing and not injured. The resectoscope was removed, a 22 Bengali catheter was placed into the bladder on continuous irrigation. And the urine was fairly light pink color and draining normally. He was taken back to the PACU in good condition. CPT 90560 Surgeon: Cooper Linda Type of Anesthesia: General Drains: 22 Bengali three-way catheter
[2022-01-25] MEDS: 0.9% Normal Saline 1,000 ML 125 ML IV ×2 (15:06→22:52)
[2022-01-25] MEDS: Ciprofloxacin 400 MG/200 ML BAG 200 MG IV (17:00)
[2022-01-25] MEDS: Atorvastatin Calcium 40 MG Tablet PO (22:50)
[2022-01-25] MEDS: Docusate Sodium 100 MG Capsule 200 MG PO (22:50)
[2022-01-25] MEDS: Losartan Potassium 50 MG Tablet PO (22:50)
[2022-01-25] MEDS: HYDROcodone Bitartrate/Apap 5/325 Tablet PO (23:31)
[2022-01-26 03:56] VITALS: BP 129/62; PULSE 59; RESP 16; TEMP 37.2; O2SAT 98
[2022-01-26] MEDS: Ciprofloxacin 400 MG/200 ML BAG 200 MG IV (04:45)
[2022-01-26] MEDS: Levothyroxine 88 MCG Tablet PO (04:47)
[2022-01-26] MEDS: 0.9% Normal Saline 1,000 ML 125 ML IV (04:47)
[2022-01-26 08:43] VITALS: BP 134/64; PULSE 59; RESP 18; TEMP 36.7; O2SAT 100
--- NOTE | 2022-01-26 08:48 | CASEMGMT ---
Social Work As per initial nursing assessment, pt indicated has LW/POA but is not able to bring in the documents. Pt said is POA. JO ANN De La Rosa
--- NOTE | 2022-01-26 10:10 | CASEMGMT ---
MARK CM in to discuss RODRIGUEZ form with patient. RN CM explained RODRIGUEZ form, patient voiced understanding. Pt signed form and filed in chart. Pt provided with a copy of signed RODRIGUEZ form. Patient had no further questions or concerns at this time.
[2022-01-26] MEDS: Docusate Sodium 100 MG Capsule 200 MG PO (10:57)
[2022-01-26 10:58] VITALS: BP 134/64; PULSE 59
[2022-01-26] MEDS: Potassium Chloride Oral Tablet 20 MEQ PO (10:58)
[2022-01-26] MEDS: Losartan Potassium 50 MG Tablet PO (10:58)
[2022-01-26] MEDS: Pantoprazole Sodium 40 MG Tablet PO (10:58)
[2022-01-26] MEDS: Escitalopram Oxalate 20 MG Tablet PO (10:58)
[2022-01-26] MEDS: Metoprolol Tartrate 25 MG Tablet 12.5 MG PO (10:58)
[2022-01-26] MEDS: Amiodarone 200 MG Tablet PO (10:59)
[2022-01-26 15:07] VITALS: BP 141/52; PULSE 62; RESP 16; TEMP 36.7; O2SAT 97
== END 2022-01-26 15:25 | disposition home or self-care (01) ==
LOC: SDC 10:40 → MS3 10:40
PROVIDERS: Anesthesiology; Admitting Provider Urology; PCP Family Medicine Geriatric Medicine; Referring Provider Urology; Visit Provider Urology
PROC: (CPT 52601; principal; 2022-01-25 08:15)
DX: N40.1 Benign prostatic hyperplasia with lower urinary tract symptoms (principal); I48.19 Other persistent atrial fibrillation; I25.10 Atherosclerotic heart disease of native coronary artery without angina pectoris; Z87.891 Personal history of nicotine dependence; N13.8 Other obstructive and reflux uropathy; Z79.899 Other long term (current) drug therapy; Z79.01 Long term (current) use of anticoagulants; F41.9 Anxiety disorder, unspecified; F32.A Depression, unspecified; M19.90 Unspecified osteoarthritis, unspecified site; R35.1 Nocturia; K21.9 Gastro-esophageal reflux disease without esophagitis; E03.9 Hypothyroidism, unspecified; Z79.890 Hormone replacement therapy; E78.2 Mixed hyperlipidemia
CPT/HCPCS: 52601; 36415; 80048; 84443; 85027; 88305; 96361; 96365; 96366; 99218; 99251; J7030; J7120; G0378; G0463; J0744; J2405

== ENCOUNTER 2022-01-27 19:37 | Emergency (ER) | payer MEDICARE, OTHER, SELFPAY ==
[2022-01-27 19:38] VITALS: BP 170/64; PULSE 70; RESP 18; TEMP 36.4; O2SAT 100; BMI 25.4
[2022-01-27 19:40] VITALS: BP 170/64; PULSE 70; RESP 18; TEMP 36.4; O2SAT 100
[2022-01-27 20:36] LABS: Mucous, Urine 0 SEEN /hpf (<or=2+)
[2022-01-27 20:38] LABS: Color, Urine Red (Yellow); Glucose, Dipstick Normal (Normal); Ketone-Dipstick 15 mg/dl (Negative); Leukocyte Esterase-Dipstick 100 /ul (Negative); Nitrite-Dipstick Negative (Negative); Occult Blood-Urine 250 /ul (Negative); Protein-Dipstick 500 mg/dl (Negative); Urine Bilirubin Dipstick Negative (Negative); Urine Clarity Cloudy (Clear); Urine Urobilinogen Normal (Normal)
--- NOTE | 2022-01-27 20:49 | EX.ED.GUMALE ---
HPI History of Present Illness Chief Complaint: Complaint Informant: patient Pain Onset: Today Context: Gradual Onset Timing: Continuous Worsened by: Nothing Relieved by: Nothing Urinary Symptoms Genitourinary Symptoms: Has Not Voided, Dysuria and Hematuria Narrative Narrative: Patient presents with urinary retention that began today. Patient states he was able to urinate yesterday. Patient states he was having some dysuria yesterday. Patient admits to some mild hematuria as well. Patient states he has a burning sensation when he urinates. Patient had a TURP 2 days ago. Patient denies any fevers or chills. Patient denies any nausea or vomiting. Patient does admit to some mild low back pain. [facility] Medical History Alcohol use Allergic rhinitis Anxiety Anxiety Aortic valve disorders Atherosclerosis of coronary artery of [place] heart without angina pectoris Back pain BPH with obstruction/lower urinary tract symptoms Cardiology follow-up encounter CHF (congestive heart failure) Constipation Depression Depression Diverticulosis of colon (without mention of hemorrhage) Elevated PSA External hemorrhoids with complication Former smoker Gastric reflux GERD (gastroesophageal reflux disease) Hemiplegia History of aortic valve stenosis History of pain when walking History of steroid therapy History of stress test History of transcatheter aortic valve replacement (TAVR) (~11/28/20) Hx of echocardiogram Hypertension Hypokalemia Hypothyroidism 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 external 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 Lumbago Mixed hyperlipidemia Nocturia Non-rheumatic mitral regurgitation Non-rheumatic tricuspid valve insufficiency Paroxysmal atrial fibrillation Persistent atrial fibrillation Prostate disease Pulmonary HTN Syncope Thyroid disease TIA (transient ischemic attack) Trigeminal neuralgia Wears dentures Wears glasses Wears partial dentures Home Medications finasteride 5 mg tablet 5 mg PO DAILY prostate 06/20/18 [History Last Taken 01/24/22] escitalopram oxalate 20 mg tablet 20 mg PO DAILY mental health 01/24/20 [History Last Taken 01/24/22] pantoprazole 40 mg tablet,delayed release 40 mg PO DAILY 10/15/20 [History Last Taken 01/25/22] apixaban 5 mg tablet (Eliquis) 5 mg PO BID #180 tabs 03/14/21 [Rx Last Taken 01/17/22] atorvastatin 40 mg tablet 40 mg PO QHS 05/28/21 [History Last Taken 01/24/22] clopidogrel 75 mg tablet 75 mg PO DAILY 05/28/21 [History Last Taken 01/04/22] levothyroxine 88 mcg tablet 88 mcg PO DAILY 05/28/21 [History Last Taken 01/24/22] losartan 100 mg tablet 50 mg PO BID 07/26/21 [History Last Taken 01/25/22] metoprolol tartrate 25 mg tablet 12.5 mg PO DAILY 09/18/21 [History Last Taken 01/25/22] potassium chloride 20 mEq tablet,extended release 20 meq PO DAILY #90 tabs 12/03/21 [Rx Last Taken Unknown] amiodarone 200 mg tablet 200 mg PO DAILY #90 tabs 01/18/22 [Rx Last Taken 01/25/22] amlodipine 2.5 mg tablet 2.5 mg PO DAILY #90 tabs 01/18/22 [Rx Last Taken 01/25/22] cholecalciferol (vitamin D3) 1,250 mcg (50,000 unit) capsule 1,250 mcg PO MO 01/18/22 [History Last Taken 01/24/22] ciprofloxacin HCl 500 mg tablet (Cipro) 500 mg PO BID #10 tabs 01/25/22 [Rx Last Taken Unknown] hydrocodone-acetaminophen 5-325mg 5mg-325mg 1 tab PO Q6H PRN PRN Pain 3 days #10 TABLETS 01/27/22 [Rx Last Taken Unknown] Allergy/AdvReac Type Severity Reaction Status Date / Time Sulfa (Sulfonamide Allergy Rash Verified 01/27/22 19:38 Antibiotics) codeine AdvReac Other Verified 01/27/22 19:38 Family History Father Asthma COPD (chronic obstructive pulmonary disease) Mother High cholesterol Surgical History History of aortic valve replacement with bioprosthetic valve (~05/02/04) History of cardioversion (~07/18/21) History of esophagogastroduodenoscopy (EGD) History of left heart catheterization (LHC) (~10/18/20) History of lumbar laminectomy History of open reduction and internal fixation (ORIF) procedure Hx of appendectomy Hx of colonoscopy with polypectomy Hx of inguinal hernia repair Hx of parotidectomy Hx of sigmoidoscopy Hx of toe surgery S/P hemorrhoidectomy s/p urolift Social History household members: spouse housing: house current occupational status: retired Smoking Status: Former smoker second hand exposure: No alcohol intake: current alcohol intake frequency: holidays/special occasions only details: occasionally substance use type: does not use caffeine: Yes Type: carbonated beverages Number of servings: 1 what type of physical activity do you participate in: walking frequency: 3-4 times per week richie/sikh: None seatbelt use: always ROS ROS ED Constitutional Constitutional ED: Denies chills or fever(s) Eyes Eyes: Denies blurry vision or change in vision ENT ENT ED: Denies rhinorrhea or sore throat Cardiovascular Cardiovascular: Denies chest pain or palpitations Respiratory/Chest Respiratory/Chest: Denies cough or dyspnea Gastrointestinal Gastrointestinal: Denies nausea or vomiting Genitourinary Genitourinary ED: Reports dysuria and hematuria Musculoskeletal Musculoskeletal: Reports back pain; Denies neck pain Integumentary Denies abscess or rash Neurologic Neurologic: Denies headache(s) or weakness Allergic/Immunologic Allergic/Immunologic ED: Denies mouth swelling or urticaria EXAM Physical Exam Const Vital Signs: 01/27/22 19:38 01/27/22 19:40 Temperature 97.5 F L 97.5 F L Temperature Source Temporal Temporal Pulse Rate 70 70 Respiratory Rate 18 18 Blood Pressure 170/64 H 170/64 H Blood Pressure Mean 99 99 Pulse Ox 100 100 Oxygen Delivery Method Room Air Room Air Positive well nourished and well developed General Appearance ED: well developed HEENT Reports moist mucous membranes Neck supple and no JVD Resp normal respiratory effort and clear to auscultation bilaterally Cardio regular rate, regular rhythm and no murmurs GI normal to inspection, nondistended, normoactive bowel sounds Palpation: soft and tender suprapubic (Mild) Extremity normal to inspection General Extremety ED: Negative for edema or tenderness General Extremity: Negative for edema Neuro oriented x3, CN's II-XII intact bilaterally and no sensory deficits noted Sensorium / Orientation: alert Motor Exam: strength 5/5 throughout Psych mental status grossly normal Skin no rashes or lesions noted MDM MDM MDM Narrative Medical decision making narrative: [place] catheter was inserted. Bladder was irrigated. There were some clots returned. There is some hematuria noted. Urinalysis shows a leukocyte esterases of 100 but there were only 10-25 white blood cells. There were greater than 100 red blood cells. There were rare bacteria. Patient is currently on Cipro. CBC shows a mild anemia with a hemoglobin of 9.5 and hematocrit 27.7. Basic metabolic profile was within normal limits. Patient was given a dose of morphine and Zofran here. Patient is feeling better on reevaluation. Patient was given a prescription for a short course of [place]. Patient was instructed continue his Cipro as prescribed. Patient was instructed to follow-up with his urologist tomorrow as scheduled. Patient understood and was agreeable with the plan. All questions were answered. Lab Data Attestation: I reviewed the patient's lab results. Labs: Laboratory Results - last 24 hr 01/27/22 01/27/22 01/27/22 20:20 21:40 21:40 WBC 9.2 RBC 3.20 L Hgb 9.5 L Hct 27.7 L MCV 86.6 MCH 29.7 MCHC 34.3 RDW Std Deviation 40.2 RDW Coeff of Yovana 12.7 Plt Count 172 MPV 10.0 Immature Gran % (Auto) 0.900 Neut % (Auto) 74.2 H Lymph % (Auto) 17.0 L [place] % (Auto) 7.5 Eos % (Auto) 0.2 Baso % (Auto) 0.2 Absolute Neuts (auto) 6.9 Absolute Lymphs (auto) 1.57 Nucleated RBC % 0 Sodium 134 L Potassium 3.2 L Chloride 100 Carbon Dioxide 23.0 Anion Gap 11 BUN 16 Creatinine 0.97 Estim Creat Clear Calc 56.79 Est GFR (MDRD) Af Amer 96 Est GFR (MDRD) Non-Af 79 BUN/Creatinine Ratio 16.5 Glucose 109 H Calcium 8.2 L Urine Color Red Urine Clarity Cloudy Urine pH 7.0 Ur Specific [place] 1.010 Urine Protein 500 H Urine Glucose (UA) Normal Urine Ketones 15 H Urine Occult Blood 250 H Urine Nitrite Negative Urine Bilirubin Negative Urine Urobilinogen Normal Ur Leukocyte Esterase 100 H Urine RBC > 100 SEEN Urine WBC 10-25 SEEN Ur Squamous Epith Cells 0-5 SEEN Amorphous Sediment 2+ PHOS Urine Bacteria RARE Urine Mucus 0 SEEN Discharge Plan Triage Chief Complaint: Complaint ED Provider: Teja Larkin Dx/Rx/DC Orders Clinical Impression: Hematuria, S/P TURP (status post transurethral resection of prostate) Instructions: ED Hematuria, ED Urinary Retention, Male Prescriptions: New hydrocodone-acetaminophen [hydrocodone-acetaminophen] 5-325 mg tablet 1 tab PO Q6H PRN PRN (Reason: Pain) 3 Days Qty: 10 0RF No Action escitalopram oxalate 20 mg tablet 20 mg PO DAILY levothyroxine 88 mcg tablet 88 mcg PO DAILY atorvastatin 40 mg tablet 40 mg PO QHS clopidogrel 75 mg tablet 75 mg PO DAILY Hold Instructions: Resume on 02/08/22. finasteride 5 MG tablet 5 mg PO DAILY pantoprazole 40 mg Tablet,Delayed Release (Dr/Ec) 40 mg PO DAILY cholecalciferol (vitamin D3) 1,250 mcg (50,000 unit) capsule 1,250 mcg PO MO ciprofloxacin HCl [Cipro] 500 mg tablet 500 mg PO BID Qty: 10 0RF Eliquis 5 mg tablet 5 mg PO BID Qty: 180 3RF Hold Instructions: Resume on 02/08/22. losartan 100 mg tablet 50 mg PO BID metoprolol tartrate 25 mg tablet 12.5 mg PO DAILY potassium chloride 20 mEq tablet extended release 20 meq PO DAILY Qty: 90 3RF amiodarone 200 mg tablet 200 mg PO DAILY Qty: 90 3RF amlodipine 2.5 mg tablet 2.5 mg PO DAILY Qty: 90 3RF Primary Care Provider: Marcelino Ferguson Chi Referrals: Cooper Linda MD [Med Staff - Active Staff] - Keep Vesta appointment Marcelino Ferguson Chi, MD [Primary Care Provider] - 1-2 Weeks Disposition Disposition: Home, Self Care
[2022-01-27 20:57] LABS: Amorphous Sediment 2+ PHOS; Bacteria RARE /hpf (None Seen); Red Blood Cells-Urine > 100 SEEN /hpf (0-5); Squamous Epithelial Cells - UA 0-5 SEEN /hpf (0-5); White Blood Cells 10-25 SEEN /hpf (0-5)
[2022-01-27 21:47] LABS: Absolute Lymphocyte Count 1.57 X10^3/uL (0.83-4.51); Absolute Neutrophil Count 6.9 X10^3/uL (2.0-7.7); Basophil# 0.02 X10^3/uL; Basophil% 0.2 % (0-1); Eosinophil# 0.02 X10^3/uL; Eosinophils% 0.2 % (0-5); Hematocrit 27.7 % (40-54); Hemoglobin 9.5 g/dL (13.0-16.5); Lymphocyte # 1.57 X10^3/ul (0.83-4.51); Mean Corp Hgb Conc 34.3 g/dL (32-36); Mean Corpuscular Hgb 29.7 pg (27.0-32.0); Mean Corpuscular Volume 86.6 fL (80-94); Monocyte# 0.69 X10^3/uL; Monocyte% 7.5 % (0-10); NRBC Flagged by Analyzer 0 % (0-5); Neutrophil # 6.85 X10^3/uL (2.7-7.7); Neutrophil % 74.2 % (47-70); Platelet Count 172 K/mm3 (150-450); RBC Distribution Width CV 12.7 % (11.6-14.6); RBC Distribution Width SD 40.2 fl (35.1-43.9); White Blood Count 9.2 K/mm3 (4.4-11.0)
[2022-01-27] MEDS: Ondansetron 4 MG/2 ML Vial IV (21:49)
[2022-01-27] MEDS: Morphine 4 MG/ML Syringe IV (21:50)
[2022-01-27 22:00] LABS: Anion Gap 11 (5-15); BUN 16 mg/dL (7-18); BUN/Creat Ratio 16.5 RATIO (10-20); Calcium,Total 8.2 mg/dL (8.5-10.1); Chloride 100 mmol/L (98-107); Creatinine, Serum 0.97 mg/dL (0.70-1.30); EST Glomerular Filtration Rate 79 mL/min (>60); Est Glom Filt Rate - Afr Amer 96 mL/min (>60); Estimated Creatinine Clearance 56.79 ml/min; Glucose 109 mg/dL (74-106); Potassium 3.2 mmol/L (3.5-5.1); Sodium Level 134 mmol/L (136-145)
[2022-01-27 22:30] VITALS: PULSE 65; RESP 15; O2SAT 99
== END 2022-01-27 22:51 | disposition home or self-care (01) ==
PROVIDERS: Emergency Medicine; Emergency Provider Emergency Medicine; PCP Family Medicine Geriatric Medicine; Visit Provider Emergency Medicine
DX: R31.9 Hematuria, unspecified (principal); I11.0 Hypertensive heart disease with heart failure; I50.9 Heart failure, unspecified; E78.2 Mixed hyperlipidemia; I25.10 Atherosclerotic heart disease of native coronary artery without angina pectoris; R30.0 Dysuria; Z87.891 Personal history of nicotine dependence; Z98.890 Other specified postprocedural states
CPT/HCPCS: 51702; 80048; 81001; 85025; 96374; 96375; 99284; A4216; J2405

== ENCOUNTER → 2022-02-18 | Outpatient (CLI) | payer MEDICARE, OTHER, SELFPAY | END | disposition home or self-care (01) | LOC: LAB 13:55 | PROVIDERS: PCP Family Medicine Geriatric Medicine; Referring Provider Urology; Visit Provider Urology | DX: R35.0 Frequency of micturition (principal) | CPT/HCPCS: 87086 ==

== ENCOUNTER → 2022-03-05 | Outpatient (CLI) | payer MEDICARE, OTHER, SELFPAY ==
[2022-03-05 11:22] LABS: AST(SGOT) 20 U/L (15-37); Alanine Aminotransfer ALT/SGPT 24 U/L (16-61); Albumin, Serum 3.7 g/dL (3.2-5.0); Alkaline Phosphatase 96 U/L (45-117); Bilirubin, Direct 0.16 mg/dL (0.00-0.30); Cholesterol 183 mg/dL (200); Globulin 3.4 g/dL (2.2-4.2); High Density Lipoprotein 67 mg/dL; Protein, Total 7.1 g/dL (6.4-8.2); Triglycerides 120 mg/dL; Very Low Density Lipoprotein 24 mg/dL (5-40)
== END | disposition home or self-care (01) ==
LOC: LAB 09:47
PROVIDERS: PCP Family Medicine Geriatric Medicine; Referring Provider Internal Medicine Cardiovascular Disease; Visit Provider Internal Medicine Cardiovascular Disease
DX: I25.10 Atherosclerotic heart disease of native coronary artery without angina pectoris (principal); E78.00 Pure hypercholesterolemia, unspecified
CPT/HCPCS: 36415; 80061; 80076

== ENCOUNTER → 2022-03-27 | Outpatient (CLI) | payer MEDICARE, OTHER, SELFPAY ==
[2022-03-27 17:29] LABS: Absolute Lymphocyte Count 2.19 X10^3/uL (0.83-4.51); Absolute Neutrophil Count 4.6 X10^3/uL (2.0-7.7); Basophil# 0.02 X10^3/uL; Basophil% 0.3 % (0-1); Eosinophil# 0.09 X10^3/uL; Eosinophils% 1.2 % (0-5); Hematocrit 35.9 % (40-54); Lymphocyte # 2.19 X10^3/ul (0.83-4.51); Lymphocyte % 29.3 % (19-41); Mean Corp Hgb Conc 30.6 g/dL (32-36); Mean Corpuscular Hgb 25.8 pg (27.0-32.0); Mean Corpuscular Volume 84.1 fL (80-94); Mean Platelet Vol. 10.8 fl (6.2-12.0); Monocyte# 0.52 X10^3/uL; NRBC Flagged by Analyzer 0 % (0-5); Neutrophil # 4.64 X10^3/uL (2.7-7.7); Neutrophil % 61.9 % (47-70); Platelet Count 246 K/mm3 (150-450); RBC Distribution Width CV 13.4 % (11.6-14.6); Red Blood Count 4.27 M/mm3 (4.6-6.2); White Blood Count 7.5 K/mm3 (4.4-11.0)
[2022-03-27 17:46] LABS: Vitamin D,25 Hydroxy 72.8 ng/mL
[2022-03-27 18:03] LABS: ALB/GLOB Ratio 1.2 RATIO (0.9-2.4); AST(SGOT) 20 U/L (15-37); Alanine Aminotransfer ALT/SGPT 27 U/L (16-61); Albumin, Serum 3.7 g/dL (3.2-5.0); Alkaline Phosphatase 97 U/L (45-117); Anion Gap 8 (5-15); BUN 19 mg/dL (7-18); BUN/Creat Ratio 12.4 RATIO (10-20); Calcium,Total 8.4 mg/dL (8.5-10.1); Chloride 106 mmol/L (98-107); Creatinine, Serum 1.53 mg/dL (0.70-1.30); EST Glomerular Filtration Rate 47 mL/min (>60); Est Glom Filt Rate - Afr Amer 57 mL/min (>60); Glucose 98 mg/dL (74-106); Potassium 4.4 mmol/L (3.5-5.1); Protein, Total 6.7 g/dL (6.4-8.2); Sodium Level 140 mmol/L (136-145); Thyroid Stim Hormone (TSH) 2.59 uIU/mL (0.358-3.74)
== END | disposition home or self-care (01) ==
LOC: POLAB3 14:00
PROVIDERS: PCP Family Medicine Geriatric Medicine; Visit Provider Family Medicine Geriatric Medicine
DX: R53.83 Other fatigue (principal); E55.9 Vitamin D deficiency, unspecified
CPT/HCPCS: 36415; 80053; 82306; 84443; 85025

== ENCOUNTER → 2022-04-23 | Outpatient (CLI) | payer MEDICARE, OTHER, SELFPAY ==
--- NOTE | 2022-04-23 14:30 | RAD_ITS ---
EXAM: XR LUMBOSACRAL SPINE, 4 OR 5 VIEWS CLINICAL INDICATION: LOW BACK PAIN TECHNIQUE: Frontal, lateral and bilateral oblique views of the lumbar spine. This report was created using [employer] report generation technology. COMPARISON: None. FINDINGS: VERTEBRAE: Unremarkable. Preserved vertebral body height. No fracture. No spondylolisthesis. Preservation of the normal lumbar lordosis. No significant facet arthropathy. DISC SPACES: Degenerative changes of the intervertebral discs. VASCULATURE: Atherosclerotic calcifications of the abdominal aorta. GASTROINTESTINAL TRACT: Unremarkable as visualized. Included bowel gas pattern is non-obstructive. RAD/L/S Spine Min 4 Views IMPRESSION: 1. No acute injuries identified involving the lumbar spine. 2. Degenerative changes. Electronically Signed: Robinson Conti MD at 1:20 EST ,
== END | disposition home or self-care (01) ==
LOC: RAD 14:29
PROVIDERS: PCP Family Medicine Geriatric Medicine; Referring Provider Family Medicine Geriatric Medicine; Visit Provider Family Medicine Geriatric Medicine
DX: M54.50 Low back pain, unspecified (principal)
CPT/HCPCS: 72110

== ENCOUNTER → 2022-05-02 | Outpatient (CLI) | payer MEDICARE, OTHER, SELFPAY ==
[2022-05-02 13:05] LABS: Albumin, Serum 3.3 g/dL (3.2-5.0); BUN 25 mg/dL (7-18); BUN/Creat Ratio 18.5 RATIO (10-20); Calcium,Total 8.5 mg/dL (8.5-10.1); Chloride 107 mmol/L (98-107); Creatinine, Serum 1.35 mg/dL (0.70-1.30); EST Glomerular Filtration Rate 54 mL/min (>60); Est Glom Filt Rate - Afr Amer 65 mL/min (>60); Glucose 94 mg/dL (74-106); Phosphorus 2.9 mg/dL (2.5-4.9); Potassium 4.1 mmol/L (3.5-5.1); Sodium Level 140 mmol/L (136-145)
== END | disposition home or self-care (01) ==
LOC: POLAB3 11:31
PROVIDERS: PCP Family Medicine Geriatric Medicine; Visit Provider Internal Medicine Nephrology
DX: N17.9 Acute kidney failure, unspecified (principal)
CPT/HCPCS: 36415; 80069

== ENCOUNTER → 2022-07-04 | Outpatient (CLI) | payer MEDICARE, OTHER, SELFPAY ==
[2022-07-04 11:37] LABS: Albumin, Serum 3.4 g/dL (3.2-5.0); BUN 19 mg/dL (7-18); BUN/Creat Ratio 12.7 RATIO (10-20); Calcium,Total 8.6 mg/dL (8.5-10.1); Chloride 106 mmol/L (98-107); EST Glomerular Filtration Rate 48 mL/min (>60); Est Glom Filt Rate - Afr Amer 58 mL/min (>60); Glucose 135 mg/dL (74-106); Phosphorus 2.3 mg/dL (2.5-4.9); Potassium 3.8 mmol/L (3.5-5.1); Sodium Level 137 mmol/L (136-145)
== END | disposition home or self-care (01) ==
PROVIDERS: PCP Family Medicine Geriatric Medicine; Referring Provider Internal Medicine Nephrology; Visit Provider Internal Medicine Nephrology
DX: N18.2 Chronic kidney disease, stage 2 (mild) (principal)
CPT/HCPCS: 36415; 80069

== ENCOUNTER → 2022-08-05 | Outpatient (CLI) | payer MEDICARE, OTHER, SELFPAY ==
[2022-08-05 13:32] LABS: Absolute Lymphocyte Count 2.05 X10^3/uL (0.83-4.51); Absolute Neutrophil Count 4.3 X10^3/uL (2.0-7.7); Basophil# 0.04 X10^3/uL; Basophil% 0.6 % (0-1); Eosinophil# 0.09 X10^3/uL; Eosinophils% 1.3 % (0-5); Hematocrit 35.4 % (40-54); Hemoglobin 11.5 g/dL (13.0-16.5); Lymphocyte # 2.05 X10^3/ul (0.83-4.51); Lymphocyte % 29.5 % (19-41); Mean Corp Hgb Conc 32.5 g/dL (32-36); Mean Corpuscular Hgb 26.8 pg (27.0-32.0); Mean Corpuscular Volume 82.5 fL (80-94); Mean Platelet Vol. 9.8 fl (6.2-12.0); Monocyte# 0.48 X10^3/uL; Monocyte% 6.9 % (0-10); NRBC Flagged by Analyzer 0 % (0-5); Neutrophil # 4.25 X10^3/uL (2.7-7.7); Neutrophil % 61.3 % (47-70); Platelet Count 232 K/mm3 (150-450); RBC Distribution Width CV 16.7 % (11.6-14.6); RBC Distribution Width SD 49.3 fl (35.1-43.9); Red Blood Count 4.29 M/mm3 (4.6-6.2); White Blood Count 6.9 K/mm3 (4.4-11.0)
[2022-08-05 13:43] LABS: Vitamin D,25 Hydroxy 73.2 ng/mL
[2022-08-05 14:01] LABS: ALB/GLOB Ratio 1.1 RATIO (0.9-2.4); AST(SGOT) 23 U/L (15-37); Alanine Aminotransfer ALT/SGPT 24 U/L (16-61); Albumin, Serum 3.5 g/dL (3.2-5.0); Alkaline Phosphatase 111 U/L (45-117); Anion Gap 7 (5-15); BUN 21 mg/dL (7-18); BUN/Creat Ratio 15.2 RATIO (10-20); Bilirubin, Direct 0.13 mg/dL (0.00-0.30); Calcium,Total 8.6 mg/dL (8.5-10.1); Chloride 104 mmol/L (98-107); Cholesterol 174 mg/dL (200); Creatinine, Serum 1.38 mg/dL (0.70-1.30); EST Glomerular Filtration Rate 53 mL/min (>60); Est Glom Filt Rate - Afr Amer 64 mL/min (>60); Globulin 3.3 g/dL (2.2-4.2); Glucose 76 mg/dL (74-106); High Density Lipoprotein 53 mg/dL; Potassium 4.3 mmol/L (3.5-5.1); Protein, Total 6.8 g/dL (6.4-8.2); Sodium Level 137 mmol/L (136-145); Thyroid Stim Hormone (TSH) 3.18 uIU/mL (0.358-3.74); Triglycerides 145 mg/dL; Very Low Density Lipoprotein 29 mg/dL (5-40)
== END | disposition home or self-care (01) ==
LOC: POLAB3 09:23
PROVIDERS: Internal Medicine Cardiovascular Disease; PCP Family Medicine Geriatric Medicine; Visit Provider Family Medicine Geriatric Medicine
DX: R53.83 Other fatigue (principal); E55.9 Vitamin D deficiency, unspecified
CPT/HCPCS: 36415; 80053; 80061; 82248; 82306; 84443; 85025

== ENCOUNTER → 2022-11-19 | Outpatient (CLI) | payer MEDICARE, OTHER, SELFPAY ==
--- NOTE | 2022-11-19 14:50 | RAD_ITS ---
INDICATION: LOW BACK PAIN EXAMINATION/TECHNIQUE: X-RAY - XR Spine Lumbar Min 4 Views COMPARISON: Prior study dated: April 23, 2022 FINDINGS: VERTEBRAE: Preserved vertebral body height. There is multilevel endplate spondylosis. No fracture. No spondylolisthesis. Preservation of the normal lumbar lordosis. No significant facet arthropathy. DISCS: There is multilevel degenerative disc disease. INCLUDED ABDOMEN: Included bowel gas pattern is non-obstructive. There are vascular calcifications. RAD/L/S Spine Min 4 Views IMPRESSION: Multilevel degenerative changes. Atherosclerosis. Electronically Signed: Aspen Garcia MD at 8:55 EDT ,
== END | disposition home or self-care (01) ==
LOC: RAD 14:52
PROVIDERS: PCP Family Medicine Geriatric Medicine; Referring Provider Family Medicine Geriatric Medicine; Visit Provider Family Medicine Geriatric Medicine
DX: M54.50 Low back pain, unspecified (principal)
CPT/HCPCS: 72110

== ENCOUNTER → 2023-01-23 | Outpatient (CLI) | payer MEDICARE, OTHER, SELFPAY ==
[2023-01-23 13:46] LABS: Albumin, Serum 3.6 g/dL (3.2-5.0); BUN 10 mg/dL (7-18); BUN/Creat Ratio 7.6 RATIO (10-20); Calcium,Total 8.6 mg/dL (8.5-10.1); Chloride 106 mmol/L (98-107); Creatinine, Serum 1.32 mg/dL (0.70-1.30); EST Glomerular Filtration Rate 55 mL/min (>60); Est Glom Filt Rate - Afr Amer 67 mL/min (>60); Glucose 87 mg/dL (74-106); Potassium 3.8 mmol/L (3.5-5.1); Sodium Level 140 mmol/L (136-145)
[2023-01-23 13:47] LABS: PTHIN 129.5 pg/mL (18.4-80.1)
== END | disposition home or self-care (01) ==
LOC: POLAB3 10:19
PROVIDERS: PCP Family Medicine Geriatric Medicine; Visit Provider Internal Medicine Nephrology
DX: N17.9 Acute kidney failure, unspecified (principal)
CPT/HCPCS: 36415; 80069; 83970

== ENCOUNTER → 2023-01-30 | Outpatient (CLI) | payer MEDICARE, OTHER, SELFPAY ==
[2023-01-30 12:45] LABS: Absolute Lymphocyte Count 1.42 X10^3/uL (0.83-4.51); Absolute Neutrophil Count 4.1 X10^3/uL (2.0-7.7); Basophil# 0.03 X10^3/uL; Basophil% 0.5 % (0-1); Eosinophil# 0.07 X10^3/uL; Eosinophils% 1.1 % (0-5); Hematocrit 37.4 % (40-54); Hemoglobin 11.6 g/dL (13.0-16.5); Lymphocyte # 1.42 X10^3/ul (0.83-4.51); Lymphocyte % 23.1 % (19-41); Mean Corpuscular Hgb 26.1 pg (27.0-32.0); Mean Platelet Vol. 10.1 fl (6.2-12.0); Monocyte# 0.49 X10^3/uL; NRBC Flagged by Analyzer 0 % (0-5); Neutrophil # 4.11 X10^3/uL (2.7-7.7); Neutrophil % 66.8 % (47-70); Platelet Count 214 K/mm3 (150-450); RBC Distribution Width CV 15.4 % (11.6-14.6); RBC Distribution Width SD 46.7 fl (35.1-43.9); Red Blood Count 4.45 M/mm3 (4.6-6.2); White Blood Count 6.2 K/mm3 (4.4-11.0)
[2023-01-30 12:56] LABS: Vitamin D,25 Hydroxy 80.8 ng/mL
[2023-01-30 13:05] LABS: ALB/GLOB Ratio 1.1 RATIO (0.9-2.4); AST(SGOT) 22 U/L (15-37); Alanine Aminotransfer ALT/SGPT 22 U/L (16-61); Albumin, Serum 3.3 g/dL (3.2-5.0); Alkaline Phosphatase 97 U/L (45-117); Anion Gap 3 (5-15); BUN 15 mg/dL (7-18); BUN/Creat Ratio 11.5 RATIO (10-20); Calcium,Total 8.3 mg/dL (8.5-10.1); Chloride 106 mmol/L (98-107); EST Glomerular Filtration Rate 56 mL/min (>60); Est Glom Filt Rate - Afr Amer 68 mL/min (>60); Glucose 77 mg/dL (74-106); Potassium 3.8 mmol/L (3.5-5.1); Protein, Total 6.3 g/dL (6.4-8.2); Sodium Level 140 mmol/L (136-145); Thyroid Stim Hormone (TSH) 2.53 uIU/mL (0.358-3.74)
== END | disposition home or self-care (01) ==
LOC: POLAB3 11:27
PROVIDERS: PCP Family Medicine Geriatric Medicine; Visit Provider Family Medicine Geriatric Medicine
DX: R53.83 Other fatigue (principal); E55.9 Vitamin D deficiency, unspecified
CPT/HCPCS: 36415; 80053; 82306; 84443; 85025

== ENCOUNTER 2023-07-01 11:19 | Emergency (ER) | payer MEDICARE, OTHER, SELFPAY ==
[2023-07-01 11:19] VITALS: BP 108/82; PULSE 113; RESP 16; TEMP 36.3; O2SAT 99
[2023-07-01 11:44] VITALS: BP 119/95; PULSE 95; RESP 18; O2SAT 99; BMI 26.4
--- NOTE | 2023-07-01 12:00 | EKG12_ITS ---
Test Reason : IRREGULAR HR Blood Pressure : / mmHG Vent. Rate : 104 BPM Atrial Rate : 000 BPM P-R Int : 000 ms QRS Dur : 094 ms QT Int : 322 ms P-R-T Axes : 000 087 008 degrees QTc Int : 423 ms Atrial fibrillation with rapid ventricular response Nonspecific ST and T wave abnormality Abnormal ECG Confirmed by JOSEY SINGER, WALTER ([id number]), newspaper editor managing ELIO BUTTERFIELD ([id number]) on 07/02/2023 9:15:28 AM Referred By: RAJ/JEANETTE Confirmed By:WALTER DOWLING MD
--- NOTE | 2023-07-01 12:02 | EX.ED.DYSGE1 ---
HPI History of Present Illness Chief Complaint: Hypotension Informant: patient and spouse/S.O. Onset/Context/Timing Onset: Today Context: Gradual Onset Timing: Intermittent Current Severity: Mild Maximum Severity: Mild Narrative Narrative: 82-year-old male history of intermittent A-fib on Eliquis also metoprolol and amiodarone. Says he is in A-fib today with intermittent low blood pressure. In intermittent high heart rate. Denies any recent illness. Denies nausea, vomiting or diarrhea. No fever. No melena. No dysuria. Denies any chest pain or shortness of breath. Says is worse if he is up and walking around. Prior similar symptoms: Yes Recent Illness/Hospitalization: No PFSH PFSH Medical History Alcohol use Allergic rhinitis Anxiety Anxiety Aortic valve disorders Atherosclerosis of coronary artery of [place] heart without angina pectoris Back pain BPH with obstruction/lower urinary tract symptoms Cardiology follow-up encounter CHF (congestive heart failure) Constipation Depression Depression Diverticulosis of colon (without mention of hemorrhage) Elevated PSA External hemorrhoids with complication Former smoker Gastric reflux GERD (gastroesophageal reflux disease) Hemiplegia History of aortic valve stenosis History of pain when walking History of steroid therapy History of stress test History of transcatheter aortic valve replacement (TAVR) (~11/28/20) Hx of echocardiogram Hypertension Hypokalemia Hypothyroidism 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 Lumbago Mixed hyperlipidemia Nocturia Non-rheumatic mitral regurgitation Non-rheumatic tricuspid valve insufficiency Paroxysmal atrial fibrillation Persistent atrial fibrillation Prostate disease Pulmonary HTN Syncope Thyroid disease TIA (transient ischemic attack) Trigeminal neuralgia Wears dentures Wears glasses Wears partial dentures Home Medications escitalopram oxalate 20 mg tablet 20 mg PO DAILY mental health 01/24/20 [History Last Taken 01/24/22] pantoprazole 40 mg tablet,delayed release 40 mg PO DAILY 10/15/20 [History Last Taken 01/25/22] levothyroxine 88 mcg tablet 88 mcg PO DAILY 05/28/21 [History Last Taken 01/24/22] losartan 100 mg tablet 50 mg PO BID 07/26/21 [History Last Taken 01/25/22] doxepin 50 mg capsule 50 mg PO DAILY 06/04/22 [History Last Taken Unknown] apixaban 5 mg tablet (Eliquis) 5 mg PO BID #180 tabs 06/27/22 [Rx Last Taken Unknown] amiodarone 200 mg tablet 100 mg (1/2 x 200 mg) PO DAILY #45 tabs 12/09/22 [Rx Last Taken Unknown] potassium chloride 20 mEq tablet,extended release(part/cryst) (Klor-Con M) See Rx Instructions .Route .COMPLEX #90 tabs 12/09/22 [Rx Last Taken Unknown] amlodipine 2.5 mg tablet 2.5 mg PO DAILY #90 tabs 02/10/23 [Rx Last Taken Unknown] metoprolol tartrate 25 mg tablet 12.5 mg (1/2 x 25 mg) PO DAILY #45 tabs 02/10/23 [Rx Last Taken Unknown] cholecalciferol (vitamin D3) 1,250 mcg (50,000 unit) capsule 1,250 mcg PO MO #12 caps 02/17/23 [Rx Last Taken Unknown] furosemide 20 mg tablet 20 mg PO QWEEK PRN edema 07/01/23 [History Last Taken Unknown] magnesium 200 mg tablet 400 mg PO DAILY 07/01/23 [History Last Taken Unknown] rosuvastatin 40 mg tablet 40 mg PO DAILY 07/01/23 [History Last Taken Unknown] Allergy/AdvReac Type Severity Reaction Status Date / Time Sulfa (Sulfonamide Allergy Rash Verified 07/01/23 11:22 Antibiotics) codeine AdvReac Other Verified 07/01/23 11:22 Family History Father Asthma COPD (chronic obstructive pulmonary disease) Mother High cholesterol Surgical History History of aortic valve replacement with bioprosthetic valve (~05/02/04) History of cardioversion (~07/18/21) History of esophagogastroduodenoscopy (EGD) History of left heart catheterization (LHC) (~10/18/20) History of lumbar laminectomy History of open reduction and internal fixation (ORIF) procedure Hx of appendectomy Hx of colonoscopy with polypectomy Hx of inguinal hernia repair Hx of parotidectomy Hx of sigmoidoscopy Hx of toe surgery S/P hemorrhoidectomy s/p urolift Social History household members: spouse housing: house current occupational status: retired Smoking Status: Former smoker second hand exposure: No alcohol intake: current alcohol intake frequency: holidays/special occasions only details: occasionally substance use type: does not use caffeine: Yes Type: carbonated beverages Number of servings: 1 what type of physical activity do you participate in: walking frequency: 3-4 times per week richie/yarsanism: None seatbelt use: always ROS ROS ED ROS Narrative Accelerated heart rate. A-fib. At times low blood pressure. Denies recent illness. Denies nausea, vomiting diarrhea. Denies melena. Denies fever. Review of Systems ROS Unobtainable: Denies due to encephalopathy Constitutional Constitutional ED: Denies chills or fever(s) Eyes Eyes: Denies blurry vision ENT ENT ED: Denies ear pain Cardiovascular Cardiovascular: Reports palpitations and racing heartbeat; Denies chest pain Respiratory/Chest Respiratory/Chest: Denies cough, dyspnea or dyspnea on exertion Gastrointestinal Gastrointestinal: Denies abdominal pain, constipation, diarrhea, melena, nausea or vomiting Genitourinary Genitourinary ED: Denies dysuria or hematuria Musculoskeletal Musculoskeletal: Denies arthralgias Integumentary Denies abscess Neurologic Neurologic: Denies headache(s) or paresthesias Psychiatric Psychiatric: Denies anxiety or depression Endocrine Endocrinology: Denies cold intolerance Hematologic/Lymphatic Hematologic/Lymphatic: Reports none Allergic/Immunologic Allergic/Immunologic ED: Denies mouth swelling, tongue swelling or urticaria EXAM Physical Exam Narrative Exam Narrative: Well-appearing 82-year-old male. Vital signs stable afebrile. He is in A-fib on the monitor when I entered the room he is in the 90s. But his heart rate goes from 85 to about 120. It is irregular consistent with A-fib. HEENT exam unremarkable. Mytrex members. Neck nontender JVD. Lungs clear to auscultation bilaterally. Heart irregularly irregular rate about 100 no murmur. Consistent with A-fib. Abdomen soft nontender. Moving all 4 extremities. Normal motor strength. Nontender no edema. Back nontender. Neurologically he is awake alert with no focal motor deficits. Answering questions and following commands. Const Vital Signs: 07/01/23 11:19 07/01/23 11:44 07/01/23 11:46 Temperature 97.4 F L Temperature Source Temporal Pulse Rate 113 H 95 Respiratory Rate 16 18 Respiratory Effort Normal Non-Labored Respiratory Pattern Normal Blood Pressure 108/82 H 119/95 H Blood Pressure Mean 90 103 Pulse Ox 99 99 Oxygen Delivery Method Room Air Room Air 07/01/23 12:14 07/01/23 12:44 07/01/23 14:13 Temperature Temperature Source Pulse Rate 62 58 L 73 Respiratory Rate 16 16 14 Respiratory Effort Respiratory Pattern Blood Pressure 120/82 H 112/62 131/77 H Blood Pressure Mean 94 78 95 Pulse Ox 100 100 100 Oxygen Delivery Method Room Air Room Air Room Air Positive well nourished and well developed; Negative for obese, cachectic, contractures or unkempt General Appearance ED: well developed and NAD; Negative for unkempt, cachectic, contractures, cyanotic, diaphoretic or pallor Nutritional Appearance: Negative for cachectic or obese HEENT Reports moist mucous membranes Negative for trauma or tenderness Eyes PERRL and EOMs intact bilaterally General Eye ED: Negative for pale conjunctiva or scleral icterus Neck no lymphadenopathy, supple and no JVD General: Negative for tenderness Lymph Lymphatic: Negative for other Chest Wall inspection of chest normal and palpation of chest normal Chest: Negative for other Resp normal respiratory effort and clear to auscultation bilaterally Effort and Inspection: Negative for retractions Auscultation: Negative for rales, rhonchi, wheezes or diminished lung sounds Cardio S1 normal heart sound, S2 normal heart sound and no murmurs; Negative for regular rate or regular rhythm Rhythm: abnormal rhythm irregularly irregular (A-fib with intermittent RVR. Rate between 85 and 120.) GI normal to inspection, nondistended, normoactive bowel sounds, non-tender and non-distended Inspection: Negative for abdominal distention Auscultation: normoactive bowel sounds Palpation: soft; Negative for tender, guarding or rebound tenderness present Back/Spine no CVA tenderness General Back: Negative for CVA tenderness Cervical Spine: Negative for cervical spine tenderness Thoracic Spine / Upper Back: Negative for thoracic spinal tenderness or paraspinal muscle tenderness Lumbar Spine / Lower Back: Negative for lumbar spinal tenderness Extremity normal to inspection General Extremety ED: Negative for edema or tenderness General Extremity: Negative for edema Neuro oriented x3 and CN's II-XII intact bilaterally Sensorium / Orientation: alert; Negative for orientation impaired, lethargic or stuporous Motor Exam: strength 5/5 throughout; Negative for general weakness or strength abnormal Psych mental status grossly normal Appearance: Negative for unkempt Attitude: No agitated Mood & Affect: Negative for depressed, anxious or tearful Skin no rashes or lesions noted and no wounds General Skin Exam: Negative for jaundice or pallor Lesions: No lesion noted Rashes: No rashes noted Trauma: Negative for abrasion Wounds: Negative for wounds noted MDM MDM MDM Narrative Medical decision making narrative: 82-year-old male with a history of A-fib on Eliquis. Planing of decelerated irregular heartbeat consistent with A-fib RVR and intermittent low blood pressure. Screening labs will be obtained. To be treated with half a liter normal saline and given Cardizem IV slow push to see if we get his rate under control. Repeat exam patient is doing well at 2:58 PM. He received a liter normal saline here. We discussed his labs. He is comfortable being discharged home. He does not currently have a aviation support equipment repairer he will follow-up with their office is going to try to get in with my cues. He will also follow-up with his primary care physician Dr. Ferguson. Plenty of fluids and rest. Patient was treated with a dose of Cardizem IV and currently his heart rates around 80. He remains in A-fib. History & Record Review Discussion w/independent historian: Patient Additional record(s) reviewed:: Prior inpatient record, Prior outpatient record, Prior ED visit and Prior labs Lab Data Attestation: I reviewed the patient's lab results. Lab results narrative: CBC normal. White count of 5. H&H 13 and 41. Platelets 239. Chemistries normal gap 5. BUN 22 creatinine 1.86 which are elevated. History of renal insufficiency the creatinine is worse than his baseline 1.3-1.5. Glucose 149. Troponin is normal at 14. Chest x-ray unremarkable. Labs: Laboratory Results - last 24 hr 07/01/23 11:50 WBC 5.8 RBC 5.24 Hgb 13.3 Hct 41.9 MCV 80.0 MCH 25.4 L MCHC 31.7 L RDW Std Deviation 41.9 RDW Coeff of Yovana 14.6 Plt Count 239 MPV 11.1 Immature Gran % (Auto) 0.300 Neut % (Auto) 60.5 Lymph % (Auto) 32.3 [place] % (Auto) 5.2 Eos % (Auto) 1.4 Baso % (Auto) 0.3 Absolute Neuts (auto) 3.5 Absolute Lymphs (auto) 1.86 Nucleated RBC % 0 Sodium 139 Potassium 3.6 Chloride 107 Carbon Dioxide 27.0 Anion Gap 5 BUN 22 H Creatinine 1.86 H Estim Creat Clear Calc 29.12 Est GFR (MDRD) Af Amer 45 L Est GFR (MDRD) Non-Af 37 L BUN/Creatinine Ratio 11.8 Glucose 149 H Calcium 8.7 Troponin I High Sens 14 Radiography Chest X-Ray - ED: 1 View, Read by ED Physician, Read by Radiologist, Heart, Lungs, Mediastinum, Bony Structures, No Acute Disease and Chronic Changes Diagnostic Testing: Clinical Impression(s) from Imaging Studies Chest X-Ray 07/01/23 12:10 IMPRESSION: No acute abnormality is seen. Stable examination. Electronically Signed: Bam Dumont MD at 12:35 EDT , Chest x-ray, portable, single view interpreted by myself and radiologist shows no acute abnormality. Normal cardiac silhouette. Normal lung evans. Prior sternotomy with metal wires in place. Rhythm Strip Rhythm Strip: A-fib Rate: 104 Ectopy: None EKG Initial EKG: Attestation: I personally reviewed and interpreted this EKG as follows: Interpretation: No Acute Injury Pattern and Atrial Fibrillation Comments: Atrial fibrillation rate of 104. No acute signs of ID or ischemia. Discharge Plan Triage Chief Complaint: Hypotension ED Provider: Jamal Diego Dx/Rx/DC Orders Clinical Impression: Acute hypotension, Acute dehydration, Chronic anticoagulation, Chronic renal insufficiency, Atrial fibrillation with rapid ventricular response Instructions: AFib, ED Dehydration (Adult) Prescriptions: No Action escitalopram oxalate 20 mg tablet 20 mg PO DAILY levothyroxine 88 mcg tablet 88 mcg PO DAILY doxepin 50 mg capsule 50 mg PO DAILY cholecalciferol (vitamin D3) 1,250 mcg (50,000 unit) capsule 1,250 mcg PO MO Qty: 12 3RF pantoprazole 40 mg Tablet,Delayed Release (Dr/Ec) 40 mg PO DAILY rosuvastatin 40 mg tablet 40 mg PO DAILY furosemide 20 mg tablet 20 mg PO QWEEK PRN (Reason: edema) magnesium 200 mg tablet 400 mg PO DAILY losartan 100 mg tablet 50 mg PO BID Eliquis 5 mg tablet 5 mg PO BID Qty: 180 3RF Hold Instructions: Resume on 02/08/22. potassium chloride [Klor-Con M20] 20 mEq tablet,ER particles/crystals See Rx Instructions .ROUTE .COMPLEX Qty: 90 3RF Dose Instruction: TAKE 1 TABLET DAILY Rx Instructions: TAKE 1 TABLET DAILY amiodarone 200 mg tablet 100 mg PO DAILY Qty: 45 3RF amlodipine 2.5 mg tablet 2.5 mg PO DAILY Qty: 90 3RF metoprolol tartrate 25 mg tablet 12.5 mg PO DAILY Qty: 45 3RF Primary Care Provider: Marcelino Ferguson Chi Referrals: Fady Olivera MD [Med Staff - Active Staff] - As soon as possible Marcelino Ferguson Chi, MD [Primary Care Provider] - As soon as possible Activity Restrictions/Additional Instructions: You had low blood pressure today most likely due to your A-fib with rapid heart rate and also mild dehydration. Continue your current medications. Plenty of fluids and rest. Follow-up with your primary care physician, Dr. Ferguson. Call and follow-up with a aviation support equipment repairer possibly Dr. Fady Olivera. Return if feeling worse. Disposition Disposition: Home, Self Care
[2023-07-01] MEDS: dilTIAZem 25 MG/5 ML Vial 20 MG IV BOLUS (12:09)
[2023-07-01] MEDS: 0.9% Normal Saline (500mL Bag) 500 ML 999 ML IV (12:09)
--- NOTE | 2023-07-01 12:10 | RAD_ITS ---
STUDY: X-RAY CHEST REASON FOR EXAM: Male, 82 years old. Chest pain TECHNIQUE: Single AP portable view of the chest. COMPARISON: Comparison is made with prior study December 29, 2020. FINDINGS: EKG electrodes are seen. The lungs are clear and expanded. There is no demonstrated pleural abnormality. Sternal cerclage wires are present from a prior sternotomy. Prostatic aortic valve is once again noted. Normal mediastinum and gladys. Normal visualized pulmonary arteries. Normal visualized aortic arch and descending thoracic aorta. Normal visualized thoracic spine. Normal visualized ribs, clavicles, and shoulders. There is no demonstrated abnormality of the visualized soft tissue structures of the upper abdomen. RAD/Chest 1 View (Portable) IMPRESSION: No acute abnormality is seen. Stable examination. Electronically Signed: Bam Dumont MD at 12:35 EDT ,
[2023-07-01 12:14] VITALS: BP 120/82; PULSE 62; RESP 16; O2SAT 100
[2023-07-01 12:22] LABS: Absolute Lymphocyte Count 1.86 X10^3/uL (0.83-4.51); Absolute Neutrophil Count 3.5 X10^3/uL (2.0-7.7); Basophil# 0.02 X10^3/uL; Basophil% 0.3 % (0-1); Eosinophil# 0.08 X10^3/uL; Eosinophils% 1.4 % (0-5); Hematocrit 41.9 % (40-54); Hemoglobin 13.3 g/dL (13.0-16.5); Lymphocyte # 1.86 X10^3/ul (0.83-4.51); Lymphocyte % 32.3 % (19-41); Mean Corp Hgb Conc 31.7 g/dL (32-36); Mean Corpuscular Hgb 25.4 pg (27.0-32.0); Mean Platelet Vol. 11.1 fl (6.2-12.0); Monocyte% 5.2 % (0-10); NRBC Flagged by Analyzer 0 % (0-5); Neutrophil # 3.47 X10^3/uL (2.7-7.7); Neutrophil % 60.5 % (47-70); Platelet Count 239 K/mm3 (150-450); RBC Distribution Width CV 14.6 % (11.6-14.6); RBC Distribution Width SD 41.9 fl (35.1-43.9); Red Blood Count 5.24 M/mm3 (4.6-6.2); White Blood Count 5.8 K/mm3 (4.4-11.0)
[2023-07-01 12:44] VITALS: BP 112/62; PULSE 58; RESP 16; O2SAT 100
[2023-07-01 13:09] LABS: Anion Gap 5 (5-15); BUN 22 mg/dL (7-18); BUN/Creat Ratio 11.8 RATIO (10-20); Calcium,Total 8.7 mg/dL (8.5-10.1); Chloride 107 mmol/L (98-107); Creatinine, Serum 1.86 mg/dL (0.70-1.30); EST Glomerular Filtration Rate 37 mL/min (>60); Est Glom Filt Rate - Afr Amer 45 mL/min (>60); Estimated Creatinine Clearance 29.12 ml/min; Glucose 149 mg/dL (74-106); Potassium 3.6 mmol/L (3.5-5.1); Sodium Level 139 mmol/L (136-145); Troponin-I HS 14 pg/mL (3.0-78.0)
[2023-07-01 14:13] VITALS: BP 131/77; PULSE 73; RESP 14; O2SAT 100
[2023-07-01 15:33] VITALS: BP 119/90; PULSE 98; RESP 14; TEMP 36.4; O2SAT 100
== END 2023-07-01 15:34 | disposition home or self-care (01) ==
PROVIDERS: Emergency Provider Emergency Medicine; PCP Family Medicine Geriatric Medicine; Visit Provider Emergency Medicine
DX: I95.9 Hypotension, unspecified (principal); I13.0 Hypertensive heart and chronic kidney disease with heart failure and stage 1 through stage 4 chronic kidney disease, or unspecified chronic kidney disease; I50.9 Heart failure, unspecified; I48.91 Unspecified atrial fibrillation; E86.0 Dehydration; Z79.01 Long term (current) use of anticoagulants; N18.9 Chronic kidney disease, unspecified; Z87.891 Personal history of nicotine dependence; Z79.899 Other long term (current) drug therapy; I25.10 Atherosclerotic heart disease of native coronary artery without angina pectoris; E78.2 Mixed hyperlipidemia
CPT/HCPCS: 71045; 80048; 84484; 85025; 93005; 96374; 99284; J7030

== ENCOUNTER → 2023-07-30 | Outpatient (CLI) | payer MEDICARE, OTHER, SELFPAY ==
[2023-07-30 11:17] LABS: Anion Gap 5 (5-15); BUN 17 mg/dL (7-18); BUN/Creat Ratio 12.1 RATIO (10-20); Calcium,Total 8.8 mg/dL (8.5-10.1); Chloride 107 mmol/L (98-107); Creatinine, Serum 1.41 mg/dL (0.70-1.30); EST Glomerular Filtration Rate 51 mL/min (>60); Est Glom Filt Rate - Afr Amer 62 mL/min (>60); Glucose 103 mg/dL (74-106); Potassium 3.6 mmol/L (3.5-5.1); Sodium Level 139 mmol/L (136-145)
== END | disposition home or self-care (01) ==
LOC: LAB 09:19
PROVIDERS: PCP Family Medicine Geriatric Medicine; Referring Provider Internal Medicine Cardiovascular Disease; Visit Provider Internal Medicine Cardiovascular Disease
DX: I48.0 Paroxysmal atrial fibrillation (principal)
CPT/HCPCS: 36415; 80048

== ENCOUNTER → 2023-08-14 | Outpatient (CLI) | payer MEDICARE, OTHER, SELFPAY ==
[2023-08-14 12:34] LABS: Absolute Neutrophil Count 4.5 X10^3/uL (2.0-7.7); Basophil# 0.02 X10^3/uL; Basophil% 0.3 % (0-1); Eosinophil# 0.06 X10^3/uL; Eosinophils% 0.8 % (0-5); Hematocrit 38.8 % (40-54); Hemoglobin 12.2 g/dL (13.0-16.5); Lymphocyte % 28.2 % (19-41); Mean Corp Hgb Conc 31.4 g/dL (32-36); Mean Corpuscular Hgb 25.7 pg (27.0-32.0); Mean Corpuscular Volume 81.7 fL (80-94); Mean Platelet Vol. 9.7 fl (6.2-12.0); Monocyte% 7.1 % (0-10); NRBC Flagged by Analyzer 0 % (0-5); Neutrophil # 4.48 X10^3/uL (2.7-7.7); Neutrophil % 63.3 % (47-70); Platelet Count 262 K/mm3 (150-450); RBC Distribution Width CV 15.2 % (11.6-14.6); RBC Distribution Width SD 45.7 fl (35.1-43.9); Red Blood Count 4.75 M/mm3 (4.6-6.2); White Blood Count 7.1 K/mm3 (4.4-11.0)
[2023-08-14 13:23] LABS: Vitamin D,25 Hydroxy 107.3 ng/mL
[2023-08-14 13:31] LABS: ALB/GLOB Ratio 1.2 RATIO (0.9-2.4); AST(SGOT) 24 U/L (15-37); Alanine Aminotransfer ALT/SGPT 20 U/L (16-61); Albumin, Serum 3.8 g/dL (3.2-5.0); Alkaline Phosphatase 100 U/L (45-117); Anion Gap 5 (5-15); BUN 17 mg/dL (7-18); BUN/Creat Ratio 10.4 RATIO (10-20); Calcium,Total 9.1 mg/dL (8.5-10.1); Chloride 105 mmol/L (98-107); Creatinine, Serum 1.64 mg/dL (0.70-1.30); EST Glomerular Filtration Rate 43 mL/min (>60); Est Glom Filt Rate - Afr Amer 52 mL/min (>60); Globulin 3.2 g/dL (2.2-4.2); Glucose 93 mg/dL (74-106); Potassium 4.2 mmol/L (3.5-5.1); Sodium Level 136 mmol/L (136-145); Thyroid Stim Hormone (TSH) 2.09 uIU/mL (0.358-3.74)
== END | disposition home or self-care (01) ==
LOC: LAB 12:08
PROVIDERS: PCP Family Medicine Geriatric Medicine; Referring Provider Family Medicine Geriatric Medicine; Visit Provider Family Medicine Geriatric Medicine
DX: R53.83 Other fatigue (principal); E55.9 Vitamin D deficiency, unspecified
CPT/HCPCS: 36415; 80053; 82306; 84443; 85025

== ENCOUNTER → 2023-08-22 | Outpatient (CLI) | payer MEDICARE, OTHER, SELFPAY ==
--- NOTE | 2023-08-22 09:51 | ECHOCS_ITS ---
Reason For Study: AFib Procedure This was a 2D Doppler, Color Flow transthoracic echocardiogram. The study was technically difficult. Contrast injection was performed. Exam performed in department. Left Ventricle Normal size and thickness. The left ventricular ejection fraction is 55 %. Unable to assess diastolic dysfunction due to arrhythmia. Right Ventricle Normal right ventricle. Atria There is severe biatrial dilatation. Mitral Valve Mild (1+) mitral valve insufficiency. Tricuspid Valve Moderate (2+) tricuspid valve insufficiency. Right ventricular systolic pressure estimated to be 40 mmHg. Aortic Valve Bioprosthetic aortic valve appears to be functioning normally. Mean peak gradient 9 mmHg. Pulmonic Valve The pulmonic valve is not well visualized. Great Vessels Normal sized aortic root. Pericardium/Pleural No pericardial effusion. Medication 22 gauge I.V. with prn adaptor inserted into left arm. Diluted definity 2.5ml given slow IV push to enhance endocardial definition. Performed a rapid injection of agitated mix of 9 cc saline and 1cc air to assess for atrial septal defect. MMode/2D Measurements & Calculations LVIDd: 4.3 cm IVSd: 1.0 cm LVOT diam: 2.0 cm LVIDs: 3.0 cm LVPWd: 0.91 cm RVDd: 4.5 cm FS: 30.4 % LVOT area: 3.3 cm2 Ao root diam: 3.5 cm LAV(MOD-bp): 102.9 ml LVAd ap4: 27.4 cm2 LA dimension: 4.6 cm LAV(MOD-bp) Indexed: 55.6 ml/m2 LVLd ap4: 7.4 cm LAV(MOD-sp2): 106.8 ml EDV(MOD-sp4): 82.3 ml LAV(MOD-sp4): 95.8 ml EDV(sp4-el): 86.3 ml LVAs ap4: 18.2 cm2 LVLs ap4: 6.7 cm ESV(MOD-sp4): 40.3 ml ESV(sp4-el): 41.7 ml EF(MOD-sp4): 51.1 % EF(sp4-el): 51.6 % SV(MOD-sp4): 42.0 ml SV(sp4-el): 44.6 ml LA A4 area: 28.3 cm2 RA A4 area: 25.0 cm2 TAPSE: 2.0 cm Doppler Measurements & Calculations MV E max arnoldo: 106.4 cm/sec MV V2 max: 105.5 cm/sec Ao V2 max: 202.1 cm/sec MV max P.5 mmHg Ao max P.4 mmHg MV V2 mean: 62.1 cm/sec Ao V2 mean: 138.0 cm/sec MV mean P.8 mmHg Ao mean P.7 mmHg MV V2 VTI: 20.4 cm Ao V2 VTI: 38.4 cm MVA(VTI): 4.8 cm2 AV (velocity ratio): 0.78 RENÉ(I,D): 2.6 cm2 RENÉ(V,D): 2.5 cm2 LV V1 max: 151.6 cm/sec MR max arnoldo: 461.2 cm/sec SV(LVOT): 98.5 ml LV V1 max P.2 mmHg MR max P.1 mmHg LV V1 mean P.9 mmHg LV V1 mean: 114.3 cm/sec LV V1 VTI: 30.1 cm PA V2 max: 112.7 cm/sec PI end-d arnoldo: 71.4 cm/sec TR max arnoldo: 295.1 cm/sec PA max PG (full): 3.3 mmHg TR max P.8 mmHg PA V2 mean: 83.0 cm/sec PA mean PG (full): 1.8 mmHg ECHO/Echo Complete W/ Contrast Interpretation Summary The left ventricular ejection fraction is 55 %. There is severe biatrial dilatation. Mild (1+) mitral valve insufficiency. Moderate (2+) tricuspid valve insufficiency. Right ventricular systolic pressure estimated to be 40 mmHg. Bioprosthetic aortic valve appears to be functioning normally. Mean peak gradie nt 9 mmHg. Ordering Physician: Fady Olivera Referring Physician: Marcelino Ferguson Chi Performed By: Cirilo Rivero RCS
== END | disposition home or self-care (01) ==
LOC: CVS 09:50
PROVIDERS: PCP Family Medicine Geriatric Medicine; Visit Provider Internal Medicine Cardiovascular Disease
DX: I48.0 Paroxysmal atrial fibrillation (principal)
CPT/HCPCS: 93306; Q9957; A4216; C8929

== ENCOUNTER → 2023-09-16 | Outpatient (CLI) | payer MEDICARE, OTHER, SELFPAY ==
--- NOTE | 2023-09-16 16:48 | RAD_ITS ---
STUDY: X-RAY - RIGHT KNEE REASON FOR EXAM: Male, 82 years old. pain TECHNIQUE: 4 view(s) of the knee. COMPARISON: None. FINDINGS: Normal visualized distal femur. Normal visualized proximal tibia and fibula. Normal proximal tibiofibular articulation. Normal medial femorotibial compartment. Normal lateral femorotibial compartment. Normal patellofemoral articulation. The soft tissue structures are unremarkable. RAD/Knee 4 or More Views IMPRESSION: Normal x-ray examination of the knee. Electronically Signed: Lucio Granger MD at 17:39 EDT ,
== END | disposition home or self-care (01) ==
LOC: MTRAD 16:48
PROVIDERS: PCP Family Medicine Geriatric Medicine; Referring Provider Physician Assistant; Visit Provider Physician Assistant
DX: M25.562 Pain in left knee (principal)
CPT/HCPCS: 73564

== ENCOUNTER 2024-01-02 08:55 | Outpatient (CLI) | payer MEDICARE, OTHER, SELFPAY ==
[2024-01-07 11:09] LABS: Beef <0.10 kU/L (Class 0); Chocolate <0.10 kU/L (Class 0); Codfish <0.10 kU/L (Class 0); Corn <0.10 kU/L (Class 0); Egg, Whole <0.10 kU/L (Class 0); Milk (Cow) <0.10 kU/L (Class 0); Mussels <0.10 kU/L (Class 0); Peanut <0.10 kU/L (Class 0); Pork <0.10 kU/L (Class 0); Salmon <0.10 kU/L (Class 0); Shrimp <0.10 kU/L (Class 0); Soybean <0.10 kU/L (Class 0); Tuna <0.10 kU/L (Class 0); Wheat <0.10 kU/L (Class 0)
== END 2024-01-02 23:59 | disposition home or self-care (01) ==
LOC: LAB 09:00
PROVIDERS: PCP Family Medicine Geriatric Medicine; Referring Provider Internal Medicine
DX: R09.A2 Foreign body sensation, throat (principal)
CPT/HCPCS: 36415; 86003; 86005

== ENCOUNTER → 2024-01-22 | Outpatient (CLI) | payer MEDICARE, OTHER, SELFPAY ==
[2024-01-22 11:02] LABS: Albumin, Serum 3.4 g/dL (3.2-5.0); BUN 19 mg/dL (7-18); BUN/Creat Ratio 12.2 RATIO (10-20); Calcium,Total 8.8 mg/dL (8.5-10.1); Chloride 106 mmol/L (98-107); Creatinine, Serum 1.56 mg/dL (0.70-1.30); EST Glomerular Filtration Rate 46 mL/min (>60); Est Glom Filt Rate - Afr Amer 55 mL/min (>60); Glucose 154 mg/dL (74-106); Phosphorus 2.2 mg/dL (2.5-4.9); Potassium 3.4 mmol/L (3.5-5.1); Sodium Level 139 mmol/L (136-145)
== END | disposition home or self-care (01) ==
PROVIDERS: PCP Family Medicine Geriatric Medicine; Referring Provider Internal Medicine Nephrology; Visit Provider Internal Medicine Nephrology
DX: N17.9 Acute kidney failure, unspecified (principal)
CPT/HCPCS: 36415; 80069

== ENCOUNTER → 2024-02-04 | Outpatient (CLI) | payer MEDICARE, OTHER, SELFPAY | END | disposition home or self-care (01) | PROVIDERS: PCP Family Medicine Geriatric Medicine; Referring Provider Urology; Visit Provider Urology | DX: R30.9 Painful micturition, unspecified (principal) | CPT/HCPCS: 87086 ==

== ENCOUNTER 2024-02-06 09:53 | Emergency (ER) | payer MEDICARE, OTHER, SELFPAY ==
[2024-02-06 09:55] VITALS: BP 119/66; PULSE 79; RESP 18; TEMP 36.6; O2SAT 100; BMI 25.2
--- NOTE | 2024-02-06 10:19 | CT_ITS ---
STUDY: CT ABDOMEN AND PELVIS WITHOUT CONTRAST REASON FOR EXAM: Male, 83 years old. Kidney Stone RADIATION DOSAGE (If Supplied By Facility): CTDIvol = ( 8.47 ) mGy, DLP = ( 429.38 ) mGycm TECHNIQUE: Transaxial images were obtained from the dome of the diaphragm to the symphysis pubis without oral contrast, and without intravenous contrast. Sagittal and coronal images were reconstructed. Individualized dose optimization techniques were used for this CT. COMPARISON: None. FINDINGS: Tiny left pleural effusion. The visualized portions of the heart are within normal limits. Normal liver. Normal gallbladder and extrahepatic biliary system. Normal spleen. Normal pancreas. Normal bilateral adrenal glands. Normal right kidney. Normal left kidney. There is a moderate hiatal hernia. Normal small intestine. There are multiple colonic diverticula consistent with diverticulosis. There is non-visualization of the appendix. There is diffuse atherosclerotic calcification of the abdominal aorta, without a demonstrated aneurysm. Normal inferior vena cava. Normal retroperitoneum. Normal urinary bladder. There is a small umbilical hernia containing fat. There are diffuse degenerative changes of the visualized lumbar spine. CT/Abdomen/Pelvis without Cont IMPRESSION: No renal or ureteral stone. Moderate hiatal hernia. Sigmoid diverticulosis without diverticulitis. Electronically Signed: Lucio Granger MD at 11:29 EST ,
--- NOTE | 2024-02-06 10:20 | EX.ED.GUMALE ---
HPI History of Present Illness Chief Complaint: Complaint Narrative Narrative: 83-year-old male past medical history of bovine aortic valve replacement, atrial fibrillation, on presents with gross hematuria and burning with urination that he has had intermittently over the last 2 weeks. He and his relate history that about 2 weeks ago they were in [place] and patient started having gross hematuria. It has been intermittent, but the burning with urination also started accompanying it. On Friday, 5 days ago they saw Dr. Linda, but reportedly did not find anything. He had laboratory work drawn the following Friday, without results. His is concerned because the office is closed today, and they do not have results and it is getting into the weekend. Yesterday evening, patient states this was the worst when he had return of gross hematuria and intense burning with urination. He denies any fevers or chills, no CVA tenderness or abdominal pain associated with this. They do relate history that that is what might of started this because a few weeks ago patient had fallen and was nauseated, then began having symptoms like this. Additionally, patient relates history that when he was around 41 years old, he had similar symptoms, and was diagnosed with a urinary tract infection and had to do urethral suppositories to help clear it up. [facility] Medical History Right knee sprain Wears glasses Wears partial dentures Wears dentures Depression Anxiety Alcohol use History of steroid therapy Thyroid disease Prostate disease Back pain TIA (transient ischemic attack) Syncope Gastric reflux Former smoker History of pain when walking Hypertension History of stress test Cardiology follow-up encounter Hypokalemia Hypothyroidism GERD (gastroesophageal reflux disease) Hemiplegia Persistent atrial fibrillation Paroxysmal atrial fibrillation Non-rheumatic tricuspid valve insufficiency Non-rheumatic mitral regurgitation History of transcatheter aortic valve replacement (TAVR) (~11/28/20) Pulmonary HTN CHF (congestive heart failure) [facility] current use of amiodarone Atherosclerosis of coronary artery of [place] heart without angina pectoris Mixed hyperlipidemia History of aortic valve stenosis 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 external 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 hemorrhoids External hemorrhoids with complication Hx of echocardiogram Constipation Trigeminal neuralgia Depression Anxiety Nocturia Elevated PSA Lumbago Diverticulosis of colon (without mention of hemorrhage) BPH with obstruction/lower urinary tract symptoms Aortic valve disorders Allergic rhinitis Home Medications ?Medication ?Instructions ?Recorded ?Last Taken ?Type escitalopram oxalate 20 mg tablet 20 mg PO DAILY mental health 01/24/20 01/24/22 History pantoprazole 40 mg tablet,delayed 40 mg PO DAILY 10/15/20 01/25/22 History release levothyroxine 88 mcg tablet 88 mcg PO DAILY 05/28/21 01/24/22 History doxepin 50 mg capsule 50 mg PO DAILY 06/04/22 Unknown History cholecalciferol (vitamin D3) 1,250 1,250 mcg PO MO #12 caps 02/17/23 Unknown Rx mcg (50,000 unit) capsule furosemide 20 mg tablet 20 mg PO QWEEK PRN edema 07/01/23 Unknown History magnesium 200 mg tablet 400 mg PO DAILY 07/01/23 Unknown History rosuvastatin 40 mg tablet 40 mg PO DAILY 07/01/23 Unknown History apixaban 5 mg tablet (Eliquis) 5 mg PO BID #180 tabs 07/14/23 Unknown Rx amiodarone 200 mg tablet 200 mg PO DAILY #90 tabs 07/16/23 Unknown Rx methylprednisolone 4 mg tablets in See Rx Instructions PO PER PKG DIR 09/16/23 Unknown Rx a dose pack (Medrol (Manjit)) #21 tabs amlodipine 2.5 mg tablet 2.5 mg PO DAILY #90 tabs 11/27/23 Unknown Rx metoprolol tartrate 25 mg tablet 12.5 mg (1/2 x 25 mg) PO DAILY #45 11/27/23 Unknown Rx tabs potassium chloride 20 mEq 20 meq PO DAILY #90 TABLETS 12/03/23 Unknown Rx tablet,extended release(part/cryst) (Klor-Con M) budesonide 3 mg 3 mg PO QAM #30 ea 01/02/24 Unknown Rx capsule,delayed,extended release pantoprazole 40 mg tablet,delayed 40 mg PO BID 3 months #180 tabs 01/02/24 Unknown Rx release Allergy/AdvReac Type Severity Reaction Status Date / Time Sulfa (Sulfonamide Allergy Rash Verified 02/06/24 09:54 Antibiotics) codeine AdvReac Other Verified 02/06/24 09:54 Family History Father Asthma COPD (chronic obstructive pulmonary disease) Mother High cholesterol Surgical History History of lumbar laminectomy Hx of toe surgery History of cardioversion (~07/18/21) History of left heart catheterization (LHC) (~10/18/20) History of aortic valve replacement with bioprosthetic valve (~05/02/04) S/P hemorrhoidectomy s/p urolift Hx of sigmoidoscopy Hx of inguinal hernia repair History of open reduction and internal fixation (ORIF) procedure Hx of parotidectomy History of esophagogastroduodenoscopy (EGD) Hx of colonoscopy with polypectomy Hx of appendectomy Social History household members: spouse housing: house current occupational status: retired Smoking Status: Former smoker second hand exposure: No alcohol intake: current alcohol intake frequency: holidays/special occasions only details: occasionally substance use type: does not use caffeine: Yes Type: carbonated beverages Number of servings: 1 what type of physical activity do you participate in: walking frequency: 3-4 times per week richie/bahai: None seatbelt use: always ROS ROS ED ROS Narrative Review of systems positive for gross hematuria and burning with urination. No back pain, no abdominal pain, no fevers or chills, no current nausea or vomiting. Symptoms have been intermittent for the last 2 weeks. Most intense yesterday evening. EXAM Physical Exam Narrative Exam Narrative: Afebrile. Vital signs noted. Nontoxic-appearing. Cardiovascular examination reveals a regular rate and rhythm. Lungs are clear to auscultation bilaterally. Abdomen is soft and nontender without guarding or rebound. Positive bowel sounds. No CVA tenderness to percussion bilaterally. Neurological examination is nonfocal and nonlateralizing. Skin examination is without pallor. No central cyanosis. Const Vital Signs: 02/06/24 09:55 02/06/24 11:54 Temperature 97.8 F Temperature Source Temporal Pulse Rate 79 68 Respiratory Rate 18 16 Blood Pressure 119/66 147/67 H Blood Pressure Mean 83 93 Pulse Ox 100 97 Oxygen Delivery Method Room Air Room Air MDM MDM MDM Narrative Medical decision making narrative: Differential diagnosis includes but not limited to ureterolithiasis versus hemorrhagic cystitis versus bladder mass. I reviewed his outpatient laboratory work. However, the only available recently is an electrolyte panel which shows an elevated BUN and evidence of chronic kidney disease. Given his gross hematuria and burning with urination, UA will be obtained and reviewed as well as CBC and another electrolyte panel. I do feel that CT imaging is indicated given his gross hematuria. I reviewed his laboratory work and he has normal white count of 10.0 with hemoglobin slightly low at 11.2, platelet count normal at 193. Potassium slightly low at 3.3 which think is nonspecific, creatinine slightly elevated at 1.62 but when compared to prior laboratories from earlier this month, he has history of chronic kidney disease. BUN normal at 15. I reviewed his urinalysis and there are 0 RBCs. While there are 5-10 WBCs, there is 0 bacteria. This was sent for culture. I will defer antibiotics at this time until cultures have returned. I reviewed the radiology report of the CT of the abdomen and pelvis without contrast, and there is no evidence of renal or ureteral stone. His urinalysis was positive for calcium oxalate however. I am unsure if he may have passed a stone. There is no bladder mass. At this point in time, I feel he be discharged to continue follow-up with urology. I did have a discussion with the patient and he states that he has been using Aquaphor/Vaseline on the tip of his urethra because sometimes he only has burning after urination, but other times he has constant burning and has been dealing with this for approximately 1 month. I did offer to perform a chaperoned exam of his penis/urethra, but he declined. I do not feel he requires/meets any observation criteria at this time. He will follow-up with his primary care provider and his urologist who he is already seen within the last week regarding this problem. As there is no evidence of an emergent condition currently, I feel he can be discharged to follow-up. Return instructions to the emergency department reviewed. Disposition is discharged home in stable condition. History & Record Review Discussion w/independent historian: Patient and Family Lab Data Attestation: I reviewed the patient's lab results. Labs: Laboratory Results - last 24 hr 02/06/24 02/06/24 10:20 10:29 WBC 10.0 RBC 4.32 L Hgb 11.2 L Hct 35.4 L MCV 81.9 MCH 25.9 L MCHC 31.6 L RDW Std Deviation 46.5 H RDW Coeff of Yovana 15.5 H Plt Count 193 MPV 10.2 Immature Gran % (Auto) 1.400 H Neut % (Auto) 75.3 H Lymph % (Auto) 15.5 L [place] % (Auto) 6.5 Eos % (Auto) 0.9 Baso % (Auto) 0.4 Absolute Neuts (auto) 7.5 Absolute Lymphs (auto) 1.54 Nucleated RBC % 0 Sodium 139 Potassium 3.3 L Chloride 107 Carbon Dioxide 27.0 Anion Gap 5 BUN 15 Creatinine 1.62 H Estim Creat Clear Calc 32.87 Est GFR (MDRD) Af Amer 53 L Est GFR (MDRD) Non-Af 44 L BUN/Creatinine Ratio 9.3 L Glucose 123 H Calcium 9.1 Urine Color Kristine Urine Clarity Clear Urine pH 6.0 Ur Specific Oakley 1.020 Urine Protein 100 H Urine Glucose (UA) Normal Urine Ketones Negative Urine Occult Blood 50 H Urine Nitrite Negative Urine Bilirubin Negative Urine Urobilinogen 8 H Ur Leukocyte Esterase 25 H Urine RBC 0 SEEN Urine WBC 5-10 SEEN Ur Squamous Epith Cells 0 SEEN Calcium Oxalate Crystal 1+ Amorphous Sediment 2+ URATE Urine Bacteria 0 SEEN Hyaline Casts 5-10 SEEN Fine Granular Casts 5-10 SEEN Coarse Granular Casts 0-5 SEEN Urine Mucus 2+ Radiography Diagnostic Testing: Clinical Impression(s) from Imaging Studies Abdomen/Pelvis CT 02/06/24 10:19 IMPRESSION: No renal or ureteral stone. Moderate hiatal hernia. Sigmoid diverticulosis without diverticulitis. Electronically Signed: Lucio Granger MD at 11:29 EST Reading Location ID and State: [address] [place] [address] Tel , Service support , Discharge Plan Triage Chief Complaint: Complaint ED Provider: Rocael Mccormick Dx/Rx/DC Orders Clinical Impression: Dysuria, Hematuria Instructions: ED Dysuria, Uncertain Cause (Adult), ED Hematuria, ED Pain, Acute, Uncertain Cause Prescriptions: No Action escitalopram oxalate 20 mg tablet 20 mg PO DAILY levothyroxine 88 mcg tablet 88 mcg PO DAILY doxepin 50 mg capsule 50 mg PO DAILY cholecalciferol (vitamin D3) 1,250 mcg (50,000 unit) capsule 1,250 mcg PO MO Qty: 12 3RF amiodarone 200 mg tablet 200 mg PO DAILY Qty: 90 3RF methylprednisolone [Medrol (Manjit)] 4 mg tablets,dose pack See Rx Instructions PO PER PKG DIR Qty: 21 0RF Rx Instructions: PO PER PKG DIR pantoprazole 40 mg tablet,delayed release (DR/EC) 40 mg PO BID 90 Days Qty: 180 1RF budesonide 3 mg capsule,delayed,extend.release 3 mg PO QAM Qty: 30 0RF pantoprazole 40 mg Tablet,Delayed Release (Dr/Ec) 40 mg PO DAILY rosuvastatin 40 mg tablet 40 mg PO DAILY furosemide 20 mg tablet 20 mg PO QWEEK PRN (Reason: edema) magnesium 200 mg tablet 400 mg PO DAILY Eliquis 5 mg tablet 5 mg PO BID Qty: 180 3RF metoprolol tartrate 25 mg tablet 12.5 mg PO DAILY Qty: 45 3RF amlodipine 2.5 mg tablet 2.5 mg PO DAILY Qty: 90 3RF potassium chloride [Klor-Con M20] 20 mEq tablet,ER particles/crystals 20 meq PO DAILY Qty: 90 3RF Primary Care Provider: Marcelino Ferguson Chi Referrals: Cooper Linda MD [Med Staff - Active Staff] - 3-5 Days Marcelino Ferguson Chi, MD [Primary Care Provider] - 3-5 Days Activity Restrictions/Additional Instructions: Return with fever, increased pain, increased hematuria, new or worsening symptoms. Follow-up with urology early next week. Print Language: Spanish Disposition Disposition: Home, Self Care
[2024-02-06 10:37] LABS: Bacteria 0 SEEN /hpf (None Seen); Red Blood Cells-Urine 0 SEEN /hpf (0-5); Squamous Epithelial Cells - UA 0 SEEN /hpf (0-5)
[2024-02-06 10:53] LABS: Absolute Lymphocyte Count 1.54 X10^3/uL (0.83-4.51); Absolute Neutrophil Count 7.5 X10^3/uL (2.0-7.7); Basophil# 0.04 X10^3/uL; Basophil% 0.4 % (0-1); Eosinophil# 0.09 X10^3/uL; Eosinophils% 0.9 % (0-5); Hematocrit 35.4 % (40-54); Hemoglobin 11.2 g/dL (13.0-16.5); Lymphocyte # 1.54 X10^3/ul (0.83-4.51); Lymphocyte % 15.5 % (19-41); Mean Corp Hgb Conc 31.6 g/dL (32-36); Mean Corpuscular Hgb 25.9 pg (27.0-32.0); Mean Corpuscular Volume 81.9 fL (80-94); Mean Platelet Vol. 10.2 fl (6.2-12.0); Monocyte# 0.65 X10^3/uL; Monocyte% 6.5 % (0-10); NRBC Flagged by Analyzer 0 % (0-5); Neutrophil % 75.3 % (47-70); Platelet Count 193 K/mm3 (150-450); RBC Distribution Width CV 15.5 % (11.6-14.6); RBC Distribution Width SD 46.5 fl (35.1-43.9); Red Blood Count 4.32 M/mm3 (4.6-6.2)
[2024-02-06 10:54] LABS: Anion Gap 5 (5-15); BUN 15 mg/dL (7-18); BUN/Creat Ratio 9.3 RATIO (10-20); Calcium,Total 9.1 mg/dL (8.5-10.1); Chloride 107 mmol/L (98-107); Creatinine, Serum 1.62 mg/dL (0.70-1.30); EST Glomerular Filtration Rate 44 mL/min (>60); Est Glom Filt Rate - Afr Amer 53 mL/min (>60); Estimated Creatinine Clearance 32.87 ml/min; Glucose 123 mg/dL (74-106); Potassium 3.3 mmol/L (3.5-5.1); Sodium Level 139 mmol/L (136-145)
[2024-02-06 11:04] LABS: Color, Urine Amber (Yellow); Glucose, Dipstick Normal (Normal); Ketone-Dipstick Negative (Negative); Leukocyte Esterase-Dipstick 25 /ul (Negative); Nitrite-Dipstick Negative (Negative); Occult Blood-Urine 50 /ul (Negative); Protein-Dipstick 100 mg/dl (Negative); Urine Bilirubin Dipstick Negative (Negative); Urine Clarity Clear (Clear); Urine Urobilinogen 8 mg/dl (Normal)
[2024-02-06 11:34] LABS: Hyaline Cast 5-10 SEEN /lpf (0-5)
[2024-02-06 11:35] LABS: Coarse Granular Cast 0-5 SEEN /lpf (0-5 /lpf); Fine Granular Cast- Urine 5-10 SEEN /lpf (0-5)
[2024-02-06 11:36] LABS: Calcium Oxalate Crystals Ur 1+ /hpf (<or=2+); Mucous, Urine 2+ /hpf (<or=2+)
[2024-02-06 11:37] LABS: Amorphous Sediment 2+ URATE; White Blood Cells 5-10 SEEN /hpf (0-5)
[2024-02-06 11:54] VITALS: BP 147/67; PULSE 68; RESP 16; O2SAT 97
[2024-02-06 13:07] VITALS: BP 138/62; PULSE 70; RESP 15; TEMP 36.6; O2SAT 99
== END 2024-02-06 13:23 | disposition home or self-care (01) ==
PROVIDERS: Emergency Provider Emergency Medicine; PCP Family Medicine Geriatric Medicine; Visit Provider Emergency Medicine
DX: R30.0 Dysuria (principal); I11.0 Hypertensive heart disease with heart failure; I50.9 Heart failure, unspecified; I48.91 Unspecified atrial fibrillation; Z87.891 Personal history of nicotine dependence; E78.2 Mixed hyperlipidemia; I25.10 Atherosclerotic heart disease of native coronary artery without angina pectoris; Z95.2 Presence of prosthetic heart valve; Z79.01 Long term (current) use of anticoagulants; R31.0 Gross hematuria; K21.9 Gastro-esophageal reflux disease without esophagitis
CPT/HCPCS: 74176; 80048; 81001; 85025; 87086; 99283; A4216

== ENCOUNTER → 2024-02-24 | Outpatient (CLI) | payer MEDICARE, OTHER, SELFPAY ==
[2024-02-24 10:16] LABS: Absolute Lymphocyte Count 2.73 X10^3/uL (0.83-4.51); Absolute Neutrophil Count 4.3 X10^3/uL (2.0-7.7); Basophil# 0.03 X10^3/uL; Basophil% 0.4 % (0-1); Eosinophil# 0.35 X10^3/uL; Eosinophils% 4.4 % (0-5); Hematocrit 38.4 % (40-54); Hemoglobin 12.1 g/dL (13.0-16.5); Lymphocyte # 2.73 X10^3/ul (0.83-4.51); Mean Corp Hgb Conc 31.5 g/dL (32-36); Mean Corpuscular Hgb 26.5 pg (27.0-32.0); Mean Corpuscular Volume 84.2 fL (80-94); Monocyte# 0.58 X10^3/uL; Monocyte% 7.2 % (0-10); NRBC Flagged by Analyzer 0 % (0-5); Neutrophil % 53.5 % (47-70); Platelet Count 297 K/mm3 (150-450); RBC Distribution Width CV 15.6 % (11.6-14.6); Red Blood Count 4.56 M/mm3 (4.6-6.2)
[2024-02-24 10:53] LABS: AST(SGOT) 30 U/L (15-37); Alanine Aminotransfer ALT/SGPT 26 U/L (16-61); Albumin, Serum 3.4 g/dL (3.2-5.0); Alkaline Phosphatase 97 U/L (45-117); Anion Gap 6 (5-15); BUN 13 mg/dL (7-18); BUN/Creat Ratio 8.3 RATIO (10-20); Calcium,Total 9.1 mg/dL (8.5-10.1); Chloride 108 mmol/L (98-107); Creatinine, Serum 1.56 mg/dL (0.70-1.30); EST Glomerular Filtration Rate 46 mL/min (>60); Est Glom Filt Rate - Afr Amer 55 mL/min (>60); Globulin 3.4 g/dL (2.2-4.2); Glucose 116 mg/dL (74-106); Potassium 3.5 mmol/L (3.5-5.1); Protein, Total 6.8 g/dL (6.4-8.2); Sodium Level 140 mmol/L (136-145)
== END | disposition home or self-care (01) ==
LOC: POLAB3 10:00
PROVIDERS: PCP Family Medicine Geriatric Medicine; Visit Provider Family Medicine Geriatric Medicine
DX: I10 Essential (primary) hypertension (principal); E55.9 Vitamin D deficiency, unspecified
CPT/HCPCS: 36415; 80053; 82306; 84443; 85025

== ENCOUNTER → 2024-06-28 | Outpatient (CLI) | payer MEDICARE, OTHER, SELFPAY ==
--- NOTE | 2024-06-28 12:30 | MRI_ITS ---
EXAM: MRI LUMBAR SPINE. CLINICAL HISTORY: Back pain. COMPARISON: Radiographs on 06/04/2024. TECHNIQUE: Axial and sagittal T1 and T2 weighted images were obtained. Fat suppressed images were also obtained. FINDINGS: Moderate diffuse spondylotic changes. Findings are demonstrated by multifocal disc dehydration, disc space narrowing, osteophyte formation and degenerative endplate changes. Mild degenerative levoscoliosis apex at L3. Straightening of the lumbar lordosis, probably muscular spasm. There is normal signal intensity from the visualized bone marrow without evidence of replacement or acute fracture. The conus is unremarkable. Evaluation of the individual levels revealed the following: L5-S1: There is mild diffuse disc bulge. Superimposed broad-based central/right paracentral disc protrusion measuring 4.2 mm. Bilateral facet joint arthropathy and ligamentum flavum hypertrophy. The spinal canal is not narrowed. There is mild bilateral neural foramina narrowing. L4-5: There is grade 1 retrolisthesis measuring 3.5 mm. Mild diffuse disc bulge. Superimposed broad-based right foraminal disc protrusion measuring 4.8 mm. Bilateral ligamentum flavum hypertrophy, more prominent on the right side. The spinal canal is mildly narrowed. There is moderate right and mild left neural foramina narrowing. L3-4: There is mild diffuse disc bulge. Superimposed broad-based left foraminal disc protrusion measuring 2.7 mm. Mild bilateral ligamentum flavum hypertrophy. The spinal canal is not narrowed. There is minimal right and mild left neural foramina narrowing. L2-3: There is mild diffuse disc bulge. Bilateral facet joint arthropathy and ligamentum flavum hypertrophy. The spinal canal is not narrowed. There is no evidence of neural foramina narrowing. L1-2: There is mild diffuse disc bulge. Bilateral facet joint arthropathy and ligamentum flavum hypertrophy. The spinal canal is not narrowed. There is no evidence of neural foramina narrowing. Normal visualized paraspinous soft tissue structures. MRI/Spine Lumbar (Routine) IMPRESSION: 1. Spondylosis. 2. Degenerative disc disease. Reading Location: [place] [id number]
== END | disposition home or self-care (01) ==
LOC: MRI 11:46
PROVIDERS: PCP Family Medicine Geriatric Medicine; Referring Provider Student in an Organized Health Care Education/Training Program; Visit Provider Student in an Organized Health Care Education/Training Program
DX: M54.50 Low back pain, unspecified (principal)
CPT/HCPCS: 72148

== ENCOUNTER → 2024-06-29 | Outpatient (CLI) | payer MEDICARE, OTHER, SELFPAY ==
--- NOTE | 2024-06-29 13:22 | SP.MBSS_ITS ---
Modified Barium Swallow Patient Information Study Date: 06/29/24 Study Time: 13:00 Direct Billable Minutes: 120 Total Minutes procedure & reportin Diagnosis: R05.3 - Chronic cough, R09.A2 - Foreign body sensation in throat Referring Physician: Chrissie Do Medical History: An 83-year-old male presents for a modified barium swallow study to objectively assess swallowing function, as recommended by HUMBRETO Do during his most recent visit on 05/13/24. He is a patient of Dr. Hardy (last seen 01/05/24), originally evaluated for chronic cough, increased phlegm, and a globus sensation. His past medical history includes bovine aortic valve replacement and atrial fibrillation managed with Eliquis. Previous pharmacologic treatment with BID PPI and QAM budesonide was ineffective, effectively ruling out EoE; food allergy testing was negative. The patient continues to report a persistent cough triggered by a tickling sensation in the upper throat. ENT evaluation by Dr. Wellington, including naso- and oropharyngeal scoping, was unremarkable. He notes frequent sinus drainage and a history of histamine nasal spray use, though he is not using it currently. He denies dysphagia, odynophagia, heartburn, reflux, nausea, vomiting, bloating, cramping, constipation, diarrhea, hematochezia, or melena. HUMBERTO Do recommended assessment of swallowing function with video and consideration of an EGD. Patient to follow up in office with results. Dentition: Upper Dentures, Lower Dentures and Partials Mental Status: WNL Respiratory Status: Oxygenating on Room Air Penetration-Aspiration Scale Penetration-Aspiration Scale: OBJECTIVE ASSESSMENT OF SWALLOW FUNCTION (QUANTITATIVE ? PER TRIAL): PENETRATION / ASPIRATION SCALE (JAMISON): 1 = does not enter airway 2 = enters airway/above vocal folds/ejected 3 = enters airway/above vocal folds/not ejected 4 = enters airway/contacts vocal folds/ejected 5 = enters airway/contacts vocal folds/not ejected 6 = enters airway/below vocal folds/ejected 7 = enters airway/below vocal folds/not ejected despite effort 8 = enters airway/below vocal folds/no effort VIDEOFLOROSCOPIC SCALE SCORE (JAMISON): Grade I = aspiration of material that has penetrated into the laryngeal vestibule, intact cough reflex Grade II = aspiration < 10 % of the bolus, intact cough reflex Grade III = aspiration of < 10 % of the bolus, reduced cough reflex or aspiration of > 10 % of the bolus, intact cough reflex Grade IV = aspiration of > 10 % of the bolus, reduced cough reflex Penetration-Aspiration Scale Score Thin Liquid via teaspoon: Result: 1= does not enter airway Thin Liquid via large single sip: cup: Result: 2= enter airway/above vocal folds/ejected Thin Liquid via small single sip: cup Effortful swallow: Result: 5= enters airways/contacts vocal folds/not ejected Thin Liquid via small single sip: cup: Result: 1= does not enter airway Thin Liquid via small single sip: cup Trial 2: Result: 1= does not enter airway Pudding: Result: 1= does not enter airway Thin Liquid via large single sip: cup Trial 2: Result: 3= enters airways/above vocal folds/not ejected Thin Liquid via small single sip: cup Trial 3: Result: 1= does not enter airway Thin Liquid via single sip: straw: Result: 3= enters airways/above vocal folds/not ejected Thin Liquid via single sip: straw Trial 2: Result: 1= does not enter airway Oral Phase Labial Seal: No Labial Escape Tongue Control During Bolus Hold: Posterior escape of less than half of bolus Bolus Preparation/Mastication: Slow prolonged chewing/mashing with complete recollection Bolus Transport/Lingual Motion: Brisk tongue motion Oral Residue: Complete oral clearance Pharyngeal Phase Initiation of Pharyngeal Swallow: Bolus head in pyriforms Soft Palate Elevation: No bolus between soft palate and pharyngeal wall Laryngeal Elevation: Partial superior movement thyroid cart/partial apprx aryt- epig petiole Anterior Hyoid Excursion: Partial anterior movement Epiglottic Movement: Complete inversion Laryngeal Vestibule Closure at Height of Swallow: Incomplete; narrow column of air/contrast in laryngeal vestibule Pharyngeal Stripping Wave: Present - diminished Pharyngoesophageal Segment Opening: Parital distension and partial duration; parital obstruction of flow Tongue Base Retraction: Trace column of contrast between tongue base & post. pharyngeal wall Pharyngeal Residue: Complete pharyngeal clearance Esophageal Phase Esophageal Clearance: Esophageal retention w/ retrograde flow below pharyngoesophageal seg. Diagnosis/Impression Diagnosis: pharyngoesophageal dysphagia R13.14 Impression: The patient presents with mild pharyngoesophageal dysphagia. They demonstrate adequate bolus control, with no signs of penetration or aspiration when drinking thin liquids by teaspoon or when instructed to take small sips. However, when the [employer]ION[employer] instructed the patient to take their normal sip size, penetration to the vocal cords was observed, which was not ejected, likely due to delayed pharyngeal onset timing. The penetration is attributed to a delayed pharyngeal onset, with the bolus in the pyriform sinuses at the start of the swallow. Additionally, decreased laryngeal elevation and reduced anterior hyoid excursion were noted during the swallow, along with limited UES opening. Poor esophageal motility was observed, with retrograde flow, which slightly improved with a liquid wash. The B[employer]INGUAL MEDICAL RECEPTIONIST provided education on reflux precautions, including sitting upright and remaining upright for 15-30 minutes after meals. The patient is advised to continue follow-up with GI for further intervention. Recommendations Diet: Regular Textures and Thin Liquids Compensatory Strategies: Small Bites, Small Sips, Slow Rate, Multiple Swallows, Alternate bites/solids and sips/liquids, Sitting upright and Remain sitting upright for 30 minutes after PO intake Recommend Repeat Modified Barium Swallow: TBD Need for Skilled Speech Therapy Services: Yes Comment: The patient would benefit from outpatient speech therapy services to focus on compensatory swallowing strategies and to receive instruction on oropharyngeal strengthening exercises. Recommended Referrals: GI Consult Education Completed: 1. Described result of evaluation. and 2. Pt understands evaluation & agrees with goals and treatment plan. Status Active ST Patient: Active Contact Information [facility] Speech Therapy:: Claudia Mancilla M.A. [facility] Speech-Language Pathologist [facility] [address] [place] [address] [email or web address] [phone]
== END | disposition home or self-care (01) ==
LOC: RAD 12:37
PROVIDERS: PCP Family Medicine Geriatric Medicine
DX: R09.A2 Foreign body sensation, throat (principal); R05.3 Chronic cough
CPT/HCPCS: 74230; 92611

== ENCOUNTER → 2024-07-26 | Outpatient (CLI) | payer MEDICARE, OTHER, SELFPAY | END | disposition home or self-care (01) | PROVIDERS: PCP Family Medicine Geriatric Medicine; Referring Provider Family Medicine Geriatric Medicine; Visit Provider Family Medicine Geriatric Medicine | DX: R50.9 Fever, unspecified (principal) | CPT/HCPCS: 87631 ==

== ENCOUNTER → 2024-08-16 | Outpatient (CLI) | payer MEDICARE, OTHER, SELFPAY ==
[2024-08-16 13:29] LABS: ALB/GLOB Ratio 1.9 RATIO (0.9-2.4); AST(SGOT) 31 U/L (<=37); Alanine Aminotransfer ALT/SGPT 33 U/L (<=46); Albumin, Serum 3.9 g/dL (3.4-4.8); Alkaline Phosphatase 71 U/L (40-129); Anion Gap 10 (5-15); BUN 20 mg/dL (4-19); BUN/Creat Ratio 12.4 RATIO (10-20); Carbon Dioxide 24.2 mmol/L (21.0-32.0); Chloride 104 mmol/L (98-108); EST Glomerular Filtration Rate 43 (>60); Globulin 2.1 g/dL (2.2-4.2); Glucose 102 mg/dL (70-99); Potassium 3.9 mmol/L (3.3-5.1); Sodium Level 138 mmol/L (133-145); Vitamin D,25 Hydroxy 57.1 ng/mL (30-100)
[2024-08-16 14:05] LABS: Absolute Lymphocyte Count 1.22 X10^3/uL (0.83-4.51); Absolute Neutrophil Count 5.4 X10^3/uL (2.0-7.7); Basophil# 0.02 X10^3/uL; Basophil% 0.3 % (0-1); Eosinophil# 0.11 X10^3/uL; Eosinophils% 1.5 % (0-5); Hematocrit 36.9 % (40-54); Hemoglobin 11.6 g/dL (13.0-16.5); Lymphocyte # 1.22 X10^3/ul (0.83-4.51); Mean Corp Hgb Conc 31.4 g/dL (32-36); Mean Corpuscular Hgb 24.7 pg (27.0-32.0); Mean Corpuscular Volume 78.7 fL (80-94); Mean Platelet Vol. 9.8 fl (6.2-12.0); Monocyte# 0.42 X10^3/uL; Monocyte% 5.9 % (0-10); NRBC Flagged by Analyzer 0 % (0-5); Neutrophil # 5.37 X10^3/uL (2.7-7.7); Neutrophil % 74.9 % (47-70); Platelet Count 189 K/mm3 (150-450); RBC Distribution Width CV 16.7 % (11.6-14.6); RBC Distribution Width SD 47.2 fl (35.1-43.9); Red Blood Count 4.69 M/mm3 (4.6-6.2); White Blood Count 7.2 K/mm3 (4.4-11.0)
== END | disposition home or self-care (01) ==
LOC: LAB 11:23
PROVIDERS: PCP Family Medicine Geriatric Medicine; Referring Provider Family Medicine Geriatric Medicine; Visit Provider Family Medicine Geriatric Medicine
DX: I10 Essential (primary) hypertension (principal); E55.9 Vitamin D deficiency, unspecified
CPT/HCPCS: 36415; 80053; 82306; 84443; 85025

== ENCOUNTER 2024-08-18 10:00 | Outpatient (RCR) | payer MEDICARE, OTHER, SELFPAY ==
--- NOTE | 2024-07-12 11:19 | ST ---
[facility] Speech Pathology [address] [place] [address] Modified Barium Swallow Study MR#: [id number] Acct: [id number] Name: SUSAN CENTENO Rep #: [id number] : 1940 83 Modified Barium Swallow Patient Information Study Date: 06/29/24 Study Time: 13:00 Direct Billable Minutes: 120 Total Minutes procedure & reportin Diagnosis: R05.3 - Chronic cough, R09.A2 - Foreign body sensation in throat Referring Physician: Chrissie Do Medical History: An 83-year-old male presents for a modified barium swallow study to objectively assess swallowing function, as recommended by HUMBERTO Do during his most recent visit on 05/13/24. He is a patient of Dr. Hardy (last seen 01/05/24), originally evaluated for chronic cough, increased phlegm, and a globus sensation. His past medical history includes bovine aortic valve replacement and atrial fibrillation managed with Eliquis. Previous pharmacologic treatment with BID PPI and QAM budesonide was ineffective, effectively ruling out EoE; food allergy testing was negative. The patient continues to report a persistent cough triggered by a tickling sensation in the upper throat. ENT evaluation by Dr. Wellington, including naso- and oropharyngeal scoping, was unremarkable. He notes frequent sinus drainage and a history of histamine nasal spray use, though he is not using it currently. He denies dysphagia, odynophagia, heartburn, reflux, nausea, vomiting, bloating, cramping, constipation, diarrhea, hematochezia, or melena. HUMBERTO Do recommended assessment of swallowing function with video and consideration of an EGD. Patient to follow up in office with results. Dentition: Upper Dentures, Lower Dentures and Partials Mental Status: WNL Respiratory Status: Oxygenating on Room Air Penetration-Aspiration Scale Penetration-Aspiration Scale: OBJECTIVE ASSESSMENT OF SWALLOW FUNCTION (QUANTITATIVE ? PER TRIAL): PENETRATION / ASPIRATION SCALE (JAMISON): 1 = does not enter airway 2 = enters airway/above vocal folds/ejected 3 = enters airway/above vocal folds/not ejected 4 = enters airway/contacts vocal folds/ejected 5 = enters airway/contacts vocal folds/not ejected 6 = enters airway/below vocal folds/ejected 7 = enters airway/below vocal folds/not ejected despite effort 8 = enters airway/below vocal folds/no effort VIDEOFLOROSCOPIC SCALE SCORE (JAMISON): Grade I = aspiration of material that has penetrated into the laryngeal vestibule, intact cough reflex Grade II = aspiration < 10 % of the bolus, intact cough reflex Grade III = aspiration of < 10 % of the bolus, reduced cough reflex or aspiration of > 10 % of the bolus, intact cough reflex Grade IV = aspiration of > 10 % of the bolus, reduced cough reflex Penetration-Aspiration Scale Score Thin Liquid via teaspoon: Result: 1= does not enter airway Thin Liquid via large single sip: cup: Result: 2= enter airway/above vocal folds/ejected Thin Liquid via small single sip: cup Effortful swallow: Result: 5= enters airways/contacts vocal folds/not ejected Thin Liquid via small single sip: cup: Result: 1= does not enter airway Thin Liquid via small single sip: cup Trial 2: Result: 1= does not enter airway Pudding: Result: 1= does not enter airway Thin Liquid via large single sip: cup Trial 2: Result: 3= enters airways/above vocal folds/not ejected Thin Liquid via small single sip: cup Trial 3: Result: 1= does not enter airway Thin Liquid via single sip: straw: Result: 3= enters airways/above vocal folds/not ejected Thin Liquid via single sip: straw Trial 2: Result: 1= does not enter airway Oral Phase Labial Seal: No Labial Escape Tongue Control During Bolus Hold: Posterior escape of less than half of bolus Bolus Preparation/Mastication: Slow prolonged chewing/mashing with complete recollection Bolus Transport/Lingual Motion: Brisk tongue motion Oral Residue: Complete oral clearance Pharyngeal Phase Initiation of Pharyngeal Swallow: Bolus head in pyriforms Soft Palate Elevation: No bolus between soft palate and pharyngeal wall Laryngeal Elevation: Partial superior movement thyroid cart/partial apprx aryt-epig petiole Anterior Hyoid Excursion: Partial anterior movement Epiglottic Movement: Complete inversion Laryngeal Vestibule Closure at Height of Swallow: Incomplete; narrow column of air/contrast in laryngeal vestibule Pharyngeal Stripping Wave: Present - diminished Pharyngoesophageal Segment Opening: Parital distension and partial duration; parital obstruction of flow Tongue Base Retraction: Trace column of contrast between tongue base & post. pharyngeal wall Pharyngeal Residue: Complete pharyngeal clearance Esophageal Phase Esophageal Clearance: Esophageal retention w/ retrograde flow below pharyngoesophageal seg. Diagnosis/Impression Diagnosis: pharyngoesophageal dysphagia R13.14 Impression: The patient presents with mild pharyngoesophageal dysphagia. They demonstrate adequate bolus control, with no signs of penetration or aspiration when drinking thin liquids by teaspoon or when instructed to take small sips. However, when the ROUNDHOUSE WORKER instructed the patient to take their normal sip size, penetration to the vocal cords was observed, which was not ejected, likely due to delayed pharyngeal onset timing. The penetration is attributed to a delayed pharyngeal onset, with the bolus in the pyriform sinuses at the start of the swallow. Additionally, decreased laryngeal elevation and reduced anterior hyoid excursion were noted during the swallow, along with limited UES opening. Poor esophageal motility was observed, with retrograde flow, which slightly improved with a liquid wash. The ROUNDHOUSE WORKER provided education on reflux precautions, including sitting upright and remaining upright for 15-30 minutes after meals. The patient is advised to continue follow-up with GI for further intervention. Recommendations Diet: Regular Textures and Thin Liquids Compensatory Strategies: Small Bites, Small Sips, Slow Rate, Multiple Swallows, Alternate bites/solids and sips/liquids, Sitting upright and Remain sitting upright for 30 minutes after PO intake Recommend Repeat Modified Barium Swallow: TBD Need for Skilled Speech Therapy Services: Yes Comment: The patient would benefit from outpatient speech therapy services to focus on compensatory swallowing strategies and to receive instruction on oropharyngeal strengthening exercises. Recommended Referrals: GI Consult Education Completed: 1. Described result of evaluation. and 2. Pt understands evaluation & agrees with goals and treatment plan. Status Active ST Patient: Active Contact Information [facility] Speech Therapy:: Claudia Mancilla M.A. [facility] Speech-Language Pathologist [facility] [address] [place] [address] [email or web address] [phone]
--- NOTE | 2024-07-12 11:55 | HP.SP.EVAL ---
Visit History Visit Info Date of Eval: 07/09/24 Visit: 1 Patient's Approved Number of Visits: 10 Insurance Date Limit: 03/16/25 Outside Event Sales Specialist: MICHAEL Echavarria Attending Doctor: ALEJANDRO Referring Doctor: ALEJANDRO Reason for Referral: PHARYNGOESOPHAGEAL DYSPHAGIA. RX HERE Other Relevant Medical History/Diagnoses/Surgery: SUSAN CENTENO is an 83 year old male [facility] d/t concerns with pharyngoesophageal dysphagia. He attended the session with his , Daniela, who helped serve as historian. Susan recently participated in an MBSS (see results below) and is attending outpatient speech therapy for further education about the results along with education on exercises to improve pharyngoesophageal function. Susan reports a globus sensation after eating along with a tickle in his throat. He receives allergy shots and also takes an allergy med to assist in environmental allergies. Pt reporting that he received blood work which reported no presence of EOE. He has not participated in an upper endoscopy to test esophageal tissue to confirm EOE. Pt reporting that he feels mucous in his throat throughout the day as well which may be post nasal drip but this has not been confirmed by ENT. ENT evaluation by Dr. Wellington, including naso- and oropharyngeal scoping, was unremarkable. Smoking Status: Former smoker Diagnosis Diagnosis: Pharyngoesophageal Dysphagia (R13.14) Pain Is pain an issue with your current prescribed condition?: No Personal Preferred language: Kiswahili Patient Allergies Allergies Allergies: Allergies Sulfa (Sulfonamide Antibiotics) Allergy (Verified 07/08/24 09:35) Rash codeine Adverse Reaction (Verified 07/08/24 09:35) Other GOOFY Subjective Dysphagia Symptoms Reported Symptoms/Problems with: Coughing and Food gets stuck Current Diet Solids Current Diet: Regular Current Diet Liquids Current Liquids: Thin Comments Education: -: In depth education provided re: results of MBSS previously completed with results shown above. Education provided on swallowing strategies to include during meal time and in between to assist with reducing mucous. Education also provided re: potential further testing with GI that could be helpful in further identifying esophageal function (e.g., esophageal manometry, esophagram). Reviewed that confirming with GI if an upper scope with multiple esophageal tissue samples would be beneficial to actually determine presence of EOE if symptoms persist after participating in home exercise program. Also discussed potential for participation in FEES in the future to visualize the larynx while Pt is reporting symptoms of globus sensation along with tickle feeling. Education also provided re: GERD and how he may be refluxing above the UES which could be causing some of his coughing. We also discussed GERD precautions as well. Pt and Pt's showing understanding of all education provided during the evaluation this date. Objective Dysphagia Recommendations Swallowing Treatment: Yes Diet Texture Recommendations Solids: Regular (Level 7) Liquids: Thin (Level 0) Safety Saftey Precautions/Swallowing Recommendations (Check all that Apply): Alternate Liquids & Solids Other: SMALL BITES SMALL SIPS ALTERNATE ONE BITE AND ONE DRINK A LIQUID WASH UTILIZE SIPS OF WARM WATER TO HELP CLEAR MUCOUS VS. USING THROAT CLEARING Results Swallowing Diagnosis: Pharyngoesophageal Phase Dysphagia (R13.14) Severity: Mild Modified Barium Results Hx If Applicable Enter into a NOTE MBS Report Entered: Yes MBS Results (from prior exam): 07/12/24 11:19 Speech Therapy by Danica Ramirez [facility] Speech Pathology [address] [place] [id number] Modified Barium Swallow Study MR#: [id number] Acct: [id number] Name: SUSAN CENTENO ARIANAALIYAH Rep #: [id number] : 1940 83 Modified Barium Swallow Patient Information Study Date: 06/29/24 Study Time: 13:00 Direct Billable Minutes: 120 Total Minutes procedure & reportin Diagnosis: R05.3 - Chronic cough, R09.A2 - Foreign body sensation in throat Referring Physician: Chrissie Do Medical History: An 83-year-old male presents for a modified barium swallow study to objectively assess swallowing function, as recommended by HUMBERTO Do during his most recent visit on 05/13/24. He is a patient of Dr. Hardy (last seen 01/05/24), originally evaluated for chronic cough, increased phlegm, and a globus sensation. His past medical history includes bovine aortic valve replacement and atrial fibrillation managed with Eliquis. Previous pharmacologic treatment with BID PPI and QAM budesonide was ineffective, effectively ruling out EoE; food allergy testing was negative. The patient continues to report a persistent cough triggered by a tickling sensation in the upper throat. ENT evaluation by Dr. Wellington, including naso- and oropharyngeal scoping, was unremarkable. He notes frequent sinus drainage and a history of histamine nasal spray use, though he is not using it currently. He denies dysphagia, odynophagia, heartburn, reflux, nausea, vomiting, bloating, cramping, constipation, diarrhea, hematochezia, or melena. HUMBERTO Do recommended assessment of swallowing function with video and consideration of an EGD. Patient to follow up in office with results. Dentition: Upper Dentures, Lower Dentures and Partials Mental Status: WNL Respiratory Status: Oxygenating on Room Air Penetration-Aspiration Scale Penetration-Aspiration Scale: OBJECTIVE ASSESSMENT OF SWALLOW FUNCTION (QUANTITATIVE ? PER TRIAL): PENETRATION / ASPIRATION SCALE (JAMISON): 1 = does not enter airway 2 = enters airway/above vocal folds/ejected 3 = enters airway/above vocal folds/not ejected 4 = enters airway/contacts vocal folds/ejected 5 = enters airway/contacts vocal folds/not ejected 6 = enters airway/below vocal folds/ejected 7 = enters airway/below vocal folds/not ejected despite effort 8 = enters airway/below vocal folds/no effort VIDEOFLOROSCOPIC SCALE SCORE (JAMISON): Grade I = aspiration of material that has penetrated into the laryngeal vestibule, intact cough reflex Grade II = aspiration < 10 % of the bolus, intact cough reflex Grade III = aspiration of < 10 % of the bolus, reduced cough reflex or aspiration of > 10 % of the bolus, intact cough reflex Grade IV = aspiration of > 10 % of the bolus, reduced cough reflex Penetration-Aspiration Scale Score Thin Liquid via teaspoon: Result: 1= does not enter airway Thin Liquid via large single sip: cup: Result: 2= enter airway/above vocal folds/ejected Thin Liquid via small single sip: cup Effortful swallow: Result: 5= enters airways/contacts vocal folds/not ejected Thin Liquid via small single sip: cup: Result: 1= does not enter airway Thin Liquid via small single sip: cup Trial 2: Result: 1= does not enter airway Pudding: Result: 1= does not enter airway Thin Liquid via large single sip: cup Trial 2: Result: 3= enters airways/above vocal folds/not ejected Thin Liquid via small single sip: cup Trial 3: Result: 1= does not enter airway Thin Liquid via single sip: straw: Result: 3= enters airways/above vocal folds/not ejected Thin Liquid via single sip: straw Trial 2: Result: 1= does not enter airway Oral Phase Labial Seal: No Labial Escape Tongue Control During Bolus Hold: Posterior escape of less than half of bolus Bolus Preparation/Mastication: Slow prolonged chewing/mashing with complete recollection Bolus Transport/Lingual Motion: Brisk tongue motion Oral Residue: Complete oral clearance Pharyngeal Phase Initiation of Pharyngeal Swallow: Bolus head in pyriforms Soft Palate Elevation: No bolus between soft palate and pharyngeal wall Laryngeal Elevation: Partial superior movement thyroid cart/partial apprx aryt-epig petiole Anterior Hyoid Excursion: Partial anterior movement Epiglottic Movement: Complete inversion Laryngeal Vestibule Closure at Height of Swallow: Incomplete; narrow column of air/contrast in laryngeal vestibule Pharyngeal Stripping Wave: Present - diminished Pharyngoesophageal Segment Opening: Parital distension and partial duration; parital obstruction of flow Tongue Base Retraction: Trace column of contrast between tongue base & post. pharyngeal wall Pharyngeal Residue: Complete pharyngeal clearance Esophageal Phase Esophageal Clearance: Esophageal retention w/ retrograde flow below pharyngoesophageal seg. Diagnosis/Impression Diagnosis: pharyngoesophageal dysphagia R13.14 Impression: The patient presents with mild pharyngoesophageal dysphagia. They demonstrate adequate bolus control, with no signs of penetration or aspiration when drinking thin liquids by teaspoon or when instructed to take small sips. However, when the GUIDE TRAVEL instructed the patient to take their normal sip size, penetration to the vocal cords was observed, which was not ejected, likely due to delayed pharyngeal onset timing. The penetration is attributed to a delayed pharyngeal onset, with the bolus in the pyriform sinuses at the start of the swallow. Additionally, decreased laryngeal elevation and reduced anterior hyoid excursion were noted during the swallow, along with limited UES opening. Poor esophageal motility was observed, with retrograde flow, which slightly improved with a liquid wash. The GUIDE TRAVEL provided education on reflux precautions, including sitting upright and remaining upright for 15-30 minutes after meals. The patient is advised to continue follow-up with GI for further intervention. Recommendations Diet: Regular Textures and Thin Liquids Compensatory Strategies: Small Bites, Small Sips, Slow Rate, Multiple Swallows, Alternate bites/solids and sips/liquids, Sitting upright and Remain sitting upright for 30 minutes after PO intake Recommend Repeat Modified Barium Swallow: TBD Need for Skilled Speech Therapy Services: Yes Comment: The patient would benefit from outpatient speech therapy services to focus on compensatory swallowing strategies and to receive instruction on oropharyngeal strengthening exercises. Recommended Referrals: GI Consult Education Completed: 1. Described result of evaluation. and 2. Pt understands evaluation & agrees with goals and treatment plan. Status Active ST Patient: Active Contact Information [facility] Speech Therapy:: Claudia Mancilla M.A. [facility] Speech-Language Pathologist [facility] [address] [place] [address] [email or web address] [phone] Initialized on 07/12/24 11:19 - END OF NOTE Swallowing Performance Scale Swallowing Performance Scale Swallowing Performance Scale Result: 3 Mild Reference: Neuro-QoL instrument Radiation Oncology Patient Plan Plan Plan: Will rx Pt for skilled outpatient tx to address deficits in pharyngoesophageal dysphagia. Pt would benefit from training and education re: diet tolerance checks, swallowing compensatory strategies, and swallowing exercises to aid in pharyngoesophageal strengthening. Without skilled intervention, Pt is at risk for consuming a restrictive diet putting him at risk for aspiration pneumonia and atrophy of laryngeal musculature. Pending participation in strengthening exercises, Pt may also benefit from participating in further instrumental evaluation with FEES to objectively assess swallow function and progress with exercises. Recommendations Treatment Warranted: Yes Treatment Warranted: Dysphagia Progress Prognosis: Excellent Frequency Frequency: Monthly Duration: 3 Months Patient/Family Goal Patient/Family Goal: To reduce dysphagia symptoms Goals that are Established Determination:: Goals will be added/modified as deemed necessary and appropriate. Therapy will be discontinued when results of re-evaluation indicate therapy is no longer needed or lack of progress has been documented. Goal #1-5 Goal #1: Susan will complete pharyngoesophageal strengthening exercises for 10 reps, 2x/day for four weeks with a home exercise program. Goal #2: Susan will show understanding of safe swallowing strategies to implement during meal time via independent teachback across one treatment session. Goal #3: Susan will participate in fiberoptic endoscopic evaluation of swallow (FEES) to objectively assess swallow function pending report of symptoms following participation in home exercise program. Education Patient has Indicated that the Following Identified Educational Needs: None The Patient has indicated that they have no educational or learning abilities that may effect their care.: Yes Patient Instruction Patient Education: Diagnosis and Treatment Plan Person Taught: Patient and Family Teaching Method: Discussion and Demonstration Response to teaching: Return Demonstration and Verbalize Understanding
--- NOTE | 2024-08-18 10:23 | HP.SP.DC_ITS ---
ST Discharge Summary Discharged: Discharge: VANESSA CENTENO is an 83 year old male who was seen for initial speech therapy dysphagia evaluation at [facility] on 07/09/24 secondary to dx of oropharyngeal dysphagia. Pt attended initial evaluation along with two treatment sessions to discuss pharyngeal exercises along with mealtime modifications to assist with reducing dysphagia symptoms. Pt is appropriate for d/c on this date d/t showing understanding of strengthening exercise program and reporting decrease in symptoms at home. Pt opted to forgo the follow-up instrumental evaluation at this time d/t significant improvement in symptoms. Thank you for allowing me to participate in the care of your Pt. Will reevaluate at Pt?s request following script from physician.
== END 2024-08-18 19:00 | disposition home or self-care (01) ==
LOC: SP 10:00
PROVIDERS: PCP Family Medicine Geriatric Medicine
DX: R13.14 Dysphagia, pharyngoesophageal phase (principal)
CPT/HCPCS: 92526; 92610

== ENCOUNTER → 2025-02-17 | Outpatient (CLI) | payer MEDICARE, OTHER, SELFPAY ==
[2025-02-17 13:48] LABS: Hematocrit 38.0 % (40-54); Hemoglobin 11.2 g/dL (13.0-16.5); Immature Granulocytes Count 0.030 X10^3/uL (0.0-0.0); Mean Corp Hgb Conc 29.5 g/dL (32-36); Mean Corpuscular Volume 80.0 fL (80-94); Mean Platelet Vol. 10.1 fl (6.2-12.0); NRBC Flagged by Analyzer 0 % (0-5); Platelet Count 221 K/mm3 (150-450); RBC Distribution Width CV 15.7 % (11.6-14.6); RBC Distribution Width SD 45.3 fl (35.1-43.9); Red Blood Count 4.75 M/mm3 (4.6-6.2); White Blood Count 7.6 K/mm3 (4.4-11.0)
[2025-02-17 14:50] LABS: AST(SGOT) 32 U/L (<=37); Alanine Aminotransfer ALT/SGPT 17 U/L (<=46); Albumin, Serum 4.3 g/dL (3.4-4.8); Alkaline Phosphatase 85 U/L (40-129); Anion Gap 13 (5-15); BUN 18 mg/dL (4-19); BUN/Creat Ratio 11.3 RATIO (10-20); Calcium,Total 8.8 mg/dL (7.6-11.0); Carbon Dioxide 24.1 mmol/L (21.0-32.0); Chloride 104 mmol/L (98-108); Globulin 2.1 g/dL (2.2-4.2); Glucose 122 mg/dL (70-99); Potassium 3.9 mmol/L (3.3-5.1); Vitamin D,25 Hydroxy 61.2 ng/mL (30-100)
[2025-02-17 21:28] LABS: Xtra Tube Kwok EXTRA TUBE
== END | disposition home or self-care (01) ==
LOC: POLAB3 13:28
PROVIDERS: PCP Family Medicine Geriatric Medicine; Visit Provider Family Medicine Geriatric Medicine
DX: E03.9 Hypothyroidism, unspecified (principal); E55.9 Vitamin D deficiency, unspecified; E78.5 Hyperlipidemia, unspecified; I10 Essential (primary) hypertension
CPT/HCPCS: 36415; 80053; 82306; 84443; 85025